=== PATIENT | female | born 1950 | race Caucasian/White ===

== ENCOUNTER → 2019-07-19 | Outpatient (CLI) | payer MEDICARE, SELFPAY ==
[2019-07-09 13:00] VITALS: BMI 35.6
--- NOTE | 2019-07-19 11:18 | RAD_ITS ---
STUDY: X-RAY - LUMBAR SPINE REASON FOR EXAM: Female, 68 years old. BILATERAL LEG WEAKNESS AND PAIN, LOW BACK PAIN, HX SCOLIOSIS TECHNIQUE: 5 view(s) of the lumbar spine were obtained. COMPARISON: None FINDINGS: Normal lumbar lordosis. There is a levoscoliosis of the lumbar spine. There is a normal alignment of the vertebrae. There is multilevel endplate spondylosis of the lumbar vertebrae. There is multi-level degenerative disc disease with multi-level disc space narrowing. Facet arthropathy of the L1-S1 level. The attempted oblique views failed to delineate facet detail. There is atherosclerotic calcification of the abdominal aorta without a demonstrated aneurysm. RAD/L/S Spine Min 4 Views IMPRESSION: Multifocal degenerative changes in patient with significant levoscoliosis and facet arthropathy. Consider cross-sectional imaging for better detail. Electronically Signed: Saadia Moya MD at 3:16 EST , Service support ,
[2019-07-19 14:10] LABS: Absolute Neutrophil Count 5.1 X10^3/uL (2.0-7.7); Basophil# 0.05 X10^3/uL; Basophil% 0.7 % (0-1); Eosinophil# 0.28 X10^3/uL; Eosinophils% 3.7 % (0-5); Hematocrit 43.1 % (37-47); Hemoglobin 13.8 g/dL (12.0-15.0); Lymphocyte % 18.4 % (19-41); Mean Corpuscular Hgb 31.9 pg (27.0-32.0); Mean Corpuscular Volume 99.8 fL (81-99); Mean Platelet Vol. 11.1 fl (6.2-12.0); Monocyte# 0.79 X10^3/uL; Monocyte% 10.4 % (0-10); NRBC Flagged by Analyzer 0 % (0-5); Neutrophil # 5.05 X10^3/uL (2.7-7.7); Neutrophil % 66.3 % (47-70); Platelet Count 235 K/mm3 (150-450); RBC Distribution Width CV 13.1 % (11.6-14.6); RBC Distribution Width SD 48.1 fl (35.1-43.9); Red Blood Count 4.32 M/mm3 (4.2-5.4); White Blood Count 7.6 K/mm3 (4.4-11.0)
[2019-07-19 14:30] LABS: ALB/GLOB Ratio 1.1 RATIO (0.9-2.4); AST(SGOT) 16 U/L (15-37); Alanine Aminotransfer ALT/SGPT 23 U/L (13-56); Albumin, Serum 3.7 g/dL (3.2-5.0); Alkaline Phosphatase 99 U/L (45-117); Anion Gap 5 (5-15); BUN 15 mg/dL (7-18); BUN/Creat Ratio 16.3 RATIO (10-20); Calcium,Total 9.2 mg/dL (8.5-10.1); Chloride 110 mmol/L (98-107); Cholesterol 173 mg/dL (200); Creatinine, Serum 0.92 mg/dL (0.55-1.02); EST Glomerular Filtration Rate 64 mL/min (>60); Est Glom Filt Rate - Afr Amer 78 mL/min (>60); Globulin 3.3 g/dL (2.2-4.2); Glucose 84 mg/dL (74-106); High Density Lipoprotein 75 mg/dL; Potassium 3.8 mmol/L (3.5-5.1); Sodium Level 144 mmol/L (136-145); Triglycerides 100 mg/dL; Very Low Density Lipoprotein 20 mg/dL (5-40)
== END | disposition home or self-care (01) ==
LOC: MTLAB 11:18
PROVIDERS: PCP Internal Medicine; Referring Provider Internal Medicine; Visit Provider Internal Medicine
DX: I10 Essential (primary) hypertension (principal); R29.898 Other symptoms and signs involving the musculoskeletal system
CPT/HCPCS: 36415; 72110; 80053; 80061; 85025

== ENCOUNTER 2019-07-27 06:50 | Day surgery (SDC) | payer MEDICARE, SELFPAY ==
[2019-07-09 13:00] VITALS: BMI 35.6
[2019-07-27 07:13] VITALS: BP 106/61; PULSE 76; RESP 16; TEMP 36.9; O2SAT 97; BMI 34.6
[2019-07-27] MEDS: Lactated Ringers 1,000 ML 100 ML IV (07:25)
--- NOTE | 2019-07-27 08:21 | DCINST_ITS ---
Discharge Diet: No Restrictions Discharge Activity: May not drive while taking narcotic pain medications. May resume sexual activity in: 1 week Call your doctor if you observe: Fever of 101 or Higher, Inability to urinate, Inability to have a bowel movement, Calf discomfort, Uncontrolled pain Allergies/Adverse Reactions: Allergies amlodipine [From Norvasc] Allergy (Unknown, Verified 07/27/19 07:00) swelling codeine Allergy (Unknown, Verified 07/27/19 07:00) rash hydrocodone Allergy (Unknown, Verified 07/27/19 07:00) rash memantine [From Namenda] Allergy (Unknown, Verified 07/27/19 07:00) mental fog confusion, foggy thinking Medications to take at Discharge aspirin 81 mg tablet,delayed release 81 mg PO DAILY 07/09/19 carvedilol 6.25 mg tablet 6.25 mg PO BID 07/09/19 cholecalciferol (vitamin D3) 50 mcg (2,000 unit) tablet 2,000 unit PO DAILY 07/09/19 fesoterodine 8 mg tablet,extended release 24 hr 4 mg PO BID 07/09/19 olopatadine 0.1 % eye drops 1 drp OPHTHALMIC BID 07/09/19 oxygen 2 l MISCELLANEOUS QHS 07/09/19 rosuvastatin 20 mg tablet 20 mg PO QHS 07/09/19 theophylline 300 mg tablet,extended release,12 hr 300 mg PO Q12H 07/09/19 Albuterol Inhaler [Ventolin Hfa (SP)] 1 - 2 puff INHALATION Q6H PRN PRN 07/21/19 escitalopram oxalate 20 mg tablet 10 mg PO DAILY #90 tab 07/23/19 omeprazole 40 mg capsule,delayed release 40 mg PO DAILY #90 cap 07/23/19 Primary Care Physician: Roberto Cano MD [Primary Care Provider] - Test Results: Test results from this visit will be discussed in further detail at your follow- up appointment, if applicable. Please Follow Up With: Lynsey Boykin MD When: call for appt to be seen next week
[2019-07-27] MEDS: Cefazolin 2 GM in 0.9% Normal Saline 100 ML IV (08:40)
[2019-07-27 09:04] VITALS: BP 101/70; BP 106/61; PULSE 69; RESP 14; TEMP 36.3; O2SAT 92
[2019-07-27 09:10] VITALS: BP 105/72; BP 106/61; PULSE 67; RESP 16; O2SAT 91
[2019-07-27 09:15] VITALS: BP 100/71; BP 106/61; PULSE 70; RESP 16; O2SAT 92
--- NOTE | 2019-07-27 09:15 | PCM.OPRPT ---
Problem List (1) Urinary urgency Status: Acute (2) Urinary frequency Status: Acute (3) Urgency incontinence Status: Acute (4) Nocturnal enuresis Status: Acute Report of Operation Date of Procedure: 07/27/19 Pre-Operative Diagnosis: Urinary urgency, frequency, urge incontinence and nocturnal enuresis Post-Operative Diagnosis: Same, cystocele, rectocele Surgery/Procedure Performed:: Cystoscopy, pelvic exam under anesthesia Description of Surgical Findings:: Grade 1 cystocele, grade 2 rectocele, no erosion or extrusion of mid urethral sling with good coaptation of the urethra under cystoscopic evaluation Type of Anesthesia:: MAC Description of Procedure: The patient is a 68-year-old female who presented to the office with significant urgency, frequency and incontinence. She desired to proceed with cystoscopy and pelvic exam under anesthesia. She has a history of a previous mid urethral sling insertion. Risks benefits and alternatives were discussed and informed consent was obtained. Patient was taken to the operating room and placed on the operating room table. Anesthesia monitored the head, neck, airway, IV access and vital signs throughout the case. Once anesthesia was appropriately administered the patient was placed into dorsal lithotomy position and was prepped and draped in usual sterile fashion. A pelvic examination revealed a grade 1 cystocele and a grade 2 rectocele with hard stool palpable in the rectal vault. There is no palpable or visible mesh from her mid urethral sling. At this time a cystoscopy was performed with specific attention to the urethra with a 12 degree lens. There is no erosion of the sling into the urethra. There is good coaptation of the urethra at the area of the sling. The urinary bladder revealed no evidence of erythema, mass, ulceration or foreign body. There was mild trabeculation identified. Bilateral ureteral orifices were on the area of the trigone and good clear ureteral jets were observed. At this time the patient's bladder was emptied and the case was terminated. There were no complications during the procedure. She was awakened and taken to the recovery room in good condition. Grafts/Implants Used: None - Complications None - Admit VTE Documentation VTE Present on Admission: Yes VTE Mechan Device Prophylaxis: SCD's VTE Pharm Prophylaxis ordered?: No Reason prophylaxis not ordered:: Treatment Not Indicated
[2019-07-27 09:20] VITALS: BP 106/61; BP 110/69; PULSE 97; RESP 16; TEMP 36.4; O2SAT 93
[2019-07-27 10:11] VITALS: BP 106/61
== END 2019-07-27 10:13 | disposition home or self-care (01) ==
LOC: SDC 06:58 → AC 07:00
PROVIDERS: PCP Internal Medicine; Referring Provider Urology; Visit Provider Urology
PROC: 0TJB8ZZ Inspection of Bladder, Via Natural or Artificial Opening Endoscopic (ICD-10-PCS; CPT 57410; principal; 2019-07-27 08:05)
DX: N81.6 Rectocele (principal); N81.10 Cystocele, unspecified; N39.44 Nocturnal enuresis; N39.41 Urge incontinence; K21.9 Gastro-esophageal reflux disease without esophagitis; K59.03 Drug induced constipation; T50.995A Adverse effect of other drugs, medicaments and biological substances, initial encounter; E78.00 Pure hypercholesterolemia, unspecified; I12.9 Hypertensive chronic kidney disease with stage 1 through stage 4 chronic kidney disease, or unspecified chronic kidney disease; N18.9 Chronic kidney disease, unspecified; Z87.440 Personal history of urinary (tract) infections; Z79.82 Long term (current) use of aspirin; Z79.899 Other long term (current) drug therapy; Z87.891 Personal history of nicotine dependence
CPT/HCPCS: 00910; 52000; J7120

== ENCOUNTER 2019-08-27 15:30 | Outpatient (RCR) | payer MEDICARE, SELFPAY ==
[2019-07-09 13:00] VITALS: BMI 35.6
--- NOTE | 2019-07-22 09:28 | HP.PTEVAL_ITS ---
Patient's Visit Information GAGAN MCCLELLAND is a 68 year old F referred to Physical Therapy by Roberto Cano MD with a diagnosis of CEREBRAL INFARCT ,UNSPECIFIED FALL,OTHER MUSCOSKELETAL SYSTEMS. Date of Evaluation: 07/21/19 Physical Therapist: Floyd Acosta, PT, Cert MDT, OCS - Visit Plan Frequency: 2x /Week Duration: 4 Weeks Plan: PT INTERVENTIONS GAIT TRAINING,BALANCE PROGRAM,STRENGTHENING BLE,FUNCTIONAL STRENGTHENING,ENDURANCE PROGRAM - Subjective Findings: This 68 y/o female presents to physical therapy for cerbral infart and falling,. Patient had CVA/TIA August 2018 in [facility] and fell to right. Patient to hospital for a week had diagnostics. Patient had Rehab for 2weeks. Then had outpatient PT/OT. Altough ,patient conts to have problem with walking and balance. Patient also has had h/o falling. Patient FWW at home but uses cane. Patient seen new DR in [place] and recommended PT.Patient has apartment and close to family. Patient sleeps with O2.Patient condtion affects QOL ,ADL'S and function. Patient denies parathesia/tingling.PMH: left TKR,left ORIF FEMUR. SOCIAL: single. VOCATION: retired - Objective POSTURE: mild foward posture,scoliosis. GAIT: unsteady gait with cane mild foward posture with increase SOB. BALANCE: fair+ with cane. NEURO: intact reflexes L3-4,L4-5,L5-S1. MMT: quads/hams 4-/5,hip flexion 3+/5,hip abd 3/5 ankle 4-/5. FLEXABLITY: hams mild tight. TRANSFERS: unble to sit-stand without using arms. STAIRS: one step at time with rail and cane - Balance Scores Functional Gait Assessment Score: 11 % Disability: 63.3400 CATSIB Score (Max score 120 seconds): 60 - Goals Goal 1:: Patient to be I with HEP. Goal Time Frame: 4-6 Weeks Goal 2:: Patient to increase strength BLE to 1/ grade to improve gait and sit - stand with UE. Goal Time Frame: 4-6 Weeks Goal 3:: Patient to improve CATSIB by 5-10 points to decrease risk of falls Goal Time Frame: 4-6 Weeks Goal 4:: Patient to improve functional gait assessment score by 5-10 points or> to decrease risk of falls Goal Time Frame: 4-6 Weeks Goal 5:: Patient to improve LFES SCORE by 5-10 points to improve QOL and function. - Rehabilitation Potential Physical Therapy Diagnosis: This 68 y/o female presents to physical therapy with decrease gait,balance deficits,weakness impairs mobility and function and risk of falls thus benifit from skilled PT Rehabilitation Potential: Good - Anticipated Interventions Patient/Client Instruction: Educate patient on: Condition, Plan of Care For the Purpose of:: To decrease pain, To increase ROM, To improve muscle performance and motor function, To improve ability to perform ADL's, To increase tolerance to activity/condition/position, To improve ability of physical actions for home/community/work/leisure, To improve health of tissue, To decrease soft tissue restriction, To reduce risk of recurrence, To improve ability to perform tasks related to life management Therapeutic Exercise to Include: Strength training, Endurance training, Balance training, Gait and locomotor training Comment: BEL For the Purpose of:: To decrease pain, To increase ROM, To improve muscle performance and motor function, To improve ability to perform ADL's, To increase tolerance to activity/condition/position, To improve performance and independence with ADL's, To improve ability of physical actions for home/community/work/leisure, To improve gait and locomotor functions, To increase flexibility/ROM, To improve endurance, To improve balance, To improve safety with gait, To improve ability to perform tasks related to life management Thank you for the opportunity to evaluate your patient. For Medicare and Medicare HMO plans, please review the plan of care and approve it. It will need to be FAXED BACK to us at [phone] for Medicare purposes. For Medicare only, by signing this I certify the plan of care. Please let me know if there are questions or concerns regarding this plan of care. Physician Signature: D ate:
--- NOTE | 2019-08-27 15:53 | HP.PTDCSUM_ITS ---
It has been my pleasure to treat GAGAN MCCLELLAND referred by Roberto Cano MD, with the diagnosis of CEREBRAL INFARCT ,UNSPECIFIED FALL,OTHER MUSCOSKELETAL SYSTEMS for a total of 9 visit(s). Discharge Date: Please see the following information for a summary of their discharge status. Subjective: Patient reports PT has helped with getting stronger and balance. Patient had one episode of falling. bilat hips Pain Intensity (Out of 10): 0 LBP Pain Intensity (Out of 10): 7 % Improvement: 50 Objective/Function: POSTURE: mild foward posture. GAIT: reciprocal pattern mild foward posture slightly with cane. BALANCE: good- with cane. MMT: QUADS/HAMS 4/5,HIP 4/5 ,ANKLE 4/5. STAIRS: ALTERANTE WITH RAILS Goal 1:: Patient to be I with HEP. Goal Progress: Goal Met Goal 2:: Patient to increase strength BLE to 1/ grade to improve gait and sit - stand with UE. Goal Progress: Goal Met Goal 3:: Patient to improve CATSIB by 5-10 points to decrease risk of falls Goal Progress: Goal Met Goal 4:: Patient to improve functional gait assessment score by 5-10 points or> to decrease risk of falls Goal Progress: Goal Met Goal 5:: Patient to improve LFES SCORE by 5-10 points to improve QOL and function. Goal Progress: Goal Met Plan: D/C If there are questions or concerns regarding this patient's physical therapy, please feel free to call me at [phone]. Thank you for the referral of this patient. Sincerely, Floyd Acosta, PT, Cert MDT, OCS
== END 2019-08-27 19:00 | disposition home or self-care (01) ==
LOC: PT 15:30
PROVIDERS: PCP Internal Medicine; Referring Provider Internal Medicine; Visit Provider Internal Medicine
DX: R29.898 Other symptoms and signs involving the musculoskeletal system (principal); W19.XXXD Unspecified fall, subsequent encounter; Z86.73 Personal history of transient ischemic attack (TIA), and cerebral infarction without residual deficits
CPT/HCPCS: 97110; 97116; 97162; 97530

== ENCOUNTER → 2019-12-15 | Outpatient (CLI) | payer MEDICARE, SELFPAY ==
[2019-12-02 16:25] VITALS: BMI 34.6
--- NOTE | 2019-12-15 15:43 | MRI_ITS ---
STUDY: MRI LUMBAR SPINE WITHOUT CONTRAST REASON FOR EXAM: Female, 69 years old. lumbar radiculopathy, back and bilat leg pain TECHNIQUE: Standardized fat and water weighted pulse sequences were obtained in the sagittal and axial planes. COMPARISON: Radiographs 07/19/2019 FINDINGS: Normal lumbar lordosis. There is a levoscoliosis of the lumbar spine. Normal conus medullaris that terminates at the T12-L1 level L1-2: Disc space narrowing and desiccation with discogenic endplate changes and anterior osteophytes. Disc osteophyte complex and bilateral facet hypertrophy with mild right foraminal stenosis. L2-3: Bulging annulus and bilateral facet hypertrophy with mild central canal and moderate right and mild left foraminal stenoses. L3-4: Bulging annulus and bilateral facet hypertrophy with mild central canal and left lateral recess stenoses and moderate to severe left and mild right foraminal stenoses. L4-5: Bulging annulus and bilateral facet hypertrophy with mild left lateral recess stenosis and moderate to severe left and mild right foraminal stenoses. L5-S1: Bulging annulus and bilateral facet hypertrophy without compressive sequelae. Normal visualized sacral ala. Normal visualized paraspinous soft tissue structures. MRI/Spine Lumbar (Routine) IMPRESSION: Multilevel degenerative disease as described. Moderate to severe left foraminal stenoses at the L3-4 and L4-5 levels. Electronically Signed: Bear Arora MD at 17:05 EDT Tel , Service support ,
== END | disposition home or self-care (01) ==
PROVIDERS: PCP Internal Medicine; Referring Provider Internal Medicine; Visit Provider Internal Medicine
DX: M54.16 Radiculopathy, lumbar region (principal)
CPT/HCPCS: 72148

== ENCOUNTER 2020-01-12 17:51 | Inpatient (IN) | payer MEDICARE, SELFPAY ==
[2020-01-06 14:07] VITALS: BMI 37.3
[2020-01-12] VITALS (8 sets, daily range): BP systolic 134–150; BP diastolic 88–119; PULSE 89–100; RESP 18–25; TEMP 36.3–36.9; O2SAT 93–98; BMI 37.5
--- NOTE | 2020-01-12 17:56 | RAD_ITS ---
STUDY: X-RAY CHEST REASON FOR EXAM: Female, 69 years old. PT FELL IN THE BATHUB ON FRIDAY. HAS LAID IN THE BATHTUB SINCE. OPEN FRACTURE TO RIGHT ANKLE WITH DEFORMITY. TECHNIQUE: Single AP portable view of the chest. COMPARISON: None. FINDINGS: The lungs are clear and expanded. There is no demonstrated pleural abnormality. Normal size heart. Normal mediastinum and dorina. Normal visualized pulmonary arteries. Normal visualized aortic arch and descending thoracic aorta. Moderate dextroscoliosis and asymmetric degenerative changes of the spine are present. Normal visualized ribs, clavicles, and shoulders. There is no demonstrated abnormality of the visualized soft tissue structures of the upper abdomen. RAD/Chest 1 View (Portable) IMPRESSION: No demonstrated acute process Electronically Signed: Zana Tamayo MD at 19:41 EDT , Service support ,
--- NOTE | 2020-01-12 17:57 | EKG12_ITS ---
Test Reason : FALL Blood Pressure : / mmHG Vent. Rate : 093 BPM Atrial Rate : 093 BPM P-R Int : 178 ms QRS Dur : 158 ms QT Int : 432 ms P-R-T Axes : 078 -42 112 degrees QTc Int : 537 ms Normal sinus rhythm Left axis deviation Left bundle branch block Abnormal ECG Confirmed by JEANIE SAUNDERS, GIGI ([id number]), film or videotape editor SRINIVAS GREGG ([id number]) on 01/17/2020 9:30:01 AM Referred By: Danny Menchaca Confirmed By:ELIA WARE MD
--- NOTE | 2020-01-12 17:58 | RAD_ITS ---
STUDY: X-RAY - RIGHT TIBIA AND FIBULA REASON FOR EXAM: Female, 69 years old. PT FELL IN THE BATHUB ON FRIDAY. HAS LAID IN THE BATHTUB SINCE. OPEN FRACTURE TO RIGHT ANKLE WITH DEFORMITY. TECHNIQUE: 4 view(s) of the tibia and fibula were obtained. COMPARISON: Right ankle x-ray dated January 12, 2020 FINDINGS: Complete disarticulation of the ankle mortise with complete lateral dislocation of the talus in relation to the tibial plafond. An acute oblique fractures present through the distal one third fibular shaft resulting in posterior lateral displacement of the distal fragment. A mildly comminuted fracture of the medial malleolus and adjacent articular surface of the tibial plafond is also partially visualized. The soft tissues are deformed and swollen. A small amount of subcutaneous gas is present. The tibia and fibula are normal above the ankle joint of the knee joint. RAD/Tibia & Fibula 2 Views IMPRESSION: Fracture dislocation of the ankle joint. Electronically Signed: Zana Tamayo MD at 19:43 EDT , Service support ,
--- NOTE | 2020-01-12 18:10 | US_ITS ---
STUDY: VENOUS DOPPLER ULTRASOUND - RIGHT LOWER EXTREMITY REASON FOR EXAM: Female, 69 years old. RT LEG SWELLING AND BROKEN FOOT TECHNIQUE: Ultrasound evaluation of the deep vein system to include vargas-scale imaging and compression was performed. Vargas-scale imaging and Doppler sonographic evaluation, including duplex spectral analysis and qualitative color flow sonography, was performed. COMPARISON: Right ankle x-ray dated January 12, 2020. FINDINGS: Common Femoral Vein: Normal compression, spontaneity and augmentation. Normal color Doppler. Common Femoral Vein/Greater Saphenous Junction: Normal compression, spontaneity and augmentation. Normal color Doppler. Deep Femoral Vein: Normal compression, spontaneity and augmentation. Normal color Doppler. Femoral Proximal: Normal compression, spontaneity and augmentation. Normal color Doppler. Femoral Middle: Normal compression, spontaneity and augmentation. Normal color Doppler. Femoral Distal: Normal compression, spontaneity and augmentation. Normal color Doppler. Popliteal Vein: Normal compression, spontaneity and augmentation. Normal color Doppler. Posterior Tibial Vein: Normal compression, spontaneity and augmentation. Normal color Doppler. Peroneal Vein: Normal compression, spontaneity and augmentation. Normal color Doppler. The left common femoral vein was evaluated and is normal. US/Venous Duplex Imag/Limited/Uni IMPRESSION: 1. No demonstrated deep venous thrombosis of the right leg. Electronically Signed: Zana Tamayo MD at 19:57 EDT , Service support ,
--- NOTE | 2020-01-12 18:10 | NURSING ---
NO OLD EKGS
[2020-01-12 18:29] LABS: Absolute Lymphocyte Count 1.32 X10^3/uL (0.83-4.51); Absolute Neutrophil Count 9.8 X10^3/uL (2.0-7.7); Basophil# 0.06 X10^3/uL; Basophil% 0.5 % (0-1); Eosinophil# 0.29 X10^3/uL; Eosinophils% 2.2 % (0-5); Hematocrit 43.5 % (37-47); Lymphocyte # 1.32 X10^3/ul (4.0); Lymphocyte % 10.2 % (19-41); Mean Corp Hgb Conc 32.2 g/dL (32-36); Mean Corpuscular Hgb 32.2 pg (27.0-32.0); Mean Platelet Vol. 11.2 fl (6.2-12.0); Monocyte# 1.37 X10^3/uL; Monocyte% 10.6 % (0-10); NRBC Flagged by Analyzer 0 % (0-5); Neutrophil # 9.82 X10^3/uL (2.7-7.7); Platelet Count 329 K/mm3 (150-450); RBC Distribution Width CV 13.2 % (11.6-14.6); RBC Distribution Width SD 48.4 fl (35.1-43.9); Red Blood Count 4.35 M/mm3 (4.2-5.4); White Blood Count 12.9 K/mm3 (4.4-11.0)
[2020-01-12 18:40] LABS: CPK Total, Creatine Kinase 865 U/L (26-192)
[2020-01-12 18:41] LABS: ALB/GLOB Ratio 0.8 RATIO (0.9-2.4); AST(SGOT) 51 U/L (15-37); Alanine Aminotransfer ALT/SGPT 40 U/L (13-56); Albumin, Serum 3.4 g/dL (3.2-5.0); Alkaline Phosphatase 90 U/L (45-117); Anion Gap 7 (5-15); BUN 42 mg/dL (7-18); BUN/Creat Ratio 42.3 RATIO (10-20); Calcium,Total 9.4 mg/dL (8.5-10.1); Chloride 105 mmol/L (98-107); Creatinine, Serum 0.99 mg/dL (0.55-1.02); EST Glomerular Filtration Rate 59 mL/min (>60); Est Glom Filt Rate - Afr Amer 71 mL/min (>60); Estimated Creatinine Clearance 45.01 ml/min; Glucose 94 mg/dL (74-106); Potassium 4.9 mmol/L (3.5-5.1); Protein, Total 7.4 g/dL (6.4-8.2); Sodium Level 140 mmol/L (136-145)
--- NOTE | 2020-01-12 18:45 | RAD_ITS ---
STUDY: X-RAY - RIGHT ANKLE REASON FOR EXAM: Female, 69 years old. PT FELL IN THE BATHUB ON FRIDAY. HAS LAID IN THE BATHTUB SINCE. OPEN FRACTURE TO RIGHT ANKLE WITH DEFORMITY. TECHNIQUE: 2 view(s) of the ankle. COMPARISON: None. FINDINGS: Complete disarticulation of the ankle mortise with complete lateral dislocation of the talus in relation to the tibial plafond. An acute oblique fractures present through the distal one third fibular shaft resulting in posterior lateral displacement of the distal fragment. A mildly comminuted fracture of the medial malleolus and adjacent articular surface of the tibial plafond is also partially visualized. The soft tissues are deformed and swollen. A small amount of subcutaneous gas is present. RAD/Ankle 2 Views IMPRESSION: 1. Complete disarticulation of the ankle mortise with lateral dislocation of the talus in relation to the tibial plafond. 2. Acute fractures of the distal fibula, medial malleolus, and tibial plafond. Electronically Signed: Zana Tamayo MD at 19:37 EDT , Service support ,
[2020-01-12 18:52] LABS: International Normalized Ratio 1.1; Prothrombin Time (Protime)PT. 13.6 SECONDS (11.7-14.9)
[2020-01-12 18:53] LABS: Partial Thromboplast Time 28.9 Seconds (24.1-36.2)
--- NOTE | 2020-01-12 18:55 | ED.DCSUM_ITS ---
History of Present Illness Chief Complaint: Fall Informant: Patient Onset: Days - She had slipped in the shower and has been in the shower since Friday. Mechanism/Context: Blunt Injury, Fall Quality of Pain: Dull, Aching Location: Ankle Current Severity: Mild Maximum Severity: Severe Worsened by: Movement Associated Symptoms: Loss of function, Inability to ambulate. Negative for: Parasthesias, Weakness, Loss of consciousness Narrative: Patient is an elderly woman with history of hypertension hypercholesterolemia who is not eaten since Friday. She last drank water 2 hours ago. She states she was drinking water from the shower [place] at said Friday. She denies allergies to antibiotics. She does not know when her last tetanus shot was. She complains of pain in the right lower extremity with swelling. She has no history of PE or DVT. She denies history of diabetes. She denies head trauma. She denies loss of conscious. She not amnestic. She denies neck pain. Denies paresthesia, anesthesia motors presently at time of the fall. She denies cardiac respiratory symptoms. She denies urologic symptoms. Tetanus Immunization: Unknown Prior similar symptoms: No Recent Illness/Hospitalization: No - Past Medical History (1) LBBB (left bundle branch block) Status: Acute (2) CKD (chronic kidney disease) stage 3, GFR 30-59 ml/min Status: Chronic (3) Essential hypertension Status: Chronic (4) Hyperlipemia, mixed Status: Chronic (5) Thoracic aortic aneurysm without rupture Status: Chronic Comment: Mild 3.9cm per ECHO 08/05/18 Past Medical History - Allergies and Home Meds Allergies/Adverse Reactions: Allergies amlodipine [From Norvasc] Allergy (Unknown, Verified 01/12/20 17:56) swelling codeine Allergy (Unknown, Verified 01/12/20 17:56) rash hydrocodone Allergy (Unknown, Verified 01/12/20 17:56) rash memantine [From Namenda] Allergy (Unknown, Verified 01/12/20 17:56) mental fog confusion, foggy thinking Primary Care Physician: Roberto Cano MD [Primary Care Provider] - Prior records reviewed: Yes Surgical History: noncontributory Lives: Alone Smoking Status: Former smoker Alcohol: None Drugs: None Review of Systems General: Denies: Chills, Fever, Sweats Eyes: Denies: Visual changes - bilaterally, Blurred Vision - bilaterally ENT: Denies: Bilateral ear pain, Rhinorrhea, Sore throat Cardiovascular: Denies: Chest pain, Palpitations Respiratory: Denies: Dyspnea, Cough, Dyspnea on exertion Gastrointestinal: Denies: Abdominal pain, Nausea, Vomiting, Diarrhea, Melena, Hematochezia Genitourinary: Denies: Dysuria, Hematuria, Frequency Musculoskeletal: Reports: Swelling, Extremity Pain. Denies: Myalgias, Arthralgias, Neck pain, Back pain, -, - Skin: Reports: Wounds. Denies: Rash, Abscess Neurological: Denies: Headache Psych: Denies: Depression, Anxiety Endocrine: Denies: Polyuria, Polydipsia Allergy: Denies: Uticaria, Swelling of the mouth Physical Exam Vital Signs/Narrative: Vital Signs Temp Pulse Resp BP Pulse Ox 01/12/20 17:56 97.4 F L 100 22 H 134/92 H 93 01/12/20 17:52 97.4 F L 100 22 H 134/92 H 93 Inital Vital Signs reviewed: Yes General: Well nourished, Well developed, Obese Head: Normocephalic, Atraumatic. Negative for: Trauma, Tenderness Eyes: Perrl, EOMI. Negative for: Pale conjunctiva, Scleral icterus ENT: TM's clear, No hemotympanum or drainage, No trauma, - - Post is dry.. Negative for: Hemotympanum, Otorrhea, Nasal trauma, Nasal septal hematoma Neck: Nontender, Full ROM. Negative for: Spinal Tenderness, Paraspinal Tenderness Cardiovascular: Regular rate, Regular rhythm, No murmurs, Normal S1, Normal S2 Respiratory: No distress, CTA bilaterally, Chest nontender Abdomen: Soft, Nontender, Nondistended, Normal bowel sounds Back: Paraspinal Tenderness - Is a red spot upper back due to pressure from lying in the bathtub.. Negative for: Nontender, CVA Tenderness - Right, CVA Tenderness - Left, Spinal Tenderness Skin: No Trauma, - - Has an open fracture dislocation clinically right ankle with the female is protruding.. Negative for: Normal color, No rash, Cyanosis, Diaphoresis, Jaundice Neurological: Alert, Oriented x3, Cranial nerves II-XII grossly intact, Normal Strength, Normal Sensation Psychological: Normal affect, Normal Mood - Glascow Coma Scale Eye Opening: Spontaneous Motor: Obeys Commands Verbal: Oriented Coma Scale Total: 15 Diagnostic/Tx/Re-eval 01/12/20 17:56 Chest 1 View (Portable) [RAD] Stat 01/12/20 17:58 Ankle min 3 Views [RAD] Stat Tibia & Fibula 2 Views [RAD] Stat Laboratory Results 01/12/20 01/12/20 01/12/20 18:10 18:10 18:10 WBC 12.9 H RBC 4.35 Hgb 14.0 Hct 43.5 MCV 100.0 H MCH 32.2 H MCHC 32.2 RDW Std Deviation 48.4 H RDW Coeff of Surya 13.2 Plt Count 329 MPV 11.2 Immature Gran % (Auto) 0.500 Neut % (Auto) 76.0 H Lymph % (Auto) 10.2 L [place] % (Auto) 10.6 H Eos % (Auto) 2.2 Baso % (Auto) 0.5 Absolute Neuts (auto) 9.8 H Absolute Lymphs (auto) 1.32 Nucleated RBC % 0 PT 13.6 INR 1.1 APTT 28.9 Sodium 140 Potassium 4.9 Chloride 105 Carbon Dioxide 28.0 Anion Gap 7 BUN 42 H Creatinine 0.99 Estim Creat Clear Calc 45.01 Est GFR (MDRD) Af Amer 71 Est GFR (MDRD) Non-Af 59 L BUN/Creatinine Ratio 42.3 H Glucose 94 Lactic Acid Calcium 9.4 Total Bilirubin 1.10 H AST 51 H ALT 40 Alkaline Phosphatase 90 Total Creatine Kinase Troponin I < 0.015 Total Protein 7.4 Albumin 3.4 Globulin 4.0 Albumin/Globulin Ratio 0.8 L 01/12/20 01/12/20 18:10 18:10 WBC RBC Hgb Hct MCV MCH MCHC RDW Std Deviation RDW Coeff of Surya Plt Count MPV Immature Gran % (Auto) Neut % (Auto) Lymph % (Auto) [place] % (Auto) Eos % (Auto) Baso % (Auto) Absolute Neuts (auto) Absolute Lymphs (auto) Nucleated RBC % PT INR APTT Sodium Potassium Chloride Carbon Dioxide Anion Gap BUN Creatinine Estim Creat Clear Calc Est GFR (MDRD) Af Amer Est GFR (MDRD) Non-Af BUN/Creatinine Ratio Glucose Lactic Acid 1.6 Calcium Total Bilirubin AST ALT Alkaline Phosphatase Total Creatine Kinase 865 H Troponin I Total Protein Albumin Globulin Albumin/Globulin Ratio There is no evidence of rhabdomyolysis or acute kidney injury. Hospitalist was paged per podiatry request for medical risk ratification prior to surgery. Plan is OR tonight. Since the ankle has been dislocated for 5 days and the wound is dirty she did not undergo emergent reduction. Presumed that it would be better for the patient to have this done in the operating room. Tib-fib x-ray reveals a distal fibular fracture with fracture dislocation of the medial malleolus. There is subcu air noted along the distal fibula. The chest x-ray which was performed portable reveals no infiltrate, pneumothorax, hemothorax. Cardiac size silhouette normal. Mediastinum normal. Osseous structures are normal. Three-view x-ray of the ankle was obtained and reveals bimalleolar fracture dislocation of the ankle. There is subcu air noted. Venous duplex study is pending. - EKG Initial EKG Interpretation: Sinus Rhythm - Normal sinus rhythm with premature atrial beats noted. There is a left bundle branch block. Ventricular rate 73. MI interval 200 ms. QRS duration 166 ms. QT duration 436 ms. [place] to left. - Medical Decision Making Patient has open fracture dislocation of ankle. Spoke with podiatry. They are aware. We will need to work-up for rhabdomyolysis, acute kidney injury, DVT right lower extremity, cardiac dysrhythmia. Appropriate images, laboratory tests were ordered as well as venous duplex study. Receive 1 g of Ancef for her open fracture dislocation. ED Disposition - Plan for ED Patient: Disposition: Acute Care Hospital [facility] Diagnosis: Type I or II open fracture dislocation of right ankle, Hypertension, History of hypercholesterolemia, Pressure sore of upper back Referrals: Roberto Cano MD [Primary Care Provider] -
[2020-01-12 19:00] LABS: Lactic Acid 1.6 mmol/L (0.4-1.9)
--- NOTE | 2020-01-12 19:14 | PCM.HP.STD ---
<Hankins,Kalin - Last Filed: 01/12/20 19:41> Problem List (1) LBBB (left bundle branch block) Status: Acute (2) CKD (chronic kidney disease) stage 3, GFR 30-59 ml/min Status: Chronic (3) Essential hypertension Status: Chronic (4) Hyperlipemia, mixed Status: Chronic (5) Thoracic aortic aneurysm without rupture Status: Chronic Comment: Mild 3.9cm per ECHO 08/05/18 History of Present Illness The patient is a 69 year old F [] Past Medical History Past Medical History (Chronic Problems): Chronic Problems (Last Updated 01/06/20 @ 14:18 by Kelsie Muñoz) Hypertension (Chronic) CKD (chronic kidney disease) stage 3, GFR 30-59 ml/min (Chronic) Thoracic aortic aneurysm without rupture (Chronic) Mild 3.9cm per ECHO 08/05/18 Essential hypertension (Chronic) Lumbar radiculopathy (Chronic) Chronic back pain (Chronic) Urgency incontinence (Chronic) Hyperlipemia, mixed (Chronic) Medical History: Medical History (Last Updated 01/06/20 @ 14:18 by Kelsie Muñoz) CKD (chronic kidney disease) stage 3, GFR 30-59 ml/min (Chronic) N18.3 Thoracic aortic aneurysm without rupture (Chronic) I71.2 Mild 3.9cm per ECHO 08/05/18 Essential hypertension (Chronic) I10 LBBB (left bundle branch block) (Acute) I44.7 Hyperlipemia, mixed (Chronic) E78.2 Anxiety F41.9 Arrhythmia I49.9 Cataracts, bilateral H26.9 Esophageal reflux K21.9 H/O: pneumonia Z87.01 H/O: stroke Z86.73 Hypothyroidism E03.9 Obesity E66.9 Osteoarthritis, knee M17.10 Oxygen desaturation during sleep G47.34 Pulmonary nodule R91.1 Scoliosis M41.9 TIA (transient ischemic attack) G45.9 08/2018 Chronic respiratory failure J96.10 CKD (chronic kidney disease) (Inactive) N18.9 stage 3 COPD (chronic obstructive pulmonary disease) J44.9 Allergies amlodipine [From Norvasc] Allergy (Unknown, Verified 01/12/20 17:56) swelling codeine Allergy (Unknown, Verified 01/12/20 17:56) rash hydrocodone Allergy (Unknown, Verified 01/12/20 17:56) rash memantine [From Namenda] Allergy (Unknown, Verified 01/12/20 17:56) mental fog confusion, foggy thinking Home Medications: Ambulatory Orders Medication Instructions Recorded aspirin 81 mg tablet,delayed 81 mg PO DAILY 07/09/19 release omeprazole 40 mg capsule,delayed 40 mg PO DAILY #90 cap 07/23/19 release rosuvastatin 20 mg tablet 20 mg PO QHS #90 tab 10/26/19 theophylline 300 mg 300 mg PO Q12H #180 tab 11/18/19 tablet,extended release,12 hr mirabegron 25 mg tablet,extended 25 mg PO DAILY 12/02/19 release 24 hr escitalopram oxalate 20 mg tablet 20 mg PO DAILY #90 tab 12/08/19 carvedilol 25 mg tablet 50 mg PO BREAKFAST tab 01/06/20 cholecalciferol (vitamin D3) 125 125 mcg PO DAILY 01/06/20 mcg (5,000 unit) capsule Carvedilol [Coreg] 25 mg PO QHS 01/12/20 Surgical History: Surgical History (Last Reviewed 01/06/20 @ 14:14 by Kelsie Muñoz) Femur fracture S72.90XA 2016 Carpal tunnel syndrome G56.00 H/O bladder repair surgery Z98.890 2018 H/O colonoscopy Z98.890 01/24/2006 H/O right wrist surgery Z98.890 History of knee replacement Z96.659 2013 Patient Problems: Active and Suspected Problems (Last Updated 01/06/20 @ 14:18 by Kelsie Muñoz) Type I or II open fracture dislocation of right ankle (Acute) History of hypercholesterolemia (Acute) Pressure sore of upper back (Acute) - Physical Exam Vitals/I&O's: Vital Signs Temp Pulse Resp BP Pulse Ox 97.4 F L 100 22 H 134/92 H 93 01/12/20 17:56 01/12/20 17:56 01/12/20 17:56 01/12/20 17:56 01/12/20 17:56 Oxygen Delivery Method Room Air Weight: 99.3 kg Body Mass Index (BMI) 37.5 Laboratory Results 01/12/20 18:10: WBC 12.9 H, RBC 4.35, Hgb 14.0, Hct 43.5, MCV 100.0 H, MCH 32.2 H, MCHC 32.2, RDW Std Deviation 48.4 H, RDW Coeff of Surya 13.2, Plt Count 329, MPV 11.2, Immature Gran % (Auto) 0.500, Neut % (Auto) 76.0 H, Lymph % (Auto) 10.2 L, [place] % (Auto) 10.6 H, Eos % (Auto) 2.2, Baso % (Auto) 0.5, Absolute Neuts (auto) 9.8 H, Absolute Lymphs (auto) 1.32, Nucleated RBC % 0 01/12/20 18:10: PT 13.6, INR 1.1, APTT 28.9 01/12/20 18:10: Sodium 140, Potassium 4.9, Chloride 105, Carbon Dioxide 28.0, Anion Gap 7, BUN 42 H, Creatinine 0.99, Estim Creat Clear Calc 45.01, Est GFR (MDRD) Af Amer 71, Est GFR (MDRD) Non-Af 59 L, BUN/Creatinine Ratio 42.3 H, Glucose 94, Calcium 9.4, Total Bilirubin 1.10 H, AST 51 H, ALT 40, Alkaline Phosphatase 90, Troponin I < 0.015, Total Protein 7.4, Albumin 3.4, Globulin 4.0, Albumin/Globulin Ratio 0.8 L 01/12/20 18:10: Lactic Acid 1.6 01/12/20 18:10: Total Creatine Kinase 865 H Assessment/Plan All Active Problems (Last Updated 01/06/20 @ 14:18 by Kelsie Muñoz) Type I or II open fracture dislocation of right ankle (Acute) History of hypercholesterolemia (Acute) Pressure sore of upper back (Acute) Urinary urgency (Acute) Urinary frequency (Acute) Nocturnal enuresis (Acute) LBBB (left bundle branch block) (Acute) <Danny Menchaca - Last Filed: 01/12/20 19:57> Problem List (1) Type I or II open fracture dislocation of right ankle Status: Acute (2) Hypertension Status: Chronic (3) History of hypercholesterolemia Status: Acute (4) Pressure sore of upper back Status: Acute (5) CKD (chronic kidney disease) stage 3, GFR 30-59 ml/min Status: Chronic (6) Thoracic aortic aneurysm without rupture Status: Chronic Comment: Mild 3.9cm per ECHO 08/05/18 (7) Essential hypertension Status: Chronic (8) Urinary urgency Status: Acute (9) Urinary frequency Status: Acute (10) Nocturnal enuresis Status: Acute (11) Lumbar radiculopathy Status: Chronic (12) Chronic back pain Status: Chronic (13) Urgency incontinence Status: Chronic (14) LBBB (left bundle branch block) Status: Acute (15) Hyperlipemia, mixed Status: Chronic History of Present Illness The patient is a 69 year old F significant history of scoliosis; and hypertension who presents emergency department with a fall and a gross dislocation of her right foot. Reportedly she slipped in the shower and laid there for 4 days. Because her family was not hearing from her because she could not reach out to the phone and family came to see her and or pain at the door with assistance of the apartments office. Well in the bathroom patient drank from the shower. The patient is a 69 year old F significant history of scoliosis; and hypertension who presents emergency department with a fall and a gross dislocation of her right foot. Based on ACS NSQIP her risk of cardiac complication is 0.2 which is about the average risk of 0.2%. Also her risk of serious complication is 9.1 % which is above the average risk of 6.3%. Her risk of any complication is 9.7 % which is above average risk of 6.6%. Her risk of pneumonia is1.1 % which is above average risk of 0.8%. May proceed with surgery and admit to MedSurg telemetry. Open right ankle fracture and dislocation. Based on ACS NSQIP her risk of cardiac complication is 0.2 which is about the average risk of 0.2%. Also her risk of serious complication is 9.1 % which is above the average risk of 6.3%. Her risk of any complication is 9.7 % which is above average risk of 6.6%. Her risk of pneumonia is1.1 % which is above average risk of 0.8%. May proceed with surgery and admit to MedSurg telemetry. EKG showed left bundle branch block and is unchanged from previous Keep patient n.p.o. for surgery. Resume p.o. medication in a.m. IV morphine trend for pain. IV Zofran PRN for antiemetics. Podiatry plan to take patient to surgery tonight. Emergent department doctor to order to transfer patient. Past Medical History Medical History: Medical History (Last Updated 01/06/20 @ 14:18 by Kelsie Muñoz) CKD (chronic kidney disease) stage 3, GFR 30-59 ml/min (Chronic) N18.3 Thoracic aortic aneurysm without rupture (Chronic) I71.2 Mild 3.9cm per ECHO 08/05/18 Essential hypertension (Chronic) I10 LBBB (left bundle branch block) (Acute) I44.7 Hyperlipemia, mixed (Chronic) E78.2 Anxiety F41.9 Arrhythmia I49.9 Cataracts, bilateral H26.9 Esophageal reflux K21.9 H/O: pneumonia Z87.01 H/O: stroke Z86.73 Hypothyroidism E03.9 Obesity E66.9 Osteoarthritis, knee M17.10 Oxygen desaturation during sleep G47.34 Pulmonary nodule R91.1 Scoliosis M41.9 TIA (transient ischemic attack) G45.9 08/2018 Chronic respiratory failure J96.10 CKD (chronic kidney disease) (Inactive) N18.9 stage 3 COPD (chronic obstructive pulmonary disease) J44.9 Allergies amlodipine [From Norvasc] Allergy (Unknown, Verified 01/12/20 17:56) swelling codeine Allergy (Unknown, Verified 01/12/20 17:56) rash hydrocodone Allergy (Unknown, Verified 01/12/20 17:56) rash memantine [From Namenda] Allergy (Unknown, Verified 01/12/20 17:56) mental fog confusion, foggy thinking Surgical History: Surgical History (Last Reviewed 01/06/20 @ 14:14 by Kelsie Muñoz) Femur fracture S72.90XA 2016 Carpal tunnel syndrome G56.00 H/O bladder repair surgery Z98.890 2019 H/O colonoscopy Z98.890 01/24/2006 H/O right wrist surgery Z98.890 History of knee replacement Z96.659 2013 Surgical History: noncontributory Lives: Alone Smoking Status: Former smoker Alcohol: None Drugs: None - Physical Exam Vitals/I&O's: Vital Signs Temp Pulse Resp BP Pulse Ox 97.4 F L 100 22 H 134/92 H 93 01/12/20 17:56 01/12/20 17:56 01/12/20 17:56 01/12/20 17:56 01/12/20 17:56 Oxygen Delivery Method Room Air Weight: 99.3 kg Body Mass Index (BMI) 37.5 Laboratory Results 01/12/20 18:10: WBC 12.9 H, RBC 4.35, Hgb 14.0, Hct 43.5, MCV 100.0 H, MCH 32.2 H, MCHC 32.2, RDW Std Deviation 48.4 H, RDW Coeff of Surya 13.2, Plt Count 329, MPV 11.2, Immature Gran % (Auto) 0.500, Neut % (Auto) 76.0 H, Lymph % (Auto) 10.2 L, [place] % (Auto) 10.6 H, Eos % (Auto) 2.2, Baso % (Auto) 0.5, Absolute Neuts (auto) 9.8 H, Absolute Lymphs (auto) 1.32, Nucleated RBC % 0 01/12/20 18:10: PT 13.6, INR 1.1, APTT 28.9 01/12/20 18:10: Sodium 140, Potassium 4.9, Chloride 105, Carbon Dioxide 28.0, Anion Gap 7, BUN 42 H, Creatinine 0.99, Estim Creat Clear Calc 45.01, Est GFR (MDRD) Af Amer 71, Est GFR (MDRD) Non-Af 59 L, BUN/Creatinine Ratio 42.3 H, Glucose 94, Calcium 9.4, Total Bilirubin 1.10 H, AST 51 H, ALT 40, Alkaline Phosphatase 90, Troponin I < 0.015, Total Protein 7.4, Albumin 3.4, Globulin 4.0, Albumin/Globulin Ratio 0.8 L 01/12/20 18:10: Lactic Acid 1.6 01/12/20 18:10: Total Creatine Kinase 865 H
[2020-01-12] MEDS: 0.9% Normal Saline 1,000 ML 1000 ML IV (19:18)
[2020-01-12] MEDS: Cefazolin 1 GM/50 ML BAG IV (19:18)
[2020-01-12] MEDS: Diphth,Pertuss(Acell),Tet Vac 0.5 ML Vial IM (19:19)
[2020-01-12] MEDS: Morphine 2 MG/ML Syringe IV (19:19)
[2020-01-12] MEDS: Ondansetron 4 MG/2 ML Vial IV ×2 (19:19→19:55)
--- NOTE | 2020-01-12 19:57 | HP.PCM_ITS ---
Problem List (1) Type I or II open fracture dislocation of right ankle Status: Acute Qualifiers: Encounter type: initial encounter Qualified Code(s): S82.891B - Other fracture of right lower leg, initial encounter for open fracture type I or II (2) Hypertension Status: Chronic (3) History of hypercholesterolemia Status: Chronic (4) CKD (chronic kidney disease) stage 3, GFR 30-59 ml/min Status: Chronic (5) Thoracic aortic aneurysm without rupture Status: Chronic Comment: Mild 3.9cm per ECHO 08/05/18 (6) Essential hypertension Status: Chronic (7) Urinary urgency Status: Inactive (8) Urinary frequency Status: Inactive (9) Lumbar radiculopathy Status: Chronic (10) Chronic back pain Status: Chronic (11) Urgency incontinence Status: Chronic (12) LBBB (left bundle branch block) Status: Chronic (13) Hyperlipemia, mixed Status: Chronic (14) Pressure sore of upper back Status: Inactive (15) Pressure sore of upper back Status: Inactive (16) Ankle osteomyelitis, right Status: Inactive Qualifiers: Osteomyelitis type: other acute Qualified Code(s): M86.171 - Other acute osteomyelitis, right ankle and foot History of Present Illness Date of Admission: 01/12/20 Chief Complaint: Fall and gross dislocation of right foot. The patient is a 69 year old F significant history of scoliosis; and hypertension who presents to the emergency department with a fall and a gross dislocation of her right foot. Patient slipped and fell at the bathroom 4 days ago. She laid in the bathroom and drank from the shower. Because her family could not get to her by phone, her family got into her apartment with assistance of the apartment office. The patient has pain in her right ankle with movement. At the emergency department podiatry was consulted and the plan was to take patient to the OR right from the emergency department. Past Medical History Past Medical History (Chronic Problems): Chronic Problems (Last Reviewed 01/12/20 @ 20:[address] Danny Menchaca MD) Hypertension (Chronic) History of hypercholesterolemia (Chronic) CKD (chronic kidney disease) stage 3, GFR 30-59 ml/min (Chronic) Thoracic aortic aneurysm without rupture (Chronic) Mild 3.9cm per ECHO 08/05/18 Essential hypertension (Chronic) Lumbar radiculopathy (Chronic) Chronic back pain (Chronic) Urgency incontinence (Chronic) LBBB (left bundle branch block) (Chronic) Hyperlipemia, mixed (Chronic) Medical History: Medical History (Last Reviewed 01/13/20 @ 01:[address] Danny Menchaca MD) CKD (chronic kidney disease) stage 3, GFR 30-59 ml/min (Chronic) N18.3 Thoracic aortic aneurysm without rupture (Chronic) I71.2 Mild 3.9cm per ECHO 08/05/18 Essential hypertension (Chronic) I10 LBBB (left bundle branch block) (Chronic) I44.7 Hyperlipemia, mixed (Chronic) E78.2 Anxiety F41.9 Arrhythmia I49.9 Cataracts, bilateral H26.9 Esophageal reflux K21.9 H/O: pneumonia Z87.01 H/O: stroke Z86.73 Hypothyroidism E03.9 Obesity E66.9 Osteoarthritis, knee M17.10 Oxygen desaturation during sleep G47.34 Pulmonary nodule R91.1 Scoliosis M41.9 TIA (transient ischemic attack) G45.9 08/2018 Chronic respiratory failure J96.10 CKD (chronic kidney disease) (Inactive) N18.9 stage 3 COPD (chronic obstructive pulmonary disease) J44.9 Allergies amlodipine [From Norvasc] Allergy (Unknown, Verified 01/12/20 17:56) swelling codeine Allergy (Unknown, Verified 01/12/20 17:56) rash hydrocodone Allergy (Unknown, Verified 01/12/20 17:56) rash memantine [From Namenda] Allergy (Unknown, Verified 01/12/20 17:56) mental fog confusion, foggy thinking Home Medications: Ambulatory Orders Medication Instructions Recorded aspirin 81 mg tablet,delayed 81 mg PO DAILY 07/09/19 release omeprazole 40 mg capsule,delayed 40 mg PO DAILY #90 cap 07/23/19 release rosuvastatin 20 mg tablet 20 mg PO QHS #90 tab 10/26/19 theophylline 300 mg 300 mg PO Q12H #180 tab 11/18/19 tablet,extended release,12 hr mirabegron 25 mg tablet,extended 25 mg PO DAILY 12/02/19 release 24 hr escitalopram oxalate 20 mg tablet 20 mg PO DAILY #90 tab 12/08/19 carvedilol 25 mg tablet 50 mg PO BREAKFAST tab 01/06/20 cholecalciferol (vitamin D3) 125 125 mcg PO DAILY 01/06/20 mcg (5,000 unit) capsule Carvedilol [Coreg] 25 mg PO QHS 01/12/20 Surgical History: Surgical History (Last Reviewed 01/13/20 @ 01:[address] Danny Menchaca MD) Femur fracture S72.90XA 2015 Carpal tunnel syndrome G56.00 H/O bladder repair surgery Z98.890 2019 H/O colonoscopy Z98.890 01/24/2006 H/O right wrist surgery Z98.890 History of knee replacement Z96.659 2013 Lives: Alone Smoking Status: Former smoker Alcohol: None Drugs: None - *Family History Maternal Family History: Family History (Last Reviewed 01/13/20 @ 01:[address] Danny Menchaca MD) Sister Diabetes Obesity Sleep apnea Mother Dementia Father Heart disease Review of Systems Constitutional: Denies: Chills, Fever, Weight Change HEENT: Denies: Head Aches, Sinus Congestion, Sinus Drainage Cardiovascular: Denies: Chest Pain, Palpitations Respiratory: Denies: Cough, Shortness of breath at rest, Sputum production Gastrointestinal: Denies: Abdominal Pain, Nausea, Vomiting Genitourinary: Denies: Dysuria Musculoskeletal: Reports: Foot Pain - right foot, Joint Pain - right foot, Joint Tenderness - right foot Skin: Denies: Rash, Wounds Neurological: Denies: Numbness, Tingling, Focal weakness Psychiatric: Denies: Anxiety, Depression, Homicidal Ideations, Suicidal Ideations Hematologic/ Lymphatic: Denies: Easy Bruising, Easy Bleeding VTE Information - Inpt Only VTE Present on Admission: No VTE Mechan Device Prophylaxis: SCD's VTE Pharm Prophylaxis ordered?: No Patient Problems: Active and Suspected Problems (Last Reviewed 01/12/20 @ 20:[address] Danny Menchaca MD) Type I or II open fracture dislocation of right ankle (Acute) - Physical Exam Vitals/I&O's: Vital Signs Temp Pulse Resp BP Pulse Ox 97.4 F L 93 24 H 140/88 H 94 01/12/20 17:56 01/12/20 19:44 01/12/20 19:44 01/12/20 19:44 01/12/20 19:44 Oxygen Delivery Method Room Air Weight: 99.3 kg Body Mass Index (BMI) 37.5 General: Alert, Oriented x3, Cooperative HEENT: Atraumatic, PERRLA, EOMI, Normocephalic Neck: Supple, Trachea Midline Lungs: Clear to auscultation, Normal air movement Cardiovascular: Regular rate, Regular Rhythm, Normal S1, Normal S2, No murmurs Abdomen: Bowel Sounds Present, Soft, Non Tender Extremities: Capillary Refill Less than 3 Seconds, Edema - Right foot, - - Rotation of right foot to lateral side. Skin: - - Open wound on right medial malleolus Musculoskeletal: No Tenderness to Palpation of Joints or Extremities Neurological: Cranial nerves II-XII grossly intact Psych/Mental Status: Normal Affect, Appropriate Laboratory Results 01/12/20 18:10: WBC 12.9 H, RBC 4.35, Hgb 14.0, Hct 43.5, MCV 100.0 H, MCH 32.2 H, MCHC 32.2, RDW Std Deviation 48.4 H, RDW Coeff of Surya 13.2, Plt Count 329, MPV 11.2, Immature Gran % (Auto) 0.500, Neut % (Auto) 76.0 H, Lymph % (Auto) 10.2 L, Placer % (Auto) 10.6 H, Eos % (Auto) 2.2, Baso % (Auto) 0.5, Absolute Neuts (auto) 9.8 H, Absolute Lymphs (auto) 1.32, Nucleated RBC % 0 01/12/20 18:10: PT 13.6, INR 1.1, APTT 28.9 01/12/20 18:10: Sodium 140, Potassium 4.9, Chloride 105, Carbon Dioxide 28.0, Anion Gap 7, BUN 42 H, Creatinine 0.99, Estim Creat Clear Calc 45.01, Est GFR (MDRD) Af Amer 71, Est GFR (MDRD) Non-Af 59 L, BUN/Creatinine Ratio 42.3 H, Glucose 94, Calcium 9.4, Total Bilirubin 1.10 H, AST 51 H, ALT 40, Alkaline Phosphatase 90, Troponin I < 0.015, Total Protein 7.4, Albumin 3.4, Globulin 4.0, Albumin/Globulin Ratio 0.8 L 01/12/20 18:10: Lactic Acid 1.6 01/12/20 18:10: Total Creatine Kinase 865 H Assessment/Plan All Active Problems (Last Reviewed 01/12/20 @ 20:[address] Danny Menchaca MD) Type I or II open fracture dislocation of right ankle (Acute) The patient is a 69 year old F significant history of scoliosis; and hypertension who presents to the emergency department with a fall and a gross dislocation of her right foot; and with an open wound on the right medial malleolus. Open right ankle fracture and dislocation. Based on ACS NSQIP her risk of cardiac complication is 0.2 which is about the average risk of 0.2%. Also her risk of serious complication is 9.1 % which is above the average risk of 6.3%. Her risk of any complication is 9.7 % which is above average risk of 6.6%. Her risk of pneumonia is1.1 % which is above average risk of 0.8%. May proceed with surgery and admit to [facility] telemetry. EKG showed left bundle branch block and is unchanged from previous Keep patient n.p.o. for surgery. Resume p.o. medication in a.m. IV morphine trend for pain. IV Zofran PRN for antiemetics. Podiatry plan to take patient to surgery tonight. Tetanus injection ordered at the ED. Hypertension On Presentation blood pressure was elevated Carvedilol continued Depression/Anxiety Lexapro ordered HLD Rosuvastatin ordered DVT prophylaxis SCD on left leg for now. Inpatient E&M: 59977 Init Hosp L3
[2020-01-12] MEDS: Lactated Ringers 1,000 ML 100 ML IV (20:00)
[2020-01-12] MEDS: Morphine 4 MG/ML Syringe IV (20:02)
--- NOTE | 2020-01-12 20:58 | ED.RN ---
catheter check for urine none at this time. dr informed. latonia chavez, rn [id number]
[2020-01-12 21:29] LABS: Probe Check PASS; Specimen Processing Control PASS
--- NOTE | 2020-01-12 22:00 | BON_PTH ---
PATIENT: GAGAN MCCLELLAND LOC: MS3 U#:[id number] AGE/SX: 69/F [facility]: Dr. Mehrdad Santamaria DO : 1950 BED: 1 DIS: 01/19/2020 SPEC #: [id number] RECD: 01/13/20 07:33 STATUS: CHRISTIANNE REGerry #: [id number] EFRAIN: 01/12/20 22:[address]: Vandana Cortez DEPT: SURGICAL PATHOLOGY RECD BY: Una Morris ENTERED: 01/13/20 09:54 SP TYPE: Bone OTHR DR: MD Dr. Danny Pyle MD Dr. Nicholas F Kotsonis, MD Tissues: Bone of ankle, NOS Procedures: Decalcification bone/plaque Surgery Specimen Level IV HEADER OPERATION: ORIF ankle, external fixation close reduction PRE-OP DIAGNOSIS: Type I or II open fracture dislocation of right ankle TISSUE SUBMITTED: Medial malleolus bone biopsy right ankle MICROSCOPIC DIAGNOSIS Medial malleolus bone biopsy right ankle: A piece of bone with focal area of hemorrhage, clinically open fracture dislocation of right ankle. NORA:byron 01/19/20 MICROSCOPIC DESCRIPTION Slides are reviewed. GROSS DESCRIPTION Received in fixative is one container labeled with the patient's name and designated medial malleolus bone biopsy. The specimen consists of one irregular fragment of light topete soft tissue that measures 0.5 x 0.2 x 0.2 cm. The specimen is totally submitted in one cassette after decalcification. / AM:byron 01/13/20 TC:5 CPT: 89671, 34269
--- NOTE | 2020-01-12 22:04 | PCM.CONS.GEN ---
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 Patient was unable to obtain help until today. Patient injured her right ankle in the fall and has an open wound. Patient currently rates her pain as an 5/10 stating it was worse right after it happened. Patient denies any N/F/V/C/CP/SOB. Patient states she is hungry and thirsty. Patient was able to drink from her shower over the last 4 days. [] Past Medical History Past Medical History (Chronic Problems): Chronic Problems (Last Reviewed 01/13/20 @ 01:[address] Danny Menchaca MD) Hypertension (Chronic) History of hypercholesterolemia (Chronic) CKD (chronic kidney disease) stage 3, GFR 30-59 ml/min (Chronic) Thoracic aortic aneurysm without rupture (Chronic) Mild 3.9cm per ECHO 08/05/18 Essential hypertension (Chronic) Lumbar radiculopathy (Chronic) Chronic back pain (Chronic) Urgency incontinence (Chronic) LBBB (left bundle branch block) (Chronic) Hyperlipemia, mixed (Chronic) Medical History: Medical History (Last Reviewed 01/13/20 @ 01:[address] Danny Menchaca MD) CKD (chronic kidney disease) stage 3, GFR 30-59 ml/min (Chronic) N18.3 Thoracic aortic aneurysm without rupture (Chronic) I71.2 Mild 3.9cm per ECHO 08/05/18 Essential hypertension (Chronic) I10 LBBB (left bundle branch block) (Chronic) I44.7 Hyperlipemia, mixed (Chronic) E78.2 Anxiety F41.9 Arrhythmia I49.9 Cataracts, bilateral H26.9 Esophageal reflux K21.9 H/O: pneumonia Z87.01 H/O: stroke Z86.73 Hypothyroidism E03.9 Obesity E66.9 Osteoarthritis, knee M17.10 Oxygen desaturation during sleep G47.34 Pulmonary nodule R91.1 Scoliosis M41.9 TIA (transient ischemic attack) G45.9 08/2018 Chronic respiratory failure J96.10 CKD (chronic kidney disease) (Inactive) N18.9 stage 3 COPD (chronic obstructive pulmonary disease) J44.9 Allergies amlodipine [From Norvasc] Allergy (Unknown, Verified 01/12/20 17:56) swelling codeine Allergy (Unknown, Verified 01/12/20 17:56) rash hydrocodone Allergy (Unknown, Verified 01/12/20 17:56) rash memantine [From Namenda] Allergy (Unknown, Verified 01/12/20 17:56) mental fog confusion, foggy thinking Home Medications: Ambulatory Orders Medication Instructions Recorded aspirin 81 mg tablet,delayed 81 mg PO DAILY 07/09/19 release omeprazole 40 mg capsule,delayed 40 mg PO DAILY #90 cap 07/23/19 release rosuvastatin 20 mg tablet 20 mg PO QHS #90 tab 10/26/19 theophylline 300 mg 300 mg PO Q12H #180 tab 11/18/19 tablet,extended release,12 hr mirabegron 25 mg tablet,extended 25 mg PO DAILY 12/02/19 release 24 hr escitalopram oxalate 20 mg tablet 20 mg PO DAILY #90 tab 12/08/19 carvedilol 25 mg tablet 50 mg PO BREAKFAST tab 01/06/20 cholecalciferol (vitamin D3) 125 125 mcg PO DAILY 01/06/20 mcg (5,000 unit) capsule Carvedilol [Coreg] 25 mg PO QHS 01/12/20 Surgical History: Surgical History (Last Reviewed 01/13/20 @ 01:[address] Danny Menchaca MD) Femur fracture S72.90XA 2015 Carpal tunnel syndrome G56.00 H/O bladder repair surgery Z98.890 2019 H/O colonoscopy Z98.890 01/24/2006 H/O right wrist surgery Z98.890 History of knee replacement Z96.659 2013 Surgical History: noncontributory Lives: Alone Smoking Status: Former smoker Alcohol: None Drugs: None - *Family History Maternal Family History: Family History (Last Reviewed 01/13/20 @ 01:[address] Danny Menchaca MD) Sister Diabetes Obesity Sleep apnea Mother Dementia Father Heart disease Review of Systems Constitutional: Denies: Chills, Fever Cardiovascular: Denies: Chest Pain Respiratory: Denies: Shortness of Breath Musculoskeletal: Reports: Foot Pain - right ankle Skin: Reports: Wounds - right ankle Patient Problems: Active and Suspected Problems (Last Reviewed 01/13/20 @ 01:[address] Danny Menchaca MD) Type I or II open fracture dislocation of right ankle (Acute) Ankle osteomyelitis, right (Suspected) Ulcer of ankle with necrosis of bone (Acute) Subjective: Patient is pleasant and comfortable with pain well controlled with morphine. Patient rates pain as 5/10. Patient is agreeable to surgery. - Physical Exam Vitals/I&O's: Vital Signs Temp Pulse Resp BP Pulse Ox 98.4 F 92 18 143/119 H 93 01/12/20 20:08 01/12/20 20:08 01/12/20 20:08 01/12/20 20:08 01/12/20 20:08 Oxygen Delivery Method Room Air Weight: 99.3 kg Body Mass Index (BMI) 37.5 Intake and Output for Last 24 Hours 01/10/20 01/11/20 01/12/20 23:59 23:59 23:59 Intake Total 1050 / 1050 Balance 1050 / 1050 General: Alert, Oriented x3, Cooperative HEENT: Atraumatic Lungs: Normal air movement Cardiovascular: Regular rate Extremities: - - right foot is laterally dislocated on leg with medial malleolus visible through medial ankle ulceration. Foot and leg is edematous with slight pallor and faint pulses noted, DP 1/4 and PT nonpalpable, CFT <3 seconds to all digits. Left and Right Lower extremity are cool to the touch without noted difference between limbs Skin: Ulcer/ Wound - right medial ankle ulcer down into the level of bone, necrotic black base measuring 3.0x4.5x0.8cm high of exposed bone. Mild serosanginous drainage. No purulence noted. surrounding edema, erythema, and dusky/cynaotic skin. Skin tenting noted medially. Thin skin b/l, - - ecchymosis noted to right foot and ankle Musculoskeletal: Tenderness - right medial ankle Neurological: - - gross sensation intact to right foot dorsal, medial, plantar, lateral Psych/Mental Status: Normal Affect Laboratory Results 01/12/20 18:10: WBC 12.9 H, RBC 4.35, Hgb 14.0, Hct 43.5, MCV 100.0 H, MCH 32.2 H, MCHC 32.2, RDW Std Deviation 48.4 H, RDW Coeff of Surya 13.2, Plt Count 329, MPV 11.2, Immature Gran % (Auto) 0.500, Neut % (Auto) 76.0 H, Lymph % (Auto) 10.2 L, [place] % (Auto) 10.6 H, Eos % (Auto) 2.2, Baso % (Auto) 0.5, Absolute Neuts (auto) 9.8 H, Absolute Lymphs (auto) 1.32, Nucleated RBC % 0 01/12/20 18:10: PT 13.6, INR 1.1, APTT 28.9 01/12/20 18:10: Sodium 140, Potassium 4.9, Chloride 105, Carbon Dioxide 28.0, Anion Gap 7, BUN 42 H, Creatinine 0.99, Estim Creat Clear Calc 45.01, Est GFR (MDRD) Af Amer 71, Est GFR (MDRD) Non-Af 59 L, BUN/Creatinine Ratio 42.3 H, Glucose 94, Calcium 9.4, Total Bilirubin 1.10 H, AST 51 H, ALT 40, Alkaline Phosphatase 90, Troponin I < 0.015, Total Protein 7.4, Albumin 3.4, Globulin 4.0, Albumin/Globulin Ratio 0.8 L 01/12/20 18:10: Lactic Acid 1.6 01/12/20 18:10: Total Creatine Kinase 865 H 01/12/20 20:05: COVID-19 (LEROY) Negative Assessment/Plan All Active Problems (Last Reviewed 01/13/20 @ 01:[address] Danny Menchaca MD) Type I or II open fracture dislocation of right ankle (Acute) Ulcer of ankle with necrosis of bone (Acute) 1. right ankle open fracture with dislocation. Plan to take to OR tonight with plan of closed reduction with external fixation. Plan to obtain bone cultures of exposed medial malleolus. Plan for staged procedure. Discussed at length the risks and benefits of the surgery including infection, delayed healing, need for multiple surgeries, nonunion, malunion, amputation, blood clot. Also discussed that nature of injury and type of fracture has high risk for bone necrosis and infection. Plan to continue IV antibiotics. Order Vit D levels to assess healing potential. Patient is NPO. Will continue NWB and bedrest after surgery. Will continue to follow on floor. 2. right ankle osteomyelitis, suspected. Will follow bone cultures to be collected in OR. Continue IV antibiotics. Consider ID consult. High suspicion due to length of time bone exposed. Will continue wound care. 3. Ulcer right ankle into level of bone with necrosis. Will follow cultures. Continue IV antibiotics. Continue wound care with betadine soaked gauze dressing.
[2020-01-12 22:39] LABS: Bacteria 0 SEEN /hpf (None Seen); Mucous, Urine 0 SEEN /hpf (<or=2+); Red Blood Cells-Urine 0 SEEN /hpf (0-5); Squamous Epithelial Cells - UA 0 SEEN /hpf (5-10); White Blood Cells 0 SEEN /hpf (0-5)
[2020-01-12 22:45] LABS: Color, Urine Yellow (Yellow); Glucose, Dipstick Normal (Normal); Leukocyte Esterase-Dipstick Negative /ul (Negative); Nitrite-Dipstick Negative (Negative); Occult Blood-Urine Negative /ul (Negative); Protein-Dipstick 15 mg/dl (Negative); Urine Bilirubin Dipstick Negative (Negative); Urine Clarity Clear (Clear); Urine Urobilinogen Normal (Normal)
--- NOTE | 2020-01-12 23:05 | RAD_ITS ---
STUDY: X-RAY - RIGHT ANKLE REASON FOR EXAM: Female, 69 years old. ORIF right ankle fracture. TECHNIQUE: 6 fluoroscopic view(s) of the ankle. COMPARISON: Ankle series January 12, 2020 FINDINGS: Postoperative changes of open reduction internal fixation complex ankle fracture. RAD/Ankle 2 Views IMPRESSION: ORIF ankle fracture, correlate with findings at fluoroscopy. Electronically Signed: Angel Graham MD at 6:23 EDT , Service support ,
[2020-01-12 23:10] LABS: Ketone-Dipstick 150 mg/dl (Negative)
[2020-01-13] VITALS (20 sets, daily range): BP systolic 81–163; BP diastolic 51–94; PULSE 73–100; RESP 16–24; TEMP 36.3–37; O2SAT 92–99; BMI 37.5; BMI 37.6
--- NOTE | 2020-01-13 00:48 | PCM.OPRPT ---
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 osteomyelitis right ankle. ulcer right ankle into level of bone Post-Operative Diagnosis: open right ankle fracture, dislocated. osteomyelitis right ankle. ulcer right ankle into level of bone Surgery/Procedure Performed:: closed reduction external fixation right ankle fracture. bone biopsy right ankle. incision and drainage right foot. application of external fixation Description of Surgical Findings:: materials: magy lu external fixation ankle system hemostasis: none, thigh tourniquet applied but not inflated patient tolerated procedure and anesthesia well and transferred to PACU with vascular status intact long term acute care registered nurse: none - surgeon: Vandana Cortez. Sensor Specialist Seema Rosales Type of Anesthesia:: General Specimen's removed: bone, medial malleolus right ankle Estimated Blood Loss (mL): <30 Description of Procedure: Indications: Patient is a 69 y/o female who fell in her shower 4 days ago at which time she injured her right ankle. Patient was unable to reach help until today where she was brought to [facility] ED. In the ED labs and XR were obtained and the patient was examined which showed an open bimalleolar fracture of the right ankle with exposed medial malleolus. It was discussed with the patient at length the need to go to surgery in order to realign the bones in her foot. It was discussed that an external fixation device may be necessary to achieve this. The need for this to be a staged procedure was also discussed. All risks, benefits, alternatives and complications including but not limited to infection, delayed healing, nonhealing, need for further surgery, blood clot, amputation, loss of limb, bleeding, pain were discussed. Patient understood and agreed to treatment plan. Consent was obtained. All questions were answered to patient satisfaction. Description of the procedure: Patient was seen prior to surgery where the chart was reviewed and the patient was examined. Again all questions were answered to patient satisfaction and the correct limb was signed. Patient was then brought to the OR and placed on the OR table in the supine position. After administration of general anesthesia a well padded thight tourniquet was applied but not inflated. The right foot, ankle, and leg were then prepped and draped in the usual sterile fashion. Attention was then directed to the right medial ankle where a bone rongeur was utilized to remove the devitalized bone and soft tissue at the ulceration site. After removal of the devitalized tissue the site was flushed with copious amounts of normal sterile saline. Additional bone was then removed and was sent to the lab as specimen to microbiology and pathology. The ulcer was further explored and the posterior tibial tendon was visualized and was noted to be in healthy appearance without evidence of laceration or tearing. The ankle joint was also visualized and flushed with copious amount of normal sterile saline to removal any debris. It should also be noted that the medial malleolus fracture fragments were visualized and not found to be within or impinging the ankle joint. The deltoid ligament was also noted to be torn. Attention was then directed to the right foot. The ankle was then closed reduced with reduction visualized under flouroscopy. As reduction was achieveable it was decided to move forward with the application of the external fixation Pedro Luis frame from [employer]. Two pins were placed in the anterior medial surface of the tibia bicortically. An additional pin was placed across the calcaneus from medial to lateral through and through fashion. The placement of all pins were placed under flouroscopy guidance and were noted to be in excellent position. The remaining couplings, rods, clamps, and posts were placed to obtain a delta frame construction. Prior to tightening of all components final reduction was obtained under flouroscopy guidance. Some motion was still within the unstable ankle joint though the frame held the fracture out to length. It was decided that additional stabilization was necessary. 2 pins were placed distal to proximal from the calcaneus into the tibia to obtain further stabilization as well as to prevent rotation. These pins were placed under flouroscopy and were noted to be in good placement. Once adaquate alignment and stabilization was achieved the all components of the frame were tightened to maintain correction. Application of all components of the frame were done under C-arm guidance with employee representative in the room. Radiographs were reviewed with reduction of dislocations of ankle and subtalar joints obtained and approximate realignment of fractures obtained through pins and external fixation. The deformity was reduced. All hardware was seen to be in the desired trajectory and position. Attention was then directed to the medial ulceration where upon reduction soft tissue coverage was obtainable. The site was examined to confirm no impingement of the ankle joint due to medial malleolus fragments. Movement of lack of impingement of the posterior tibialis tendon was also confirmed. The remaining tissue appeared viable. 2 retention sutures were then placed with 3-0 prolene with central opening left to allow drainage. It should be noted that the posterior tibial tendon was no longer exposed. All pin sites were then covered with xeroform and betadine soaked gauze. Medial ankle ulceration was covered as well with betadine soaked gauze. All sites were well padded with kerlix gauzed and covered with [place] wrap. The patient tolerated the procedure and anesthesia well. After a period of post operative monitoring the patient will be admitted to the floor. Plan: Patient is to remain strictly nonweight bearing to her right foot. Patient is to remain on bed rest. Patient to continue IV antibiotics. Consider ID consult for suspected osteomyellitis. Follow OR cultures. Diet resumed. Continue wound care. Continue pain management. Plan for return to OR for further debridement and possible ORIF pending resolution of infection. Will follow lab results. Will continue to monitor on the floors. - Complications none - Admit VTE Documentation VTE Present on Admission: No VTE Mechan Device Prophylaxis: SCD's VTE Pharm Prophylaxis ordered?: Yes
[2020-01-13] MEDS: Lactated Ringers 1,000 ML 100 ML IV ×3 (00:59→21:51)
[2020-01-13] MEDS: Atorvastatin Calcium 40 MG Tablet PO ×2 (02:47→21:59)
[2020-01-13] MEDS: Morphine 2 MG/ML Syringe IV ×3 (02:52→23:46)
--- NOTE | 2020-01-13 04:07 | RAD_ITS ---
STUDY: X-RAY - RIGHT ANKLE REASON FOR EXAM: Female, 69 years old. Postop. TECHNIQUE: 3 view(s) of the ankle. COMPARISON: January 13, 2020 at 12:19 AM. January 12, 2020. FINDINGS: Complex ankle fracture in external fixation. Again noted are degenerative fractures of the medial malleolus as well as the distal fibular diaphysis. Mortise joint is well-maintained. RAD/Ankle min 3 Views IMPRESSION: Complex ankle fracture in external fixation. Electronically Signed: Angel Graham MD at 6:50 EDT , Service support ,
--- NOTE | 2020-01-13 04:07 | RAD_ITS ---
STUDY: X-RAY - RIGHT TIBIA AND FIBULA REASON FOR EXAM: Female, 69 years old. post op TECHNIQUE: 4 view(s) of the tibia and fibula were obtained at 4:50 AM. COMPARISON: January 13, 2020 at 4:44 AM. FINDINGS: Comminuted fractures of the medial malleolus and distal fibular diaphysis. Mortise joint is well maintained. Fractures stabilized by external fixation. Proximal tibia and fibula are normal. The soft tissue structures are unremarkable. RAD/Tibia & Fibula 2 Views IMPRESSION: Fractures of the medial malleolus and distal fibula in external fixation. Electronically Signed: Angel Graham MD at 7:01 EDT , Service support ,
--- NOTE | 2020-01-13 04:24 | NURSING ---
When I first entered room pt stated her pain was a 5 in rt ankle. After assessment was complete, pt now denies pain but states ankle area feels itchy. Will continue to monitor. Ice pack in place. RLE elevated on pillow.
--- NOTE | 2020-01-13 04:25 | NURSING ---
Waiting on SCD sleeve from converter supervisor.
[2020-01-13] MEDS: Cefazolin 1 GM/50 ML BAG IV (06:03)
[2020-01-13 06:43] LABS: Absolute Lymphocyte Count 0.83 X10^3/uL (0.83-4.51); Basophil# 0.05 X10^3/uL; Basophil% 0.4 % (0-1); Eosinophil# 0.34 X10^3/uL; Eosinophils% 2.9 % (0-5); Hematocrit 38.4 % (37-47); Hemoglobin 12.2 g/dL (12.0-15.0); Lymphocyte # 0.83 X10^3/ul (4.0); Lymphocyte % 7.2 % (19-41); Mean Corp Hgb Conc 31.8 g/dL (32-36); Mean Corpuscular Hgb 32.3 pg (27.0-32.0); Mean Corpuscular Volume 101.6 fL (81-99); Mean Platelet Vol. 10.5 fl (6.2-12.0); Monocyte% 11.2 % (0-10); NRBC Flagged by Analyzer 0 % (0-5); Neutrophil # 8.99 X10^3/uL (2.7-7.7); Neutrophil % 77.7 % (47-70); Platelet Count 274 K/mm3 (150-450); RBC Distribution Width CV 13.2 % (11.6-14.6); RBC Distribution Width SD 49.3 fl (35.1-43.9); Red Blood Count 3.78 M/mm3 (4.2-5.4); White Blood Count 11.6 K/mm3 (4.4-11.0)
[2020-01-13 07:05] LABS: Anion Gap 3 (5-15); BUN 31 mg/dL (7-18); BUN/Creat Ratio 36.3 RATIO (10-20); Calcium,Total 8.2 mg/dL (8.5-10.1); Chloride 109 mmol/L (98-107); Creatinine, Serum 0.86 mg/dL (0.55-1.02); EST Glomerular Filtration Rate 70 mL/min (>60); Est Glom Filt Rate - Afr Amer 84 mL/min (>60); Estimated Creatinine Clearance 51.81 ml/min; Glucose 96 mg/dL (74-106); Potassium 3.7 mmol/L (3.5-5.1); Sodium Level 143 mmol/L (136-145)
[2020-01-13] MEDS: Escitalopram Oxalate 20 MG Tablet PO (09:24)
[2020-01-13] MEDS: Pantoprazole Sodium 40 MG Tablet PO (09:24)
[2020-01-13] MEDS: Carvedilol 25 MG Tablet 50 MG PO (09:25)
[2020-01-13] MEDS: Mirabegron 25 MG TAB.ER.24H PO (09:25)
--- NOTE | 2020-01-13 10:40 | CASEMGMT ---
DEANDRE LOEVTT Face to Face with patient for initial transition planning/care coordination assessment. RN BONY introduced self and role at [facility]. Patient sitting in chair, alert and oriented. Patient willing to participate in assessment and is able to answer all questions appropriately. Care providers, pharmacy, and demographics verified. Patient wishes to discharge so a SNF at discharge. Patient states he has no further needs or concerns at this time. BARI Mata updated regarding request for SNF at discharge. PCP: Jerome Specialists: none [facility]erred Pharmacy: [facility] Insurance: [facility] Prescription Benefit: yes Living Will/HPOA: yes sister Gracie Alegria LNOK: sister Living Arrangements: Patient lives in main level apartment with one step to enter. Patient states she is normally independent at home. Transportation: self, sister DME/HHC: Patient states she has shower chair, raised toilet seat, cane, walker. Disposition Plan: SNF Felisa SMITH, RN, CM
--- NOTE | 2020-01-13 11:59 | CASEMGMT ---
Addendum entered by Felisa Mata 01/13/20 16:11: No OT notes are available at this time, but SW did fax referral to [facility]. Addendum entered by Felisa Mata 01/13/20 14:17: RN updated this worker that pt picked [facility] for SNF. SW in to speak with pt. Pt confirms first choice is [facility]. SW waiting for PT/OT and then will fax referral. Plan: SNF pending acceptance and pre-cert Original Note: Social Work Note SW updated that pt is requesting SNF placement. SW in to speak with pt. SW introduced self and role at [facility]. Pt is alert and orientated x3. Pt confirms that she will need SNF at discharge. SW provided pt with list of SNF that accept pt's insurance. Pt states well I am new to the area and don't know much about these places, I will talk to my sister and see what she says. SW asked pt to have choice by end of the day today so referral could be sent and pre-cert could be started. Pt states well I was told it wouldn't be until Friday until I am discharged. SW explained the importance of getting the process started with SNF though and getting pre-cert started as it can take a few days for pre-cert. Pt states she will call her sister today. Plan: SNF pending acceptance and pre-cert Felisa Mtaa IT PROJECT MANAGER, [employer]ARRING [employer]
[2020-01-13] MEDS: oxyCODONE 5 MG Tablet PO ×2 (12:39→21:58)
[2020-01-13] MEDS: Magnesium Hydroxide 30 ML UDC PO (12:40)
--- NOTE | 2020-01-13 15:13 | PCM.RX.CS ---
Consult Pharmacy has been consulted to manage selected antiobiotic: Vancomycin Type of Consult: New start Labs: Sodium 143 mmol/L (136-145) 01/13/20 06:15 Potassium 3.7 mmol/L (3.5-5.1) 01/13/20 06:15 Chloride 109 mmol/L (98-107) H 01/13/20 06:15 Carbon Dioxide 31.0 mmol/L (21.0-32.0) 01/13/20 06:15 Anion Gap 3 (5-15) L 01/13/20 06:15 BUN 31 mg/dL (7-18) H 01/13/20 06:15 Creatinine 0.86 mg/dL (0.55-1.02) 01/13/20 06:15 Est GFR (MDRD) Af Amer 84 mL/min (>60) 01/13/20 06:15 Est GFR (MDRD) Non-Af 70 mL/min (>60) 01/13/20 06:15 BUN/Creatinine Ratio 36.3 RATIO (10-20) H 01/13/20 06:15 Glucose 96 mg/dL (74-106) 01/13/20 06:15 Microbiology: Microbiology 01/13/20 Unknown Biopsy - Ankle Gram Stain - Final Goal Trough: 15-20 mcg/mL Pharmacy Plan for Drug Dosing: NEW START IV VANCOMYCIN Consulting Physician: Rakesh Indication: Goal Trough: 15-20 SrCr: 0.86 CrCl: 68.71 (based off of an adjusted body weight of 72.5kg) Comments: loading dose of 2000mg iv x1 Vancomcyin Dose: 750mg iv q12h to start 01/14/2020 at 0000 (00,12 schedule) Pending Level: 01/15/2020 at 2330 Pharmacy Service will continue to monitor and adjust dosing as required. Follow-Up Labs: Trough Vancomycin - 01/14 at 2330
--- NOTE | 2020-01-13 15:56 | PN_ITS ---
<Marcelino Kruse - Last Filed: 01/13/20 15:56> Patient Problems: Active and Suspected Problems (Last Reviewed 01/13/20 @ 01:[address] 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 no fever/chills. pt resting comfortably in chair at bedside. Pt laid on floor of shower for 4 days with open wound. She has had prior joint surgeries with no infections in the past. Denies hx MRSA. Pt has not had any purulent drainage from her open wound. Vitals/I&O's: Vital Signs Temp Pulse Resp BP Pulse Ox 98.1 F 73 18 96/52 L 93 01/13/20 15:48 01/13/20 15:48 01/13/20 15:48 01/13/20 15:48 01/13/20 15:48 Oxygen Flow Rate (L/min) 1.5 Oxygen Delivery Method Nasal Cannula Weight: 218 lb 14.704 oz Body Mass Index (BMI) 37.5 Intake and Output for Last 24 Hours 01/11/20 01/12/20 01/13/20 23:59 23:59 23:59 Intake Total 1050 / 1050 3651.67 / 3651.67 Output Total 750 / 750 Balance 1050 / 1050 2901.67 / 2901.67 General: Alert, Oriented x3, Cooperative HEENT: Atraumatic, PERRLA, EOMI, Normocephalic Neck: Supple, No JVD, Negative Carotid Bruits Lungs: Clear to auscultation, Normal air movement Cardiovascular: Regular rate, No murmurs Abdomen: Bowel Sounds Present, Soft, Non Tender Extremities: No edema, Capillary Refill Less than 3 Seconds Skin: No rashes, No breakdown Musculoskeletal: No Tenderness to Palpation of Joints or Extremities Neurological: Cranial nerves II-XII grossly intact Psych/Mental Status: Normal Affect, Appropriate, Alert and oriented to time, place, person, mood and affect Microbiology Past 72 Hours 01/13/20 Unknown Biopsy - Ankle Gram Stain - Final Laboratory Results 01/12/20 18:10: WBC 12.9 H, RBC 4.35, Hgb 14.0, Hct 43.5, MCV 100.0 H, MCH 32.2 H, MCHC 32.2, RDW Std Deviation 48.4 H, RDW Coeff of Surya 13.2, Plt Count 329, MPV 11.2, Immature Gran % (Auto) 0.500, Neut % (Auto) 76.0 H, Lymph % (Auto) 10.2 L, [place] % (Auto) 10.6 H, Eos % (Auto) 2.2, Baso % (Auto) 0.5, Absolute Neuts (auto) 9.8 H, Absolute Lymphs (auto) 1.32, Nucleated RBC % 0 01/12/20 18:10: PT 13.6, INR 1.1, APTT 28.9 01/12/20 18:10: Sodium 140, Potassium 4.9, Chloride 105, Carbon Dioxide 28.0, Anion Gap 7, BUN 42 H, Creatinine 0.99, Estim Creat Clear Calc 45.01, Est GFR (MDRD) Af Amer 71, Est GFR (MDRD) Non-Af 59 L, BUN/Creatinine Ratio 42.3 H, Glucose 94, Calcium 9.4, Total Bilirubin 1.10 H, AST 51 H, ALT 40, Alkaline Phosphatase 90, Troponin I < 0.015, Total Protein 7.4, Albumin 3.4, Globulin 4.0, Albumin/Globulin Ratio 0.8 L 01/12/20 18:10: Lactic Acid 1.6 01/12/20 18:10: Total Creatine Kinase 865 H 01/12/20 20:05: COVID-19 (LEROY) Negative 01/12/20 22:30: Urine Color Yellow, Urine Clarity Clear, Urine pH 5.0, Ur Specific [place] 1.020, Urine Protein 15 H, Urine Glucose (UA) Normal, Urine Ketones 150 H, Urine Occult Blood Negative, Urine Nitrite Negative, Urine Biliru bin Negative, Urine Urobilinogen Normal, Ur Leukocyte Esterase Negative, Urine RBC 0 SEEN, Urine WBC 0 SEEN, Ur Squamous Epith Cells 0 SEEN, Urine Bacteria 0 SEEN, Urine Mucus 0 SEEN 01/13/20 06:15: WBC 11.6 H, RBC 3.78 L, Hgb 12.2, Hct 38.4, MCV 101.6 H, MCH 32.3 H, MCHC 31.8 L, RDW Std Deviation 49.3 H, RDW Coeff of Surya 13.2, Plt Count 274, MPV 10.5, Immature Gran % (Auto) 0.600, Neut % (Auto) 77.7 H, Lymph % (Auto) 7.2 L, [place] % (Auto) 11.2 H, Eos % (Auto) 2.9, Baso % (Auto) 0.4, Absolute Neuts (auto) 9.0 H, Absolute Lymphs (auto) 0.83, Nucleated RBC % 0 01/13/20 06:15: Sodium 143, Potassium 3.7, Chloride 109 H, Carbon Dioxide 31.0, Anion Gap 3 L, BUN 31 H, Creatinine 0.86, Estim Creat Clear Calc 51.81, Est GFR (MDRD) Af Amer 84, Est GFR (MDRD) Non-Af 70, BUN/Creatinine Ratio 36.3 H, Glucose 96, Calcium 8.2 L 01/13/20 06:15: Vit D 1,25-Dihydroxy Pending Current Medications Atorvastatin Calcium (Lipitor) 40 mg PO QHS [facility] Last Admin: 01/13/20 02:47 Dose: 40 mg Documented by: Carvedilol (Coreg) 50 mg PO BREAKFAST [facility] Last Admin: 01/13/20 09:25 Dose: 50 mg Documented by: Carvedilol (Coreg) 25 mg PO QHS [facility] Cholecalciferol (Vitamin D (25mcg)) 5,000 unit PO DAILY [facility] Last Admin: 01/13/20 09:25 Dose: 5,000 unit Documented by: Escitalopram Oxalate (Lexapro) 20 mg PO DAILY [facility] Last Admin: 01/13/20 09:24 Dose: 20 mg Documented by: Lactated Ringer's () 1,000 mls @ 100 mls/hr IV .Q10H [facility] Last Infusion: 01/13/20 14:45 Dose: 100 mls/hr Documented by: Cefepime HCl 2 gm/ Sodium (Chloride) 100 mls @ 200 mls/hr IV Q8H [facility] Last Infusion: 01/13/20 12:12 Dose: Infused Documented by: Vancomycin IV Pharmacy to Dose (1 ea/ Sodium Chloride) 500 mls @ 250 mls/hr IV X1 PRN; Protocol PRN Reason: Rx to Dose Vancomycin HCl 750 mg/ Sodium (Chloride) 265 mls @ 250 mls/hr IV Q12H [facility] Magnesium Hydroxide (Milk Of Magnesia) 30 ml PO DAILY PRN PRN PRN Reason: Constipation Last Admin: 01/13/20 12:40 Dose: 30 ml Documented by: Mirabegron (Myrbetriq) 25 mg PO DAILY [facility] Last Admin: 01/13/20 09:25 Dose: 25 mg Documented by: Morphine Sulfate () 2 mg IV Q3H PRN PRN PRN Reason: Pain Score 6-10/10 Last Admin: 01/13/20 09:26 Dose: 2 mg Documented by: Nutritional Formula (Lactose Free) (Ensure Enlive) 120 ml PO 4X/DAY [facility] Last Admin: 01/13/20 13:52 Dose: 120 ml Documented by: Ondansetron HCl (Zofran) 4 mg IV Q8H PRN PRN PRN Reason: NAUSEA/VOMITING Oxycodone HCl (Oxyir) 5 mg PO Q6H PRN PRN PRN Reason: Pain Score 6-10/10 Last Admin: 01/13/20 12:39 Dose: 5 mg Documented by: Pantoprazole Sodium (Protonix) 40 mg PO DAILY [facility] Last Admin: 01/13/20 09:24 Dose: 40 mg Documented by: Polyethylene Glycol (Miralax) 17 gm PO DAILY PRN PRN PRN Reason: Constipation Sodium Chloride () 10 - 40 ml IV UD PRN PRN Reason: SALINE FLUSH Theophylline (Tam-Dur) 300 mg PO Q12H [facility] STROKE Vital Signs/Narrative: Vital Signs Temp Pulse Resp BP Pulse Ox 01/13/20 15:48 98.1 F 73 18 96/52 L 93 01/13/20 13:35 97.9 F 76 20 H 100/62 95 01/13/20 12:52 94 01/13/20 12:23 98.3 F 82 22 H 81/51 L 93 Medical Necessity - Tobacco Use Smoking Status: Former smoker Assessment/Plan All Active Problems (Last Reviewed 01/13/20 @ 01:[address] 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 Open fx of right ankle 2/2 slip and fall in bathtub complicated by osteomyelitis - s/p closed reduction internal fixation POD#1. Osteo evident in OR. Cultures sent. received periop cefazolin. ID consulted and abx changed to cefepime and vancomycin. 2. CKDIII - stable 3. HTN - borderline low. continue home meds. IV fluids. 4. Hx thoracic aortic aneurysm 5. HLD - stable 6. Depression - lexapro 7. Constipation - prn meds ordered. DVT ppx: start lovenox in AM if hgb stable DC planning: PTOT. NWB, may need SNF This patient was seen by Marcelino Kruse PA-C under the supervision of Dr. Gallo. <Israel Gallo F - Last Filed: 01/13/20 16:23> Vitals/I&O's: Vital Signs Temp Pulse Resp BP Pulse Ox 98.1 F 73 18 96/52 L 93 01/13/20 15:48 01/13/20 15:48 01/13/20 15:48 01/13/20 15:48 01/13/20 15:48 Oxygen Flow Rate (L/min) 1.5 Oxygen Delivery Method Nasal Cannula Weight: 218 lb 14.704 oz Body Mass Index (BMI) 37.5 Intake and Output for Last 24 Hours 01/11/20 01/12/20 01/13/20 23:59 23:59 23:59 Intake Total 1050 / 1050 3651.67 / 3651.67 Output Total 750 / 750 Balance 1050 / 1050 2901.67 / 2901.67 Microbiology Past 72 Hours 01/13/20 Unknown Biopsy - Ankle Gram Stain - Final Laboratory Results 01/12/20 18:10: WBC 12.9 H, RBC 4.35, Hgb 14.0, Hct 43.5, MCV 100.0 H, MCH 32.2 H, MCHC 32.2, RDW Std Deviation 48.4 H, RDW Coeff of Surya 13.2, Plt Count 329, MPV 11.2, Immature Gran % (Auto) 0.500, Neut % (Auto) 76.0 H, Lymph % (Auto) 10.2 L, Potter % (Auto) 10.6 H, Eos % (Auto) 2.2, Baso % (Auto) 0.5, Absolute Neuts (auto) 9.8 H, Absolute Lymphs (auto) 1.32, Nucleated RBC % 0 08/05/20 18:10: PT 13.6, INR 1.1, APTT 28.9 01/12/20 18:10: Sodium 140, Potassium 4.9, Chloride 105, Carbon Dioxide 28.0, Anion Gap 7, BUN 42 H, Creatinine 0.99, Estim Creat Clear Calc 45.01, Est GFR (MDRD) Af Amer 71, Est GFR (MDRD) Non-Af 59 L, BUN/Creatinine Ratio 42.3 H, Glucose 94, Calcium 9.4, Total Bilirubin 1.10 H, AST 51 H, ALT 40, Alkaline P hosphatase 90, Troponin I < 0.015, Total Protein 7.4, Albumin 3.4, Globulin 4.0, Albumin/Globulin Ratio 0.8 L 01/12/20 18:10: Lactic Acid 1.6 01/12/20 18:10: Total Creatine Kinase 865 H 01/12/20 20:05: COVID-19 (LEROY) Negative 01/12/20 22:30: Urine Color Yellow, Urine Clarity Clear, Urine pH 5.0, Ur Specific [place] 1.020, Urine Protein 15 H, Urine Glucose (UA) Normal, Urine Ketones 150 H, Urine Occult Blood Negative, Urine Nitrite Negative, Urine Bilirubin Negative, Urine Urobilinogen Normal, Ur Leukocyte Esterase Negative, Urine RBC 0 SEEN, Urine WBC 0 SEEN, Ur Squamous Epith Cells 0 SEEN, Urine Bacteria 0 SEEN, Urine Mucus 0 SEEN 01/13/20 06:15: WBC 11.6 H, RBC 3.78 L, Hgb 12.2, Hct 38.4, MCV 101.6 H, MCH 32.3 H, MCHC 31.8 L, RDW Std Deviation 49.3 H, RDW Coeff of Surya 13.2, Plt Count 274, MPV 10.5, Immature Gran % (Auto) 0.600, Neut % (Auto) 77.7 H, Lymph % (Auto) 7.2 L, Potter % (Auto) 11.2 H, Eos % (Auto) 2.9, Baso % (Auto) 0.4, Absolute Neuts (auto) 9.0 H, Absolute Lymphs (auto) 0.83, Nucleated RBC % 0 01/13/20 06:15: Sodium 143, Potassium 3.7, Chloride 109 H, Carbon Dioxide 31.0, Anion Gap 3 L, BUN 31 H, Creatinine 0.86, Estim Creat Clear Calc 51.81, Est GFR (MDRD) Af Amer 84, Est GFR (MDRD) Non-Af 70, BUN/Creatinine Ratio 36.3 H, Glucose 96, Calcium 8.2 L 01/13/20 06:15: Vit D 1,25-Dihydroxy Pending Current Medications Atorvastatin Calcium (Lipitor) 40 mg PO QHS [facility] Last Admin: 01/13/20 02:47 Dose: 40 mg Documented by: Carvedilol (Coreg) 50 mg PO BREAKFAST [facility] Last Admin: 01/13/20 09:25 Dose: 50 mg Documented by: Carvedilol (Coreg) 25 mg PO QHS [facility] Cholecalciferol (Vitamin D (25mcg)) 5,000 unit PO DAILY [facility] Last Admin: 01/13/20 09:25 Dose: 5,000 unit Documented by: Enoxaparin Sodium (Lovenox) 40 mg SC DAILY [facility] Escitalopram Oxalate (Lexapro) 20 mg PO DAILY [facility] Last Admin: 01/13/20 09:24 Dose: 20 mg Documented by: Lactated Ringer's () 1,000 mls @ 100 mls/hr IV .Q10H [facility] Last Infusion: 01/13/20 14:45 Dose: 100 mls/hr Documented by: Cefepime HCl 2 gm/ Sodium (Chloride) 100 mls @ 200 mls/hr IV Q8H [facility] Last Infusion: 01/13/20 12:12 Dose: Infused Documented by: Vancomycin IV Pharmacy to Dose (1 ea/ Sodium Chloride) 500 mls @ 250 mls/hr IV X1 PRN; Protocol PRN Reason: Rx to Dose Vancomycin HCl 750 mg/ Sodium (Chloride) 265 mls @ 250 mls/hr IV Q12H [facility] Magnesium Hydroxide (Milk Of Magnesia) 30 ml PO DAILY PRN PRN PRN Reason: Constipation Last Admin: 01/13/20 12:40 Dose: 30 ml Documented by: Mirabegron (Myrbetriq) 25 mg PO DAILY [facility] Last Admin: 01/13/20 09:25 Dose: 25 mg Documented by: Morphine Sulfate () 2 mg IV Q3H PRN PRN PRN Reason: Pain Score 6-10/10 Last Admin: 01/13/20 09:26 Dose: 2 mg Documented by: Nutritional Formula (Lactose Free) (Ensure Enlive) 120 ml PO 4X/DAY [facility] Last Admin: 01/13/20 13:52 Dose: 120 ml Documented by: Ondansetron HCl (Zofran) 4 mg IV Q8H PRN PRN PRN Reason: NAUSEA/VOMITING Oxycodone HCl (Oxyir) 5 mg PO Q6H PRN PRN PRN Reason: Pain Score 6-10/10 Last Admin: 01/13/20 12:39 Dose: 5 mg Documented by: Pantoprazole Sodium (Protonix) 40 mg PO DAILY [facility] Last Admin: 01/13/20 09:24 Dose: 40 mg Documented by: Polyethylene Glycol (Miralax) 17 gm PO DAILY PRN PRN PRN Reason: Constipation Sodium Chloride () 10 - 40 ml IV UD PRN PRN Reason: SALINE FLUSH Theophylline (Tam-Dur) 300 mg PO Q12H [facility] STROKE Vital Signs/Narrative: Vital Signs Temp Pulse Resp BP Pulse Ox 01/13/20 15:48 98.1 F 73 18 96/52 L 93 01/13/20 13:35 97.9 F 76 20 H 100/62 95 01/13/20 12:52 94 01/13/20 12:23 98.3 F 82 22 H 81/51 L 93 Addendum: Dr. Gallo I personally examined the patient and reviewed the chart. I agree with the above. 69-year-old female who slipped in the tub 4 days ago and broke her ankle was unable to contact family. She was found after she did not show up to a family event to visit her mother at the alf. She was taken to the OR on 01/12/2020 with surgery being completed on 01/13/2020, she has an ex-fix in plac e. Infectious disease was consulted to help with antibiotic selection, and she was transitioned from Ancef to cefepime and vancomycin. We will continue with PT/OT but she will likely need placement to a long term facility for rehab. Will be about a month until she can have the ex-fix removed. Continue with pain control will monitor her blood pressures, she does take 50 mg of Coreg in the morning and 25 mg at night blood pressure was low though she was asymptomatic. Inpatient E&M: [id number] [facility] L2
--- NOTE | 2020-01-13 17:08 | CON.PCM_ITS ---
History of Present Illness: The patient is a 69 year old F [] - Medical History Past Medical History (Chronic Problems): Chronic Problems (Last Reviewed 01/13/20 @ 01:[address] Danny Menchaca MD) Hypertension (Chronic) History of hypercholesterolemia (Chronic) CKD (chronic kidney disease) stage 3, GFR 30-59 ml/min (Chronic) Thoracic aortic aneurysm without rupture (Chronic) Mild 3.9cm per ECHO 08/05/18 Essential hypertension (Chronic) Lumbar radiculopathy (Chronic) Chronic back pain (Chronic) Urgency incontinence (Chronic) LBBB (left bundle branch block) (Chronic) Hyperlipemia, mixed (Chronic) Allergies/Adverse Reactions: Allergies amlodipine [From Norvasc] Allergy (Unknown, Verified 01/12/20 17:56) swelling codeine Allergy (Unknown, Verified 01/12/20 17:56) rash hydrocodone Allergy (Unknown, Verified 01/12/20 17:56) rash memantine [From Namenda] Allergy (Unknown, Verified 01/12/20 17:56) mental fog confusion, foggy thinking Home Medications: Ambulatory Orders Medication Instructions Recorded aspirin 81 mg tablet,delayed 81 mg PO DAILY 07/09/19 release omeprazole 40 mg capsule,delayed 40 mg PO DAILY #90 cap 07/23/19 release rosuvastatin 20 mg tablet 20 mg PO QHS #90 tab 10/26/19 theophylline 300 mg 300 mg PO Q12H #180 tab 11/18/19 tablet,extended release,12 hr mirabegron 25 mg tablet,extended 25 mg PO DAILY 12/02/19 release 24 hr escitalopram oxalate 20 mg tablet 20 mg PO DAILY #90 tab 12/08/19 carvedilol 25 mg tablet 50 mg PO BREAKFAST tab 01/06/20 cholecalciferol (vitamin D3) 125 125 mcg PO DAILY 01/06/20 mcg (5,000 unit) capsule Carvedilol [Coreg] 25 mg PO QHS 01/12/20 Vital Signs Temp Pulse Resp BP Pulse Ox 98.1 F 73 18 96/52 L 93 01/13/20 15:48 01/13/20 15:48 01/13/20 15:48 01/13/20 15:48 01/13/20 15:48 Oxygen Flow Rate (L/min) 2 Oxygen Delivery Method Nasal Cannula Weight: 99.3 kg Body Mass Index (BMI) 37.5 Microbiology Past 72 Hours 01/13/20 Unknown Gram Stain - Final Biopsy - Ankle Laboratory Tests Past 24 Hrs 01/12/20 01/12/20 01/12/20 18:10 18:10 18:10 WBC 12.9 H RBC 4.35 Hgb 14.0 Hct 43.5 MCV 100.0 H MCH 32.2 H MCHC 32.2 RDW Std Deviation 48.4 H RDW Coeff of Surya 13.2 Plt Count 329 MPV 11.2 Immature Gran % (Auto) 0.500 Neut % (Auto) 76.0 H Lymph % (Auto) 10.2 L [place] % (Auto) 10.6 H Eos % (Auto) 2.2 Baso % (Auto) 0.5 Absolute Neuts (auto) 9.8 H Absolute Lymphs (auto) 1.32 Nucleated RBC % 0 PT 13.6 INR 1.1 APTT 28.9 Sodium 140 Potassium 4.9 Chloride 105 Carbon Dioxide 28.0 Anion Gap 7 BUN 42 H Creatinine 0.99 Estim Creat Clear Calc 45.01 Est GFR (MDRD) Af Amer 71 Est GFR (MDRD) Non-Af 59 L BUN/Creatinine Ratio 42.3 H Glucose 94 Lactic Acid Calcium 9.4 Total Bilirubin 1.10 H AST 51 H ALT 40 Alkaline Phosphatase 90 Total Creatine Kinase Troponin I < 0.015 Total Protein 7.4 Albumin 3.4 Globulin 4.0 Albumin/Globulin Ratio 0.8 L Vit D 1,25-Dihydroxy Urine Color Urine Clarity Urine pH Ur Specific [place] Urine Protein Urine Glucose (UA) Urine Ketones Urine Occult Blood Urine Nitrite Urine Bilirubin Urine Urobilinogen Ur Leukocyte Esterase Urine RBC Urine WBC Ur Squamous Epith Cells Urine Bacteria Urine Mucus COVID-19 (LEROY) 01/12/20 01/12/20 01/12/20 18:10 18:10 20:05 WBC RBC Hgb Hct MCV MCH MCHC RDW Std Deviation RDW Coeff of Surya Plt Count MPV Immature Gran % (Auto) Neut % (Auto) Lymph % (Auto) [place] % (Auto) Eos % (Auto) Baso % (Auto) Absolute Neuts (auto) Absolute Lymphs (auto) Nucleated RBC % PT INR APTT Sodium Potassium Chloride Carbon Dioxide Anion Gap BUN Creatinine Estim Creat Clear Calc Est GFR (MDRD) Af Amer Est GFR (MDRD) Non-Af BUN/Creatinine Ratio Glucose Lactic Acid 1.6 Calcium Total Bilirubin AST ALT Alkaline Phosphatase Total Creatine Kinase 865 H Troponin I Total Protein Albumin Globulin Albumin/Globulin Ratio Vit D 1,25-Dihydroxy Urine Color Urine Clarity Urine pH Ur Specific [place] Urine Protein Urine Glucose (UA) Urine Ketones Urine Occult Blood Urine Nitrite Urine Bilirubin Urine Urobilinogen Ur Leukocyte Esterase Urine RBC Urine WBC Ur Squamous Epith Cells Urine Bacteria Urine Mucus COVID-19 (LEROY) Negative 01/12/20 01/13/20 01/13/20 22:30 06:15 06:15 WBC 11.6 H RBC 3.78 L Hgb 12.2 Hct 38.4 MCV 101.6 H MCH 32.3 H MCHC 31.8 L RDW Std Deviation 49.3 H RDW Coeff of Surya 13.2 Plt Count 274 MPV 10.5 Immature Gran % (Auto) 0.600 Neut % (Auto) 77.7 H Lymph % (Auto) 7.2 L [place] % (Auto) 11.2 H Eos % (Auto) 2.9 Baso % (Auto) 0.4 Absolute Neuts (auto) 9.0 H Absolute Lymphs (auto) 0.83 Nucleated RBC % 0 PT INR APTT Sodium 143 Potassium 3.7 Chloride 109 H Carbon Dioxide 31.0 Anion Gap 3 L BUN 31 H Creatinine 0.86 Estim Creat Clear Calc 51.81 Est GFR (MDRD) Af Amer 84 Est GFR (MDRD) Non-Af 70 BUN/Creatinine Ratio 36.3 H Glucose 96 Lactic Acid Calcium 8.2 L Total Bilirubin AST ALT Alkaline Phosphatase Total Creatine Kinase Troponin I Total Protein Albumin Globulin Albumin/Globulin Ratio Vit D 1,25-Dihydroxy Urine Color Yellow Urine Clarity Clear Urine pH 5.0 Ur Specific [place] 1.020 Urine Protein 15 H Urine Glucose (UA) Normal Urine Ketones 150 H Urine Occult Blood Negative Urine Nitrite Negative Urine Bilirubin Negative Urine Urobilinogen Normal Ur Leukocyte Esterase Negative Urine RBC 0 SEEN Urine WBC 0 SEEN Ur Squamous Epith Cells 0 SEEN Urine Bacteria 0 SEEN Urine Mucus 0 SEEN COVID-19 (LEROY) 01/13/20 06:15 WBC RBC Hgb Hct MCV MCH MCHC RDW Std Deviation RDW Coeff of Surya Plt Count MPV Immature Gran % (Auto) Neut % (Auto) Lymph % (Auto) [place] % (Auto) Eos % (Auto) Baso % (Auto) Absolute Neuts (auto) Absolute Lymphs (auto) Nucleated RBC % PT INR APTT Sodium Potassium Chloride Carbon Dioxide Anion Gap BUN Creatinine Estim Creat Clear Calc Est GFR (MDRD) Af Amer Est GFR (MDRD) Non-Af BUN/Creatinine Ratio Glucose Lactic Acid Calcium Total Bilirubin AST ALT Alkaline Phosphatase Total Creatine Kinase Troponin I Total Protein Albumin Globulin Albumin/Globulin Ratio Vit D 1,25-Dihydroxy Pending Urine Color Urine Clarity Urine pH Ur Specific [place] Urine Protein Urine Glucose (UA) Urine Ketones Urine Occult Blood Urine Nitrite Urine Bilirubin Urine Urobilinogen Ur Leukocyte Esterase Urine RBC Urine WBC Ur Squamous Epith Cells Urine Bacteria Urine Mucus COVID-19 (LEROY) - Other Studies Radiology: [] Other Studies: [] Route of nutrition/ use of supplements: [] Nutritional Intake: [] IV Site: [] Cornejo Catheter: [] - Assessment/Plan Antibiotics: [] Assessment/Plan: [] Active and Suspected Problems (Last Reviewed 01/13/20 @ 01:[address] 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
--- NOTE | 2020-01-13 17:14 | CON.PCM_ITS ---
Problem List (1) Ankle osteomyelitis, right Status: Suspected Qualifiers: Osteomyelitis type: other acute Qualified Code(s): M86.171 - Other acute osteomyelitis, right ankle and foot Reason for Consult: osteo Consulted by: Dr. Gallo History of Present Illness: The patient is a 69 year old F who presented yesterday with open R ankle fracture after falling in the tub 01/08. Had bone sticking out of RLE. Drank water from the shower. Put water on her leg when she noticed some swelling, but developed progressive redness. Did not have BM while in the tub. Family found her 01/11. EMS called, taken to ED, seen by Dr. Cortez, taken to OR for debridement and external fixation. On periop cefazolin. Feeling ok, no fever. Full ROS performed and neg except as noted above. - Medical History Past Medical History (Chronic Problems): Chronic Problems (Last Reviewed 01/13/20 @ 01:[address] Danny Menchaca MD) Hypertension (Chronic) History of hypercholesterolemia (Chronic) CKD (chronic kidney disease) stage 3, GFR 30-59 ml/min (Chronic) Thoracic aortic aneurysm without rupture (Chronic) Mild 3.9cm per ECHO 08/05/18 Essential hypertension (Chronic) Lumbar radiculopathy (Chronic) Chronic back pain (Chronic) Urgency incontinence (Chronic) LBBB (left bundle branch block) (Chronic) Hyperlipemia, mixed (Chronic) Allergies/Adverse Reactions: Allergies amlodipine [From Norvasc] Allergy (Unknown, Verified 01/12/20 17:56) swelling codeine Allergy (Unknown, Verified 01/12/20 17:56) rash hydrocodone Allergy (Unknown, Verified 01/12/20 17:56) rash memantine [From Namenda] Allergy (Unknown, Verified 01/12/20 17:56) mental fog confusion, foggy thinking Home Medications: Ambulatory Orders Medication Instructions Recorded aspirin 81 mg tablet,delayed 81 mg PO DAILY 07/09/19 release omeprazole 40 mg capsule,delayed 40 mg PO DAILY #90 cap 07/23/19 release rosuvastatin 20 mg tablet 20 mg PO QHS #90 tab 10/26/19 theophylline 300 mg 300 mg PO Q12H #180 tab 11/18/19 tablet,extended release,12 hr mirabegron 25 mg tablet,extended 25 mg PO DAILY 12/02/19 release 24 hr escitalopram oxalate 20 mg tablet 20 mg PO DAILY #90 tab 12/08/19 carvedilol 25 mg tablet 50 mg PO BREAKFAST tab 01/06/20 cholecalciferol (vitamin D3) 125 125 mcg PO DAILY 01/06/20 mcg (5,000 unit) capsule Carvedilol [Coreg] 25 mg PO QHS 01/12/20 - Social History SMOKING STATUS:: Former smoker Vital Signs Temp Pulse Resp BP Pulse Ox 97.8 F 78 16 97/56 L 95 01/13/20 17:57 01/13/20 17:57 01/13/20 17:57 01/13/20 17:57 01/13/20 17:57 Oxygen Flow Rate (L/min) 1.5 Oxygen Delivery Method Nasal Cannula Weight: 99.3 kg Body Mass Index (BMI) 37.5 Microbiology Past 72 Hours 01/13/20 Unknown Gram Stain - Final Biopsy - Ankle Laboratory Tests Past 24 Hrs 01/12/20 01/12/20 01/13/20 20:05 22:30 06:15 WBC 11.6 H RBC 3.78 L Hgb 12.2 Hct 38.4 MCV 101.6 H MCH 32.3 H MCHC 31.8 L RDW Std Deviation 49.3 H RDW Coeff of Surya 13.2 Plt Count 274 MPV 10.5 Immature Gran % (Auto) 0.600 Neut % (Auto) 77.7 H Lymph % (Auto) 7.2 L [place] % (Auto) 11.2 H Eos % (Auto) 2.9 Baso % (Auto) 0.4 Absolute Neuts (auto) 9.0 H Absolute Lymphs (auto) 0.83 Nucleated RBC % 0 Sodium Potassium Chloride Carbon Dioxide Anion Gap BUN Creatinine Estim Creat Clear Calc Est GFR (MDRD) Af Amer Est GFR (MDRD) Non-Af BUN/Creatinine Ratio Glucose Calcium Vit D 1,25-Dihydroxy Urine Color Yellow Urine Clarity Clear Urine pH 5.0 Ur Specific [place] 1.020 Urine Protein 15 H Urine Glucose (UA) Normal Urine Ketones 150 H Urine Occult Blood Negative Urine Nitrite Negative Urine Bilirubin Negative Urine Urobilinogen Normal Ur Leukocyte Esterase Negative Urine RBC 0 SEEN Urine WBC 0 SEEN Ur Squamous Epith Cells 0 SEEN Urine Bacteria 0 SEEN Urine Mucus 0 SEEN COVID-19 ([facility]) Negative 01/13/20 01/13/20 06:15 06:15 WBC RBC Hgb Hct MCV MCH MCHC RDW Std Deviation RDW Coeff of Surya Plt Count MPV Immature Gran % (Auto) Neut % (Auto) Lymph % (Auto) [place] % (Auto) Eos % (Auto) Baso % (Auto) Absolute Neuts (auto) Absolute Lymphs (auto) Nucleated RBC % Sodium 143 Potassium 3.7 Chloride 109 H Carbon Dioxide 31.0 Anion Gap 3 L BUN 31 H Creatinine 0.86 Estim Creat Clear Calc 51.81 Est GFR (MDRD) Af Amer 84 Est GFR (MDRD) Non-Af 70 BUN/Creatinine Ratio 36.3 H Glucose 96 Calcium 8.2 L Vit D 1,25-Dihydroxy Pending Urine Color Urine Clarity Urine pH Ur Specific [place] Urine Protein Urine Glucose (UA) Urine Ketones Urine Occult Blood Urine Nitrite Urine Bilirubin Urine Urobilinogen Ur Leukocyte Esterase Urine RBC Urine WBC Ur Squamous Epith Cells Urine Bacteria Urine Mucus COVID-19 ([facility]) - Other Studies Radiology: [] reviewed images Other Studies: [] Route of nutrition/ use of supplements: [] Nutritional Intake: [] IV Site: [] Cornejo Catheter: [] - Physical Exam General: Alert, Oriented x3, Cooperative, No apparent distress HEENT: Atraumatic, PERRLA, EOMI Neck: Supple, No Nodes Lungs: Clear to auscultation, Normal air movement Cardiovascular: Regular rate, Regular Rhythm Abdomen: Soft, Non Tender, Non-Distended Extremities: No edema Skin: No rashes IV Site: Peripheral, without redness Musculoskeletal: No Tenderness to Palpation of Joints or Extremities Neurological: Cranial nerves II-XII grossly intact - Assessment/Plan Antibiotics: [] Assessment/Plan: [] Active and Suspected Problems (Last Reviewed 01/13/20 @ 01:[address] 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 Cortez. With prolonged bone exposure in the tub, will need coverage for skin nohemi and water- associated bacteria like pseudomonas. She denies any stool contamination of the wound. Will start empiric vanc and cefepime, surg cx pending. Will follow, thank you.
--- NOTE | 2020-01-13 19:53 | PCM.PROGNOTE ---
Patient Problems: Active and Suspected Problems (Last Reviewed 01/13/20 @ 01:[address] Danny Menchaca MD) Type I or II open fracture dislocation of right ankle (Acute) Ankle osteomyelitis, right (Suspected) Ulcer of ankle with necrosis of bone (Acute) Subjective: Patient was sitting comfortably in chair bedside. Patient states that pain is largely under control but will have moments where it becomes more painful. Patient reports no issues with the frame overnight. Patient reports mild drainage from frame. Patient denies N/F/V/C/CP/SOB. - Physical Exam Vitals/I&O's: Vital Signs Temp Pulse Resp BP Pulse Ox 97.8 F 78 16 97/56 L 95 01/13/20 17:57 01/13/20 17:57 01/13/20 17:57 01/13/20 17:57 01/13/20 17:57 Oxygen Flow Rate (L/min) 1.5 Oxygen Delivery Method Nasal Cannula Weight: 99.3 kg Body Mass Index (BMI) 37.5 Intake and Output for Last 24 Hours 01/11/20 01/12/20 01/13/20 23:59 23:59 23:59 Intake Total 1050 / 1050 5131.67 / 5131.67 Output Total 925 / 925 Balance 1050 / 1050 4206.67 / 4206.67 General: Alert, Oriented x3 HEENT: Atraumatic Extremities: - - Right foot: color noted even further improvement since surgery with more healthy pink color. CFT < 3 seconds all toes. DP 2/4 pulse. Toes are warm. Non pitting edema noted. Gross sensation intact. Dressing over frame left intact with mild strikethrough noted to lateral heel. Patient is able to extend and flex all digits. Skin: - - dressing intact to right lower extremity Musculoskeletal: Tenderness - pin sites right lower extremity Neurological: Neuro grossly intact Psych/Mental Status: Normal Affect, Appropriate Microbiology Past 72 Hours 01/13/20 Unknown Biopsy - Ankle Gram Stain - Final Laboratory Results 01/12/20 20:05: COVID-19 ([facility]) Negative 01/12/20 22:30: Urine Color Yellow, Urine Clarity Clear, Urine pH 5.0, Ur Specific [place] 1.020, Urine Protein 15 H, Urine Glucose (UA) Normal, Urine Ketones 150 H, Urine Occult Blood Negative, Urine Nitrite Negative, Urine Bilirubin Negative, Urine Urobilinogen Normal, Ur Leukocyte Esterase Negative, Urine RBC 0 SEEN, Urine WBC 0 SEEN, Ur Squamous Epith Cells 0 SEEN, Urine Bacteria 0 SEEN, Urine Mucus 0 SEEN 01/13/20 06:15: WBC 11.6 H, RBC 3.78 L, Hgb 12.2, Hct 38.4, MCV 101.6 H, MCH 32.3 H, MCHC 31.8 L, RDW Std Deviation 49.3 H, RDW Coeff of Surya 13.2, Plt Count 274, MPV 10.5, Immature Gran % (Auto) 0.600, Neut % (Auto) 77.7 H, Lymph % (Auto) 7.2 L, [place] % (Auto) 11.2 H, Eos % (Auto) 2.9, Baso % (Auto) 0.4, Absolute Neuts (auto) 9.0 H, Absolute Lymphs (auto) 0.83, Nucleated RBC % 0 01/13/20 06:15: Sodium 143, Potassium 3.7, Chloride 109 H, Carbon Dioxide 31.0, Anion Gap 3 L, BUN 31 H, Creatinine 0.86, Estim Creat Clear Calc 51.81, Est GFR (MDRD) Af Amer 84, Est GFR (MDRD) Non-Af 70, BUN/Creatinine Ratio 36.3 H, Glucose 96, Calcium 8.2 L 01/13/20 06:15: Vit D 1,25-Dihydroxy Pending Current Medications Acetaminophen (Tylenol) 650 mg PO Q6H PRN PRN PRN Reason: Pain Score 1-10/10 Atorvastatin Calcium (Lipitor) 40 mg PO QHS [facility] Last Admin: 01/13/20 02:47 Dose: 40 mg Documented by: Carvedilol (Coreg) 50 mg PO BREAKFAST [facility] Last Admin: 01/13/20 09:25 Dose: 50 mg Documented by: Carvedilol (Coreg) 25 mg PO QHS [facility] Cholecalciferol (Vitamin D (25mcg)) 5,000 unit PO DAILY [facility] Last Admin: 01/13/20 09:25 Dose: 5,000 unit Documented by: Enoxaparin Sodium (Lovenox) 40 mg SC DAILY [facility] Escitalopram Oxalate (Lexapro) 20 mg PO DAILY [facility] Last Admin: 01/13/20 09:24 Dose: 20 mg Documented by: Lactated Ringer's () 1,000 mls @ 100 mls/hr IV .Q10H [facility] Last Infusion: 01/13/20 14:45 Dose: 100 mls/hr Documented by: Cefepime HCl 2 gm/ Sodium (Chloride) 100 mls @ 200 mls/hr IV Q8H [facility] Last Admin: 01/13/20 18:08 Dose: 200 mls/hr Documented by: Vancomycin IV Pharmacy to Dose (1 ea/ Sodium Chloride) 500 mls @ 250 mls/hr IV X1 PRN; Protocol PRN Reason: Rx to Dose Vancomycin HCl 750 mg/ Sodium (Chloride) 265 mls @ 250 mls/hr IV Q12H [facility] Magnesium Hydroxide (Milk Of Magnesia) 30 ml PO DAILY PRN PRN PRN Reason: Constipation Last Admin: 01/13/20 12:40 Dose: 30 ml Documented by: Mirabegron (Myrbetriq) 25 mg PO DAILY [facility] Last Admin: 01/13/20 09:25 Dose: 25 mg Documented by: Morphine Sulfate () 2 mg IV Q3H PRN PRN PRN Reason: Pain Score 6-10/10 Last Admin: 01/13/20 09:26 Dose: 2 mg Documented by: Nutritional Formula (Lactose Free) (Ensure Enlive) 120 ml PO 4X/DAY [facility] Last Admin: 01/13/20 18:08 Dose: 120 ml Documented by: Ondansetron HCl (Zofran) 4 mg IV Q8H PRN PRN PRN Reason: NAUSEA/VOMITING Oxycodone HCl (Oxyir) 5 mg PO Q6H PRN PRN PRN Reason: Pain Score 6-10/10 Last Admin: 01/13/20 12:39 Dose: 5 mg Documented by: Pantoprazole Sodium (Protonix) 40 mg PO DAILY [facility] Last Admin: 01/13/20 09:24 Dose: 40 mg Documented by: Polyethylene Glycol (Miralax) 17 gm PO DAILY PRN PRN PRN Reason: Constipation Sodium Chloride () 10 - 40 ml IV UD PRN PRN Reason: SALINE FLUSH Theophylline (Tam-Dur) 300 mg PO Q12H [facility] Medical Necessity - Tobacco Use Smoking Status: Former smoker Assessment/Plan All Active Problems (Last Reviewed 01/13/20 @ 01:[address] Danny Menchaca MD) Type I or II open fracture dislocation of right ankle (Acute) Ulcer of ankle with necrosis of bone (Acute) right ankle open fracture with dislocation s/p closed reduction with external fixation POD1 right ankle osteomyelitis, suspected ulceration right ankle with exposed necrotic bone pain right ankle Patient seen and examined Pain is largely well controlled Patient to remain NWB to RLE Post op XR reviewed with maintenace of reduction observed Follow intraop cultures continue antibiotics per ID Would appreciate ID input in extent and severity of infection Possible need for skilled nursing IV antibiotics Will need to return to OR for further correction of ankle fracture with ulceration. Will await return of cultures to determine further surgical planning. Discussed this and various treatment and surgical options with the patient including potential complications. Patient understands and agrees to plan. Dressing left intact today, mild strikethrough noted. Dressing reinforced. Will continue to follow Please contact Dr Cortez if any questions
[2020-01-13] MEDS: Acetaminophen 325 MG Tablet 650 MG PO (21:59)
[2020-01-14] VITALS (14 sets, daily range): BP systolic 94–129; BP diastolic 47–82; PULSE 68–89; RESP 16–18; TEMP 36.4–36.8; O2SAT 94–98; BMI 37.6
[2020-01-14 05:25] LABS: Absolute Lymphocyte Count 1.46 X10^3/uL (0.83-4.51); Absolute Neutrophil Count 5.3 X10^3/uL (2.0-7.7); Basophil# 0.04 X10^3/uL; Basophil% 0.5 % (0-1); Eosinophil# 0.34 X10^3/uL; Eosinophils% 4.1 % (0-5); Hematocrit 33.3 % (37-47); Hemoglobin 10.2 g/dL (12.0-15.0); Lymphocyte # 1.46 X10^3/ul (4.0); Lymphocyte % 17.6 % (19-41); Mean Corp Hgb Conc 30.6 g/dL (32-36); Mean Corpuscular Hgb 31.8 pg (27.0-32.0); Mean Corpuscular Volume 103.7 fL (81-99); Monocyte# 1.12 X10^3/uL; Monocyte% 13.5 % (0-10); NRBC Flagged by Analyzer 0 % (0-5); Neutrophil # 5.29 X10^3/uL (2.7-7.7); Neutrophil % 63.7 % (47-70); Platelet Count 209 K/mm3 (150-450); RBC Distribution Width CV 13.2 % (11.6-14.6); RBC Distribution Width SD 49.6 fl (35.1-43.9); Red Blood Count 3.21 M/mm3 (4.2-5.4); White Blood Count 8.3 K/mm3 (4.4-11.0)
[2020-01-14 05:38] LABS: Anion Gap 2 (5-15); BUN 20 mg/dL (7-18); BUN/Creat Ratio 25.9 RATIO (10-20); Calcium,Total 7.9 mg/dL (8.5-10.1); Chloride 108 mmol/L (98-107); Creatinine, Serum 0.77 mg/dL (0.55-1.02); EST Glomerular Filtration Rate 78 mL/min (>60); Est Glom Filt Rate - Afr Amer 95 mL/min (>60); Estimated Creatinine Clearance 44.56 ml/min; Glucose 106 mg/dL (74-106); Potassium 3.8 mmol/L (3.5-5.1); Sodium Level 143 mmol/L (136-145)
--- NOTE | 2020-01-14 09:29 | CASEMGMT ---
Social Work Note BARI placed a call to Machelle at [facility], Machelle not available at this time. SW left message for Machelle to call this worker back regarding referral. BARI waiting for call back. Plan: [facility] pending acceptance and pre-cert [employer], [employer]
[2020-01-14] MEDS: Enoxaparin 40 MG/0.4 ML Syringe SC (10:26)
[2020-01-14] MEDS: HYDROmorphone 1 MG/ML Syringe IV (10:26)
[2020-01-14] MEDS: Escitalopram Oxalate 20 MG Tablet PO (10:27)
[2020-01-14] MEDS: Lactated Ringers 1,000 ML 100 ML IV ×2 (10:27→21:58)
[2020-01-14] MEDS: Pantoprazole Sodium 40 MG Tablet PO (10:27)
[2020-01-14] MEDS: Mirabegron 25 MG TAB.ER.24H PO (10:27)
[2020-01-14] MEDS: Ipratropium/Albuterol Sulfate 3 ML AMPUL.NEB INHALATION ×2 (11:01→19:16)
--- NOTE | 2020-01-14 11:26 | PCM.PN.HOSP ---
<Marcelino Kruse - Last Filed: 01/14/20 11:26> Patient Problems: Active and Suspected Problems (Last Reviewed 01/13/20 @ 01:[address] Danny Menchaca MD) Type I or II open fracture dislocation of right ankle (Acute) Ankle osteomyelitis, right (Suspected) Ulcer of ankle with necrosis of bone (Acute) Reason for Visit: RLE osteomyelitis, fracture Subjective: No fever/chills. BM yesterday - normal. No nause/vomiting. Pain in RLE improved, severe earlier. No dizziness/LH. coreg held for low bp. Vitals/I&O's: Vital Signs Temp Pulse Resp BP Pulse Ox 98.2 F 78 16 103/47 L 98 01/14/20 09:00 01/14/20 09:00 01/14/20 09:00 01/14/20 09:00 01/14/20 09:00 Oxygen Flow Rate (L/min) 2 Oxygen Delivery Method Nasal Cannula Weight: 218 lb 14.704 oz Body Mass Index (BMI) 37.5 Intake and Output for Last 24 Hours 01/12/20 01/13/20 01/14/20 23:59 23:59 23:59 Intake Total 1050 / 1050 6216.67 / 6216.67 1615 / 1615 Output Total 1225 / 1225 Balance 1050 / 1050 4991.67 / 4991.67 1615 / 1615 General: Alert, Oriented x3, Cooperative HEENT: Atraumatic, PERRLA, EOMI, Normocephalic Neck: Supple, No JVD, Negative Carotid Bruits Lungs: Clear to auscultation, Normal air movement Cardiovascular: Regular rate, No murmurs Abdomen: Bowel Sounds Present, Soft, Non Tender Extremities: No edema, Capillary Refill Less than 3 Seconds Skin: No rashes, No breakdown Musculoskeletal: No Tenderness to Palpation of Joints or Extremities Neurological: Cranial nerves II-XII grossly intact Psych/Mental Status: Normal Affect, Appropriate, Alert and oriented to time, place, person, mood and affect Microbiology Past 72 Hours 01/13/20 Unknown Biopsy - Ankle Gram Stain - Final 01/13/20 Unknown Biopsy - Ankle Wound Culture - Preliminary GNR lactose tooling inspector Laboratory Results 01/14/20 05:16: WBC 8.3, RBC 3.21 L, Hgb 10.2 L, Hct 33.3 L, MCV 103.7 H, MCH 31.8, MCHC 30.6 L, RDW Std Deviation 49.6 H, RDW Coeff of Surya 13.2, Plt Count 209, MPV 10.0, Immature Gran % (Auto) 0.600, Neut % (Auto) 63.7, Lymph % (Auto) 17.6 L, [place] % (Auto) 13.5 H, Eos % (Auto) 4.1, Baso % (Auto) 0.5, Absolute Neuts (auto) 5.3, Absolute Lymphs (auto) 1.46, Nucleated RBC % 0 01/14/20 05:16: Sodium 143, Potassium 3.8, Chloride 108 H, Carbon Dioxide 33.0 H, Anion Gap 2 L, BUN 20 H, Creatinine 0.77, Estim Creat Clear Calc 44.56, Est GFR (MDRD) Af Amer 95, Est GFR (MDRD) Non-Af 78, BUN/Creatinine Ratio 25.9 H, Glucose 106, Calcium 7.9 L Current Medications Acetaminophen (Tylenol) 650 mg PO Q6H PRN PRN PRN Reason: Pain Score 1-10/10 Last Admin: 01/13/20 21:59 Dose: 650 mg Documented by: Albuterol/Ipratropium (Duoneb) 3 ml INHALATION Q6HWA.RT [facility] Last Admin: 01/14/20 11:01 Dose: 3 ml Documented by: Atorvastatin Calcium (Lipitor) 40 mg PO QHS [facility] Last Admin: 01/13/20 21:59 Dose: 40 mg Documented by: Carvedilol (Coreg) 50 mg PO BREAKFAST [facility] Last Admin: 01/14/20 07:48 Dose: Not Given Documented by: Carvedilol (Coreg) 25 mg PO QHS [facility] Cholecalciferol (Vitamin D (25mcg)) 5,000 unit PO DAILY [facility] Last Admin: 01/14/20 10:26 Dose: 5,000 unit Documented by: Enoxaparin Sodium (Lovenox) 40 mg SC DAILY [facility] Last Admin: 01/14/20 10:26 Dose: 40 mg Documented by: Escitalopram Oxalate (Lexapro) 20 mg PO DAILY [facility] Last Admin: 01/14/20 10:27 Dose: 20 mg Documented by: Hydromorphone HCl (Dilaudid Inj) 1 mg IV Q6H PRN PRN PRN Reason: Pain Score 6-10/10 Last Admin: 01/14/20 10:26 Dose: 1 mg Documented by: Lactated Ringer's () 1,000 mls @ 100 mls/hr IV .Q10H [facility] Last Admin: 01/14/20 10:27 Dose: 100 mls/hr Documented by: Cefepime HCl 2 gm/ Sodium (Chloride) 100 mls @ 200 mls/hr IV Q8H [facility] Last Infusion: 01/14/20 11:02 Dose: Infused Documented by: Vancomycin IV Pharmacy to Dose (1 ea/ Sodium Chloride) 500 mls @ 250 mls/hr IV X1 PRN; Protocol PRN Reason: Rx to Dose Vancomycin HCl 750 mg/ Sodium (Chloride) 265 mls @ 250 mls/hr IV Q12H [facility] Last Infusion: 01/14/20 00:52 Dose: Infused Documented by: Magnesium Hydroxide (Milk Of Magnesia) 30 ml PO DAILY PRN PRN PRN Reason: Constipation Last Admin: 01/13/20 12:40 Dose: 30 ml Documented by: Mirabegron (Myrbetriq) 25 mg PO DAILY [facility] Last Admin: 01/14/20 10:27 Dose: 25 mg Documented by: Morphine Sulfate () 2 mg IV Q3H PRN PRN PRN Reason: Pain Score 6-10/10 Last Admin: 01/13/20 23:46 Dose: 2 mg Documented by: Nutritional Formula (Lactose Free) (Ensure Enlive) 120 ml PO 4X/DAY [facility] Last Admin: 01/14/20 10:25 Dose: 120 ml Documented by: Ondansetron HCl (Zofran) 4 mg IV Q8H PRN PRN PRN Reason: NAUSEA/VOMITING Oxycodone HCl (Oxyir) 5 mg PO Q6H PRN PRN PRN Reason: Pain Score 6-10/10 Last Admin: 01/13/20 21:58 Dose: 5 mg Documented by: Pantoprazole Sodium (Protonix) 40 mg PO DAILY [facility] Last Admin: 01/14/20 10:27 Dose: 40 mg Documented by: Polyethylene Glycol (Miralax) 17 gm PO DAILY PRN PRN PRN Reason: Constipation Sodium Chloride () 10 - 40 ml IV UD PRN PRN Reason: SALINE FLUSH STROKE Vital Signs/Narrative: Vital Signs Temp Pulse Resp BP Pulse Ox 01/14/20 09:00 98.2 F 78 16 103/47 L 98 01/14/20 07:54 97 Medical Necessity - Tobacco Use Smoking Status: Former smoker Assessment/Plan All Active Problems (Last Reviewed 01/13/20 @ 01:[address] Danny Menchaca MD) Type I or II open fracture dislocation of right ankle (Acute) Ulcer of ankle with necrosis of bone (Acute) 1. Open fx of right ankle 2/2 slip and fall in bathtub complicated by osteomyelitis - s/p closed reduction internal fixation POD#2. Osteo evident in OR. Cultures sent: prelim showing GNR lactose tooling inspector. received periop cefazolin. ID consulted and abx changed to cefepime and vancomycin. WBC elevation resolved. Afebrile. 2. CKDIII - stable 3. HTN - coreg held, resume when appropriate. 4. Hx thoracic aortic aneurysm 5. HLD - stable 6. Depression - lexapro 7. Constipation - resolved. DVT ppx: start lovenox in AM if hgb stable DC planning: PTOT. NWB, may need SNF This patient was seen by Marcelino Kruse PA-C under the supervision of Dr. Gallo. <Israel Gallo F - Last Filed: 01/14/20 16:04> Vitals/I&O's: Vital Signs Temp Pulse Resp BP Pulse Ox 98.0 F 78 16 94/54 L 94 01/14/20 15:11 01/14/20 15:11 01/14/20 15:11 01/14/20 15:11 01/14/20 15:11 Oxygen Flow Rate (L/min) 1 Oxygen Delivery Method Nasal Cannula Weight: 218 lb 14.704 oz Body Mass Index (BMI) 37.5 Intake and Output for Last 24 Hours 01/12/20 01/13/20 01/14/20 23:59 23:59 23:59 Intake Total 1050 / 1050 6216.67 / 6216.67 2541.67 / 2541.67 Output Total 1225 / 1225 Balance 1050 / 1050 4991.67 / 4991.67 2541.67 / 2541.67 Microbiology Past 72 Hours 01/13/20 Unknown Biopsy - Ankle Gram Stain - Final 01/13/20 Unknown Biopsy - Ankle Wound Culture - Preliminary GNR lactose tooling inspector Laboratory Results 01/14/20 05:16: WBC 8.3, RBC 3.21 L, Hgb 10.2 L, Hct 33.3 L, MCV 103.7 H, MCH 31.8, MCHC 30.6 L, RDW Std Deviation 49.6 H, RDW Coeff of Surya 13.2, Plt Count 209, MPV 10.0, Immature Gran % (Auto) 0.600, Neut % (Auto) 63.7, Lymph % (Auto) 17.6 L, [place] % (Auto) 13.5 H, Eos % (Auto) 4.1, Baso % (Auto) 0.5, Absolute Neuts (auto) 5.3, Absolute Lymphs (auto) 1.46, Nucleated RBC % 0 01/14/20 05:16: Sodium 143, Potassium 3.8, Chloride 108 H, Carbon Dioxide 33.0 H, Anion Gap 2 L, BUN 20 H, Creatinine 0.77, Estim Creat Clear Calc 44.56, Est GFR (MDRD) Af Amer 95, Est GFR (MDRD) Non-Af 78, BUN/Creatinine Ratio 25.9 H, Glucose 106, Calcium 7.9 L Current Medications Acetaminophen (Tylenol) 650 mg PO Q6H PRN PRN PRN Reason: Pain Score 1-10/10 Last Admin: 01/14/20 11:45 Dose: 650 mg Documented by: Albuterol/Ipratropium (Duoneb) 3 ml INHALATION Q6HWA.RT [facility] Last Admin: 01/14/20 11:01 Dose: 3 ml Documented by: Atorvastatin Calcium (Lipitor) 40 mg PO QHS [facility] Last Admin: 01/13/20 21:59 Dose: 40 mg Documented by: Carvedilol (Coreg) 50 mg PO BREAKFAST [facility] Last Admin: 01/14/20 07:48 Dose: Not Given Documented by: Carvedilol (Coreg) 25 mg PO QHS [facility] Cholecalciferol (Vitamin D (25mcg)) 5,000 unit PO DAILY [facility] Last Admin: 01/14/20 10:26 Dose: 5,000 unit Documented by: Enoxaparin Sodium (Lovenox) 40 mg SC DAILY [facility] Last Admin: 01/14/20 10:26 Dose: 40 mg Documented by: Escitalopram Oxalate (Lexapro) 20 mg PO DAILY [facility] Last Admin: 01/14/20 10:27 Dose: 20 mg Documented by: Hydromorphone HCl (Dilaudid Inj) 1 mg IV Q6H PRN PRN PRN Reason: Pain Score 6-10/10 Last Admin: 01/14/20 10:26 Dose: 1 mg Documented by: Lactated Ringer's () 1,000 mls @ 100 mls/hr IV .Q10H [facility] Last Infusion: 01/14/20 12:40 Dose: 100 mls/hr Documented by: Cefepime HCl 2 gm/ Sodium (Chloride) 100 mls @ 200 mls/hr IV Q8H [facility] Last Infusion: 01/14/20 11:02 Dose: Infused Documented by: Vancomycin IV Pharmacy to Dose (1 ea/ Sodium Chloride) 500 mls @ 250 mls/hr IV X1 PRN; Protocol PRN Reason: Rx to Dose Vancomycin HCl 750 mg/ Sodium (Chloride) 265 mls @ 250 mls/hr IV Q12H [facility] Last Infusion: 01/14/20 12:41 Dose: Infused Documented by: Magnesium Hydroxide (Milk Of Magnesia) 30 ml PO DAILY PRN PRN PRN Reason: Constipation Last Admin: 01/13/20 12:40 Dose: 30 ml Documented by: Mirabegron (Myrbetriq) 25 mg PO DAILY [facility] Last Admin: 01/14/20 10:27 Dose: 25 mg Documented by: Morphine Sulfate () 2 mg IV Q3H PRN PRN PRN Reason: Pain Score 6-10/10 Last Admin: 01/13/20 23:46 Dose: 2 mg Documented by: Nutritional Formula (Lactose Free) (Ensure Enlive) 120 ml PO 4X/DAY [facility] Last Admin: 01/14/20 14:29 Dose: 120 ml Documented by: Ondansetron HCl (Zofran) 4 mg IV Q8H PRN PRN PRN Reason: NAUSEA/VOMITING Oxycodone HCl (Oxyir) 5 mg PO Q6H PRN PRN PRN Reason: Pain Score 6-10/10 Last Admin: 01/14/20 11:44 Dose: 5 mg Documented by: Pantoprazole Sodium (Protonix) 40 mg PO DAILY [facility] Last Admin: 01/14/20 10:27 Dose: 40 mg Documented by: Polyethylene Glycol (Miralax) 17 gm PO DAILY PRN PRN PRN Reason: Constipation Sodium Chloride () 10 - 40 ml IV UD PRN PRN Reason: SALINE FLUSH STROKE Vital Signs/Narrative: Vital Signs Temp Pulse Resp BP Pulse Ox 01/14/20 15:11 98.0 F 78 16 94/54 L 94 Addendum: Dr. Gallo I personally examined the patient and reviewed the chart. I agree with the above. 69-year-old female who slipped in the tub 4 days ago and broke her ankle was unable to contact family. She was found after she did not show up to a family event to visit her mother at the [facility]. She was taken to the OR on 01/12/2020 with surgery being completed on 01/13/2020, she has an ex-fix in place. Infectious disease was consulted to help with antibiotic selection, and she was transitioned from Ancef to cefepime and vancomycin. We will continue with PT/OT but she will likely need placement to a fpc facility for rehab. Will be about a month until she can have the ex-fix removed. Continue with pain control will monitor her blood pressures, she does take 50 mg of Coreg in the morning and 25 mg at night blood pressure was low though she was asymptomatic. 01/14/2020: She did well overnight. Pain is controlled, she will likely need a SNF placement which will happen next week. Infectious disease is recommending 6 weeks of IV antibiotics with Vanco and cefepime, with new wound cultures were obtained today, ankle biopsy from yesterday is growing a gram-negative ramon. We will continue to hold her Coreg as her blood pressures have been low, though she is asymptomatic. Inpatient E&M: 43683 Subs Hosp L2
[2020-01-14] MEDS: oxyCODONE 5 MG Tablet PO ×2 (11:44→18:51)
[2020-01-14] MEDS: Acetaminophen 325 MG Tablet 650 MG PO ×2 (11:45→18:51)
--- NOTE | 2020-01-14 13:45 | CASEMGMT ---
Social Work Note BARI received message from Machelle at [facility] stating at this time, she has no beds available. BARI placed a call to [facility] in TCU, TCU does accept pt's insurance and TCU does have a bed available. BARI in to speak with pt. BARI updated pt that [facility] has no beds available at this time but educated pt on [facility]. Pt agreeable to [facility]. BARI explained that pre-cert will need to be obtained. Pt states understanding. BARI placed a call to [facility] in [facility]. [facility] states she will submit for pre-cert. Plan: TCU pending pre-cert Felisa Mata FURNITURE PACKER, RADIOLOGY THERAPIST
--- NOTE | 2020-01-14 14:37 | PN_ITS ---
Patient Problems: Active and Suspected Problems (Last Reviewed 01/13/20 @ 01:[address] Danny Menchaca MD) Type I or II open fracture dislocation of right ankle (Acute) Ankle osteomyelitis, right (Suspected) Ulcer of ankle with necrosis of bone (Acute) - Physical Exam Vitals/I&O's: Vital Signs Temp Pulse Resp BP Pulse Ox 98.2 F 78 16 103/47 L 98 01/14/20 09:00 01/14/20 09:00 01/14/20 09:00 01/14/20 09:00 01/14/20 09:00 Oxygen Flow Rate (L/min) 2 Oxygen Delivery Method Nasal Cannula Weight: 99.3 kg Body Mass Index (BMI) 37.5 Intake and Output for Last 24 Hours 01/12/20 01/13/20 01/14/20 23:59 23:59 23:59 Intake Total 1050 / 1050 6216.67 / 6216.67 2541.67 / 2541.67 Output Total 1225 / 1225 Balance 1050 / 1050 4991.67 / 4991.67 2541.67 / 2541.67 General: Alert, Oriented x3 HEENT: Atraumatic Extremities: Capillary Refill Less than 3 Seconds - all digits right foot, No Calf Tenderness, Diminished Peripheral Pulses - 1/4 PT, 2/4 DP right foot, Edema, Tenderness - at fixation sites and medial ankle wound Skin: Ulcer/ Wound - ulcer to medial right ankle measuring 3.2x4.5x2.5cm with hematoma noted, into the level of tendon and bone with mild serous drainage. precious wound with noted erythema and edema, no purulence expressed. 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 Laboratory Results 01/14/20 05:16: WBC 8.3, RBC 3.21 L, Hgb 10.2 L, Hct 33.3 L, MCV 103.7 H, MCH 31.8, MCHC 30.6 L, RDW Std Deviation 49.6 H, RDW Coeff of Surya 13.2, Plt Count 209, MPV 10.0, Immature Gran % (Auto) 0.600, Neut % (Auto) 63.7, Lymph % (Auto) 17.6 L, [place] % (Auto) 13.5 H, Eos % (Auto) 4.1, Baso % (Auto) 0.5, Absolute Neuts (auto) 5.3, Absolute Lymphs (auto) 1.46, Nucleated RBC % 0 01/14/20 05:16: Sodium 143, Potassium 3.8, Chloride 108 H, Carbon Dioxide 33.0 H , Anion Gap 2 L, BUN 20 H, Creatinine 0.77, Estim Creat Clear Calc 44.56, Est GFR (MDRD) Af Amer 95, Est GFR (MDRD) Non-Af 78, BUN/Creatinine Ratio 25.9 H, Glucose 106, Calcium 7.9 L Current Medications Acetaminophen (Tylenol) 650 mg PO Q6H PRN PRN PRN Reason: Pain Score 1-1010 Last Admin: 01/14/20 11:45 Dose: 650 mg Documented by: Albuterol/Ipratropium (Duoneb) 3 ml INHALATION Q6HWA.RT [facility] Last Admin: 01/14/20 11:01 Dose: 3 ml Documented by: Atorvastatin Calcium (Lipitor) 40 mg PO QHS [facility] Last Admin: 01/13/20 21:59 Dose: 40 mg Documented by: Carvedilol (Coreg) 50 mg PO BREAKFAST [facility] Last Admin: 01/14/20 07:48 Dose: Not Given Documented by: Carvedilol (Coreg) 25 mg PO QHS [facility] Cholecalciferol (Vitamin D (25mcg)) 5,000 unit PO DAILY [facility] Last Admin: 01/14/20 10:26 Dose: 5,000 unit Documented by: Enoxaparin Sodium (Lovenox) 40 mg SC DAILY [facility] Last Admin: 01/14/20 10:26 Dose: 40 mg Documented by: Escitalopram Oxalate (Lexapro) 20 mg PO DAILY [facility] Last Admin: 01/14/20 10:27 Dose: 20 mg Documented by: Hydromorphone HCl (Dilaudid Inj) 1 mg IV Q6H PRN PRN PRN Reason: Pain Score 6-10/10 Last Admin: 01/14/20 10:26 Dose: 1 mg Documented by: Lactated Ringer's () 1,000 mls @ 100 mls/hr IV .Q10H [facility] Last Infusion: 01/14/20 12:40 Dose: 100 mls/hr Documented by: Cefepime HCl 2 gm/ Sodium (Chloride) 100 mls @ 200 mls/hr IV Q8H [facility] Last Infusion: 01/14/20 11:02 Dose: Infused Documented by: Vancomycin IV Pharmacy to Dose (1 ea/ Sodium Chloride) 500 mls @ 250 mls/hr IV X1 PRN; Protocol PRN Reason: Rx to Dose Vancomycin HCl 750 mg/ Sodium (Chloride) 265 mls @ 250 mls/hr IV Q12H [facility] Last Infusion: 01/14/20 12:41 Dose: Infused Documented by: Magnesium Hydroxide (Milk Of Magnesia) 30 ml PO DAILY PRN PRN PRN Reason: Constipation Last Admin: 01/13/20 12:40 Dose: 30 ml Documented by: Mirabegron (Myrbetriq) 25 mg PO DAILY [facility] Last Admin: 01/14/20 10:27 Dose: 25 mg Documented by: Morphine Sulfate () 2 mg IV Q3H PRN PRN PRN Reason: Pain Score 6-10/10 Last Admin: 01/13/20 23:46 Dose: 2 mg Documented by: Nutritional Formula (Lactose Free) (Ensure Enlive) 120 ml PO 4X/DAY [facility] Last Admin: 01/14/20 14:29 Dose: 120 ml Documented by: Ondansetron HCl (Zofran) 4 mg IV Q8H PRN PRN PRN Reason: NAUSEA/VOMITING Oxycodone HCl (Oxyir) 5 mg PO Q6H PRN PRN PRN Reason: Pain Score 6-10/10 Last Admin: 01/14/20 11:44 Dose: 5 mg Documented by: Pantoprazole Sodium (Protonix) 40 mg PO DAILY [facility] Last Admin: 01/14/20 10:27 Dose: 40 mg Documented by: Polyethylene Glycol (Miralax) 17 gm PO DAILY PRN PRN PRN Reason: Constipation Sodium Chloride () 10 - 40 ml IV UD PRN PRN Reason: SALINE FLUSH Medical Necessity - Tobacco Use Smoking Status: Former smoker Assessment/Plan All Active Problems (Last Reviewed 01/13/20 @ 01:[address] Danny Menchaca MD) Type I or II open fracture dislocation of right ankle (Acute) Ulcer of ankle with necrosis of bone (Acute) right ankle open fracture with dislocation s/p closed reduction with external fixation POD2 right ankle osteomyelitis, suspected ulceration right ankle with exposed necrotic bone pain right ankle Patient seen and examined Pain is largely well controlled Patient to remain NWB to RLE Follow intraop cultures continue antibiotics per ID Would appreciate ID input in extent and severity of infection and if she is able to go forward with internal fixation of fracture sometime next week depending on extent of infection Possible need for shelter IV antibiotics Will need to return to OR for further correction of ankle fracture. Will await return of cultures to determine further surgical planning. Would appreciate ID imput if infection will likely be under control to move forward with surgical plans. Bedside I&D with delayed primary closure was performed today with evacuation of hematoma and cultures obtained. Discussed plan and various treatment and surgical options with the patient including potential complications. Patient understands and agrees to plan. Dressing changed after I&D. May reinforce if any strikethrough with virginia wrap Will continue to follow Discussed with patient that we would be changing the dressing today and will assess the wound to her medial ankle. Upon examination the wound appeared clean and noninfected. Some hematoma but not active bleeding was noted. It was de termined that patient could undergo bedside I&D with delayed primary closure. All risks, benefits, and potential complications were discussed with the patient including but not limited to bleeding, infection, delayed wound healing, nonhealing, need for further surgery or amputation. Patient understood and agreed to treatment plan. Consent was signed. Site was anesthetized with 1% lidocaine in a v block fashion precious ulcer right medial ankle. Site was prepped with betadine. Retention sutures were removed and the wound was visualized. A hematoma was noted and evacuated manually. Precious edges of the wound were freshened up with picker/puller and 15 blade. Sharp excisional nonselective debridement of the right ankle ulcer was carried out into the level of bone and tendon. All devitalized tissue was removed. Posterior tibial tendon, medial malleolus and talus were visualized and had a healthy appearance. Site was flushed with copious amounts of normal sterile saline. Swab cultures were obtained. No purulence was encountered. Skin was closed with 3-0 nylon in simple and horizontal mattress type fashion with good approximation of skin edges. Site was then dressed with betadine soaked gauze to incision site and all external fixation points, kerlix, virginia wrap. Predebridement measurements of the ulceration was 3x4.5x0.8cm and post debridement was 3.2x4.5x2.0cm with closed incision measuring 4.5cm. The patient tolerated the procedure without any complications. Plan for return to OR possibly next week for definitive fixation of fracture. Would appreciate ID input on infection status. Please contact Dr Cortez if any questions
--- NOTE | 2020-01-14 15:21 | PCM.PN.ID ---
Patient Problems: Active and Suspected Problems (Last Reviewed 01/13/20 @ 01:[address] Danny Menchaca MD) Type I or II open fracture dislocation of right ankle (Acute) Ankle osteomyelitis, right (Suspected) Ulcer of ankle with necrosis of bone (Acute) Subjective: Feeling ok, pain controlled, no fever, no n/v/d. - Physical Exam Vitals/I&O's: Vital Signs Temp Pulse Resp BP Pulse Ox 98.0 F 78 16 94/54 L 94 01/14/20 15:11 01/14/20 15:11 01/14/20 15:11 01/14/20 15:11 01/14/20 15:11 Oxygen Flow Rate (L/min) 1 Oxygen Delivery Method Nasal Cannula Weight: 99.3 kg Body Mass Index (BMI) 37.5 Intake and Output for Last 24 Hours 01/12/20 01/13/20 01/14/20 23:59 23:59 23:59 Intake Total 1050 / 1050 6216.67 / 6216.67 2541.67 / 2541.67 Output Total 1225 / 1225 Balance 1050 / 1050 4991.67 / 4991.67 2541.67 / 2541.67 General: Alert, Cooperative, No apparent distress Lungs: Clear to auscultation, Normal air movement Cardiovascular: Regular rate, Regular Rhythm Abdomen: Soft, Non Tender, Non-Distended Skin: Ulcer/ Wound - external fixator in place in E Microbiology Past 72 Hours 01/13/20 Unknown Biopsy - Ankle Gram Stain - Final 01/13/20 Unknown Biopsy - Ankle Wound Culture - 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 Laboratory Results 01/14/20 05:16: WBC 8.3, RBC 3.21 L, Hgb 10.2 L, Hct 33.3 L, MCV 103.7 H, MCH 31.8, MCHC 30.6 L, RDW Std Deviation 49.6 H, RDW Coeff of Suyra 13.2, Plt Count 209, MPV 10.0, Immature Gran % (Auto) 0.600, Neut % (Auto) 63.7, Lymph % (Auto) 17.6 L, [place] % (Auto) 13.5 H, Eos % (Auto) 4.1, Baso % (Auto) 0.5, Absolute Neuts (auto) 5.3, Absolute Lymphs (auto) 1.46, Nucleated RBC % 0 01/14/20 05:16: Sodium 143, Potassium 3.8, Chloride 108 H, Carbon Dioxide 33.0 H, Anion Gap 2 L, BUN 20 H, Creatinine 0.77, Estim Creat Clear Calc 44.56, Est GFR (MDRD) Af Amer 95, Est GFR (MDRD) Non-Af 78, BUN/Creatinine Ratio 25.9 H, Glucose 106, Calcium 7.9 L Current Medications Acetaminophen (Tylenol) 650 mg PO Q6H PRN PRN PRN Reason: Pain Score 1-03/18 Last Admin: 01/14/20 11:45 Dose: 650 mg Documented by: Albuterol/Ipratropium (Duoneb) 3 ml INHALATION Q6HWA.RT [facility] Last Admin: 01/14/20 11:01 Dose: 3 ml Documented by: Atorvastatin Calcium (Lipitor) 40 mg PO QHS [facility] Last Admin: 01/13/20 21:59 Dose: 40 mg Documented by: Carvedilol (Coreg) 50 mg PO BREAKFAST [facility] Last Admin: 01/14/20 07:48 Dose: Not Given Documented by: Carvedilol (Coreg) 25 mg PO QHS [facility] Cholecalciferol (Vitamin D (25mcg)) 5,000 unit PO DAILY [facility] Last Admin: 01/14/20 10:26 Dose: 5,000 unit Documented by: Enoxaparin Sodium (Lovenox) 40 mg SC DAILY [facility] Last Admin: 01/14/20 10:26 Dose: 40 mg Documented by: Escitalopram Oxalate (Lexapro) 20 mg PO DAILY [facility] Last Admin: 01/14/20 10:27 Dose: 20 mg Documented by: Hydromorphone HCl (Dilaudid Inj) 1 mg IV Q6H PRN PRN PRN Reason: Pain Score 6-03/18 Last Admin: 01/14/20 10:26 Dose: 1 mg Documented by: Lactated Ringer's () 1,000 mls @ 100 mls/hr IV .Q10H [facility] Last Infusion: 01/14/20 12:40 Dose: 100 mls/hr Documented by: Cefepime HCl 2 gm/ Sodium (Chloride) 100 mls @ 200 mls/hr IV Q8H [facility] Last Infusion: 01/14/20 11:02 Dose: Infused Documented by: Vancomycin IV Pharmacy to Dose (1 ea/ Sodium Chloride) 500 mls @ 250 mls/hr IV X1 PRN; Protocol PRN Reason: Rx to Dose Vancomycin HCl 750 mg/ Sodium (Chloride) 265 mls @ 250 mls/hr IV Q12H [facility] Last Infusion: 01/14/20 12:41 Dose: Infused Documented by: Magnesium Hydroxide (Milk Of Magnesia) 30 ml PO DAILY PRN PRN PRN Reason: Constipation Last Admin: 01/13/20 12:40 Dose: 30 ml Documented by: Mirabegron (Myrbetriq) 25 mg PO DAILY [facility] Last Admin: 01/14/20 10:27 Dose: 25 mg Documented by: Morphine Sulfate () 2 mg IV Q3H PRN PRN PRN Reason: Pain Score 6-10/10 Last Admin: 01/13/20 23:46 Dose: 2 mg Documented by: Nutritional Formula (Lactose Free) (Ensure Enlive) 120 ml PO 4X/DAY [facility] Last Admin: 01/14/20 14:29 Dose: 120 ml Documented by: Ondansetron HCl (Zofran) 4 mg IV Q8H PRN PRN PRN Reason: NAUSEA/VOMITING Oxycodone HCl (Oxyir) 5 mg PO Q6H PRN PRN PRN Reason: Pain Score 6-10/10 Last Admin: 01/14/20 11:44 Dose: 5 mg Documented by: Pantoprazole Sodium (Protonix) 40 mg PO DAILY [facility] Last Admin: 01/14/20 10:27 Dose: 40 mg Documented by: Polyethylene Glycol (Miralax) 17 gm PO DAILY PRN PRN PRN Reason: Constipation Sodium Chloride () 10 - 40 ml IV UD PRN PRN Reason: SALINE FLUSH Medical Necessity - Tobacco Use Smoking Status: Former smoker Route of nutrition/ use of supplements: [] Nutritional Intake: [] IV Site: [] Corenjo Catheter: [] - Assessment/Plan Antibiotics: [] Assessment/Plan: [] Active and Suspected Problems (Last Reviewed 01/13/20 @ 01:[address] 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 Cortez. Surg cx with GNR. Wound cx sent today. Cont vanc/cefepime. Will order picc; plan on 6 weeks iv abx at discharge. Will follow, d/w Dr. Cortez
[2020-01-14] MEDS: Carvedilol 25 MG Tablet PO (21:58)
[2020-01-14] MEDS: Atorvastatin Calcium 40 MG Tablet PO (21:58)
[2020-01-15] VITALS (12 sets, daily range): BP systolic 98–124; BP diastolic 57–74; PULSE 67–86; RESP 16–18; TEMP 36.4–36.8; O2SAT 92–97
[2020-01-15] MEDS: Ipratropium/Albuterol Sulfate 3 ML AMPUL.NEB INHALATION ×2 (07:18→18:36)
[2020-01-15] MEDS: Carvedilol 25 MG Tablet 50 MG PO (08:26)
[2020-01-15] MEDS: Escitalopram Oxalate 20 MG Tablet PO (08:26)
[2020-01-15] MEDS: Pantoprazole Sodium 40 MG Tablet PO (08:27)
[2020-01-15] MEDS: Lactated Ringers 1,000 ML 100 ML IV ×2 (08:28→18:17)
[2020-01-15] MEDS: oxyCODONE 5 MG Tablet PO (08:28)
--- NOTE | 2020-01-15 08:28 | PN_ITS ---
Patient Problems: Active and Suspected Problems (Last Reviewed 01/13/20 @ 01:[address] Danny Menchaca MD) Type I or II open fracture dislocation of right ankle (Acute) Ankle osteomyelitis, right (Suspected) Ulcer of ankle with necrosis of bone (Acute) Subjective: Patient is a 69 year old female who was seen bedside today s/p right ankle fracture, open and application of external fixation. Patient states that the wound is still leaking some. Patient states her pain is now under control. Patient denies N/F/V/C/CP/SOB. - Physical Exam Vitals/I&O's: Vital Signs Temp Pulse Resp BP Pulse Ox 97.7 F L 69 16 118/74 94 01/15/20 08:06 01/15/20 08:06 01/15/20 08:06 01/15/20 08:06 01/15/20 08:06 Oxygen Flow Rate (L/min) 2 Oxygen Delivery Method Room Air Weight: 99.3 kg Body Mass Index (BMI) 37.5 Intake and Output for Last 24 Hours 01/13/20 01/14/20 01/15/20 23:59 23:59 23:59 Intake Total 6216.67 / 6216.67 4405.00 / 4405.00 518.33 / 518.33 Output Total 1225 / 1225 200 / 200 550 / 550 Balance 4991.67 / 4991.67 4205.00 / 4205.00 -31.67 / -31.67 General: Alert, Oriented x3, Cooperative Extremities: Capillary Refill Less than 3 Seconds, Diminished Peripheral Pulses - 1/4 DP, unable to assess PT throught dressing, Edema Skin: - - dressing intact, mild serous drainage noted to heel Musculoskeletal: Muscle Wasting, - - able to move toes Neurological: Neuro grossly intact Psych/Mental Status: Normal Affect, Appropriate Microbiology Past 72 Hours 01/13/20 Unknown Biopsy - Ankle Gram Stain - Final 01/13/20 Unknown Biopsy - Ankle Wound Culture - Final Enterobacter aerogenes Current Medications Acetaminophen (Tylenol) 650 mg PO Q6H PRN PRN PRN Reason: Pain Score 1-10/10 Last Admin: 01/14/20 18:51 Dose: 650 mg Documented by: Albuterol/Ipratropium (Duoneb) 3 ml INHALATION Q6HWA.RT [facility] Last Admin: 01/15/20 07:18 Dose: 3 ml Documented by: Atorvastatin Calcium (Lipitor) 40 mg PO QHS [facility] Last Admin: 01/14/20 21:58 Dose: 40 mg Documented by: Carvedilol (Coreg) 50 mg PO BREAKFAST [facility] Last Admin: 01/14/20 07:48 Dose: Not Given Documented by: Carvedilol (Coreg) 25 mg PO QHS [facility] Last Admin: 01/14/20 21:58 Dose: 25 mg Documented by: Cholecalciferol (Vitamin D (25mcg)) 5,000 unit PO DAILY [facility] Last Admin: 01/14/20 10:26 Dose: 5,000 unit Documented by: Enoxaparin Sodium (Lovenox) 40 mg SC DAILY [facility] Last Admin: 01/14/20 10:26 Dose: 40 mg Documented by: Escitalopram Oxalate (Lexapro) 20 mg PO DAILY [facility] Last Admin: 01/14/20 10:27 Dose: 20 mg Documented by: Hydromorphone HCl (Dilaudid Inj) 1 mg IV Q6H PRN PRN PRN Reason: Pain Score 6-10/10 Last Admin: 01/14/20 10:26 Dose: 1 mg Documented by: Lactated Ringer's () 1,000 mls @ 100 mls/hr IV .Q10H [facility] Last Infusion: 01/15/20 02:43 Dose: 100 mls/hr Documented by: Cefepime HCl 2 gm/ Sodium (Chloride) 100 mls @ 200 mls/hr IV Q8H [facility] Last Infusion: 01/15/20 02:43 Dose: Infused Documented by: Vancomycin IV Pharmacy to Dose (1 ea/ Sodium Chloride) 500 mls @ 250 mls/hr IV X1 PRN; Protocol PRN Reason: Rx to Dose Vancomycin HCl 750 mg/ Sodium (Chloride) 265 mls @ 250 mls/hr IV Q12H [facility] Last Infusion: 01/15/20 00:41 Dose: Infused Documented by: Magnesium Hydroxide (Milk Of Magnesia) 30 ml PO DAILY PRN PRN PRN Reason: Constipation Last Admin: 01/13/20 12:40 Dose: 30 ml Documented by: Mirabegron (Myrbetriq) 25 mg PO DAILY [facility] Last Admin: 01/14/20 10:27 Dose: 25 mg Documented by: Morphine Sulfate () 2 mg IV Q3H PRN PRN PRN Reason: Pain Score 6-10/10 Last Admin: 01/13/20 23:46 Dose: 2 mg Documented by: Nutritional Formula (Lactose Free) (Ensure Enlive) 120 ml PO 4X/DAY [facility] Last Admin: 01/14/20 21:58 Dose: 120 ml Documented by: Ondansetron HCl (Zofran) 4 mg IV Q8H PRN PRN PRN Reason: NAUSEA/VOMITING Oxycodone HCl (Oxyir) 5 mg PO Q6H PRN PRN PRN Reason: Pain Score 6-10/10 Last Admin: 01/14/20 18:51 Dose: 5 mg Documented by: Pantoprazole Sodium (Protonix) 40 mg PO DAILY [facility] Last Admin: 01/14/20 10:27 Dose: 40 mg Documented by: Polyethylene Glycol (Miralax) 17 gm PO DAILY PRN PRN PRN Reason: Constipation Sodium Chloride () 10 - 40 ml IV UD PRN PRN Reason: SALINE FLUSH Medical Necessity - Tobacco Use Smoking Status: Former smoker Assessment/Plan All Active Problems (Last Reviewed 01/13/20 @ 01:[address] Danny Menchaca MD) Type I or II open fracture dislocation of right ankle (Acute) Ulcer of ankle with necrosis of bone (Acute) right ankle open fracture with dislocation s/p closed reduction with external fixation POD2 right ankle osteomyelitis, suspected ulceration right ankle with exposed necrotic bone pain right ankle Patient seen and examined Pain is well controlled Patient to remain NWB to RLE Follow intraop and bedside I&D cultures continue antibiotics per ID Would appreciate ID input in extent and severity of infection and if she is able to go forward with internal fixation of fracture sometime next week depending on extent of infection Possible need for residential IV antibiotics Will need to return to OR for further correction of ankle fracture. Will await return of cultures to determine further surgical planning. Would appreciate ID input if infection will likely be under control to move forward with surgical plans. Discussed plan and various treatment and surgical options with the patient including potential complications. Patient understands and agrees to plan. Likely will proceed with ORIF next week. Will need to confirm OR availability. May reinforce if any strikethrough with [place] wrap Will continue to follow Please contact Dr Cortez if any questions
[2020-01-15] MEDS: Mirabegron 25 MG TAB.ER.24H PO (11:30)
[2020-01-15] MEDS: 0.9% Saline Lock 10 ML Syringe IV ×2 (11:39→12:59)
--- NOTE | 2020-01-15 12:36 | PN_ITS ---
<Marcelino Kruse - Last Filed: 01/15/20 12:36> Patient Problems: Active and Suspected Problems (Last Reviewed 01/13/20 @ 01:[address] Danny Menchaca MD) Type I or II open fracture dislocation of right ankle (Acute) Ankle osteomyelitis, right (Suspected) Ulcer of ankle with necrosis of bone (Acute) Reason for Visit: Osteomyelitis, right ankle fx Subjective: No pain at this time. No fever/chills. No SOB/cough. No nausea/vomiting/diarrhea. Vitals/I&O's: Vital Signs Temp Pulse Resp BP Pulse Ox 97.6 F L 71 18 98/57 L 92 01/15/20 11:45 01/15/20 11:45 01/15/20 11:45 01/15/20 11:45 01/15/20 11:45 Oxygen Flow Rate (L/min) 2 Oxygen Delivery Method Room Air Weight: 218 lb 14.704 oz Body Mass Index (BMI) 37.5 Intake and Output for Last 24 Hours 01/13/20 01/14/20 01/15/20 23:59 23:59 23:59 Intake Total 6216.67 / 6216.67 4405.00 / 4405.00 2046.66 / 2046.66 Output Total 1225 / 1225 200 / 200 850 / 850 Balance 4991.67 / 4991.67 4205.00 / 4205.00 1196.66 / 1196.66 General: Alert, Oriented x3, Cooperative HEENT: Atraumatic, PERRLA, EOMI, Normocephalic Neck: Supple, No JVD, Negative Carotid Bruits Lungs: Clear to auscultation, Normal air movement Cardiovascular: Regular rate, No murmurs Abdomen: Bowel Sounds Present, Soft, Non Tender Extremities: No edema, Capillary Refill Less than 3 Seconds Skin: No rashes, No breakdown Musculoskeletal: No Tenderness to Palpation of Joints or Extremities Neurological: Cranial nerves II-XII grossly intact Psych/Mental Status: Normal Affect, Appropriate, Alert and oriented to time, place, person, mood and affect Microbiology Past 72 Hours 01/13/20 Unknown Biopsy - Ankle Gram Stain - Final 01/13/20 Unknown Biopsy - Ankle Wound Culture - Final Enterobacter aerogenes 01/13/20 Unknown Biopsy - Ankle Anaerobic Culture - Preliminary Checking for anaerobes, further studies to follow. Current Medications Acetaminophen (Tylenol) 1,000 mg PO Q8H [facility] Albuterol/Ipratropium (Duoneb) 3 ml INHALATION Q6HWA.RT [facility] Last Admin: 01/15/20 07:18 Dose: 3 ml Documented by: Atorvastatin Calcium (Lipitor) 40 mg PO QHS [facility] Last Admin: 01/14/20 21:58 Dose: 40 mg Documented by: Carvedilol (Coreg) 50 mg PO BREAKFAST [facility] Last Admin: 01/15/20 08:26 Dose: 50 mg Documented by: Carvedilol (Coreg) 25 mg PO QHS [facility] Last Admin: 01/14/20 21:58 Dose: 25 mg Documented by: Cholecalciferol (Vitamin D (25mcg)) 5,000 unit PO DAILY [facility] Last Admin: 01/15/20 08:26 Dose: 5,000 unit Documented by: Enoxaparin Sodium (Lovenox) 40 mg SC DAILY [facility] Last Admin: 01/15/20 08:27 Dose: Not Given Documented by: Escitalopram Oxalate (Lexapro) 20 mg PO DAILY [facility] Last Admin: 01/15/20 08:26 Dose: 20 mg Documented by: Lactated Ringer's () 1,000 mls @ 100 mls/hr IV .Q10H [facility] Last Infusion: 01/15/20 12:00 Dose: 100 mls/hr Documented by: Cefepime HCl 2 gm/ Sodium (Chloride) 100 mls @ 200 mls/hr IV Q8H [facility] Last Infusion: 01/15/20 12:00 Dose: Infused Documented by: Vancomycin IV Pharmacy to Dose (1 ea/ Sodium Chloride) 500 mls @ 250 mls/hr IV X1 PRN; Protocol PRN Reason: Rx to Dose Vancomycin HCl 750 mg/ Sodium (Chloride) 265 mls @ 250 mls/hr IV Q12H [facility] Last Admin: 01/15/20 11:30 Dose: 250 mls/hr Documented by: Sodium Chloride () 250 mls @ 15 mls/hr IV .[id number] PRN PRN Reason: Saline Flush Sodium Chloride () 250 mls @ 15 mls/hr IV .[id number] PRN PRN Reason: Additional IVPB Infusion Magnesium Hydroxide (Milk Of Magnesia) 30 ml PO DAILY PRN PRN PRN Reason: Constipation Last Admin: 01/13/20 12:40 Dose: 30 ml Documented by: Mirabegron (Myrbetriq) 25 mg PO DAILY [facility] Last Admin: 01/15/20 11:30 Dose: 25 mg Documented by: Nutritional Formula (Lactose Free) (Ensure Enlive) 120 ml PO 4X/DAY [facility] Last Admin: 01/15/20 08:29 Dose: 120 ml Documented by: Ondansetron HCl (Zofran) 4 mg IV Q8H PRN PRN PRN Reason: NAUSEA/VOMITING Oxycodone HCl (Oxyir) 5 - 10 mg PO Q6H PRN PRN PRN Reason: Pain Score 6-10/10 Pantoprazole Sodium (Protonix) 40 mg PO DAILY [facility] Last Admin: 01/15/20 08:27 Dose: 40 mg Documented by: Polyethylene Glycol (Miralax) 17 gm PO DAILY PRN PRN PRN Reason: Constipation Sodium Chloride () 10 - 40 ml IV UD PRN PRN Reason: SALINE FLUSH Last Admin: 01/15/20 11:39 Dose: 10 ml Documented by: STROKE Vital Signs/Narrative: Vital Signs Temp Pulse Resp BP Pulse Ox 01/15/20 11:45 97.6 F L 71 18 98/57 L 92 Medical Necessity - Tobacco Use Smoking Status: Former smoker Assessment/Plan All Active Problems (Last Reviewed 01/13/20 @ 01:[address] Danny Menchaca MD) Type I or II open fracture dislocation of right ankle (Acute) Ulcer of ankle with necrosis of bone (Acute) 1. Open fx of right ankle 2/2 slip and fall in bathtub complicated by osteomyelitis - s/p closed reduction internal fixation 01/12 Osteo evident in OR. 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 received periop cefazolin. ID consulted and abx changed to cefepime and vancomycin. WBC elevation resolved. Afebrile. PICC in place. Patient may need to go to OR again this coming week. Will discuss Friday. 2. CKDIII - stable 3. HTN - coreg held, resume when appropriate. 4. Hx thoracic aortic aneurysm 5. HLD - stable 6. Depression - lexapro 7. Constipation - resolved. DVT ppx: start lovenox in AM if hgb stable DC planning: SNF when stable depending when pt to return to OR This patient was seen by Marcelino Kruse PA-C under the supervision of Dr. Gallo. <Israel Gallo F - Last Filed: 01/15/20 15:32> Vitals/I&O's: Vital Signs Temp Pulse Resp BP Pulse Ox 98.3 F 76 18 110/64 92 01/15/20 14:52 01/15/20 14:52 01/15/20 14:52 01/15/20 14:52 01/15/20 14:52 Oxygen Flow Rate (L/min) 2 Oxygen Delivery Method Room Air Weight: 218 lb 14.704 oz Body Mass Index (BMI) 37.5 Intake and Output for Last 24 Hours 01/13/20 01/14/20 01/15/20 23:59 23:59 23:59 Intake Total 6216.67 / 6216.67 4405.00 / 4405.00 2318.16 / 2318.16 Output Total 1225 / 1225 200 / 200 850 / 850 Balance 4991.67 / 4991.67 4205.00 / 4205.00 1468.16 / 1468.16 Microbiology Past 72 Hours 01/14/20 14:10 Wound - Leg, Right Gram Stain - Final 01/14/20 14:10 Wound - Leg, Right Wound Culture - Preliminary Gram negative ramon 01/13/20 Unknown Biopsy - Ankle Gram Stain - Final 01/13/20 Unknown Biopsy - Ankle Wound Culture - Final Enterobacter aerogenes 01/13/20 Unknown Biopsy - Ankle Anaerobic Culture - Preliminary Checking for anaerobes, further studies to follow. Current Medications Acetaminophen (Tylenol) 1,000 mg PO Q8H [facility] Last Admin: 01/15/20 12:59 Dose: 1,000 mg Documented by: Albuterol/Ipratropium (Duoneb) 3 ml INHALATION Q6HWA.RT [facility] Last Admin: 01/15/20 13:45 Dose: Not Given Documented by: Atorvastatin Calcium (Lipitor) 40 mg PO QHS [facility] Last Admin: 01/14/20 21:58 Dose: 40 mg Documented by: Carvedilol (Coreg) 50 mg PO BREAKFAST [facility] Last Admin: 01/15/20 08:26 Dose: 50 mg Documented by: Carvedilol (Coreg) 25 mg PO QHS [facility] Last Admin: 01/14/20 21:58 Dose: 25 mg Documented by: Cholecalciferol (Vitamin D (25mcg)) 5,000 unit PO DAILY [facility] Last Admin: 01/15/20 08:26 Dose: 5,000 unit Documented by: Enoxaparin Sodium (Lovenox) 40 mg SC DAILY [facility] Last Admin: 01/15/20 08:27 Dose: Not Given Documented by: Escitalopram Oxalate (Lexapro) 20 mg PO DAILY [facility] Last Admin: 01/15/20 08:26 Dose: 20 mg Documented by: Lactated Ringer's () 1,000 mls @ 100 mls/hr IV .Q10H [facility] Last Infusion: 01/15/20 12:00 Dose: 100 mls/hr Documented by: Cefepime HCl 2 gm/ Sodium (Chloride) 100 mls @ 200 mls/hr IV Q8H [facility] Last Infusion: 01/15/20 12:00 Dose: Infused Documented by: Vancomycin IV Pharmacy to Dose (1 ea/ Sodium Chloride) 500 mls @ 250 mls/hr IV X1 PRN; Protocol PRN Reason: Rx to Dose Vancomycin HCl 750 mg/ Sodium (Chloride) 265 mls @ 250 mls/hr IV Q12H [facility] Last Infusion: 01/15/20 12:34 Dose: Infused Documented by: Sodium Chloride () 250 mls @ 15 mls/hr IV .[id number] PRN PRN Reason: Saline Flush Sodium Chloride () 250 mls @ 15 mls/hr IV .[id number] PRN PRN Reason: Additional IVPB Infusion Last Infusion: 01/15/20 13:00 Dose: 0 mls/hr Documented by: Magnesium Hydroxide (Milk Of Magnesia) 30 ml PO DAILY PRN PRN PRN Reason: Constipation Last Admin: 01/13/20 12:40 Dose: 30 ml Documented by: Mirabegron (Myrbetriq) 25 mg PO DAILY [facility] Last Admin: 01/15/20 11:30 Dose: 25 mg Documented by: Nutritional Formula (Lactose Free) (Ensure Enlive) 120 ml PO 4X/DAY [facility] Last Admin: 01/15/20 12:59 Dose: 120 ml Documented by: Ondansetron HCl (Zofran) 4 mg IV Q8H PRN PRN PRN Reason: NAUSEA/VOMITING Oxycodone HCl (Oxyir) 5 - 10 mg PO Q6H PRN PRN PRN Reason: Pain Score 6-10/10 Pantoprazole Sodium (Protonix) 40 mg PO DAILY [facility] Last Admin: 01/15/20 08:27 Dose: 40 mg Documented by: Polyethylene Glycol (Miralax) 17 gm PO DAILY PRN PRN PRN Reason: Constipation Sodium Chloride () 10 - 40 ml IV UD PRN PRN Reason: SALINE FLUSH Last Admin: 01/15/20 12:59 Dose: 10 ml Documented by: STROKE Vital Signs/Narrative: Vital Signs Temp Pulse Resp BP Pulse Ox 01/15/20 14:52 98.3 F 76 18 110/64 92 01/15/20 11:45 97.6 F L 71 18 98/57 L 92 Addendum: Dr. Gallo I personally examined the patient and reviewed the chart. I agree with the above. 69-year-old female who slipped in the tub 4 days ago and broke her ankle was unable to contact family. She was found after she did not show up to a family event to visit her mother at the intermediate. She was taken to the OR o n 01/12/2020 with surgery being completed on 01/13/2020, she has an ex-fix in place. Infectious disease was consulted to help with antibiotic selection, and she was transitioned from Ancef to cefepime and vancomycin. We will continue with PT/OT but she will likely need placement to a half-way facility for rehab. Will be about a month until she can have the ex-fix removed. Continue with pain control will monitor her blood pressures, she does take 50 mg of Coreg in the morning and 25 mg at night blood pressure was low though she was asymptomatic. 01/14/2020: She did well overnight. Pain is controlled, she will likely need a SNF placement which will happen next week. Infectious disease is recommending 6 weeks of IV antibiotics with Vanco and cefepime, with new wound cultures were obtained today, ankle biopsy from yesterday is growing a gram-negative ramon. We will continue to hold her Coreg as her blood pressures have been low, though she is asymptomatic. 01/15/2020: She did well overnight no issues. Pain is controlled. Plan will be for possible ORIF next week with transition to half-way facility for rehab. Cultures are growing an Enterobacter which was resistant to Ancef and a gram-negative ramon from the wound culture which is pending speciation. Continue with cefepime and Vanco. Inpatient E&M: [id number] Subs Hosp L2
[2020-01-15] MEDS: Acetaminophen 500 MG Tablet 1000 MG PO ×2 (12:59→21:07)
[2020-01-15] MEDS: Atorvastatin Calcium 40 MG Tablet PO (21:06)
[2020-01-15] MEDS: Carvedilol 25 MG Tablet PO (21:07)
[2020-01-16] VITALS (10 sets, daily range): BP systolic 125–166; BP diastolic 56–84; PULSE 67–76; RESP 16–18; TEMP 36.6–36.8; O2SAT 96–97
--- NOTE | 2020-01-16 00:22 | PCM.RX.CS ---
Consult Pharmacy has been consulted to manage selected antiobiotic: Vancomycin Type of Consult: Follow-up Suspected Infection: Other Prior Doses of Antibiotics Received/Current Regimen: Medications Vancomycin HCl (Vancomycin) 1,000 mg in 200 mls @ 200 mls/hr IV Q12H [facility] Vancomycin HCl 750 mg/ Sodium (Chloride) 265 mls @ 250 mls/hr IV Q12H [facility] Stop: 01/16/20 01:16 Last Admin: 01/16/20 00:11 Dose: 250 mls/hr Labs: Sodium 143 mmol/L (136-145) 01/14/20 05:16 Potassium 3.8 mmol/L (3.5-5.1) 01/14/20 05:16 Chloride 108 mmol/L (98-107) H 01/14/20 05:16 Carbon Dioxide 33.0 mmol/L (21.0-32.0) H 01/14/20 05:16 Anion Gap 2 (5-15) L 01/14/20 05:16 BUN 20 mg/dL (7-18) H 01/14/20 05:16 Creatinine 0.77 mg/dL (0.55-1.02) 01/14/20 05:16 Est GFR (MDRD) Af Amer 95 mL/min (>60) 01/14/20 05:16 Est GFR (MDRD) Non-Af 78 mL/min (>60) 01/14/20 05:16 BUN/Creatinine Ratio 25.9 RATIO (10-20) H 01/14/20 05:16 Glucose 106 mg/dL (74-106) 01/14/20 05:16 Vancomycin Trough 11.0 ug/mL (5.0-15.0) 01/15/20 23:23 Microbiology: Microbiology 01/14/20 14:10 Wound - Leg, Right Gram Stain - Final 01/14/20 14:10 Wound - Leg, Right Wound Culture - Preliminary Gram negative ramon 01/13/20 Unknown Biopsy - Ankle Gram Stain - Final 01/13/20 Unknown Biopsy - Ankle Wound Culture - Final Enterobacter aerogenes 01/13/20 Unknown Biopsy - Ankle Anaerobic Culture - Preliminary Checking for anaerobes, further studies to follow. Weight used for dosin.3 kg Estimated Creatinine Clearance: 45 Goal Trough: 15-20 mcg/mL Pharmacy Plan for Drug Dosing: Trough level of 11.0 was below target range of 15-20. Will increase dose to 1000mg q12h and re-draw trough prior to 4th dose of new regimen. Pharmacy Service will continue to monitor and adjust dosing as required. Follow-Up Labs: Trough Vancomycin Labs to be done on [date and time ordered]: 01/17/20 @9405
[2020-01-16] MEDS: Acetaminophen 500 MG Tablet 1000 MG PO ×3 (05:27→20:28)
[2020-01-16] MEDS: Lactated Ringers 1,000 ML 100 ML IV ×2 (05:28→17:13)
[2020-01-16] MEDS: Menthol/Lanolin/Calamine/Znox 113 GM Tube 1 APPLIC TOPICAL ×3 (05:33→20:29)
[2020-01-16 06:29] LABS: Absolute Lymphocyte Count 1.54 X10^3/uL (0.83-4.51); Absolute Neutrophil Count 4.4 X10^3/uL (2.0-7.7); Basophil# 0.03 X10^3/uL; Basophil% 0.4 % (0-1); Eosinophil# 0.38 X10^3/uL; Eosinophils% 5.2 % (0-5); Hematocrit 30.9 % (37-47); Hemoglobin 9.7 g/dL (12.0-15.0); Lymphocyte # 1.54 X10^3/ul (4.0); Mean Corp Hgb Conc 31.4 g/dL (32-36); Mean Corpuscular Hgb 32.2 pg (27.0-32.0); Mean Corpuscular Volume 102.7 fL (81-99); Mean Platelet Vol. 10.6 fl (6.2-12.0); Monocyte# 0.92 X10^3/uL; Monocyte% 12.6 % (0-10); NRBC Flagged by Analyzer 0 % (0-5); Neutrophil # 4.39 X10^3/uL (2.7-7.7); Neutrophil % 59.8 % (47-70); Platelet Count 222 K/mm3 (150-450); RBC Distribution Width CV 13.3 % (11.6-14.6); RBC Distribution Width SD 50.4 fl (35.1-43.9); Red Blood Count 3.01 M/mm3 (4.2-5.4); White Blood Count 7.3 K/mm3 (4.4-11.0)
[2020-01-16 06:56] LABS: ALB/GLOB Ratio 0.8 RATIO (0.9-2.4); AST(SGOT) 14 U/L (15-37); Alanine Aminotransfer ALT/SGPT 18 U/L (13-56); Albumin, Serum 2.2 g/dL (3.2-5.0); Alkaline Phosphatase 63 U/L (45-117); Anion Gap 2 (5-15); BUN 15 mg/dL (7-18); BUN/Creat Ratio 22.6 RATIO (10-20); Calcium,Total 8.3 mg/dL (8.5-10.1); Chloride 111 mmol/L (98-107); Creatinine, Serum 0.66 mg/dL (0.55-1.02); EST Glomerular Filtration Rate 93 mL/min (>60); Est Glom Filt Rate - Afr Amer 113 mL/min (>60); Estimated Creatinine Clearance 44.56 ml/min; Globulin 2.8 g/dL (2.2-4.2); Glucose 108 mg/dL (74-106); Potassium 3.7 mmol/L (3.5-5.1); Sodium Level 144 mmol/L (136-145)
[2020-01-16] MEDS: Carvedilol 25 MG Tablet 50 MG PO (07:44)
[2020-01-16] MEDS: Escitalopram Oxalate 20 MG Tablet PO (10:20)
[2020-01-16] MEDS: Mirabegron 25 MG TAB.ER.24H PO (10:20)
[2020-01-16] MEDS: Pantoprazole Sodium 40 MG Tablet PO (10:21)
--- NOTE | 2020-01-16 11:04 | PCM.PN.HOSP ---
<Marcelino Kruse - Last Filed: 01/16/20 11:04> Patient Problems: Active and Suspected Problems (Last Reviewed 01/13/20 @ 01:[address] Danny Menchaca MD) Type I or II open fracture dislocation of right ankle (Acute) Ankle osteomyelitis, right (Suspected) Ulcer of ankle with necrosis of bone (Acute) Reason for Visit: Pt is frustrated by her physical limitations in her chair and minimal ability to move with a walker. She is physically doing well. No fever/chills. Pain is well controlled. No Nausea vomiting or diarrhea. She is agreeable to more surgery if necessary. Vitals/I&O's: Vital Signs Temp Pulse Resp BP Pulse Ox 98.2 F 70 16 135/56 H 96 01/16/20 07:30 01/16/20 07:30 01/16/20 07:30 01/16/20 07:30 01/16/20 08:18 Oxygen Flow Rate (L/min) 2 Oxygen Delivery Method Nasal Cannula Weight: 218 lb 14.704 oz Body Mass Index (BMI) 37.5 Intake and Output for Last 24 Hours 01/14/20 01/15/20 01/16/20 23:59 23:59 23:59 Intake Total 4405.00 / 4405.00 3603.16 / 3603.16 1754.99 / 1754.99 Output Total 200 / 200 1300 / 1300 700 / 700 Balance 4205.00 / 4205.00 2303.16 / 2303.16 1054.99 / 1054.99 General: Alert, Oriented x3, Cooperative HEENT: Atraumatic, PERRLA, EOMI, Normocephalic Neck: Supple, No JVD, Negative Carotid Bruits Lungs: Clear to auscultation, Normal air movement Cardiovascular: Regular rate, No murmurs Abdomen: Bowel Sounds Present, Soft, Non Tender Extremities: No edema, Capillary Refill Less than 3 Seconds Skin: No rashes, No breakdown Musculoskeletal: No Tenderness to Palpation of Joints or Extremities Neurological: Cranial nerves II-XII grossly intact Psych/Mental Status: Normal Affect, Appropriate Microbiology Past 72 Hours 01/14/20 14:10 Wound - Leg, Right Gram Stain - Final 01/14/20 14:10 Wound - Leg, Right Wound Culture - Preliminary Gram negative ramon 01/13/20 Unknown Biopsy - Ankle Gram Stain - Final 01/13/20 Unknown Biopsy - Ankle Wound Culture - Final Enterobacter aerogenes 01/13/20 Unknown Biopsy - Ankle Anaerobic Culture - Preliminary Checking for anaerobes, further studies to follow. Laboratory Results 01/15/20 23:23: Vancomycin Trough 11.0 01/16/20 06:05: WBC 7.3, RBC 3.01 L, Hgb 9.7 L, Hct 30.9 L, MCV 102.7 H, MCH 32.2 H, MCHC 31.4 L, RDW Std Deviation 50.4 H, RDW Coeff of Surya 13.3, Plt Count 222, MPV 10.6, Immature Gran % (Auto) 1.000 H, Neut % (Auto) 59.8, Lymph % (Auto) 21.0, Bremer % (Auto) 12.6 H, Eos % (Auto) 5.2 H, Baso % (Auto) 0.4, Absolute Neuts (auto) 4.4, Absolute Lymphs (auto) 1.54, Nucleated RBC % 0 01/16/20 06:05: Sodium 144, Potassium 3.7, Chloride 111 H, Carbon Dioxide 31.0, Anion Gap 2 L, BUN 15, Creatinine 0.66, Estim Creat Clear Calc 44.56, Est GFR (MDRD) Af Amer 113, Est GFR (MDRD) Non-Af 93, BUN/Creatinine Ratio 22.6 H, Glucose 108 H, Calcium 8.3 L, Total Bilirubin 0.40, AST 14 L, ALT 18, Alkaline Phosphatase 63, Total Protein 5.0 L, Albumin 2.2 L, Globulin 2.8, Albumin/Globulin Ratio 0.8 L Current Medications Acetaminophen (Tylenol) 1,000 mg PO Q8H [facility] Last Admin: 01/16/20 05:27 Dose: 1,000 mg Documented by: Atorvastatin Calcium (Lipitor) 40 mg PO QHS [facility] Last Admin: 01/15/20 21:06 Dose: 40 mg Documented by: Calamine/Phenol (Calmoseptine Ointment) 1 applic TOPICAL BID [facility]; Protocol Last Admin: 01/16/20 10:18 Dose: 1 applicatio Documented by: Carvedilol (Coreg) 50 mg PO BREAKFAST [facility] Last Admin: 01/16/20 07:44 Dose: 50 mg Documented by: Carvedilol (Coreg) 25 mg PO QHS [facility] Last Admin: 01/15/20 21:07 Dose: 25 mg Documented by: Cholecalciferol (Vitamin D (25mcg)) 5,000 unit PO DAILY [facility] Last Admin: 01/16/20 10:21 Dose: 5,000 unit Documented by: Enoxaparin Sodium (Lovenox) 40 mg SC DAILY [facility] Last Admin: 01/16/20 10:20 Dose: Not Given Documented by: Escitalopram Oxalate (Lexapro) 20 mg PO DAILY [facility] Last Admin: 01/16/20 10:20 Dose: 20 mg Documented by: Lactated Ringer's () 1,000 mls @ 100 mls/hr IV .Q10H [facility] Last Admin: 01/16/20 05:28 Dose: 100 mls/hr Documented by: Cefepime HCl 2 gm/ Sodium (Chloride) 100 mls @ 200 mls/hr IV Q8H [facility] Last Admin: 01/16/20 10:22 Dose: 200 mls/hr Documented by: Vancomycin IV Pharmacy to Dose (1 ea/ Sodium Chloride) 500 mls @ 250 mls/hr IV X1 PRN; Protocol PRN Reason: Rx to Dose Sodium Chloride () 250 mls @ 15 mls/hr IV .[id number] PRN PRN Reason: Saline Flush Sodium Chloride () 250 mls @ 15 mls/hr IV .[id number] PRN PRN Reason: Additional IVPB Infusion Last Infusion: 01/15/20 13:00 Dose: 0 mls/hr Documented by: Vancomycin HCl (Vancomycin) 1,000 mg in 200 mls @ 200 mls/hr IV Q12H [facility] Magnesium Hydroxide (Milk Of Magnesia) 30 ml PO DAILY PRN PRN PRN Reason: Constipation Last Admin: 01/13/20 12:40 Dose: 30 ml Documented by: Mirabegron (Myrbetriq) 25 mg PO DAILY [facility] Last Admin: 01/16/20 10:20 Dose: 25 mg Documented by: Nutritional Formula (Lactose Free) (Ensure Enlive) 120 ml PO 4X/DAY [facility] Last Admin: 01/16/20 10:19 Dose: Not Given Documented by: Ondansetron HCl (Zofran) 4 mg IV Q8H PRN PRN PRN Reason: NAUSEA/VOMITING Oxycodone HCl (Oxyir) 5 - 10 mg PO Q6H PRN PRN PRN Reason: Pain Score 6-10/10 Pantoprazole Sodium (Protonix) 40 mg PO DAILY [facility] Last Admin: 01/16/20 10:21 Dose: 40 mg Documented by: Polyethylene Glycol (Miralax) 17 gm PO DAILY PRN PRN PRN Reason: Constipation Sodium Chloride () 10 - 40 ml IV UD PRN PRN Reason: SALINE FLUSH Last Admin: 01/15/20 12:59 Dose: 10 ml Documented by: STROKE Vital Signs/Narrative: Vital Signs Temp Pulse Resp BP Pulse Ox 01/16/20 08:18 96 01/16/20 07:30 98.2 F 70 16 135/56 H 97 Medical Necessity - Tobacco Use Smoking Status: Former smoker Assessment/Plan All Active Problems (Last Reviewed 01/13/20 @ 01:[address] Danny Menchaca MD) Type I or II open fracture dislocation of right ankle (Acute) Ulcer of ankle with necrosis of bone (Acute) 1. Open fx of right ankle 2/ slip and fall in bathtub complicated by osteomyelitis - s/p closed reduction internal fixation 01/12 Osteo evident in OR. Cultures sent: prelim showing Enterobacter aerogenes resistant to cefazolin. ID consulted and abx changed to cefepime and vancomycin. WBC elevation resolved. Afebrile. PICC in place. Patient may need to go to OR again this coming week. Will discuss Friday. 2. CKDIII - stable 3. HTN - coreg held, resume when appropriate. 4. Hx thoracic aortic aneurysm 5. HLD - stable 6. Depression - lexapro 7. Constipation - resolved. DVT ppx: lovenox DC planning: SNF when stable depending when pt to return to OR This patient was seen by Marcelino Kruse PA-C under the supervision of Dr. Gallo. <Israel Gallo F - Last Filed: 01/16/20 12:27> Vitals/I&O's: Vital Signs Temp Pulse Resp BP Pulse Ox 98.2 F 67 16 135/56 H 96 01/16/20 07:30 01/16/20 10:00 01/16/20 07:30 01/16/20 07:30 01/16/20 08:18 Oxygen Flow Rate (L/min) 2 Oxygen Delivery Method Nasal Cannula Weight: 218 lb 14.704 oz Body Mass Index (BMI) 37.5 Intake and Output for Last 24 Hours 01/14/20 01/15/20 01/16/20 23:59 23:59 23:59 Intake Total 4405.00 / 4405.00 3603.16 / 3603.16 1854.99 / 1854.99 Output Total 200 / 200 1300 / 1300 700 / 700 Balance 4205.00 / 4205.00 2303.16 / 2303.16 1154.99 / 1154.99 Microbiology Past 72 Hours 01/14/20 14:10 Wound - Leg, Right Gram Stain - Final 01/14/20 14:10 Wound - Leg, Right Wound Culture - Preliminary Gram negative ramon 01/13/20 Unknown Biopsy - Ankle Gram Stain - Final 01/13/20 Unknown Biopsy - Ankle Wound Culture - Final Enterobacter aerogenes 01/13/20 Unknown Biopsy - Ankle Anaerobic Culture - Preliminary Checking for anaerobes, further studies to follow. Laboratory Results 01/15/20 23:23: Vancomycin Trough 11.0 01/16/20 06:05: WBC 7.3, RBC 3.01 L, Hgb 9.7 L, Hct 30.9 L, MCV 102.7 H, MCH 32.2 H, MCHC 31.4 L, RDW Std Deviation 50.4 H, RDW Coeff of Surya 13.3, Plt Count 222, MPV 10.6, Immature Gran % (Auto) 1.000 H, Neut % (Auto) 59.8, Lymph % (Auto) 21.0, Bremer % (Auto) 12.6 H, Eos % (Auto) 5.2 H, Baso % (Auto) 0.4, Absolute Neuts (auto) 4.4, Absolute Lymphs (auto) 1.54, Nucleated RBC % 0 01/16/20 06:05: Sodium 144, Potassium 3.7, Chloride 111 H, Carbon Dioxide 31.0, Anion Gap 2 L, BUN 15, Creatinine 0.66, Estim Creat Clear Calc 44.56, Est GFR (MDRD) Af Amer 113, Est GFR (MDRD) Non-Af 93, BUN/Creatinine Ratio 22.6 H, Glucose 108 H, Calcium 8.3 L, Total Bilirubin 0.40, AST 14 L, ALT 18, Alkaline Phosphatase 63, Total Protein 5.0 L, Albumin 2.2 L, Globulin 2.8, Albumin/Globulin Ratio 0.8 L Current Medications Acetaminophen (Tylenol) 1,000 mg PO Q8H [facility] Last Admin: 01/16/20 05:27 Dose: 1,000 mg Documented by: Albuterol Sulfate (Ventolin Aerosols) 2.5 mg INHALATION Q2H PRN PRN PRN Reason: SOB &/OR WHEEZING Atorvastatin Calcium (Lipitor) 40 mg PO QHS [facility] Last Admin: 01/15/20 21:06 Dose: 40 mg Documented by: Calamine/Phenol (Calmoseptine Ointment) 1 applic TOPICAL BID [facility]; Protocol Last Admin: 01/16/20 10:18 Dose: 1 applicatio Documented by: Carvedilol (Coreg) 50 mg PO BREAKFAST [facility] Last Admin: 01/16/20 07:44 Dose: 50 mg Documented by: Carvedilol (Coreg) 25 mg PO QHS [facility] Last Admin: 01/15/20 21:07 Dose: 25 mg Documented by: Cholecalciferol (Vitamin D (25mcg)) 5,000 unit PO DAILY [facility] Last Admin: 01/16/20 10:21 Dose: 5,000 unit Documented by: Enoxaparin Sodium (Lovenox) 40 mg SC DAILY [facility] Last Admin: 01/16/20 10:20 Dose: Not Given Documented by: Escitalopram Oxalate (Lexapro) 20 mg PO DAILY [facility] Last Admin: 01/16/20 10:20 Dose: 20 mg Documented by: Lactated Ringer's () 1,000 mls @ 100 mls/hr IV .Q10H [facility] Last Admin: 01/16/20 05:28 Dose: 100 mls/hr Documented by: Cefepime HCl 2 gm/ Sodium (Chloride) 100 mls @ 200 mls/hr IV Q8H [facility] Last Infusion: 01/16/20 10:52 Dose: Infused Documented by: Vancomycin IV Pharmacy to Dose (1 ea/ Sodium Chloride) 500 mls @ 250 mls/hr IV X1 PRN; Protocol PRN Reason: Rx to Dose Sodium Chloride () 250 mls @ 15 mls/hr IV .[id number] PRN PRN Reason: Saline Flush Sodium Chloride () 250 mls @ 15 mls/hr IV .[id number] PRN PRN Reason: Additional IVPB Infusion Last Infusion: 01/15/20 13:00 Dose: 0 mls/hr Documented by: Vancomycin HCl (Vancomycin) 1,000 mg in 200 mls @ 200 mls/hr IV Q12H [facility] Last Admin: 01/16/20 11:53 Dose: 200 mls/hr Documented by: Magnesium Hydroxide (Milk Of Magnesia) 30 ml PO DAILY PRN PRN PRN Reason: Constipation Last Admin: 01/13/20 12:40 Dose: 30 ml Documented by: Mirabegron (Myrbetriq) 25 mg PO DAILY [facility] Last Admin: 01/16/20 10:20 Dose: 25 mg Documented by: Nutritional Formula (Lactose Free) (Ensure Enlive) 120 ml PO 4X/DAY [facility] Last Admin: 01/16/20 10:19 Dose: Not Given Documented by: Ondansetron HCl (Zofran) 4 mg IV Q8H PRN PRN PRN Reason: NAUSEA/VOMITING Oxycodone HCl (Oxyir) 5 - 10 mg PO Q6H PRN PRN PRN Reason: Pain Score 6-10/10 Pantoprazole Sodium (Protonix) 40 mg PO DAILY [facility] Last Admin: 01/16/20 10:21 Dose: 40 mg Documented by: Polyethylene Glycol (Miralax) 17 gm PO DAILY PRN PRN PRN Reason: Constipation Sodium Chloride () 10 - 40 ml IV UD PRN PRN Reason: SALINE FLUSH Last Admin: 01/15/20 12:59 Dose: 10 ml Documented by: STROKE Vital Signs/Narrative: Vital Signs Pulse 01/16/20 10:00 67 Addendum: Dr. Gallo I personally examined the patient and reviewed the chart. I agree with the above. 69-year-old female who slipped in the tub 4 days ago and broke her ankle was unable to contact family. She was found after she did not show up to a family event to visit her mother at the residential. She was taken to the OR on 01/12/2020 with surgery being completed on 01/13/2020, she has an ex-fix in place. Infectious disease was consulted to help with antibiotic selection, and she was transitioned from Ancef to cefepime and vancomycin. We will continue with PT/OT but she will likely need placement to a [place] [facility] for [facility]. Will be about a month until she can have the ex-fix removed. Continue with pain control will monitor her blood pressures, she does take 50 mg of Coreg in the morning and 25 mg at night blood pressure was low though she was asymptomatic. 01/14/2020: She did well overnight. Pain is controlled, she will likely need a SNF placement which will happen next week. Infectious disease is recommending 6 weeks of IV antibiotics with Vanco and cefepime, with new wound cultures were obtained today, ankle biopsy from yesterday is growing a gram-negative ramon. We will continue to hold her Coreg as her blood pressures have been low, though she is asymptomatic. 01/15/2020: She did well overnight no issues. Pain is controlled. Plan will be for possible ORIF next week with transition to [place] [facility] for [facility]. Cultures are growing an Enterobacter which was resistant to Ancef and a gram-negative ramon from the wound culture which is pending speciation. Continue with cefepime and Vanco. 01/16/2020: She is try to catch up on sleep, but she has not been able to sleep very well overnight. Wound cultures growing Enterobacter in the ankle biopsy, and the gram-negative ramon culture from the wound is still pending. She is on cefepime and Vanco which will be continued. Will await for infectious disease to help decide whether or not she can undergo definitive surgery this week or if she will need a longer course of IV antibiotics prior to definitive surgery. Inpatient E&M: [id number] [facility] L2
[2020-01-16] MEDS: Vancomycin IV 1,000 MG/200 ML BAG 200 MG IV ×2 (11:53→23:54)
--- NOTE | 2020-01-16 16:08 | PN_ITS ---
Patient Problems: Active and Suspected Problems (Last Reviewed 01/13/20 @ 01:[address] Danny Menchaca MD) Type I or II open fracture dislocation of right ankle (Acute) Ankle osteomyelitis, right (Suspected) Ulcer of ankle with necrosis of bone (Acute) Subjective: Patient seen bedside and was comfortable in chair. Patient denies any N/F/V/C/CP/SOB. Patient states pain is well controlled. - Physical Exam Vitals/I&O's: Vital Signs Temp Pulse Resp BP Pulse Ox 97.8 F 75 16 136/77 H 97 01/16/20 13:42 01/16/20 13:42 01/16/20 13:42 01/16/20 13:42 01/16/20 13:42 Oxygen Flow Rate (L/min) 2 Oxygen Delivery Method Room Air Weight: 99.3 kg Body Mass Index (BMI) 37.5 Intake and Output for Last 24 Hours 01/14/20 01/15/20 01/16/20 23:59 23:59 23:59 Intake Total 4405.00 / 4405.00 3603.16 / 3603.16 2649.99 / 2649.99 Output Total 200 / 200 1300 / 1300 700 / 700 Balance 4205.00 / 4205.00 2303.16 / 2303.16 1949.99 / 1949.99 General: Alert, Oriented x3 HEENT: Atraumatic Extremities: Capillary Refill Less than 3 Seconds, No Calf Tenderness, Diminished Peripheral Pulses, Edema, - - sutures intact with skin well coapted to medial right ankle. Right foot and ankle edema and erythema noted. External fixation intact with alignment maintained. Ecchymosis noted to plantar foot. Gross sensation intact. Patient able to move digits. 2/4 DP and 1/4 PT right foot. CFT < 5 seconds. Negative tinnel sign. No purulent drainage. Serous draiange noted. Skin: Incision Neurological: Neuro grossly intact Psych/Mental Status: Normal Affect Microbiology Past 72 Hours 01/13/20 Unknown Biopsy - Ankle Gram Stain - Final 01/13/20 Unknown Biopsy - Ankle Wound Culture - Final Enterobacter aerogenes 01/13/20 Unknown Biopsy - Ankle Anaerobic Culture - Final No anaerobic bacteria isolated. 01/14/20 14:10 Wound - Leg, Right Gram Stain - Final 01/14/20 14:10 Wound - Leg, Right Wound Culture - Preliminary Gram negative ramon Laboratory Results 01/15/20 23:23: Vancomycin Trough 11.0 01/16/20 06:05: WBC 7.3, RBC 3.01 L, Hgb 9.7 L, Hct 30.9 L, MCV 102.7 H, MCH 32.2 H, MCHC 31.4 L, RDW Std Deviation 50.4 H, RDW Coeff of Surya 13.3, Plt Count 222, MPV 10.6, Immature Gran % (Auto) 1.000 H, Neut % (Auto) 59.8, Lymph % (Auto) 21.0, Emery % (Auto) 12.6 H, Eos % (Auto) 5.2 H, Baso % (Auto) 0.4, Absolute Neuts (auto) 4.4, Absolute Lymphs (auto) 1.54, Nucleated RBC % 0 01/16/20 06:05: Sodium 144, Potassium 3.7, Chloride 111 H, Carbon Dioxide 31.0, Anion Gap 2 L, BUN 15, Creatinine 0.66, Estim Creat Clear Calc 44.56, Est GFR (MDRD) Af Amer 113, Est GFR (MDRD) Non-Af 93, BUN/Creatinine Ratio 22.6 H, Glucose 108 H, Calcium 8.3 L, Total Bilirubin 0.40, AST 14 L, ALT 18, Alkaline Phosphatase 63, Total Protein 5.0 L, Albumin 2.2 L, Globulin 2.8, Albumin/Globulin Ratio 0.8 L Current Medications Acetaminophen (Tylenol) 1,000 mg PO Q8H [facility] Last Admin: 01/16/20 13:49 Dose: 1,000 mg Documented by: Albuterol Sulfate (Ventolin Aerosols) 2.5 mg INHALATION Q2H PRN PRN PRN Reason: SOB &/OR WHEEZING Atorvastatin Calcium (Lipitor) 40 mg PO QHS [facility] Last Admin: 01/15/20 21:06 Dose: 40 mg Documented by: Calamine/Phenol (Calmoseptine Ointment) 1 applic TOPICAL BID [facility]; Protocol Last Admin: 01/16/20 10:18 Dose: 1 applicatio Documented by: Carvedilol (Coreg) 50 mg PO BREAKFAST [facility] Last Admin: 01/16/20 07:44 Dose: 50 mg Documented by: Carvedilol (Coreg) 25 mg PO QHS [facility] Last Admin: 01/15/20 21:07 Dose: 25 mg Documented by: Cholecalciferol (Vitamin D (25mcg)) 5,000 unit PO DAILY [facility] Last Admin: 01/16/20 10:21 Dose: 5,000 unit Documented by: Enoxaparin Sodium (Lovenox) 40 mg SC DAILY [facility] Last Admin: 01/16/20 10:20 Dose: Not Given Documented by: Escitalopram Oxalate (Lexapro) 20 mg PO DAILY [facility] Last Admin: 01/16/20 10:20 Dose: 20 mg Documented by: Lactated Ringer's () 1,000 mls @ 100 mls/hr IV .Q10H [facility] Last Infusion: 01/16/20 12:55 Dose: 100 mls/hr Documented by: Cefepime HCl 2 gm/ Sodium (Chloride) 100 mls @ 200 mls/hr IV Q8H [facility] Last Infusion: 01/16/20 10:52 Dose: Infused Documented by: Vancomycin IV Pharmacy to Dose (1 ea/ Sodium Chloride) 500 mls @ 250 mls/hr IV X1 PRN; Protocol PRN Reason: Rx to Dose Sodium Chloride () 250 mls @ 15 mls/hr IV .[id number] PRN PRN Reason: Saline Flush Sodium Chloride () 250 mls @ 15 mls/hr IV .[id number] PRN PRN Reason: Additional IVPB Infusion Last Infusion: 01/15/20 13:00 Dose: 0 mls/hr Documented by: Vancomycin HCl (Vancomycin) 1,000 mg in 200 mls @ 200 mls/hr IV Q12H [facility] Last Infusion: 01/16/20 12:55 Dose: Infused Documented by: Magnesium Hydroxide (Milk Of Magnesia) 30 ml PO DAILY PRN PRN PRN Reason: Constipation Last Admin: 01/13/20 12:40 Dose: 30 ml Documented by: Mirabegron (Myrbetriq) 25 mg PO DAILY [facility] Last Admin: 01/16/20 10:20 Dose: 25 mg Documented by: Nutritional Formula (Lactose Free) (Ensure Enlive) 120 ml PO 4X/DAY [facility] Last Admin: 01/16/20 13:50 Dose: 120 ml Documented by: Ondansetron HCl (Zofran) 4 mg IV Q8H PRN PRN PRN Reason: NAUSEA/VOMITING Oxycodone HCl (Oxyir) 5 - 10 mg PO Q6H PRN PRN PRN Reason: Pain Score 6-10/10 Pantoprazole Sodium (Protonix) 40 mg PO DAILY [facility] Last Admin: 01/16/20 10:21 Dose: 40 mg Documented by: Polyethylene Glycol (Miralax) 17 gm PO DAILY PRN PRN PRN Reason: Constipation Sodium Chloride () 10 - 40 ml IV UD PRN PRN Reason: SALINE FLUSH Last Admin: 01/15/20 12:59 Dose: 10 ml Documented by: Medical Necessity - Tobacco Use Smoking Status: Former smoker Assessment/Plan All Active Problems (Last Reviewed 01/13/20 @ 01:[address] Danny Menchaca MD) Type I or II open fracture dislocation of right ankle (Acute) Ulcer of ankle with necrosis of bone (Acute) right ankle open fracture with dislocation s/p closed reduction with external fixation 01/12/20 right ankle osteomyelitis, suspected ulceration right ankle with exposed necrotic bone pain right ankle Patient seen and examined Pain is well controlled Patient to remain NWB to RLE Follow intraop and bedside I&D cultures continue antibiotics per ID Dressing changed without incident serous drainage noted Would appreciate ID input in extent and severity of infection and if she is able to go forward with internal fixation of fracture sometime next week depending on extent of infection Possible need for long-term IV antibiotics Will need to return to OR for further correction of ankle fracture. Will await return of cultures to determine further surgical planning. Would appreciate ID input if infection will likely be under control to move forward with surgical plans. Discussed plan and various treatment and surgical options with the patient including potential complications. Patient understands and agrees to plan. Likely will proceed with ORIF next week. Will need to confirm OR availability. May reinforce if any strikethrough with [place] wrap Will continue to follow Please contact Dr Cortez if any questions
[2020-01-16] MEDS: Carvedilol 25 MG Tablet PO (20:28)
[2020-01-16] MEDS: Atorvastatin Calcium 40 MG Tablet PO (20:28)
[2020-01-17] VITALS (11 sets, daily range): BP systolic 143–167; BP diastolic 77–104; PULSE 64–76; RESP 16–18; TEMP 36.5–36.8; O2SAT 93–98
[2020-01-17] MEDS: Acetaminophen 500 MG Tablet 1000 MG PO ×3 (06:22→20:51)
[2020-01-17] MEDS: Pantoprazole Sodium 40 MG Tablet PO (09:34)
[2020-01-17] MEDS: Escitalopram Oxalate 20 MG Tablet PO (09:34)
[2020-01-17] MEDS: Polyethylene Glycol 3350 17 GM PACKET PO (09:39)
[2020-01-17] MEDS: Carvedilol 25 MG Tablet 50 MG PO (09:39)
[2020-01-17] MEDS: Menthol/Lanolin/Calamine/Znox 113 GM Tube 1 APPLIC TOPICAL ×2 (09:49→20:50)
[2020-01-17] MEDS: Vancomycin IV 1,000 MG/200 ML BAG 200 MG IV ×2 (11:22→23:44)
--- NOTE | 2020-01-17 11:50 | PCM.PN.HOSP ---
Patient Problems: Active and Suspected Problems (Last Reviewed 01/13/20 @ 01:[address] Danny Menchaca MD) Type I or II open fracture dislocation of right ankle (Acute) Ankle osteomyelitis, right (Suspected) Ulcer of ankle with necrosis of bone (Acute) Reason for Visit: osteo, right ankle fx Subjective: Pt up in chair nad. pt had a nose bleed that was quickly controlled with a tissue this AM. She states her nose is very dry. No fever/chills. No cough/sob. No nausea/vomiting/diarrhea. Pain in leg/foot controlled. Vitals/I&O's: Vital Signs Temp Pulse Resp BP Pulse Ox 97.9 F 76 18 146/94 H 94 01/17/20 09:38 01/17/20 09:38 01/17/20 09:38 01/17/20 09:38 01/17/20 09:38 Oxygen Flow Rate (L/min) 2 Oxygen Delivery Method Room Air Weight: 218 lb 14.704 oz Body Mass Index (BMI) 37.5 Intake and Output for Last 24 Hours 01/15/20 01/16/20 01/17/20 23:59 23:59 23:59 Intake Total 3603.16 / 3603.16 4292.82 / 4292.82 1550.25 / 1550.25 Output Total 1300 / 1300 2150 / 2150 1999 / 1999 Balance 2303.16 / 2303.16 2142.82 / 2142.82 -449.75 / -449.75 General: Alert, Oriented x3, Cooperative HEENT: Atraumatic, PERRLA, EOMI, Normocephalic Neck: Supple, No JVD, Negative Carotid Bruits Lungs: Clear to auscultation, Normal air movement Cardiovascular: Regular rate, No murmurs Abdomen: Bowel Sounds Present, Soft, Non Tender Extremities: No edema, Capillary Refill Less than 3 Seconds Skin: No rashes, No breakdown Musculoskeletal: No Tenderness to Palpation of Joints or Extremities Neurological: Cranial nerves II-XII grossly intact Psych/Mental Status: Normal Affect, Appropriate, Alert and oriented to time, place, person, mood and affect Microbiology Past 72 Hours 01/14/20 14:10 Wound - Leg, Right Gram Stain - Final 01/14/20 14:10 Wound - Leg, Right Wound Culture - Preliminary Enterobacter cloacae complex Gram negative ramon 01/14/20 14:10 Wound - Leg, Right Anaerobic Culture - Final 01/13/20 Unknown Biopsy - Ankle Gram Stain - Final 01/13/20 Unknown Biopsy - Ankle Wound Culture - Final Enterobacter aerogenes 01/13/20 Unknown Biopsy - Ankle Anaerobic Culture - Final No anaerobic bacteria isolated. Current Medications Acetaminophen (Tylenol) 1,000 mg PO Q8H [facility] Last Admin: 01/17/20 06:22 Dose: 1,000 mg Documented by: Albuterol Sulfate (Ventolin Aerosols) 2.5 mg INHALATION Q2H PRN PRN PRN Reason: SOB &/OR WHEEZING Atorvastatin Calcium (Lipitor) 40 mg PO QHS [facility] Last Admin: 01/16/20 20:28 Dose: 40 mg Documented by: Calamine/Phenol (Calmoseptine Ointment) 1 applic TOPICAL BID [facility]; Protocol Last Admin: 01/17/20 09:49 Dose: 1 applicatio Documented by: Carvedilol (Coreg) 50 mg PO BREAKFAST [facility] Last Admin: 01/17/20 09:39 Dose: 50 mg Documented by: Carvedilol (Coreg) 25 mg PO QHS [facility] Last Admin: 01/16/20 20:28 Dose: 25 mg Documented by: Cholecalciferol (Vitamin D (25mcg)) 5,000 unit PO DAILY [facility] Last Admin: 01/17/20 09:34 Dose: 5,000 unit Documented by: Enoxaparin Sodium (Lovenox) 40 mg SC DAILY [facility] Last Admin: 01/17/20 09:50 Dose: Not Given Documented by: Escitalopram Oxalate (Lexapro) 20 mg PO DAILY [facility] Last Admin: 01/17/20 09:34 Dose: 20 mg Documented by: Cefepime HCl 2 gm/ Sodium (Chloride) 100 mls @ 200 mls/hr IV Q8H [facility] Last Infusion: 01/17/20 11:03 Dose: Infused Documented by: Vancomycin IV Pharmacy to Dose (1 ea/ Sodium Chloride) 500 mls @ 250 mls/hr IV X1 PRN; Protocol PRN Reason: Rx to Dose Sodium Chloride () 250 mls @ 15 mls/hr IV .[id number] PRN PRN Reason: Saline Flush Last Infusion: 01/17/20 11:27 Dose: 0 mls/hr Documented by: Vancomycin HCl (Vancomycin) 1,000 mg in 200 mls @ 200 mls/hr IV Q12H [facility] Last Admin: 01/17/20 11:22 Dose: 200 mls/hr Documented by: Magnesium Hydroxide (Milk Of Magnesia) 30 ml PO DAILY PRN PRN PRN Reason: Constipation Last Admin: 01/13/20 12:40 Dose: 30 ml Documented by: Mirabegron (Myrbetriq) 25 mg PO DAILY [facility] Last Admin: 01/16/20 10:20 Dose: 25 mg Documented by: Nutritional Formula (Lactose Free) (Ensure Enlive) 120 ml PO 4X/DAY [facility] Last Admin: 01/17/20 09:34 Dose: 120 ml Documented by: Ondansetron HCl (Zofran) 4 mg IV Q8H PRN PRN PRN Reason: NAUSEA/VOMITING Oxycodone HCl (Oxyir) 5 - 10 mg PO Q6H PRN PRN PRN Reason: Pain Score 6-10/10 Pantoprazole Sodium (Protonix) 40 mg PO DAILY [facility] Last Admin: 01/17/20 09:34 Dose: 40 mg Documented by: Polyethylene Glycol (Miralax) 17 gm PO DAILY PRN PRN PRN Reason: Constipation Last Admin: 01/17/20 09:39 Dose: 17 gm Documented by: Sodium Chloride () 10 - 40 ml IV UD PRN PRN Reason: SALINE FLUSH Last Admin: 01/15/20 12:59 Dose: 10 ml Documented by: STROKE Vital Signs/Narrative: Vital Signs Temp Pulse Resp BP Pulse Ox 01/17/20 09:38 97.9 F 76 18 146/94 H 94 Medical Necessity - Tobacco Use Smoking Status: Former smoker Assessment/Plan All Active Problems (Last Reviewed 01/13/20 @ 01:[address] Danny Menchaca MD) Type I or II open fracture dislocation of right ankle (Acute) Ulcer of ankle with necrosis of bone (Acute) 1. Open fx of right ankle 2/2 slip and fall in bathtub complicated by osteomyelitis - s/p closed reduction internal fixation 01/12 Osteo evident in OR. Cultures sent: Enterobacter aerogenes resistant to cefazolin. ID consulted and abx changed to cefepime and vancomycin. WBC elevation resolved. Afebrile. PICC in place. Patient may need to go to OR again this coming week. ID and Podiatry to determine timing given risk of osteo during infection but also risk of infection with external hardware. 2. CKDIII - stable 3. HTN - coreg 4. Hx thoracic aortic aneurysm 5. HLD - stable 6. Depression - lexapro 7. Constipation - resolved. 8. Macrocytic anemia trend DVT ppx: lovenox DC planning: SNF when stable depending when pt to return to OR This patient was seen by Marcelino Kruse PA-C under the supervision of Dr. Santamaria
--- NOTE | 2020-01-17 12:16 | PN_ITS ---
Patient Problems: Active and Suspected Problems (Last Reviewed 01/13/20 @ 01:[address] Danny Menchaca MD) Type I or II open fracture dislocation of right ankle (Acute) Ankle osteomyelitis, right (Suspected) Ulcer of ankle with necrosis of bone (Acute) Subjective: Patient was seen today for follow up on right ankle fracture s/p irritation, debridement, reduction and placement of ex fix, as well as closure of medial wound site. Patient relates she does not have much pain. No complaints at this time, no complaints of fever, chills, nausea or vomiting. She is resting comfortably in chair with foot up on leg rest. - Physical Exam Vitals/I&O's: Vital Signs Temp Pulse Resp BP Pulse Ox 97.9 F 76 18 146/94 H 94 01/17/20 09:38 01/17/20 09:38 01/17/20 09:38 01/17/20 09:38 01/17/20 09:38 Oxygen Flow Rate (L/min) 2 Oxygen Delivery Method Room Air Weight: 99.3 kg Body Mass Index (BMI) 37.5 Intake and Output for Last 24 Hours 01/15/20 01/16/20 01/17/20 23:59 23:59 23:59 Intake Total 3603.16 / 3603.16 4292.82 / 4292.82 1550.25 / 1550.25 Output Total 1300 / 1300 2150 / 2150 1999 / 1999 Balance 2303.16 / 2303.16 2142.82 / 2142.82 -449.75 / -449.75 General: Alert, Oriented x3, Cooperative, No apparent distress Extremities: Capillary Refill Less than 3 Seconds, No Calf Tenderness, Peripheral Pulses Normal, - - s/p reduction and external fixation of right ankle - post op reduction maintained, ex fix intact, also sutures intact to the medial ankle with healing viable tissue present, no fluctuance, no crepitus, no blistering, no necrosis present - infection appears to be controlled at this time, no purulence noted, no streaking; there is edema to the foot/ankel c/w injury and surgery, no calf pain. Pain is well controlled to the right foot/ankle. No new areas of breakdown to the right foot/ankle/leg. Psych/Mental Status: Normal Affect, Alert and oriented to time, place, person, mood and affect Microbiology Past 72 Hours 01/12/20 Unknown Biopsy - Ankle Acid Fast Bacilli Smear - Final 01/12/20 Unknown Biopsy - Ankle Acid Fast Bacilli Culture - Final 01/12/20 Unknown Biopsy - Ankle Fungal Culture - Final 01/12/20 Unknown Biopsy - Ankle Fungal Smear - Final 01/14/20 14:10 Wound - Leg, Right Gram Stain - Final 01/14/20 14:10 Wound - Leg, Right Wound Culture - Preliminary Enterobacter cloacae complex Gram negative ramon 01/14/20 14:10 Wound - Leg, Right Anaerobic Culture - Final 01/13/20 Unknown Biopsy - Ankle Gram Stain - Final 01/13/20 Unknown Biopsy - Ankle Wound Culture - Final Enterobacter aerogenes 01/13/20 Unknown Biopsy - Ankle Anaerobic Culture - Final No anaerobic bacteria isolated. Current Medications Acetaminophen (Tylenol) 1,000 mg PO Q8H [facility] Last Admin: 01/17/20 06:22 Dose: 1,000 mg Documented by: Albuterol Sulfate (Ventolin Aerosols) 2.5 mg INHALATION Q2H PRN PRN PRN Reason: SOB &/OR WHEEZING Atorvastatin Calcium (Lipitor) 40 mg PO QHS [facility] Last Admin: 01/16/20 20:28 Dose: 40 mg Documented by: Calamine/Phenol (Calmoseptine Ointment) 1 applic TOPICAL BID [facility]; Protocol Last Admin: 01/17/20 09:49 Dose: 1 applicatio Documented by: Carvedilol (Coreg) 50 mg PO BREAKFAST [facility] Last Admin: 01/17/20 09:39 Dose: 50 mg Documented by: Carvedilol (Coreg) 25 mg PO QHS [facility] Last Admin: 01/16/20 20:28 Dose: 25 mg Documented by: Cholecalciferol (Vitamin D (25mcg)) 5,000 unit PO DAILY [facility] Last Admin: 01/17/20 09:34 Dose: 5,000 unit Documented by: Enoxaparin Sodium (Lovenox) 40 mg SC DAILY [facility] Last Admin: 01/17/20 09:50 Dose: Not Given Documented by: Escitalopram Oxalate (Lexapro) 20 mg PO DAILY [facility] Last Admin: 01/17/20 09:34 Dose: 20 mg Documented by: Cefepime HCl 2 gm/ Sodium (Chloride) 100 mls @ 200 mls/hr IV Q8H [facility] Last Infusion: 01/17/20 11:03 Dose: Infused Documented by: Vancomycin IV Pharmacy to Dose (1 ea/ Sodium Chloride) 500 mls @ 250 mls/hr IV X1 PRN; Protocol PRN Reason: Rx to Dose Sodium Chloride () 250 mls @ 15 mls/hr IV .[id number] PRN PRN Reason: Saline Flush Last Infusion: 01/17/20 11:27 Dose: 0 mls/hr Documented by: Vancomycin HCl (Vancomycin) 1,000 mg in 200 mls @ 200 mls/hr IV Q12H [facility] Last Admin: 01/17/20 11:22 Dose: 200 mls/hr Documented by: Magnesium Hydroxide (Milk Of Magnesia) 30 ml PO DAILY PRN PRN PRN Reason: Constipation Last Admin: 01/13/20 12:40 Dose: 30 ml Documented by: Mirabegron (Myrbetriq) 25 mg PO DAILY [facility] Last Admin: 01/16/20 10:20 Dose: 25 mg Documented by: Nutritional Formula (Lactose Free) (Ensure Enlive) 120 ml PO 4X/DAY [facility] Last Admin: 01/17/20 09:34 Dose: 120 ml Documented by: Ondansetron HCl (Zofran) 4 mg IV Q8H PRN PRN PRN Reason: NAUSEA/VOMITING Oxycodone HCl (Oxyir) 5 - 10 mg PO Q6H PRN PRN PRN Reason: Pain Score 6-10/10 Pantoprazole Sodium (Protonix) 40 mg PO DAILY [facility] Last Admin: 01/17/20 09:34 Dose: 40 mg Documented by: Polyethylene Glycol (Miralax) 17 gm PO DAILY PRN PRN PRN Reason: Constipation Last Admin: 01/17/20 09:39 Dose: 17 gm Documented by: Sodium Chloride () 10 - 40 ml IV UD PRN PRN Reason: SALINE FLUSH Last Admin: 01/15/20 12:59 Dose: 10 ml Documented by: Medical Necessity - Tobacco Use Smoking Status: Former smoker Assessment/Plan All Active Problems (Last Reviewed 01/13/20 @ 01:[address] Danny Menchaca MD) Type I or II open fracture dislocation of right ankle (Acute) Ulcer of ankle with necrosis of bone (Acute) Right ankle open fracture with dislocation s/p closed reduction with external fixation 01/12/20 Right ankle osteomyelitis, suspected Ulceration right ankle with exposed necrotic bone s/p debridement, and closure Pain right ankle Re-evaluation performed. Right ankle is stable, ex fix intact. Plans for return to OR for ORIF tomorrow. Continue to follow cultures. Enterobacter aerogenes, Enterobacter cloacae and gram neg ramon noted so far. Patient on IV antibiotic therapy w/ ID/Dr. Ballard on consult. Changed dressing today. Cleansed pin sites w/ betadine soln, applied gauze, kerlix and [place] dressing - keep clean, dry and intact. No weightbearing right foot, keep foot elevated. Podiatry will continue to follow closely.
[2020-01-17] MEDS: Mirabegron 25 MG TAB.ER.24H PO (13:42)
--- NOTE | 2020-01-17 14:37 | CASEMGMT ---
Social Work Note BARI received call from Adele in TCU stating pre-cert has been obtained. BARI reviewed notes, pt is going back to surgery tomorrow and will be on six weeks of IV antibiotics. BARI updated Adele in TCU. Plan: TCU once medically cleared. Pt will likely need pre-cert submitted again as it may before pt is medically ready. Felisa Mata BOILER CONTROL TECHNICIAN, FINANCIAL PLANNING ADVISER
--- NOTE | 2020-01-17 16:16 | PN.ID_ITS ---
Patient Problems: Active and Suspected Problems (Last Reviewed 01/13/20 @ 01:[address] Danny Menchaca MD) Type I or II open fracture dislocation of right ankle (Acute) Ankle osteomyelitis, right (Suspected) Ulcer of ankle with necrosis of bone (Acute) Subjective: Feeling ok, no fever, some pain in leg. No n/v/d. - Physical Exam Vitals/I&O's: Vital Signs Temp Pulse Resp BP Pulse Ox 97.9 F 76 18 146/94 H 94 01/17/20 09:38 01/17/20 09:38 01/17/20 09:38 01/17/20 09:38 01/17/20 09:38 Oxygen Flow Rate (L/min) 2 Oxygen Delivery Method Room Air Weight: 99.3 kg Body Mass Index (BMI) 37.5 Intake and Output for Last 24 Hours 01/15/20 01/16/20 01/17/20 23:59 23:59 23:59 Intake Total 3603.16 / 3603.16 4292.82 / 4292.82 1750.25 / 1750.25 Output Total 1300 / 1300 2150 / 2150 1999 / 1999 Balance 2303.16 / 2303.16 2142.82 / 2142.82 -249.75 / -249.75 General: Alert, Cooperative, No apparent distress Lungs: Clear to auscultation, Normal air movement Cardiovascular: Regular rate, Regular Rhythm Abdomen: Soft, Non Tender, Non-Distended Skin: Ulcer/ Wound - Leg wrapped Microbiology Past 72 Hours 01/12/20 Unknown Biopsy - Ankle Acid Fast Bacilli Smear - Final 01/12/20 Unknown Biopsy - Ankle Acid Fast Bacilli Culture - Final 01/12/20 Unknown Biopsy - Ankle Fungal Culture - Final 01/12/20 Unknown Biopsy - Ankle Fungal Smear - Final 01/14/20 14:10 Wound - Leg, Right Gram Stain - Final 01/14/20 14:10 Wound - Leg, Right Wound Culture - Preliminary Enterobacter cloacae complex Gram negative ramon 01/14/20 14:10 Wound - Leg, Right Anaerobic Culture - Final 01/13/20 Unknown Biopsy - Ankle Gram Stain - Final 01/13/20 Unknown Biopsy - Ankle Wound Culture - Final Enterobacter aerogenes 01/13/20 Unknown Biopsy - Ankle Anaerobic Culture - Final No anaerobic bacteria isolated. Current Medications Acetaminophen (Tylenol) 1,000 mg PO Q8H [facility] Last Admin: 01/17/20 13:42 Dose: 1,000 mg Documented by: Albuterol Sulfate (Ventolin Aerosols) 2.5 mg INHALATION Q2H PRN PRN PRN Reason: SOB &/OR WHEEZING Atorvastatin Calcium (Lipitor) 40 mg PO QHS [facility] Last Admin: 01/16/20 20:28 Dose: 40 mg Documented by: Calamine/Phenol (Calmoseptine Ointment) 1 applic TOPICAL BID [facility]; Protocol Last Admin: 01/17/20 09:49 Dose: 1 applicatio Documented by: Carvedilol (Coreg) 50 mg PO BREAKFAST [facility] Last Admin: 01/17/20 09:39 Dose: 50 mg Documented by: Carvedilol (Coreg) 25 mg PO QHS [facility] Last Admin: 01/16/20 20:28 Dose: 25 mg Documented by: Cholecalciferol (Vitamin D (25mcg)) 5,000 unit PO DAILY [facility] Last Admin: 01/17/20 09:34 Dose: 5,000 unit Documented by: Enoxaparin Sodium (Lovenox) 40 mg SC DAILY [facility] Last Admin: 01/17/20 09:50 Dose: Not Given Documented by: Escitalopram Oxalate (Lexapro) 20 mg PO DAILY [facility] Last Admin: 01/17/20 09:34 Dose: 20 mg Documented by: Cefepime HCl 2 gm/ Sodium (Chloride) 100 mls @ 200 mls/hr IV Q8H [facility] Last Infusion: 01/17/20 11:03 Dose: Infused Documented by: Vancomycin IV Pharmacy to Dose (1 ea/ Sodium Chloride) 500 mls @ 250 mls/hr IV X1 PRN; Protocol PRN Reason: Rx to Dose Sodium Chloride () 250 mls @ 15 mls/hr IV .[id number] PRN PRN Reason: Saline Flush Last Infusion: 01/17/20 12:22 Dose: 15 mls/hr Documented by: Vancomycin HCl (Vancomycin) 1,000 mg in 200 mls @ 200 mls/hr IV Q12H [facility] Last Infusion: 01/17/20 12:22 Dose: Infused Documented by: Magnesium Hydroxide (Milk Of Magnesia) 30 ml PO DAILY PRN PRN PRN Reason: Constipation Last Admin: 01/13/20 12:40 Dose: 30 ml Documented by: Mirabegron (Myrbetriq) 25 mg PO DAILY [facility] Last Admin: 01/17/20 13:42 Dose: 25 mg Documented by: Nutritional Formula (Lactose Free) (Ensure Enlive) 120 ml PO 4X/DAY [facility] Last Admin: 01/17/20 13:42 Dose: Not Given Documented by: Ondansetron HCl (Zofran) 4 mg IV Q8H PRN PRN PRN Reason: NAUSEA/VOMITING Oxycodone HCl (Oxyir) 5 - 10 mg PO Q6H PRN PRN PRN Reason: Pain Score 6-10/10 Pantoprazole Sodium (Protonix) 40 mg PO DAILY [facility] Last Admin: 01/17/20 09:34 Dose: 40 mg Documented by: Polyethylene Glycol (Miralax) 17 gm PO DAILY PRN PRN PRN Reason: Constipation Last Admin: 01/17/20 09:39 Dose: 17 gm Documented by: Sodium Chloride () 10 - 40 ml IV UD PRN PRN Reason: SALINE FLUSH Last Admin: 01/15/20 12:59 Dose: 10 ml Documented by: Medical Necessity - Tobacco Use Smoking Status: Former smoker Route of nutrition/ use of supplements: [] Nutritional Intake: [] IV Site: [] Cornejo Catheter: [] - Assessment/Plan Antibiotics: [] Assessment/Plan: [] Active and Suspected Problems (Last Reviewed 01/13/20 @ 01:[address] 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 Cortez. Surg cx with enterobacter. Wound cx the following day with different enterobacter. Cont vanc/cefepime. Picc in place, plan on 6 weeks iv abx at discharge. Discussed options with her re: ORIF. This is a complicated decision. Would favor ORIF this week in order to avoid long duration of external fixator needing to be in place. Would need long course of oral suppression with abx after IV course is completed due to suspicion for infection in any hardware placed during ORIF. Will follow, d/w primary team
[2020-01-17 16:44] LABS: Vitamin D 1,25-Dihydroxy 40.7 pg/mL (19.9-79.3)
[2020-01-17] MEDS: Atorvastatin Calcium 40 MG Tablet PO (20:48)
[2020-01-17] MEDS: Carvedilol 25 MG Tablet PO (20:48)
[2020-01-18] VITALS (18 sets, daily range): BP systolic 114–164; BP diastolic 58–112; PULSE 62–86; RESP 14–18; TEMP 36.3–37.1; O2SAT 94–100; BMI 40.5; BMI 37.6
[2020-01-18 00:01] LABS: Vancomycin, Trough Level 15.2 ug/mL (5.0-15.0)
--- NOTE | 2020-01-18 00:10 | PCM.RX.CS ---
Consult Pharmacy has been consulted to manage selected antiobiotic: Vancomycin Type of Consult: Follow-up Suspected Infection: Other Prior Doses of Antibiotics Received/Current Regimen: Medications Vancomycin HCl (Vancomycin) 1,000 mg in 200 mls @ 200 mls/hr IV Q12H [facility] Last Admin: 01/17/20 23:44 Dose: 200 mls/hr Labs: Sodium 144 mmol/L (136-145) 01/16/20 06:05 Potassium 3.7 mmol/L (3.5-5.1) 01/16/20 06:05 Chloride 111 mmol/L (98-107) H 01/16/20 06:05 Carbon Dioxide 31.0 mmol/L (21.0-32.0) 01/16/20 06:05 Anion Gap 2 (5-15) L 01/16/20 06:05 BUN 15 mg/dL (7-18) 01/16/20 06:05 Creatinine 0.66 mg/dL (0.55-1.02) 01/16/20 06:05 Est GFR (MDRD) Af Amer 113 mL/min (>60) 01/16/20 06:05 Est GFR (MDRD) Non-Af 93 mL/min (>60) 01/16/20 06:05 BUN/Creatinine Ratio 22.6 RATIO (10-20) H 01/16/20 06:05 Glucose 108 mg/dL (74-106) H 01/16/20 06:05 Vancomycin Trough 15.2 ug/mL (5.0-15.0) H 01/17/20 23:31 Microbiology: Microbiology 01/12/20 Unknown Biopsy - Ankle Acid Fast Bacilli Smear - Final 01/12/20 Unknown Biopsy - Ankle Acid Fast Bacilli Culture - Final 01/12/20 Unknown Biopsy - Ankle Fungal Culture - Final 01/12/20 Unknown Biopsy - Ankle Fungal Smear - Final 01/14/20 14:10 Wound - Leg, Right Gram Stain - Final 01/14/20 14:10 Wound - Leg, Right Wound Culture - Preliminary Enterobacter cloacae complex Gram negative ramon 01/14/20 14:10 Wound - Leg, Right Anaerobic Culture - Final 01/13/20 Unknown Biopsy - Ankle Gram Stain - Final 01/13/20 Unknown Biopsy - Ankle Wound Culture - Final Enterobacter aerogenes 01/13/20 Unknown Biopsy - Ankle Anaerobic Culture - Final No anaerobic bacteria isolated. Weight used for dosin.3 kg Estimated Creatinine Clearance: 89.5 Goal Trough: 15-20 mcg/mL Pharmacy Plan for Drug Dosing: Trough level of 15.2 was within target range. Will continue dosing at 1000mg q12h and re-draw trough 01/20/20. Pharmacy Service will continue to monitor and adjust dosing as required. Follow-Up Labs: Trough Vancomycin Labs to be done on [date and time ordered]: 01/20/20 @[id number]
[2020-01-18 05:43] LABS: Absolute Lymphocyte Count 1.21 X10^3/uL (0.83-4.51); Absolute Neutrophil Count 3.5 X10^3/uL (2.0-7.7); Basophil# 0.03 X10^3/uL; Basophil% 0.5 % (0-1); Eosinophil# 0.35 X10^3/uL; Eosinophils% 5.8 % (0-5); Hematocrit 33.7 % (37-47); Hemoglobin 10.7 g/dL (12.0-15.0); Lymphocyte # 1.21 X10^3/ul (4.0); Mean Corp Hgb Conc 31.8 g/dL (32-36); Mean Corpuscular Hgb 32.5 pg (27.0-32.0); Mean Corpuscular Volume 102.4 fL (81-99); Mean Platelet Vol. 10.5 fl (6.2-12.0); Monocyte# 0.84 X10^3/uL; Monocyte% 13.9 % (0-10); NRBC Flagged by Analyzer 0 % (0-5); Neutrophil # 3.53 X10^3/uL (2.7-7.7); Neutrophil % 58.1 % (47-70); Platelet Count 240 K/mm3 (150-450); RBC Distribution Width CV 13.4 % (11.6-14.6); RBC Distribution Width SD 50.3 fl (35.1-43.9); Red Blood Count 3.29 M/mm3 (4.2-5.4); White Blood Count 6.1 K/mm3 (4.4-11.0)
[2020-01-18 05:59] LABS: Anion Gap 3 (5-15); BUN 10 mg/dL (7-18); BUN/Creat Ratio 16.4 RATIO (10-20); Calcium,Total 8.3 mg/dL (8.5-10.1); Chloride 106 mmol/L (98-107); Creatinine, Serum 0.61 mg/dL (0.55-1.02); EST Glomerular Filtration Rate 103 mL/min (>60); Est Glom Filt Rate - Afr Amer 124 mL/min (>60); Estimated Creatinine Clearance 44.56 ml/min; Glucose 107 mg/dL (74-106); Potassium 3.6 mmol/L (3.5-5.1); Sodium Level 142 mmol/L (136-145)
[2020-01-18] MEDS: Acetaminophen 500 MG Tablet 1000 MG PO ×2 (06:02→21:03)
[2020-01-18] MEDS: Carvedilol 25 MG Tablet 50 MG PO (08:40)
[2020-01-18] MEDS: Pantoprazole Sodium 40 MG Tablet PO (08:41)
[2020-01-18] MEDS: Menthol/Lanolin/Calamine/Znox 113 GM Tube 1 APPLIC TOPICAL ×2 (08:42→21:01)
--- NOTE | 2020-01-18 10:01 | PCM.PN.ID ---
Patient Problems: Active and Suspected Problems (Last Reviewed 01/13/20 @ 01:[address] Danny Menchaca MD) Type I or II open fracture dislocation of right ankle (Acute) Ankle osteomyelitis, right (Suspected) Ulcer of ankle with necrosis of bone (Acute) Subjective: Feeling ok, pain in leg, no fever, no n/v/d. - Physical Exam Vitals/I&O's: Vital Signs Temp Pulse Resp BP Pulse Ox 97.7 F L 69 18 135/58 H 97 01/18/20 08:37 01/18/20 08:37 01/18/20 08:37 01/18/20 08:37 01/18/20 08:37 Oxygen Flow Rate (L/min) 2 Oxygen Delivery Method Nasal Cannula Weight: 99.3 kg Body Mass Index (BMI) 37.5 Intake and Output for Last 24 Hours 01/16/20 01/17/20 01/18/20 23:59 23:59 23:59 Intake Total 4292.82 / 4292.82 2641.00 / 2641.00 326.25 / 326.25 Output Total 2150 / 2150 3100 / 3100 700 / 700 Balance 2142.82 / 2142.82 -459.00 / -459.00 -373.75 / -373.75 General: Alert, Cooperative, No apparent distress Lungs: Clear to auscultation, Normal air movement Cardiovascular: Regular rate, Regular Rhythm Abdomen: Soft, Non Tender, Non-Distended Skin: Ulcer/ Wound Microbiology Past 72 Hours 01/14/20 14:10 Wound - Leg, Right Gram Stain - Final 01/14/20 14:10 Wound - Leg, Right Wound Culture - Final Enterobacter cloacae complex Stenotrophomonas maltophilia 01/14/20 14:10 Wound - Leg, Right Anaerobic Culture - Final 01/12/20 Unknown Biopsy - Ankle Acid Fast Bacilli Smear - Final 01/12/20 Unknown Biopsy - Ankle Acid Fast Bacilli Culture - Final 01/12/20 Unknown Biopsy - Ankle Fungal Culture - Final 01/12/20 Unknown Biopsy - Ankle Fungal Smear - Final 01/13/20 Unknown Biopsy - Ankle Gram Stain - Final 01/13/20 Unknown Biopsy - Ankle Wound Culture - Final Enterobacter aerogenes 01/13/20 Unknown Biopsy - Ankle Anaerobic Culture - Final No anaerobic bacteria isolated. Laboratory Results 01/13/20 06:15: Vit D 1,25-Dihydroxy 40.7 01/17/20 23:31: Vancomycin Trough 15.2 H 01/18/20 05:30: WBC 6.1, RBC 3.29 L, Hgb 10.7 L, Hct 33.7 L, MCV 102.4 H, MCH 32.5 H, MCHC 31.8 L, RDW Std Deviation 50.3 H, RDW Coeff of Surya 13.4, Plt Count 240, MPV 10.5, Immature Gran % (Auto) 1.700 H, Neut % (Auto) 58.1, Lymph % (Auto) 20.0, [place] % (Auto) 13.9 H, Eos % (Auto) 5.8 H, Baso % (Auto) 0.5, Absolute Neuts (auto) 3.5, Absolute Lymphs (auto) 1.21, Nucleated RBC % 0 01/18/20 05:30: Sodium 142, Potassium 3.6, Chloride 106, Carbon Dioxide 33.0 H, Anion Gap 3 L, BUN 10, Creatinine 0.61, Estim Creat Clear Calc 44.56, Est GFR (MDRD) Af Amer 124, Est GFR (MDRD) Non-Af 103, BUN/Creatinine Ratio 16.4, Glucose 107 H, Calcium 8.3 L Current Medications Acetaminophen (Tylenol) 1,000 mg PO Q8H [facility] Last Admin: 01/18/20 06:02 Dose: 1,000 mg Documented by: Albuterol Sulfate (Ventolin Aerosols) 2.5 mg INHALATION Q2H PRN PRN PRN Reason: SOB &/OR WHEEZING Atorvastatin Calcium (Lipitor) 40 mg PO QHS [facility] Last Admin: 01/17/20 20:48 Dose: 40 mg Documented by: Calamine/Phenol (Calmoseptine Ointment) 1 applic TOPICAL BID [facility]; Protocol Last Admin: 01/18/20 08:42 Dose: 1 applicatio Documented by: Carvedilol (Coreg) 50 mg PO BREAKFAST [facility] Last Admin: 01/18/20 08:40 Dose: 50 mg Documented by: Carvedilol (Coreg) 25 mg PO QHS [facility] Last Admin: 01/17/20 20:48 Dose: 25 mg Documented by: Cholecalciferol (Vitamin D (25mcg)) 5,000 unit PO DAILY [facility] Last Admin: 01/18/20 08:39 Dose: Not Given Documented by: Enoxaparin Sodium (Lovenox) 40 mg SC DAILY [facility] Last Admin: 01/18/20 08:39 Dose: Not Given Documented by: Escitalopram Oxalate (Lexapro) 20 mg PO DAILY [facility] Last Admin: 01/18/20 08:39 Dose: Not Given Documented by: Cefepime HCl 2 gm/ Sodium (Chloride) 100 mls @ 200 mls/hr IV Q8H [facility] Last Infusion: 01/18/20 02:59 Dose: Infused Documented by: Sodium Chloride () 250 mls @ 15 mls/hr IV .[id number] PRN PRN Reason: Saline Flush Last Infusion: 01/18/20 02:59 Dose: 15 mls/hr Documented by: Magnesium Hydroxide (Milk Of Magnesia) 30 ml PO DAILY PRN PRN PRN Reason: Constipation Last Admin: 01/13/20 12:40 Dose: 30 ml Documented by: Mirabegron (Myrbetriq) 25 mg PO DAILY [facility] Last Admin: 01/18/20 08:40 Dose: Not Given Documented by: Nutritional Formula (Lactose Free) (Ensure Enlive) 120 ml PO 4X/DAY [facility] Last Admin: 01/18/20 08:39 Dose: Not Given Documented by: Ondansetron HCl (Zofran) 4 mg IV Q8H PRN PRN PRN Reason: NAUSEA/VOMITING Oxycodone HCl (Oxyir) 5 - 10 mg PO Q6H PRN PRN PRN Reason: Pain Score 6-10/10 Pantoprazole Sodium (Protonix) 40 mg PO DAILY [facility] Last Admin: 01/18/20 08:41 Dose: 40 mg Documented by: Polyethylene Glycol (Miralax) 17 gm PO DAILY PRN PRN PRN Reason: Constipation Last Admin: 01/17/20 09:39 Dose: 17 gm Documented by: Sodium Chloride () 10 - 40 ml IV UD PRN PRN Reason: SALINE FLUSH Last Admin: 01/15/20 12:59 Dose: 10 ml Documented by: Trimethoprim/Sulfamethoxazole (Bactrim Ds) 1 tablet PO BID [facility] Medical Necessity - Tobacco Use Smoking Status: Former smoker Route of nutrition/ use of supplements: [] Nutritional Intake: [] IV Site: [] Cornejo Catheter: [] - Assessment/Plan Antibiotics: [] Assessment/Plan: [] Active and Suspected Problems (Last Reviewed 01/13/20 @ 01:[address] 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 Cortez. Surg cx with enterobacter. Wound cx the following day with different enterobacter and stenotrophomonas. Cont cefepime, stop vanc, start po bactrim. Picc in place, plan on 6 weeks iv abx at discharge. ORIF today. Will need long course of oral suppression with abx after IV course is completed due to suspicion for infection in any hardware placed during ORIF. Will follow
--- NOTE | 2020-01-18 12:02 | CASEMGMT ---
Social Work Note Pt is having surgery today. BARI placed a call to Adele in TCU and updated her. Adele states pt's pre-cert is still good tomorrow. Plan: TCU once medically cleared, hopefully tomorrow. If pt is not medically cleared for discharge tomorrow, a new pre-cert will need to be submitted. Felisa Mata SPECIAL NEEDS TEACHER, [employer]
--- NOTE | 2020-01-18 13:24 | PCM.PN.HOSP ---
Patient Problems: Active and Suspected Problems (Last Reviewed 01/13/20 @ 01:[address] Danny Menchaca MD) Type I or II open fracture dislocation of right ankle (Acute) Ankle osteomyelitis, right (Suspected) Ulcer of ankle with necrosis of bone (Acute) Reason for Visit: Osteo RLE Subjective: Pt seen and examined prior to going to OR. Minimal pain. No fever/chills. No SOB/cough. No CP. No Nausea/vomiting/diarrhea Vitals/I&O's: Vital Signs Temp Pulse Resp BP Pulse Ox 98.2 F 69 18 135/58 H 97 01/18/20 13:13 01/18/20 08:37 01/18/20 08:37 01/18/20 08:37 01/18/20 08:37 Oxygen Flow Rate (L/min) 2 Oxygen Delivery Method Room Air Weight: 236 lb Body Mass Index (BMI) 40.5 Intake and Output for Last 24 Hours 01/16/20 01/17/20 01/18/20 23:59 23:59 23:59 Intake Total 4292.82 / 4292.82 2641.00 / 2641.00 544.00 / 544.00 Output Total 2150 / 2150 3100 / 3100 700 / 700 Balance 2142.82 / 2142.82 -459.00 / -459.00 -156.00 / -156.00 General: Alert, Oriented x3, Cooperative HEENT: Atraumatic, PERRLA, EOMI, Normocephalic Neck: Supple, No JVD, Negative Carotid Bruits Lungs: Clear to auscultation, Normal air movement Cardiovascular: Regular rate, No murmurs Abdomen: Bowel Sounds Present, Soft, Non Tender Extremities: No edema, Capillary Refill Less than 3 Seconds Skin: No rashes, No breakdown Musculoskeletal: No Tenderness to Palpation of Joints or Extremities Neurological: Cranial nerves II-XII grossly intact Psych/Mental Status: Normal Affect, Appropriate, Alert and oriented to time, place, person, mood and affect Microbiology Past 72 Hours 01/14/20 14:10 Wound - Leg, Right Gram Stain - Final 01/14/20 14:10 Wound - Leg, Right Wound Culture - Final Enterobacter cloacae complex Stenotrophomonas maltophilia 01/14/20 14:10 Wound - Leg, Right Anaerobic Culture - Final 01/12/20 Unknown Biopsy - Ankle Acid Fast Bacilli Smear - Final 01/12/20 Unknown Biopsy - Ankle Acid Fast Bacilli Culture - Final 01/12/20 Unknown Biopsy - Ankle Fungal Culture - Final 01/12/20 Unknown Biopsy - Ankle Fungal Smear - Final 01/13/20 Unknown Biopsy - Ankle Gram Stain - Final 01/13/20 Unknown Biopsy - Ankle Wound Culture - Final Enterobacter aerogenes 01/13/20 Unknown Biopsy - Ankle Anaerobic Culture - Final No anaerobic bacteria isolated. Laboratory Results 01/13/20 06:15: Vit D 1,25-Dihydroxy 40.7 01/17/20 23:31: Vancomycin Trough 15.2 H 01/18/20 05:30: WBC 6.1, RBC 3.29 L, Hgb 10.7 L, Hct 33.7 L, MCV 102.4 H, MCH 32.5 H, MCHC 31.8 L, RDW Std Deviation 50.3 H, RDW Coeff of Surya 13.4, Plt Count 240, MPV 10.5, Immature Gran % (Auto) 1.700 H, Neut % (Auto) 58.1, Lymph % (Auto) 20.0, [place] % (Auto) 13.9 H, Eos % (Auto) 5.8 H, Baso % (Auto) 0.5, Absolute Neuts (auto) 3.5, Absolute Lymphs (auto) 1.21, Nucleated RBC % 0 01/18/20 05:30: Sodium 142, Potassium 3.6, Chloride 106, Carbon Dioxide 33.0 H, Anion Gap 3 L, BUN 10, Creatinine 0.61, Estim Creat Clear Calc 44.56, Est GFR (MDRD) Af Amer 124, Est GFR (MDRD) Non-Af 103, BUN/Creatinine Ratio 16.4, Glucose 107 H, Calcium 8.3 L Current Medications Acetaminophen (Tylenol) 1,000 mg PO Q8H [facility] Last Admin: 01/18/20 06:02 Dose: 1,000 mg Documented by: Albuterol Sulfate (Ventolin Aerosols) 2.5 mg INHALATION Q2H PRN PRN PRN Reason: SOB &/OR WHEEZING Atorvastatin Calcium (Lipitor) 40 mg PO QHS [facility] Last Admin: 01/17/20 20:48 Dose: 40 mg Documented by: Calamine/Phenol (Calmoseptine Ointment) 1 applic TOPICAL BID [facility]; Protocol Last Admin: 01/18/20 08:42 Dose: 1 applicatio Documented by: Carvedilol (Coreg) 50 mg PO BREAKFAST [facility] Last Admin: 01/18/20 08:40 Dose: 50 mg Documented by: Carvedilol (Coreg) 25 mg PO QHS [facility] Last Admin: 01/17/20 20:48 Dose: 25 mg Documented by: Cholecalciferol (Vitamin D (25mcg)) 5,000 unit PO DAILY [facility] Last Admin: 01/18/20 08:39 Dose: Not Given Documented by: Enoxaparin Sodium (Lovenox) 40 mg SC DAILY [facility] Last Admin: 01/18/20 08:39 Dose: Not Given Documented by: Escitalopram Oxalate (Lexapro) 20 mg PO DAILY [facility] Last Admin: 01/18/20 08:39 Dose: Not Given Documented by: Cefepime HCl 2 gm/ Sodium (Chloride) 100 mls @ 200 mls/hr IV Q8H [facility] Last Infusion: 01/18/20 11:20 Dose: Infused Documented by: Sodium Chloride () 250 mls @ 15 mls/hr IV .[id number] PRN PRN Reason: Saline Flush Last Infusion: 01/18/20 10:50 Dose: 0 mls/hr Documented by: Magnesium Hydroxide (Milk Of Magnesia) 30 ml PO DAILY PRN PRN PRN Reason: Constipation Last Admin: 01/13/20 12:40 Dose: 30 ml Documented by: Mirabegron (Myrbetriq) 25 mg PO DAILY [facility] Last Admin: 01/18/20 08:40 Dose: Not Given Documented by: Nutritional Formula (Lactose Free) (Ensure Enlive) 120 ml PO 4X/DAY [facility] Last Admin: 01/18/20 08:39 Dose: Not Given Documented by: Ondansetron HCl (Zofran) 4 mg IV Q8H PRN PRN PRN Reason: NAUSEA/VOMITING Oxycodone HCl (Oxyir) 5 - 10 mg PO Q6H PRN PRN PRN Reason: Pain Score 6-10/10 Pantoprazole Sodium (Protonix) 40 mg PO DAILY [facility] Last Admin: 01/18/20 08:41 Dose: 40 mg Documented by: Polyethylene Glycol (Miralax) 17 gm PO DAILY PRN PRN PRN Reason: Constipation Last Admin: 01/17/20 09:39 Dose: 17 gm Documented by: Sodium Chloride () 10 - 40 ml IV UD PRN PRN Reason: SALINE FLUSH Last Admin: 01/15/20 12:59 Dose: 10 ml Documented by: Trimethoprim/Sulfamethoxazole (Bactrim Ds) 2 tablet PO TID [facility] Last Admin: 01/18/20 10:50 Dose: Not Given Documented by: STROKE Vital Signs/Narrative: Vital Signs Temp 01/18/20 13:13 98.2 F Medical Necessity - Tobacco Use Smoking Status: Former smoker Assessment/Plan All Active Problems (Last Reviewed 01/13/20 @ 01:[address] Danny Menchaca MD) Type I or II open fracture dislocation of right ankle (Acute) Ulcer of ankle with necrosis of bone (Acute) 1. Open fx of right ankle 2/2 slip and fall in bathtub complicated by osteomyelitis - s/p closed reduction internal fixation 01/12 Osteo evident in OR. Cultures sent: Enterobacter aerogenes resistant to cefazolin. ID consulted and abx changed to cefepime and bactrim. WBC elevation resolved. Afebrile. PICC in place. -Pt to go to OR today to convert EF to ORIF. -follow co2 post op, fluctuant. no resp symptoms. 2. CKDIII - stable 3. HTN - coreg 4. Hx thoracic aortic aneurysm 5. HLD - stable 6. Depression - lexapro 7. Constipation - resolved. 8. Macrocytic anemia trend 9. Morbid obesity - complicating healing process. 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 DVT ppx: lovenox DC planning: OR today. SNF when stable. This patient was seen by Marcelino Kruse PA-C under the supervision of Dr. Santamaria
--- NOTE | 2020-01-18 13:35 | NURSING ---
being brought down to surgery at this time via bed.
--- NOTE | 2020-01-18 14:00 | RAD_ITS ---
STUDY: X-RAY - RIGHT ANKLE REASON FOR EXAM: Female, 69 years old. ORIF RT ANKLE REMOVAL EXTERNAL HARDWARE TECHNIQUE: 6 C-arm view(s) of the ankle. 102.9 seconds fluoroscopy time COMPARISON: 01/13/2020. FINDINGS: These limited field of view images show ORIF compression plate and screws across distal fibular fracture and 2 K wires fixating medial malleolar fracture. Correlate with procedure note. Electronically Signed: Napoleon Branch MD at 16:52 EDT , Service support , RAD/Ankle min 3 Views
[2020-01-18] MEDS: Bupivacaine Mpf 0.5% 30 ML VIAL (16:41)
--- NOTE | 2020-01-18 17:04 | OP.PCM_ITS ---
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 removal of external fixation Description of Surgical Findings:: Materials: arthrex locking distal fibula plate right 8 hole, 2.7 locking screws, 3.5 locking screws, 3.5 cortical screws, 0.54 k-wire, 0.62 k-wire, arthrex knotless syndesmotic tightrope x2 hemostasis: thigh tourniquet 300mmhg, 90 min 10cc 0.5% bupivicaine surgery scheduling coordinator: none - Surgeon: Vandana Cortez. Industrial Photographer: Seema Rosales Type of Anesthesia:: Block,Regional, General Specimen's removed: none Estimated Blood Loss (mL): <50 Description of Procedure: INDICATIONS FOR OPERATION: The patient is a 69-year-old female who fell and twisted her right ankle sustaining a bimalleolar ankle open fracture dislocation. Patient was on the floor of her bathtub for 4 days before being found and taken to the ED. The dislocation was reduced in the OR that night and an external fixation frame was placed to maintain stability. Patient was admitted to floor for further care. Bedside I&D was carried out with closure of medial wound. Patient is to be taken back to OR today for definitive fixation. Patient has been on IV antibiotics on the floor with infection well controlled prior to surgery. We discussed the risks and benefits which include but are not limited to, infection, nonunion, malunion, DVT, PE, neurovascular damage, tendinous damage, metal failure, future joint arthrosis, and even loss of life or limb. It was discussed at length that due to the duration of her ankle being dislocated she is at high risk for bone infection and necrosis due to disruption of the blood flow which may result in need for future surgery including possibly amputation. Patient is aware of the risk of COVID-19 in the community and the possibility of exposure in the hospital setting. She understood all these and agreed to proceed. DESCRIPTION OF OPERATION: The patient was brought to the operating room and laid supine on the operating room table. All bony prominences were well padded. A thigh tourniquet was applied to the right lower extremity. General anesthesia was then established. The right foot and leg were then prepped and draped in the usual fashion. Attention was directed to the medial malleolus where under flouroscopy guidance 2 K-wires were placed percutaneously across the medial malleolus fracture after confirming under c-arm that the fragment was well aligned. Placement of the wires was confirmed under C-arm and noted to compress and give stability to the fracture without needing to violate the previous ulcerated tissue and further disruption of the soft tissue. The pins were then bent and cut. Once accomplished the external fixator frame was removed. The limb was exsanguinated and tourniquet inflated to 300 mmHg. Attention was then directed to the lateral aspect of the patient's right leg where approximately a 7 cm to 8 cm linear incision was made overlying the patient's fibula. The incision was deepened down in a layered fashion through skin and subcutaneous layers, superficial and deep fascia to periosteum utilizing a combination of sharp and blunt dissection. Care was taken to retract all vital neurovascular structures. All bleeders were cauterized and ligated as necessary. Full-thickness flaps were raised in the anterior and posterior direction exposing the distal fibula. The distal fibula oblique and communited fracture was noted along with fracture hematoma. The different fracture fragments were reduced with bone clamps and pulled out to length. At this point, clinically, the fracture was reduced and compressed. However, intraoperative fluoroscopy was also used to visualize the right fibula and excellent alignment of the fracture site with moravian of the length of the fibula and reduction of any angulation or rotation was noted. An arthrex distal fibular locking plate was then utilized to provide stability to the fracture site. The plate was first secured distally with screw sizes noted above. The plate was then fixated proximally with screws sizes noted above. All screws were placed from lateral to medial. Screw holes were left empty for its use in a syndesmosis tightrope as well as due to the communition of the fibula. Intraoperative fluoroscopy was used throughout this process and was checked again after all screws and plate was applied. Screws were deemed proper length and plate was fairly adhered to the fibula. An arthrex u.s. representative was present for placement and insertion of the plate and screws. Attention was then directed to laterally to the empty fibular plate hole at the level of the syndesmosis. An arthrex knotless tight rope was then inserted laterally to medially. Proper button placement was confirmed on c arm. The tight rope was secured against bone medially and was tightened laterally before excess suture was cut. This was then carried out again as above through another plate hole. An arthrex u.s. representative was present during the placement of the tight rope. All remaining external fixator pins were then removed from the calcaneus and tibia. The sites were curretted and all devitalized tissue removed. Flouroscopy was utilized to assess the fixation. Radiographs were reviewed with reduction of fractures obtained with fixation of k-wires and screws and plates. The deformity was reduced. All hardware was seen to be in the desired trajectory and position. All incision sites were then flushed with copious amounts of normal sterile saline. The lateral incision was then closed in layers using 2-o, 3-0, 4-0 vicryl and 3-0 and 4-0 nylon sutures. The lateral incision had adaquate cov erage of hardware was achieved in simple suture fashion before continuing to more superficial layers with running suture fashion in the subcuticular layer and simple and horizontal fashion for skin. Horizontal and simple suture fashion was utilized to close the anterior, plantar, lateral and medial stab incisions. Pin caps were placed over the K-wires. An additional 10cc of 0.5% bupivacaine was injected in a saphenous block fashion. A sterile compressive dressing was applied with betadine soaked adaptic, 4 x 4's, abd's, kerlix, cast padding and then a posterior splint applied and secured down with an Oscar wrap with particular attention directed to padding heel and all bony prominences. The tourniquet was deflated. Patient tolerated the procedure well. Patient was transferred to PACU with vital signs stable and vital signs intact. Patient to recieve post operatively a regional popliteal block to the RLE per anesthesia. Patient was readmitted to the floor and will continue: 1. Patient to keep dressing clean, dry, and intact 2. Patient to ice and elevate R foot 3. Patient to remain NWB to R foot in posterior splint 4. Plan continuous churn buttermaker IV antibiotics per ID. PICC is placed - Complications none - Admit VTE Documentation VTE Mechan Device Prophylaxis: SCD's
--- NOTE | 2020-01-18 17:20 | RAD_ITS ---
STUDY: X-RAY - RIGHT ANKLE REASON FOR EXAM: Female, 69 years old. POST OP RIGHT ANKLE TECHNIQUE: 3 view(s) of the ankle. COMPARISON: 01/13/2020, 01/18/2020. FINDINGS: Satisfactory appearance of compression plate and screws across the distal fibula with fracture in near-anatomic alignment and position. Two orthopedic screws are seen fixating a distal malleolar fracture into near anatomic alignment and position although fracture line is slightly widened measuring 4. Millimeters across. Normal ankle mortise. Normal visualized talus and calcaneus. The visualized subtalar, talonavicular, calcaneocuboid and tarsal articulations are normal. The soft tissue structures are unremarkable. RAD/Ankle min 3 Views IMPRESSION: Appearance of ORIF distal fibular and medial malleolar fractures. Electronically Signed: Napoleon Branch MD at 17:43 EDT , Service support ,
--- NOTE | 2020-01-18 18:38 | NURSING ---
Just arrived back to room from PACU
[2020-01-18] MEDS: 0.9% Normal Saline 1,000 ML 100 ML IV (19:07)
[2020-01-18] MEDS: 0.9% Saline Lock 10 ML Syringe IV (19:25)
[2020-01-18] MEDS: morphine 10 MG/ML Syringe IV (19:25)
[2020-01-18] MEDS: Smz/Tmp Ds Tablet 2 TABLET PO (21:01)
[2020-01-18] MEDS: Carvedilol 25 MG Tablet PO (21:02)
[2020-01-18] MEDS: Atorvastatin Calcium 40 MG Tablet PO (21:02)
[2020-01-18] MEDS: oxyCODONE 5 MG Tablet PO (21:09)
[2020-01-19] VITALS (8 sets, daily range): BP systolic 113–141; BP diastolic 57–80; PULSE 63–73; RESP 14–16; TEMP 36.4–36.8; O2SAT 94–97; BMI 37.6
[2020-01-19] MEDS: oxyCODONE 5 MG Tablet PO (03:22)
[2020-01-19] MEDS: Acetaminophen 500 MG Tablet 1000 MG PO ×2 (05:44→13:56)
[2020-01-19] MEDS: Smz/Tmp Ds Tablet 2 TABLET PO ×2 (05:44→13:56)
[2020-01-19] MEDS: 0.9% Normal Saline 1,000 ML 100 ML IV (05:47)
--- NOTE | 2020-01-19 06:59 | PCM.PROGNOTE ---
Patient Problems: Active and Suspected Problems (Last Reviewed 01/13/20 @ 01:[address] Danny Menchaca MD) Type I or II open fracture dislocation of right ankle (Acute) Ankle osteomyelitis, right (Suspected) Ulcer of ankle with necrosis of bone (Acute) Subjective: Patient was seen this morning for follow up on right ankle ORIF, she relates ankle was painful this morning, but relates pain more controlled at this time with morphine. Patient has no other complaints. - Physical Exam Vitals/I&O's: Vital Signs Temp Pulse Resp BP Pulse Ox 97.6 F L 64 14 130/69 H 95 01/19/20 03:28 01/19/20 03:59 01/19/20 03:28 01/19/20 03:28 01/19/20 03:28 Oxygen Flow Rate (L/min) 3 Oxygen Delivery Method Nasal Cannula Weight: 107.048 kg Body Mass Index (BMI) 40.5 Intake and Output for Last 24 Hours 01/17/20 01/18/20 01/19/20 23:59 23:59 23:59 Intake Total 2641.00 / 2641.00 795.67 / 945.67 1635.00 / 1635.00 Output Total 3100 / 3100 1400 / 1700 950 / 950 Balance -459.00 / -459.00 -604.33 / -754.33 685.00 / 685.00 General: Alert, Oriented x3, Cooperative, No apparent distress Extremities: Capillary Refill Less than 3 Seconds, No Calf Tenderness, - - Right foot/ankle/leg: Dressing/splint is clean, dry and intact, CFT < 2 seconds to all toes, no suspicion of infection or DVT at this time. Patient able to wiggle toes right foot, no complaints of heel pain. Microbiology Past 72 Hours 01/14/20 14:10 Wound - Leg, Right Gram Stain - Final 01/14/20 14:10 Wound - Leg, Right Wound Culture - Final Enterobacter cloacae complex Stenotrophomonas maltophilia 01/14/20 14:10 Wound - Leg, Right Anaerobic Culture - Final 01/12/20 Unknown Biopsy - Ankle Acid Fast Bacilli Smear - Final 01/12/20 Unknown Biopsy - Ankle Acid Fast Bacilli Culture - Final 01/12/20 Unknown Biopsy - Ankle Fungal Culture - Final 01/12/20 Unknown Biopsy - Ankle Fungal Smear - Final 01/13/20 Unknown Biopsy - Ankle Gram Stain - Final 01/13/20 Unknown Biopsy - Ankle Wound Culture - Final Enterobacter aerogenes 01/13/20 Unknown Biopsy - Ankle Anaerobic Culture - Final No anaerobic bacteria isolated. Current Medications Acetaminophen (Tylenol) 1,000 mg PO Q8H [facility] Last Admin: 01/19/20 05:44 Dose: 1,000 mg Documented by: Albuterol Sulfate (Ventolin Aerosols) 2.5 mg INHALATION Q2H PRN PRN PRN Reason: SOB &/OR WHEEZING Atorvastatin Calcium (Lipitor) 40 mg PO QHS [facility] Last Admin: 01/18/20 21:02 Dose: 40 mg Documented by: Calamine/Phenol (Calmoseptine Ointment) 1 applic TOPICAL BID [facility]; Protocol Last Admin: 01/18/20 21:01 Dose: 1 applicatio Documented by: Carvedilol (Coreg) 50 mg PO BREAKFAST [facility] Last Admin: 01/18/20 08:40 Dose: 50 mg Documented by: Carvedilol (Coreg) 25 mg PO QHS [facility] Last Admin: 01/18/20 21:02 Dose: 25 mg Documented by: Cholecalciferol (Vitamin D (25mcg)) 5,000 unit PO DAILY [facility] Last Admin: 01/18/20 08:39 Dose: Not Given Documented by: Enoxaparin Sodium (Lovenox) 40 mg SC DAILY [facility] Last Admin: 01/18/20 08:39 Dose: Not Given Documented by: Escitalopram Oxalate (Lexapro) 20 mg PO DAILY [facility] Last Admin: 01/18/20 08:39 Dose: Not Given Documented by: Cefepime HCl 2 gm/ Sodium (Chloride) 100 mls @ 200 mls/hr IV Q8H [facility] Last Infusion: 01/19/20 03:39 Dose: Infused Documented by: Sodium Chloride () 250 mls @ 15 mls/hr IV .[id number] PRN PRN Reason: Saline Flush Last Infusion: 01/18/20 19:35 Dose: Infused Documented by: Sodium Chloride () 1,000 mls @ 100 mls/hr IV .Q10H [facility] Last Admin: 01/19/20 05:47 Dose: 100 mls/hr Documented by: Magnesium Hydroxide (Milk Of Magnesia) 30 ml PO DAILY PRN PRN PRN Reason: Constipation Last Admin: 01/13/20 12:40 Dose: 30 ml Documented by: Mirabegron (Myrbetriq) 25 mg PO DAILY [facility] Last Admin: 01/18/20 08:40 Dose: Not Given Documented by: Morphine Sulfate () 4 - 6 mg IV Q4H PRN PRN PRN Reason: Pain Score 1-10/10 Morphine Sulfate () 4 - 6 mg IV Q4H PRN PRN PRN Reason: Pain Score 1-10/10 Last Admin: 01/18/20 19:25 Dose: 6 mg Documented by: Nutritional Formula (Lactose Free) (Ensure Enlive) 120 ml PO 4X/DAY [facility] Last Admin: 01/18/20 21:02 Dose: Not Given Documented by: Ondansetron HCl (Zofran) 4 mg IV Q8H PRN PRN PRN Reason: NAUSEA/VOMITING Oxycodone HCl (Oxyir) 5 - 10 mg PO Q6H PRN PRN PRN Reason: Pain Score 6-10/10 Last Admin: 01/19/20 03:22 Dose: 5 mg Documented by: Pantoprazole Sodium (Protonix) 40 mg PO DAILY [facility] Last Admin: 01/18/20 08:41 Dose: 40 mg Documented by: Polyethylene Glycol (Miralax) 17 gm PO DAILY PRN PRN PRN Reason: Constipation Last Admin: 01/17/20 09:39 Dose: 17 gm Documented by: Sodium Chloride () 10 - 40 ml IV UD PRN PRN Reason: SALINE FLUSH Last Admin: 01/18/20 19:25 Dose: 20 ml Documented by: Trimethoprim/Sulfamethoxazole (Bactrim Ds) 2 tablet PO TID [facility] Last Admin: 01/19/20 05:44 Dose: 2 tablet Documented by: Medical Necessity - Tobacco Use Smoking Status: Former smoker Assessment/Plan All Active Problems (Last Reviewed 01/13/20 @ 01:[address] Danny Menchaca MD) Type I or II open fracture dislocation of right ankle (Acute) Ulcer of ankle with necrosis of bone (Acute)
[2020-01-19 07:08] LABS: Absolute Lymphocyte Count 1.18 X10^3/uL (0.83-4.51); Absolute Neutrophil Count 4.3 X10^3/uL (2.0-7.7); Basophil# 0.04 X10^3/uL; Basophil% 0.6 % (0-1); Eosinophil# 0.27 X10^3/uL; Eosinophils% 4.1 % (0-5); Hematocrit 34.9 % (37-47); Hemoglobin 10.8 g/dL (12.0-15.0); Lymphocyte # 1.18 X10^3/ul (4.0); Lymphocyte % 17.8 % (19-41); Mean Corp Hgb Conc 30.9 g/dL (32-36); Mean Corpuscular Hgb 32.3 pg (27.0-32.0); Mean Corpuscular Volume 104.5 fL (81-99); Mean Platelet Vol. 11.7 fl (6.2-12.0); Monocyte# 0.79 X10^3/uL; Monocyte% 11.9 % (0-10); NRBC Flagged by Analyzer 0 % (0-5); Neutrophil # 4.28 X10^3/uL (2.7-7.7); Neutrophil % 64.5 % (47-70); Platelet Count 259 K/mm3 (150-450); RBC Distribution Width CV 13.2 % (11.6-14.6); RBC Distribution Width SD 49.7 fl (35.1-43.9); Red Blood Count 3.34 M/mm3 (4.2-5.4); White Blood Count 6.6 K/mm3 (4.4-11.0)
[2020-01-19 07:23] LABS: Anion Gap 4 (5-15); BUN 10 mg/dL (7-18); BUN/Creat Ratio 16.5 RATIO (10-20); Calcium,Total 8.6 mg/dL (8.5-10.1); Chloride 110 mmol/L (98-107); Creatinine, Serum 0.61 mg/dL (0.55-1.02); EST Glomerular Filtration Rate 104 mL/min (>60); Est Glom Filt Rate - Afr Amer 125 mL/min (>60); Estimated Creatinine Clearance 44.56 ml/min; Glucose 103 mg/dL (74-106); Potassium 4.3 mmol/L (3.5-5.1); Sodium Level 144 mmol/L (136-145)
[2020-01-19] MEDS: Pantoprazole Sodium 40 MG Tablet PO (09:44)
[2020-01-19] MEDS: Mirabegron 25 MG TAB.ER.24H PO (09:45)
[2020-01-19] MEDS: Menthol/Lanolin/Calamine/Znox 113 GM Tube 1 APPLIC TOPICAL (09:45)
[2020-01-19] MEDS: Carvedilol 25 MG Tablet 50 MG PO (09:45)
[2020-01-19] MEDS: Escitalopram Oxalate 20 MG Tablet PO (09:45)
--- NOTE | 2020-01-19 09:56 | CASEMGMT ---
Addendum entered by Felisa Mata 01/19/20 11:54: Pt is discharging to TCU today. SW in to speak with pt and updated her on discharge and pre-cert approval. Pt states understanding. BARI placed a call to Adele in TCU and left message that pt has discharge in for today, will discharge to TCU today. Plan: TCU today Original Note: Social Work Note Pt may be able to discharge to TCU today pending ID consult. BARI placed a call to Adele in TCU and updated her that pt will likely be discharged to TCU today pending ID consult. Plan: TCU once medically cleared. If pt doesn't discharge today to TCU, pre-cert will need to be submitted again. Felisa Mata BUSINESS MAIL ENTRY CLERK, MACHINE FEEDER FLOORPERSON
--- NOTE | 2020-01-19 11:37 | PCM.EXTCARCO ---
- Diet 01/18/20 16:58 Diet: Regular Diet Is pt able to select menu?: Yes - Routine Orders/Code Status Suppository Type: Dulcolax 10mg Suppository Frequency: Daily PRN O2 Frequency: PRN Routine Lab Work: CBC - 3 days, BMP - 3 days Code Status: Full Code - Wound(s) Right Lower Leg Wound Type: Surgical Incision left buttock Wound Type: Abrasion - Therapies Weight Bearing: Non weight bearing Occupational Therapy: Eval and Treat Speech Therapy: Eval and Treat - Problem/Diagnosis (1) Type I or II open fracture dislocation of right ankle Status: Acute Current Visit: Yes (2) Ankle osteomyelitis, right Status: Acute Current Visit: Yes (3) Hypertension Status: Chronic Current Visit: Yes (4) Ulcer of ankle with necrosis of bone Status: Acute Current Visit: Yes (5) CKD (chronic kidney disease) stage 3, GFR 30-59 ml/min Status: Chronic Current Visit: No (6) Essential hypertension Status: Chronic Current Visit: No (7) Lumbar radiculopathy Status: Chronic Current Visit: No (8) Chronic back pain Status: Chronic Current Visit: No (9) LBBB (left bundle branch block) Status: Chronic Current Visit: No (10) Hyperlipemia, mixed Status: Chronic Current Visit: No (11) Morbid obesity due to excess calories Status: Chronic Current Visit: Yes - Allergies/Procedures Done in Hospital Allergies/Adverse Reactions: Allergies amlodipine [From Norvasc] Allergy (Unknown, Verified 01/12/20 17:56) swelling codeine Allergy (Unknown, Verified 01/12/20 17:56) rash hydrocodone Allergy (Unknown, Verified 01/12/20 17:56) rash memantine [From Namenda] Allergy (Unknown, Verified 01/12/20 17:56) mental fog confusion, foggy thinking Procedures: None - Type of Care/Length of Stay Estimated LOS: Convalescent Care Less Than 30 days Type of Care Needed: Skilled Rehab Potential: Fair Prognosis: Fair - Additional Orders/Day of Discharge Day of Discharge: 01/19/20 - Dietary and Speech Recommendations Dietitian Recommendations/Changes: Continue regular diet and ensure enlive w/ medpass. - Follow Up Care Primary Care Physician: Roberto Cano MD [Primary Care Provider] - Please follow up with your Primary Care Physician in: 2 weeks Please Follow Up With: Vandana Cortez DPM When: 1-2 weeks
--- NOTE | 2020-01-19 13:26 | PCM.DC.SUM ---
Discharge Date and Diagnosis - Problem List Patient Problems: Active and Suspected Problems (Last Reviewed 01/13/20 @ 01:[address] Danny Menchaca MD) Type I or II open fracture dislocation of right ankle (Acute) Ankle osteomyelitis, right (Acute) Ulcer of ankle with necrosis of bone (Acute) Date of Admission: 01/12/20 Date of Discharge: 01/19/20 - Primary Discharge Diagnosis Acute Problems: Active Problems (Last Reviewed 01/13/20 @ 01:[address] Danny Menchaca MD) Type I or II open fracture dislocation of right ankle (Acute) Ankle osteomyelitis, right : Enterobacter cloacae, Stenotrophomonas maltophilia, ENterobacter aerogenes - Secondary Discharge Diagnosis Chronic Problems: Chronic Problems (Last Reviewed 01/13/20 @ 01:[address] Danny Menchaca MD) Hypertension (Chronic) History of hypercholesterolemia (Chronic) Morbid obesity due to excess calories (Chronic) CKD (chronic kidney disease) stage 3, GFR 30-59 ml/min (Chronic) Thoracic aortic aneurysm without rupture (Chronic) Mild 3.9cm per ECHO 08/05/18 Essential hypertension (Chronic) Lumbar radiculopathy (Chronic) Chronic back pain (Chronic) Urgency incontinence (Chronic) LBBB (left bundle branch block) (Chronic) Hyperlipemia, mixed (Chronic) Hospital Course and Treatment Imaging Results: IMAGING: RAD/Chest 1 View (Portable) IMPRESSION: No demonstrated acute process RAD/Tibia & Fibula 2 Views IMPRESSION: Fracture dislocation of the ankle joint. Venous Duplex: US/Venous Duplex Imag/Limited/Uni IMPRESSION: 1. No demonstrated deep venous thrombosis of the right leg. RAD/Ankle 2 Views IMPRESSION: 1. Complete disarticulation of the ankle mortise with lateral dislocation of the talus in relation to the tibial plafond. 2. Acute fractures of the distal fibula, medial malleolus, and tibial plafond. RAD/Ankle 2 Views IMPRESSION: ORIF ankle fracture, correlate with findings at fluoroscopy. RAD/Ankle min 3 Views IMPRESSION: Complex ankle fracture in external fixation. RAD/Tibia & Fibula 2 Views IMPRESSION: Fractures of the medial malleolus and distal fibula in external fixation. FINDINGS: These limited field of view images show ORIF compression plate and screws across distal fibular fracture and 2 K wires fixating medial malleolar fracture. Correlate with procedure note. RAD/Ankle min 3 Views IMPRESSION: Appearance of ORIF distal fibular and medial malleolar fractures. CONSULTS: Podiatry - Dana ROSALES - Rakesh Operations: - - External fixation right ankle 01/13/20, ORIF right ankle 01/18/20 Procedures: None Summary of Care Provided: Hospital Course: The patient is a 69 year old F with pmhx as above who fell in the shower fracturing her right ankle. She laid in the shower for 4 days as she could not get out or to a phone until someone found her. She drank from the tap for hydration. She had an open fracture with bone exposed. She came to the ER and was found to have leukocytosis, tachycardia, and tachypnea. She was admitted to med surg and podiatry was consulted. She was taken for external fixation on 01/12. During this procedure osteomyelitis was apparent. Cultures were taken. ID was consulted and changed her to vanc and cefepime. She grew out Enterobacter aerogenes, Enterobacter cloacae, and Stenotrophomonas maltophilia. A PICC line was placed. She was taken for ORIF 01/18/20. She tolerated the procedure well. She will continue 6 weeks of abx with IV cefepime and PO bactrim, and ID notes she will need superintendent terminal supression therapy after the IV abx are done. She was significantly debilitated following this stay. She was discharged to SNF in stable condition. Follow up with PCP 2 weeks, Podiatry 1-2 weeks, Infectious disease as needed. This patient was seen by Marcelino Kruse PA-C under the supervision of Dr. Santamaria [] Patient Problems: Active and Suspected Problems (Last Reviewed 01/13/20 @ 01:[address] Danny Menchaca MD) Type I or II open fracture dislocation of right ankle (Acute) Ankle osteomyelitis, right (Acute) Ulcer of ankle with necrosis of bone (Acute) - Physical Exam Vitals/I&O's: Vital Signs Temp Pulse Resp BP Pulse Ox 98.0 F 73 14 113/69 94 01/19/20 10:41 01/19/20 10:41 01/19/20 10:41 01/19/20 10:41 01/19/20 10:41 Oxygen Flow Rate (L/min) 3 Oxygen Delivery Method Room Air Weight: 236 lb Body Mass Index (BMI) 40.5 Intake and Output for Last 24 Hours 01/17/20 01/18/20 01/19/20 23:59 23:59 23:59 Intake Total 2641.00 / 2641.00 795.67 / 945.67 1635.00 / 1635.00 Output Total 3100 / 3100 1400 / 1700 950 / 950 Balance -459.00 / -459.00 -604.33 / -754.33 685.00 / 685.00 General: Alert, Oriented x3, Cooperative HEENT: Atraumatic, PERRLA, EOMI, Normocephalic Neck: Supple, No JVD, Negative Carotid Bruits Lungs: Clear to auscultation, Normal air movement Cardiovascular: Regular rate, No murmurs Abdomen: Bowel Sounds Present, Soft, Non Tender Extremities: No edema, Capillary Refill Less than 3 Seconds Skin: No rashes, No breakdown Musculoskeletal: No Tenderness to Palpation of Joints or Extremities Neurological: Cranial nerves II-XII grossly intact Psych/Mental Status: Normal Affect, Appropriate, Alert and oriented to time, place, person, mood and affect Microbiology Past 72 Hours 01/14/20 14:10 Wound - Leg, Right Gram Stain - Final 01/14/20 14:10 Wound - Leg, Right Wound Culture - Final Enterobacter cloacae complex Stenotrophomonas maltophilia 01/14/20 14:10 Wound - Leg, Right Anaerobic Culture - Final 01/12/20 Unknown Biopsy - Ankle Acid Fast Bacilli Smear - Final 01/12/20 Unknown Biopsy - Ankle Acid Fast Bacilli Culture - Final 01/12/20 Unknown Biopsy - Ankle Fungal Culture - Final 01/12/20 Unknown Biopsy - Ankle Fungal Smear - Final 01/13/20 Unknown Biopsy - Ankle Gram Stain - Final 01/13/20 Unknown Biopsy - Ankle Wound Culture - Final Enterobacter aerogenes 01/13/20 Unknown Biopsy - Ankle Anaerobic Culture - Final No anaerobic bacteria isolated. Laboratory Results 01/19/20 06:14: Sodium 144, Potassium 4.3, Chloride 110 H, Carbon Dioxide 30.0, Anion Gap 4 L, BUN 10, Creatinine 0.61, Estim Creat Clear Calc 44.56, Est GFR (MDRD) Af Amer 125, Est GFR (MDRD) Non-Af 104, BUN/Creatinine Ratio 16.5, Glucose 103, Calcium 8.6 01/19/20 06:14: WBC 6.6, RBC 3.34 L, Hgb 10.8 L, Hct 34.9 L, MCV 104.5 H, MCH 32.3 H, MCHC 30.9 L, RDW Std Deviation 49.7 H, RDW Coeff of Surya 13.2, Plt Count 259, MPV 11.7, Immature Gran % (Auto) 1.100 H, Neut % (Auto) 64.5, Lymph % (Auto) 17.8 L, [place] % (Auto) 11.9 H, Eos % (Auto) 4.1, Baso % (Auto) 0.6, Absolute Neuts (auto) 4.3, Absolute Lymphs (auto) 1.18, Nucleated RBC % 0 Current Medications Acetaminophen (Tylenol) 1,000 mg PO Q8H [facility] Last Admin: 01/19/20 05:44 Dose: 1,000 mg Documented by: Albuterol Sulfate (Ventolin Aerosols) 2.5 mg INHALATION Q2H PRN PRN PRN Reason: SOB &/OR WHEEZING Atorvastatin Calcium (Lipitor) 40 mg PO QHS [facility] Last Admin: 01/18/20 21:02 Dose: 40 mg Documented by: Calamine/Phenol (Calmoseptine Ointment) 1 applic TOPICAL BID [facility]; Protocol Last Admin: 01/19/20 09:45 Dose: 1 applicatio Documented by: Carvedilol (Coreg) 50 mg PO BREAKFAST [facility] Last Admin: 01/19/20 09:45 Dose: 50 mg Documented by: Carvedilol (Coreg) 25 mg PO QHS [facility] Last Admin: 01/18/20 21:02 Dose: 25 mg Documented by: Cholecalciferol (Vitamin D (25mcg)) 5,000 unit PO DAILY [facility] Last Admin: 01/19/20 09:45 Dose: 3,000 unit Documented by: Enoxaparin Sodium (Lovenox) 40 mg SC DAILY [facility] Last Admin: 01/19/20 09:56 Dose: Not Given Documented by: Escitalopram Oxalate (Lexapro) 20 mg PO DAILY [facility] Last Admin: 01/19/20 09:45 Dose: 20 mg Documented by: Cefepime HCl 2 gm/ Sodium (Chloride) 100 mls @ 200 mls/hr IV Q8H [facility] Last Admin: 01/19/20 11:20 Dose: 200 mls/hr Documented by: Sodium Chloride () 250 mls @ 15 mls/hr IV .[id number] PRN PRN Reason: Saline Flush Last Infusion: 01/18/20 19:35 Dose: Infused Documented by: Sodium Chloride () 1,000 mls @ 100 mls/hr IV .Q10H [facility] Last Admin: 01/19/20 05:47 Dose: 100 mls/hr Documented by: Magnesium Hydroxide (Milk Of Magnesia) 30 ml PO DAILY PRN PRN PRN Reason: Constipation Last Admin: 01/13/20 12:40 Dose: 30 ml Documented by: Mirabegron (Myrbetriq) 25 mg PO DAILY [facility] Last Admin: 01/19/20 09:45 Dose: 25 mg Documented by: Morphine Sulfate () 4 - 6 mg IV Q4H PRN PRN PRN Reason: Pain Score 1-10/10 Morphine Sulfate () 4 - 6 mg IV Q4H PRN PRN PRN Reason: Pain Score 1-10/10 Last Admin: 01/18/20 19:25 Dose: 6 mg Documented by: Nutritional Formula (Lactose Free) (Ensure Enlive) 120 ml PO 4X/DAY [facility] Last Admin: 01/19/20 09:45 Dose: 120 ml Documented by: Ondansetron HCl (Zofran) 4 mg IV Q8H PRN PRN PRN Reason: NAUSEA/VOMITING Oxycodone HCl (Oxyir) 5 - 10 mg PO Q6H PRN PRN PRN Reason: Pain Score 6-10/10 Last Admin: 01/19/20 03:22 Dose: 5 mg Documented by: Pantoprazole Sodium (Protonix) 40 mg PO DAILY [facility] Last Admin: 01/19/20 09:44 Dose: 40 mg Documented by: Polyethylene Glycol (Miralax) 17 gm PO DAILY PRN PRN PRN Reason: Constipation Last Admin: 01/17/20 09:39 Dose: 17 gm Documented by: Sodium Chloride () 10 - 40 ml IV UD PRN PRN Reason: SALINE FLUSH Last Admin: 01/18/20 19:25 Dose: 20 ml Documented by: Trimethoprim/Sulfamethoxazole (Bactrim Ds) 2 tablet PO TID [facility] Last Admin: 01/19/20 05:44 Dose: 2 tablet Documented by: Discharge Diet: Low fat/ Low Cholesterol, 2000 mg Sodium Diet Discharge Activity: Return to Normal Activity Weight Bearing Status: - - Activity as directed by Podiatry. Home Medications: Medications to take at Discharge aspirin 81 mg tablet,delayed release 81 mg PO DAILY 07/09/19 omeprazole 40 mg capsule,delayed release 40 mg PO DAILY #90 cap 07/23/19 rosuvastatin 20 mg tablet 20 mg PO QHS #90 tab 10/26/19 theophylline 300 mg tablet,extended release,12 hr 300 mg PO Q12H #180 tab 11/18/19 mirabegron 25 mg tablet,extended release 24 hr 25 mg PO DAILY 12/02/19 escitalopram oxalate 20 mg tablet 20 mg PO DAILY #90 tab 12/08/19 carvedilol 25 mg tablet 50 mg PO BREAKFAST tab 01/06/20 Carvedilol [Coreg] 25 mg PO QHS 01/12/20 Acetaminophen [Tylenol] 1,000 mg PO Q8H tab 01/19/20 Cefepime HCl [Maxipime] 2 gm IV Q8H vial 01/19/20 Cholecalciferol (VIT D3) [Vitamin D3] 5,000 unit PO DAILY tab 01/19/20 Ensure Enlive 120 ml PO 4X/DAY liquid 01/19/20 Magnesium Hydroxide [Milk Of Magnesia] 30 ml PO DAILY PRN PRN udc 01/19/20 Menthol/Lanolin/Calamine/Znox [Calmoseptine Ointment] 1 applic TOPICAL BID tube 01/19/20 Oxycodone [Oxyir] 5 - 10 mg PO Q6H PRN PRN 3 Days #24 tab 01/19/20 Polyethylene Glycol 3350 [Miralax] 17 gm PO DAILY PRN PRN packet 01/19/20 Smz/Tmp Ds [Bactrim Ds] 2 tab PO TID tab 01/19/20 Following Prescriptions Were Given to Patient: Oxycodone [Oxyir] 5 - 10 mg PO Q6H PRN PRN 3 Days #24 tab PRN Reason: Pain Score 6-10/10 Prescription Printed Primary Care Physician: Roberto Cano MD [Primary Care Provider] - Please follow up with your Primary Care Physician in: 2 weeks Please Follow Up With: Vandana Cortez DPM When: 1-2 weeks Disposition: Intermediate facility Minutes spent on discharge:: 35 Patient Condition:: Stable Medical Necessity - Tobacco Use Smoking Status: Former smoker Meaningful Use Info Meaningful Use Diagnoses (Choose all that apply): None applicable
--- NOTE | 2020-01-19 15:28 | NURSING ---
report called to christel in tcu. pt will transfer to tcu rm 5
--- NOTE | 2020-01-19 16:01 | PN.ID_ITS ---
Patient Problems: Active and Suspected Problems (Last Reviewed 01/13/20 @ 01:[address] Danny Menchaca MD) Type I or II open fracture dislocation of right ankle (Acute) Ankle osteomyelitis, right (Acute) Ulcer of ankle with necrosis of bone (Acute) Subjective: Feeling ok, pain controlled, no fever - Physical Exam Vitals/I&O's: Vital Signs Temp Pulse Resp BP Pulse Ox 98.2 F 65 14 121/57 H 94 01/19/20 15:00 01/19/20 15:00 01/19/20 15:00 01/19/20 15:00 01/19/20 15:00 Oxygen Flow Rate (L/min) 3 Oxygen Delivery Method Room Air Weight: 107.048 kg Body Mass Index (BMI) 40.5 Intake and Output for Last 24 Hours 01/17/20 01/18/20 01/19/20 23:59 23:59 23:59 Intake Total 2641.00 / 2641.00 795.67 / 945.67 2611.67 / 2611.67 Output Total 3100 / 3100 1400 / 1700 950 / 950 Balance -459.00 / -459.00 -604.33 / -754.33 1661.67 / 1661.67 General: Alert, Cooperative, No apparent distress Lungs: Clear to auscultation, Normal air movement Cardiovascular: Regular rate, Regular Rhythm Abdomen: Soft, Non Tender, Non-Distended Skin: Ulcer/ Wound - leg wrapped Microbiology Past 72 Hours 01/14/20 14:10 Wound - Leg, Right Gram Stain - Final 01/14/20 14:10 Wound - Leg, Right Wound Culture - Final Enterobacter cloacae complex Stenotrophomonas maltophilia 01/14/20 14:10 Wound - Leg, Right Anaerobic Culture - Final 01/12/20 Unknown Biopsy - Ankle Acid Fast Bacilli Smear - Final 01/12/20 Unknown Biopsy - Ankle Acid Fast Bacilli Culture - Final 01/12/20 Unknown Biopsy - Ankle Fungal Culture - Final 01/12/20 Unknown Biopsy - Ankle Fungal Smear - Final 01/13/20 Unknown Biopsy - Ankle Gram Stain - Final 01/13/20 Unknown Biopsy - Ankle Wound Culture - Final Enterobacter aerogenes 01/13/20 Unknown Biopsy - Ankle Anaerobic Culture - Final No anaerobic bacteria isolated. Laboratory Results 01/19/20 06:14: Sodium 144, Potassium 4.3, Chloride 110 H, Carbon Dioxide 30.0, Anion Gap 4 L, BUN 10, Creatinine 0.61, Estim Creat Clear Calc 44.56, Est GFR (MDRD) Af Amer 125, Est GFR (MDRD) Non-Af 104, BUN/Creatinine Ratio 16.5, Glucose 103, Calcium 8.6 01/19/20 06:14: WBC 6.6, RBC 3.34 L, Hgb 10.8 L, Hct 34.9 L, MCV 104.5 H, MCH 32.3 H, MCHC 30.9 L, RDW Std Deviation 49.7 H, RDW Coeff of Surya 13.2, Plt Count 259, MPV 11.7, Immature Gran % (Auto) 1.100 H, Neut % (Auto) 64.5, Lymph % (Auto) 17.8 L, [place] % (Auto) 11.9 H, Eos % (Auto) 4.1, Baso % (Auto) 0.6, Absolute Neuts (auto) 4.3, Absolute Lymphs (auto) 1.18, Nucleated RBC % 0 Current Medications Acetaminophen (Tylenol) 1,000 mg PO Q8H [facility] Last Admin: 01/19/20 13:56 Dose: 1,000 mg Documented by: Albuterol Sulfate (Ventolin Aerosols) 2.5 mg INHALATION Q2H PRN PRN PRN Reason: SOB &/OR WHEEZING Atorvastatin Calcium (Lipitor) 40 mg PO QHS [facility] Last Admin: 01/18/20 21:02 Dose: 40 mg Documented by: Calamine/Phenol (Calmoseptine Ointment) 1 applic TOPICAL BID [facility]; Protocol Last Admin: 01/19/20 09:45 Dose: 1 applicatio Documented by: Carvedilol (Coreg) 50 mg PO BREAKFAST [facility] Last Admin: 01/19/20 09:45 Dose: 50 mg Documented by: Carvedilol (Coreg) 25 mg PO QHS [facility] Last Admin: 01/18/20 21:02 Dose: 25 mg Documented by: Cholecalciferol (Vitamin D (25mcg)) 5,000 unit PO DAILY [facility] Last Admin: 01/19/20 09:45 Dose: 3,000 unit Documented by: Enoxaparin Sodium (Lovenox) 40 mg SC DAILY [facility] Last Admin: 01/19/20 09:56 Dose: Not Given Documented by: Escitalopram Oxalate (Lexapro) 20 mg PO DAILY [facility] Last Admin: 01/19/20 09:45 Dose: 20 mg Documented by: Cefepime HCl 2 gm/ Sodium (Chloride) 100 mls @ 200 mls/hr IV Q8H [facility] Last Infusion: 01/19/20 11:50 Dose: Infused Documented by: Sodium Chloride () 250 mls @ 15 mls/hr IV .[id number] PRN PRN Reason: Saline Flush Last Infusion: 01/18/20 19:35 Dose: Infused Documented by: Sodium Chloride () 1,000 mls @ 100 mls/hr IV .Q10H [facility] Last Infusion: 01/19/20 15:03 Dose: Infused Documented by: Magnesium Hydroxide (Milk Of Magnesia) 30 ml PO DAILY PRN PRN PRN Reason: Constipation Last Admin: 01/13/20 12:40 Dose: 30 ml Documented by: Mirabegron (Myrbetriq) 25 mg PO DAILY [facility] Last Admin: 01/19/20 09:45 Dose: 25 mg Documented by: Morphine Sulfate () 4 - 6 mg IV Q4H PRN PRN PRN Reason: Pain Score 1-10/10 Morphine Sulfate () 4 - 6 mg IV Q4H PRN PRN PRN Reason: Pain Score 1-10/10 Last Admin: 01/18/20 19:25 Dose: 6 mg Documented by: Nutritional Formula (Lactose Free) (Ensure Enlive) 120 ml PO 4X/DAY [facility] Last Admin: 01/19/20 14:01 Dose: Not Given Documented by: Ondansetron HCl (Zofran) 4 mg IV Q8H PRN PRN PRN Reason: NAUSEA/VOMITING Oxycodone HCl (Oxyir) 5 - 10 mg PO Q6H PRN PRN PRN Reason: Pain Score 6-10/10 Last Admin: 01/19/20 03:22 Dose: 5 mg Documented by: Pantoprazole Sodium (Protonix) 40 mg PO DAILY [facility] Last Admin: 01/19/20 09:44 Dose: 40 mg Documented by: Polyethylene Glycol (Miralax) 17 gm PO DAILY PRN PRN PRN Reason: Constipation Last Admin: 01/17/20 09:39 Dose: 17 gm Documented by: Sodium Chloride () 10 - 40 ml IV UD PRN PRN Reason: SALINE FLUSH Last Admin: 01/18/20 19:25 Dose: 20 ml Documented by: Trimethoprim/Sulfamethoxazole (Bactrim Ds) 2 tablet PO TID [facility] Last Admin: 01/19/20 13:56 Dose: 2 tablet Documented by: Medical Necessity - Tobacco Use Smoking Status: Former smoker Route of nutrition/ use of supplements: [] Nutritional Intake: [] IV Site: [] Cornejo Catheter: [] - Assessment/Plan Antibiotics: [] Assessment/Plan: [] Active and Suspected Problems (Last Reviewed 01/13/20 @ 01:[address] 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 Cortez. Surg cx with enterobacter. Wound cx the following day with different enterobacter and stenotrophomonas. Cont cefepime and po bactrim. Picc in place, plan on 6 weeks iv abx at discharge, stop date 02/29/20. ORIF done 01/18/20. Will need long course of oral suppression with abx after IV course is completed due to suspicion for infection in any hardware placed during ORIF. Will follow, ID followup in 3 weeks
== END 2020-01-19 16:06 | disposition skilled nursing facility (03) | DRG 478 ==
LOC: ED 19:16 → MS3 20:59
PROVIDERS: Internal Medicine Infectious Disease; Physician Assistant; Podiatrist Foot & Ankle Surgery; Admitting Provider Hospitalist; Emergency Provider Emergency Medicine; PCP Internal Medicine; Referring Provider Hospitalist; Visit Provider Internal Medicine
PROC: 0QSG35Z Reposition Right Tibia with External Fixation Device, Percutaneous Approach (ICD-10-PCS; CPT 27814; principal; 2020-01-12 22:00)
PROC: 0QSJ04Z Reposition Right Fibula with Internal Fixation Device, Open Approach (ICD-10-PCS; CPT 27814; principal; 2020-01-18 13:45)
DX: S82.841B Displaced bimalleolar fracture of right lower leg, initial encounter for open fracture type I or II (principal); M86.171 Other acute osteomyelitis, right ankle and foot; L97.314 Non-pressure chronic ulcer of right ankle with necrosis of bone; Z16.19 Resistance to other specified beta lactam antibiotics; E78.2 Mixed hyperlipidemia; W01.0XXA Fall on same level from slipping, tripping and stumbling without subsequent striking against object, initial encounter; Y93.E1 Activity, personal bathing and showering; Y92.002 Bathroom of unspecified non-institutional (private) residence as the place of occurrence of the external cause; Y99.8 Other external cause status; N18.3 Chronic kidney disease, stage 3 (moderate); I12.9 Hypertensive chronic kidney disease with stage 1 through stage 4 chronic kidney disease, or unspecified chronic kidney disease; I71.2 Thoracic aortic aneurysm, without rupture; Z87.891 Personal history of nicotine dependence; R40.2410 Glasgow coma scale score 13-15, unspecified time; K21.9 Gastro-esophageal reflux disease without esophagitis; Z79.82 Long term (current) use of aspirin; Z79.899 Other long term (current) drug therapy; Z68.37 Body mass index [BMI] 37.0-37.9, adult; F32.9 Major depressive disorder, single episode, unspecified; F41.9 Anxiety disorder, unspecified; K59.00 Constipation, unspecified; D53.9 Nutritional anemia, unspecified; E66.01 Morbid (severe) obesity due to excess calories; B96.89 Other specified bacterial agents as the cause of diseases classified elsewhere
CPT/HCPCS: 36415; 36569; 51702; 71045; 73590; 73600; 73610; 76000; 80048; 80053; 80202; 81001; 82550; 82652; 83605; 84484; 85025; 85610; 85730; 87015; 87070; 87075; 87077; 87102; 87116; 87186; 87205; 87206; 87635; 88304; 88305; 88311; 90715; 93005; 93971; 94640; 94799; 97110; 97116; 97163; 97166; 97530; 97802; 99251; 99285; C1713; J7030; J7040; J7050; J7120; A4216; G0463; J2405; U0003

== ENCOUNTER 2020-01-19 16:09 | Inpatient (IN) | payer MEDICARE, SELFPAY ==
[2020-01-18 13:13] VITALS: BMI 40.5
[2020-01-19 16:13] VITALS: BP 151/86; PULSE 73; RESP 20; TEMP 36.2; O2SAT 95; BMI 39.5
[2020-01-19] MEDS: Menthol/Lanolin/Calamine/Znox 113 GM Tube 1 APPLIC TOPICAL (17:33)
[2020-01-19] MEDS: Smz/Tmp Ds Tablet 2 TABLET PO (18:10)
[2020-01-19] MEDS: oxyCODONE 5 MG Tablet PO (19:09)
[2020-01-19] MEDS: Magnesium Hydroxide 30 ML UDC PO (19:09)
--- NOTE | 2020-01-19 21:13 | HP.PCM_ITS ---
Problem List (1) Debility Status: Acute (2) Fall Status: Acute (3) Hyperlipidemia Status: Chronic (4) Chronic kidney disease Status: Chronic (5) GERD (gastroesophageal reflux disease) Status: Chronic (6) Overactive bladder Status: Chronic (7) Depression Status: Chronic (8) Vitamin D deficiency Status: Chronic (9) Chronic obstructive pulmonary disease Status: Chronic (10) Type I or II open fracture dislocation of right ankle Status: Acute Qualifiers: (11) Hypertension Status: Chronic (12) Ankle osteomyelitis, right Status: Acute Qualifiers: (13) Thoracic aortic aneurysm without rupture Status: Chronic Comment: Mild 3.9cm per ECHO 08/05/18 History of Present Illness Date of Admission: 01/19/20 Chief Complaint: Here for rehabilitation, strengthening, intravenous antibiotics, prior to discharge home alone. 01/12/2020 The patient is a 69 year old Female with below past medical history pr esented to [facility] Emergency Department with fall. 01/12/2020 Chest X-ray negative. 01/12/2020 EKG normal sinus rhythm, left axis deviation, left bundle branch block. 01/12/2020 Doppler ultrasound right lower extremity negative DVT. 01/12/2020 X-ray right tibia/fibula fracture dislocation ankle joint. Fell in bathtub, laid in tub for 5 days, drank water from shower. Evaluation negative for rhabdomyolysis, negative for acute kidney injury. Wound Dirty. Ancef IV given for right open ankle fracture. 01/12/2020 Admit to Hospital. IV Morphine, IV Zofran, prepare for surgery. 01/13/2020 Dr. Cortez performed closed reduction external fixation right ankle fracture. Bone biopsy right ankle, incision and drainage right foot, application of external fixation. 01/13/2020 Dr. Cameron recommended Vancomycin, Cefepime for right ankle open fracture, awaiting cultures. 01/18/2020 Dr. Cortez performed open reduction internal fixation right ankle bimalleolar, removal external fixation. Osteomyelitis apparent. Cultures grew Enterobacter Aerogenes, Enterobacter Cloacae, Stenotrophomonas Maltophilia. PICC line inserted right upper extremity. 6 weeks IV Cefepime, and oral Bactrim. Will need retirement suppression therapy after IV antibiotic done. 01/19/2020 Admit to TCU with debility, here for rehabilitation, strengthening, intravenous antibiotics, wound care, prior to discharge home alone. Past Medical History Past Medical History (Chronic Problems): Chronic Problems (Last Reviewed 01/13/20 @ 01:[address] Danny Menchaca MD) Hypertension (Chronic) History of hypercholesterolemia (Chronic) Morbid obesity due to excess calories (Chronic) Hyperlipidemia (Chronic) Chronic kidney disease (Chronic) GERD (gastroesophageal reflux disease) (Chronic) Overactive bladder (Chronic) Depression (Chronic) Vitamin D deficiency (Chronic) Chronic obstructive pulmonary disease (Chronic) CKD (chronic kidney disease) stage 3, GFR 30-59 ml/min (Chronic) Thoracic aortic aneurysm without rupture (Chronic) Mild 3.9cm per ECHO 08/05/18 Essential hypertension (Chronic) Lumbar radiculopathy (Chronic) Chronic back pain (Chronic) Urgency incontinence (Chronic) LBBB (left bundle branch block) (Chronic) Hyperlipemia, mixed (Chronic) Medical History: Medical History (Last Reviewed 01/13/20 @ 01:[address] Danny Menchaca MD) CKD (chronic kidney disease) stage 3, GFR 30-59 ml/min (Chronic) N18.3 Thoracic aortic aneurysm without rupture (Chronic) I71.2 Mild 3.9cm per ECHO 08/05/18 Essential hypertension (Chronic) I10 LBBB (left bundle branch block) (Chronic) I44.7 Hyperlipemia, mixed (Chronic) E78.2 Anxiety F41.9 Arrhythmia I49.9 Cataracts, bilateral H26.9 Esophageal reflux K21.9 H/O: pneumonia Z87.01 H/O: stroke Z86.73 Hypothyroidism E03.9 Obesity E66.9 Osteoarthritis, knee M17.10 Oxygen desaturation during sleep G47.34 Pulmonary nodule R91.1 Scoliosis M41.9 TIA (transient ischemic attack) G45.9 08/2018 Chronic respiratory failure J96.10 CKD (chronic kidney disease) (Inactive) N18.9 stage 3 COPD (chronic obstructive pulmonary disease) J44.9 Allergies amlodipine [From Norvasc] Allergy (Unknown, Verified 01/12/20 17:56) swelling codeine Allergy (Unknown, Verified 01/12/20 17:56) rash hydrocodone Allergy (Unknown, Verified 01/12/20 17:56) rash memantine [From Namenda] Allergy (Unknown, Verified 01/12/20 17:56) mental fog confusion, foggy thinking Home Medications: Ambulatory Orders Medication Instructions Recorded aspirin 81 mg tablet,delayed 81 mg PO DAILY 07/09/19 release omeprazole 40 mg capsule,delayed 40 mg PO DAILY #90 cap 07/23/19 release mirabegron 25 mg tablet,extended 25 mg PO DAILY 12/02/19 release 24 hr carvedilol 25 mg tablet 50 mg PO BREAKFAST tab 01/06/20 Carvedilol [Coreg] 25 mg PO QHS 01/12/20 Acetaminophen [Tylenol] 1,000 mg PO Q8H 01/19/20 Cefepime HCl 2 gm IV Q8H 01/19/20 Cefepime HCl [Maxipime] 2 gm IV Q8H vial 01/19/20 Cholecalciferol (VIT D3) [Vitamin 5,000 unit PO DAILY 01/19/20 D3] Enoxaparin [Lovenox] 40 mg SUBCUT DAILY 01/19/20 Ensure Enlive 120 ml PO 4X/DAY 01/19/20 Escitalopram Oxalate 20 mg PO DAILY 01/19/20 Magnesium Hydroxide [Milk Of 30 ml PO DAILY PRN PRN udc 01/19/20 Magnesia] Menthol/Lanolin/Calamine/Znox 1 applic TOPICAL BID 01/19/20 [Calmoseptine Ointment] Oxycodone [Oxyir] 5 - 10 mg PO Q6H PRN PRN 3 Days 01/19/20 #24 tab Polyethylene Glycol 3350 [Miralax] 17 gm PO DAILY PRN PRN packet 01/19/20 Rosuvastatin Calcium 20 mg PO QHS 01/19/20 Smz/Tmp Ds [Bactrim Ds] 2 tab PO TID 01/19/20 Surgical History: Surgical History (Last Reviewed 01/13/20 @ 01:[address] Danny Menchaca MD) Femur fracture S72.90XA 2016 Carpal tunnel syndrome G56.00 H/O bladder repair surgery Z98.890 2018 H/O colonoscopy Z98.890 01/24/2006 H/O right wrist surgery Z98.890 History of knee replacement Z96.659 2013 Surgical History: total knee arthroplasty, - - Femur fracture, carpal tunnel release, bladder repair, right wrist surgery, ORIF open right ankle fracture. 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 Danny Menchaca MD) Sister Diabetes Obesity Sleep apnea Mother Dementia Father Heart disease History Items: No pertinent history Paternal Family History: Family History (Last Reviewed 01/13/20 @ 01:[address] Danny Menchaca MD) Sister Diabetes Obesity Sleep apnea Mother Dementia Father Heart disease History Items: No pertinent history Review of Systems Constitutional: Denies: Chills, Fever, Weight Change HEENT: Denies: Head Aches, Sinus Congestion, Sinus Drainage Cardiovascular: Denies: Chest Pain, Palpitations Respiratory: Denies: Cough, Shortness of breath at rest, Sputum production Gastrointestinal: Denies: Abdominal Pain, Nausea, Vomiting Genitourinary: Denies: Dysuria Musculoskeletal: Denies: Joint Pain, Joint Tenderness Skin: Denies: Rash, Wounds Neurological: Denies: Numbness, Tingling, Focal weakness Psychiatric: Denies: Anxiety, Depression, Homicidal Ideations, Suicidal Ideations Hematologic/ Lymphatic: Denies: Easy Bruising, Easy Bleeding VTE Information - Inpt Only VTE Present on Admission: No VTE Mechan Device Prophylaxis: Knee High ABI Hose VTE Pharm Prophylaxis ordered?: Yes Patient Problems: Active and Suspected Problems (Last Reviewed 01/13/20 @ 01:[address] Danny Menchaca MD) Debility (Acute) Fall (Acute) - Physical Exam Vitals/I&O's: Vital Signs Temp Pulse Resp BP Pulse Ox 97.2 F L 73 20 H 151/86 H 95 01/19/20 16:13 01/19/20 16:13 01/19/20 16:13 01/19/20 16:13 01/19/20 16:13 Oxygen Delivery Method Room Air Weight: 104.553 kg Body Mass Index (BMI) 39.5 General: Alert, Oriented x3, Cooperative HEENT: Atraumatic, PERRLA, EOMI, Normocephalic Neck: Supple, No JVD, Negative Carotid Bruits Lungs: Clear to auscultation, Normal air movement Cardiovascular: Regular rate, No murmurs Abdomen: Bowel Sounds Present, Soft, Non Tender Extremities: No edema, Capillary Refill Less than 3 Seconds, - - Right lower extremity dressed. Skin: No rashes, No breakdown Musculoskeletal: No Tenderness to Palpation of Joints or Extremities Neurological: Cranial nerves II-XII grossly intact Psych/Mental Status: Normal Affect, Appropriate Laboratory Results 01/19/20 16:45: COVID-19 ([facility]) Not Detected Current Medications Acetaminophen (Tylenol) 1,000 mg PO Q8 [facility] Aspirin (Ecotrin) 81 mg PO DAILYCM [facility] Atorvastatin Calcium (Lipitor) 40 mg PO QHS [facility] Calamine/Phenol (Calmoseptine Ointment) 1 applic TOPICAL BID [facility]; Protocol Last Admin: 01/19/20 17:33 Dose: 1 applicatio Documented by: Carvedilol (Coreg) 50 mg PO BREAKFAST [facility] Carvedilol (Coreg) 25 mg PO QHS [facility] Enoxaparin Sodium (Lovenox) 40 mg SC DAILY [facility] Escitalopram Oxalate (Lexapro) 20 mg PO DAILY [facility] Cefepime HCl 2 gm/ Sodium (Chloride) 100 mls @ 200 mls/hr IV Q8 [facility] Stop: 02/29/20 22:01 Lidocaine/Diphenhydr/Alum/Mg/Simeth () 15 ml PO Q3H PRN PRN PRN Reason: sore mouth Magnesium Hydroxide (Milk Of Magnesia) 30 ml PO DAILY PRN PRN PRN Reason: Constipation Mirabegron (Myrbetriq) 25 mg PO DAILY [facility] Nutritional Formula (Lactose Free) (Ensure Enlive) 120 ml PO 4X/DAY [facility] Last Admin: 01/19/20 17:31 Dose: 120 ml Documented by: Oxycodone HCl (Oxyir) 5 mg PO Q4H PRN PRN PRN Reason: Pain Score 1-10/10 Last Admin: 01/19/20 19:09 Dose: 5 mg Documented by: Pantoprazole Sodium (Protonix) 40 mg PO DAILY [facility] Polyethylene Glycol (Miralax) 17 gm PO DAILY PRN PRN PRN Reason: Constipation Trimethoprim/Sulfamethoxazole (Bactrim Ds) 2 tablet PO TIDCM [facility] Last Admin: 01/19/20 18:10 Dose: 2 tablet Documented by: Tuberculin PPD (Tubersol, Aplisol, Ppd) 5 tu ID [id number] Stop: 01/20/20 10:01 Tuberculin PPD (Tubersol, Aplisol, Ppd) 5 tu ID [id number] Stop: 01/27/20 10:01 Assessment/Plan All Active Problems (Last Reviewed 01/13/20 @ 01:[address] Danny Menchaca MD) Type I or II open fracture dislocation of right ankle (Acute) Ankle osteomyelitis, right (Acute) Ulcer of ankle with necrosis of bone (Acute) Debility (Acute) Fall (Acute) 69 year old female with below past medical history hospitalized with right open ankle fracture dislocation, underwent surgical fixation with Dr. Cortez, complicated by osteomyelitis, admitted to TCU with debility, here for rehabilitation, strengthening, intravenous antibiotics, wound care, prior to discharge home alone. * Debility - PT/OT. * Pain - Tylenol 1000MG Q8H, Oxycodone 5MG Q4H PRN pain (1-10). * Bowel - Miralax 17GM daily, Senna/colace 2 tablets BID, Dulcolax 10MG AL daily PRN. * Adult immunization - Administer Prevnar 13, Pneumovax 23, Fluzone as appropriate. * DVT prophylaxis - Lovenox 40MG SC daily. * CV prophylaxis - Aspirin 81MG daily. * Hyperlipidemia - Atorvastatin 40MG QHS. * Mouth sores - BMX 15ML Q3H PRN. * Hypertension - Coreg 50MG QAM. * Right open ankle fracture - Cefepime 2GM IV Q8H thru 02/29/2020, Bactrim DS 2 tablets TID, Dr. Cameron, Dr. Cortez following. * Nutrition - Ensure 120ML 4x/day. * Depression - Lexapro 20MG daily, stable chronic long term care phlebotomist use, GDR not recommended. * Skin irritation - Calmoseptine topical BID. * Overactive bladder - Myrbetriq 25MG daily. * GERD - Pantoprazole 40MG daily.
[2020-01-19] MEDS: Atorvastatin Calcium 40 MG Tablet PO (21:48)
[2020-01-19] MEDS: Acetaminophen 500 MG Tablet 1000 MG PO (21:48)
[2020-01-19] MEDS: Carvedilol 25 MG Tablet PO (21:50)
[2020-01-19] MEDS: 0.9% Saline Lock 10 ML Syringe IV (22:04)
[2020-01-19] MEDS: 0.9% Normal Saline 250 ML IV.SOLN. IV (22:28)
[2020-01-20] MEDS: oxyCODONE 5 MG Tablet PO ×2 (03:01→09:04)
[2020-01-20 03:08] VITALS: BP 139/88; PULSE 65; RESP 16; TEMP 36.8; O2SAT 95
[2020-01-20 05:47] LABS: Absolute Lymphocyte Count 1.73 X10^3/uL (0.83-4.51); Absolute Neutrophil Count 5.3 X10^3/uL (2.0-7.7); Basophil# 0.03 X10^3/uL; Basophil% 0.4 % (0-1); Eosinophil# 0.22 X10^3/uL; Eosinophils% 2.6 % (0-5); Hematocrit 31.6 % (37-47); Hemoglobin 9.8 g/dL (12.0-15.0); Lymphocyte # 1.73 X10^3/ul (4.0); Lymphocyte % 20.6 % (19-41); Mean Corpuscular Hgb 32.5 pg (27.0-32.0); Mean Corpuscular Volume 104.6 fL (81-99); Mean Platelet Vol. 10.9 fl (6.2-12.0); Monocyte# 1.01 X10^3/uL; NRBC Flagged by Analyzer 0 % (0-5); Neutrophil # 5.34 X10^3/uL (2.7-7.7); Neutrophil % 63.6 % (47-70); Platelet Count 249 K/mm3 (150-450); RBC Distribution Width CV 13.7 % (11.6-14.6); Red Blood Count 3.02 M/mm3 (4.2-5.4); White Blood Count 8.4 K/mm3 (4.4-11.0)
[2020-01-20 06:12] LABS: Erythrocyte Sedimentation Rate 20 mm/hr (0-30)
[2020-01-20 06:26] LABS: Anion Gap 5 (5-15); BUN 14 mg/dL (7-18); Calcium,Total 8.2 mg/dL (8.5-10.1); Chloride 106 mmol/L (98-107); Creatinine, Serum 0.93 mg/dL (0.55-1.02); EST Glomerular Filtration Rate 63 mL/min (>60); Est Glom Filt Rate - Afr Amer 76 mL/min (>60); Estimated Creatinine Clearance 47.91 ml/min; Glucose 91 mg/dL (74-106); Potassium 3.9 mmol/L (3.5-5.1); Sodium Level 142 mmol/L (136-145)
[2020-01-20] MEDS: 0.9% Saline Lock 10 ML Syringe IV ×3 (06:30→21:28)
[2020-01-20] MEDS: Escitalopram Oxalate 20 MG Tablet PO (06:31)
[2020-01-20] MEDS: Polyethylene Glycol 3350 17 GM PACKET PO (06:31)
[2020-01-20] MEDS: Senna/Docusate Sodium 1 Tablet 2 TABLET PO ×2 (06:31→17:11)
[2020-01-20] MEDS: Acetaminophen 500 MG Tablet 1000 MG PO ×3 (06:31→21:25)
[2020-01-20] MEDS: Mirabegron 25 MG TAB.ER.24H PO (06:31)
[2020-01-20] MEDS: Pantoprazole Sodium 40 MG Tablet PO (06:31)
[2020-01-20] MEDS: Menthol/Lanolin/Calamine/Znox 113 GM Tube 1 APPLIC TOPICAL ×2 (06:34→17:10)
--- NOTE | 2020-01-20 07:23 | NURSING ---
Pt refused Lovenox states, I will not be taking that provide education on the importance of taking to prevent clots. States, I schedule aspirin so I will take that. RN made aware left a note for the doctor.
[2020-01-20] MEDS: Smz/Tmp Ds Tablet 2 TABLET PO ×3 (07:42→17:11)
[2020-01-20] MEDS: Aspirin E.C. 81 MG Tablet PO (07:43)
[2020-01-20] MEDS: Carvedilol 25 MG Tablet 50 MG PO (07:43)
[2020-01-20 09:14] VITALS: PULSE 64; RESP 16; O2SAT 92
--- NOTE | 2020-01-20 10:37 | PCM.PN.ID ---
Patient Problems: Active and Suspected Problems (Last Reviewed 01/13/20 @ 01:[address] Danny Menchaca MD) Debility (Acute) Fall (Acute) Subjective: Feeling ok, no fever, no n/v/d, no rash. Leg is sore. - Physical Exam Vitals/I&O's: Vital Signs Temp Pulse Resp BP Pulse Ox 98.2 F 64 16 139/88 H 92 01/20/20 03:08 01/20/20 09:14 01/20/20 09:14 01/20/20 03:08 01/20/20 09:14 Oxygen Flow Rate (L/min) 2 Oxygen Delivery Method Nasal Cannula Weight: 104.553 kg Body Mass Index (BMI) 39.5 Intake and Output for Last 24 Hours 01/18/20 01/19/20 01/20/20 23:59 23:59 23:59 Intake Total 340 / 340 540 / 540 Balance 340 / 340 540 / 540 General: Alert, Cooperative, No apparent distress Lungs: Clear to auscultation, Normal air movement Cardiovascular: Regular rate, Regular Rhythm Abdomen: Soft, Non Tender, Non-Distended Skin: Ulcer/ Wound - RLE wrapped Laboratory Results 01/19/20 16:45: COVID-19 ([facility]) Not Detected 01/20/20 05:10: WBC 8.4, RBC 3.02 L, Hgb 9.8 L, Hct 31.6 L, MCV 104.6 H, MCH 32.5 H, MCHC 31.0 L, RDW Std Deviation 52.0 H, RDW Coeff of Surya 13.7, Plt Count 249, MPV 10.9, Immature Gran % (Auto) 0.800, Neut % (Auto) 63.6, Lymph % (Auto) 20.6, [place] % (Auto) 12.0 H, Eos % (Auto) 2.6, Baso % (Auto) 0.4, Absolute Neuts (auto) 5.3, Absolute Lymphs (auto) 1.73, Nucleated RBC % 0, ESR 20 01/20/20 05:10: Sodium 142, Potassium 3.9, Chloride 106, Carbon Dioxide 31.0, Anion Gap 5, BUN 14, Creatinine 0.93, Estim Creat Clear Calc 47.91, Est GFR (MDRD) Af Amer 76, Est GFR (MDRD) Non-Af 63, BUN/Creatinine Ratio 15.0, Glucose 91, Calcium 8.2 L Current Medications Acetaminophen (Tylenol) 1,000 mg PO Q8 [facility] Last Admin: 01/20/20 06:31 Dose: 1,000 mg Documented by: Aspirin (Ecotrin) 81 mg PO DAILYCM [facility] Last Admin: 01/20/20 07:43 Dose: 81 mg Documented by: Atorvastatin Calcium (Lipitor) 40 mg PO QHS [facility] Last Admin: 01/19/20 21:48 Dose: 40 mg Documented by: Bisacodyl (Dulcolax) 10 mg RECTAL DAILY PRN PRN Reason: Constipation Calamine/Phenol (Calmoseptine Ointment) 1 applic TOPICAL BID [facility]; Protocol Last Admin: 01/20/20 06:34 Dose: 1 applicatio Documented by: Carvedilol (Coreg) 50 mg PO BREAKFAST [facility] Last Admin: 01/20/20 07:43 Dose: 50 mg Documented by: Carvedilol (Coreg) 25 mg PO QHS [facility] Last Admin: 01/19/20 21:50 Dose: 25 mg Documented by: Escitalopram Oxalate (Lexapro) 20 mg PO DAILY [facility] Last Admin: 01/20/20 06:31 Dose: 20 mg Documented by: Heparin Sodium (Beef Lung) () 50 units IV UD PRN PRN Reason: PICC Line Heparin Flush Cefepime HCl 2 gm/ Sodium (Chloride) 100 mls @ 200 mls/hr IV Q8 [facility] Stop: 02/29/20 22:01 Last Infusion: 01/20/20 06:59 Dose: Infused Documented by: Lidocaine/Diphenhydr/Alum/Mg/Simeth () 15 ml PO Q3H PRN PRN PRN Reason: sore mouth Mirabegron (Myrbetriq) 25 mg PO DAILY [facility] Last Admin: 01/20/20 06:31 Dose: 25 mg Documented by: Nutritional Formula (Lactose Free) (Ensure Enlive) 120 ml PO 4X/DAY [facility] Last Admin: 01/20/20 06:26 Dose: Not Given Documented by: Oxycodone HCl (Oxyir) 5 mg PO Q4H PRN PRN PRN Reason: Pain Score 1-10/10 Last Admin: 01/20/20 09:04 Dose: 5 mg Documented by: Pantoprazole Sodium (Protonix) 40 mg PO DAILY [facility] Last Admin: 01/20/20 06:31 Dose: 40 mg Documented by: Polyethylene Glycol (Miralax) 17 gm PO DAILY [facility] Last Admin: 01/20/20 06:31 Dose: 17 gm Documented by: Senna/Docusate Sodium (Senokot-S, Precious-Colace) 2 tablet PO BID [facility] Last Admin: 01/20/20 06:31 Dose: 2 tablet Documented by: Sodium Chloride () 10 - 40 ml IV UD PRN PRN Reason: Open End PICC Flush Last Admin: 01/20/20 06:30 Dose: 10 ml Documented by: Sodium Chloride (0.9% Nacl (Sterile) Posiflush) 10 - 40 ml IV UD PRN PRN Reason: Port access or dressing change Sodium Chloride () 250 ml IV 15 PRN PRN Reason: SALINE FLUSH Last Admin: 01/19/20 22:28 Dose: 250 ml Documented by: Trimethoprim/Sulfamethoxazole (Bactrim Ds) 2 tablet PO TIDCM [facility] Last Admin: 01/20/20 07:42 Dose: 2 tablet Documented by: Tuberculin PPD (Tubersol, Aplisol, Ppd) 5 tu ID [id number] Stop: 01/27/20 10:01 Medical Necessity - Tobacco Use Smoking Status: Former smoker Tobacco Use: Non-smoker Route of nutrition/ use of supplements: [] Nutritional Intake: [] IV Site: [] Cornejo Catheter: [] - Assessment/Plan Antibiotics: [] Assessment/Plan: [] Active and Suspected Problems (Last Reviewed 01/13/20 @ 01:[address] Danny Menchaca MD) Debility (Acute) Fall (Acute) R ankle open fracture now s/p external fixation 01/12/[address] Cortez. Surg cx with enterobacter. Wound cx the following day with different enterobacter and stenotrophomonas. Cont cefepime and po bactrim. Picc in place, plan on 6 weeks iv abx at discharge, stop date 02/29/20. ORIF done 01/18/20. Will need long course of oral suppression with abx after IV course is completed due to suspicion for infection in any hardware placed during ORIF. Will follow
[2020-01-20] MEDS: Tuberculin,Purif.prot.deriv. 50 TU/ML Vial 5 ML ID (11:27)
[2020-01-20 13:51] VITALS: BP 96/52; PULSE 66; RESP 16; TEMP 36.6; O2SAT 94
--- NOTE | 2020-01-20 14:21 | CASEMGMT ---
Social Work Discussed code status with pt. Pt confirmed full code. MOLST form completed and placed in chart. Babita Crockett MSW [employer]
[2020-01-20] MEDS: Atorvastatin Calcium 40 MG Tablet PO (21:26)
[2020-01-20] MEDS: Carvedilol 25 MG Tablet PO (21:29)
[2020-01-21] MEDS: oxyCODONE 5 MG Tablet PO (01:59)
[2020-01-21 05:00] VITALS: BP 134/75; PULSE 64; RESP 16; TEMP 36.9; O2SAT 97
[2020-01-21] MEDS: Acetaminophen 500 MG Tablet 1000 MG PO ×3 (06:05→21:35)
[2020-01-21] MEDS: Mirabegron 25 MG TAB.ER.24H PO (06:05)
[2020-01-21] MEDS: Menthol/Lanolin/Calamine/Znox 113 GM Tube 1 APPLIC TOPICAL ×2 (06:05→17:27)
[2020-01-21] MEDS: Senna/Docusate Sodium 1 Tablet 2 TABLET PO ×2 (06:05→17:25)
[2020-01-21] MEDS: Escitalopram Oxalate 20 MG Tablet PO (06:06)
[2020-01-21] MEDS: Polyethylene Glycol 3350 17 GM PACKET PO (06:06)
[2020-01-21] MEDS: Pantoprazole Sodium 40 MG Tablet PO (06:06)
[2020-01-21 07:37] VITALS: O2SAT 97
[2020-01-21] MEDS: Aspirin E.C. 81 MG Tablet PO (08:56)
[2020-01-21] MEDS: Carvedilol 25 MG Tablet 50 MG PO (08:56)
[2020-01-21] MEDS: Smz/Tmp Ds Tablet 2 TABLET PO ×3 (08:56→17:25)
[2020-01-21 09:02] VITALS: BP 139/88; PULSE 68
[2020-01-21 10:45] VITALS: PULSE 63; RESP 18; O2SAT 94
--- NOTE | 2020-01-21 11:12 | NURSING ---
soap suds given per order. positive results,med hard.
[2020-01-21] MEDS: 0.9% Saline Lock 10 ML Syringe IV ×3 (13:39→21:36)
[2020-01-21 13:41] VITALS: BP 130/67; PULSE 66; RESP 14; TEMP 36.9; O2SAT 92
--- NOTE | 2020-01-21 13:47 | PCM.CONS.GEN ---
Reason for Consult Date of Consultation: 01/21/20 Reason for Consultation: s/p ankle ORIF History of Present Illness: The patient is a 69 year old female was seen today for follow up on right ankle ORIF. She relates overall doing well, some pain to the ankle at times - points to lateral ankle. No other complaints. Past Medical History Past Medical History (Chronic Problems): Chronic Problems (Last Reviewed 01/13/20 @ 01:[address] Danny Menchaca MD) Hypertension (Chronic) History of hypercholesterolemia (Chronic) Morbid obesity due to excess calories (Chronic) Hyperlipidemia (Chronic) Chronic kidney disease (Chronic) GERD (gastroesophageal reflux disease) (Chronic) Overactive bladder (Chronic) Depression (Chronic) Vitamin D deficiency (Chronic) Chronic obstructive pulmonary disease (Chronic) CKD (chronic kidney disease) stage 3, GFR 30-59 ml/min (Chronic) Thoracic aortic aneurysm without rupture (Chronic) Mild 3.9cm per ECHO 08/05/18 Essential hypertension (Chronic) Lumbar radiculopathy (Chronic) Chronic back pain (Chronic) Urgency incontinence (Chronic) LBBB (left bundle branch block) (Chronic) Hyperlipemia, mixed (Chronic) Medical History: Medical History (Last Reviewed 01/13/20 @ 01:[address] Danny Menchaca MD) CKD (chronic kidney disease) stage 3, GFR 30-59 ml/min (Chronic) N18.3 Thoracic aortic aneurysm without rupture (Chronic) I71.2 Mild 3.9cm per ECHO 08/05/18 Essential hypertension (Chronic) I10 LBBB (left bundle branch block) (Chronic) I44.7 Hyperlipemia, mixed (Chronic) E78.2 Anxiety F41.9 Arrhythmia I49.9 Cataracts, bilateral H26.9 Esophageal reflux K21.9 H/O: pneumonia Z87.01 H/O: stroke Z86.73 Hypothyroidism E03.9 Obesity E66.9 Osteoarthritis, knee M17.10 Oxygen desaturation during sleep G47.34 Pulmonary nodule R91.1 Scoliosis M41.9 TIA (transient ischemic attack) G45.9 08/2018 Chronic respiratory failure J96.10 CKD (chronic kidney disease) (Inactive) N18.9 stage 3 COPD (chronic obstructive pulmonary disease) J44.9 Allergies amlodipine [From Norvasc] Allergy (Unknown, Verified 01/12/20 17:56) swelling codeine Allergy (Unknown, Verified 01/12/20 17:56) rash hydrocodone Allergy (Unknown, Verified 01/12/20 17:56) rash memantine [From Namenda] Allergy (Unknown, Verified 01/12/20 17:56) mental fog confusion, foggy thinking Home Medications: Ambulatory Orders Medication Instructions Recorded aspirin 81 mg tablet,delayed 81 mg PO DAILY 07/09/19 release omeprazole 40 mg capsule,delayed 40 mg PO DAILY #90 cap 07/23/19 release mirabegron 25 mg tablet,extended 25 mg PO DAILY 12/02/19 release 24 hr carvedilol 25 mg tablet 50 mg PO BREAKFAST tab 01/06/20 Carvedilol [Coreg] 25 mg PO QHS 01/12/20 Acetaminophen [Tylenol] 1,000 mg PO Q8H 01/19/20 Cefepime HCl 2 gm IV Q8H 01/19/20 Cefepime HCl [Maxipime] 2 gm IV Q8H vial 01/19/20 Cholecalciferol (VIT D3) [Vitamin 5,000 unit PO DAILY 01/19/20 D3] Enoxaparin [Lovenox] 40 mg SUBCUT DAILY 01/19/20 Ensure Enlive 120 ml PO 4X/DAY 01/19/20 Escitalopram Oxalate 20 mg PO DAILY 01/19/20 Magnesium Hydroxide [Milk Of 30 ml PO DAILY PRN PRN udc 01/19/20 Magnesia] Menthol/Lanolin/Calamine/Znox 1 applic TOPICAL BID 01/19/20 [Calmoseptine Ointment] Oxycodone [Oxyir] 5 - 10 mg PO Q6H PRN PRN 3 Days 01/19/20 #24 tab Polyethylene Glycol 3350 [Miralax] 17 gm PO DAILY PRN PRN packet 01/19/20 Rosuvastatin Calcium 20 mg PO QHS 01/19/20 Smz/Tmp Ds [Bactrim Ds] 2 tab PO TID 01/19/20 Surgical History: Surgical History (Last Reviewed 01/13/20 @ 01:[address] Danny Menchaca MD) Femur fracture S72.90XA 2016 Carpal tunnel syndrome G56.00 H/O bladder repair surgery Z98.890 2019 H/O colonoscopy Z98.890 01/24/2006 H/O right wrist surgery Z98.890 History of knee replacement Z96.659 2013 Surgical History: total knee arthroplasty, - - Femur fracture, carpal tunnel release, bladder repair, right wrist surgery, ORIF open right ankle fracture. 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 Danny Menchaca MD) Sister Diabetes Obesity Sleep apnea Mother Dementia Father Heart disease History Items: No pertinent history Paternal Family History: Family History (Last Reviewed 01/13/20 @ 01:[address] Danny Menchaca MD) Sister Diabetes Obesity Sleep apnea Mother Dementia Father Heart disease History Items: No pertinent history Review of Systems Constitutional: Denies: Chills, Fever Gastrointestinal: Denies: Nausea, Vomiting Patient Problems: Active and Suspected Problems (Last Reviewed 01/13/20 @ 01:[address] Danny Menchaca MD) Debility (Acute) Fall (Acute) Subjective: Patient was seen today for follow up on ORIF right ankle, date of surgery was 01/18/2020; she is resting comfortably in bed, has occasional pain to the ankle - points to the lateral aspect. Otherwise pain controlled at this time. No heel pain, no calf pain or any other complaints at this time. - Physical Exam Vitals/I&O's: Vital Signs Temp Pulse Resp BP Pulse Ox 98.5 F 66 14 130/67 H 92 01/21/20 13:41 01/21/20 13:41 01/21/20 13:41 01/21/20 13:41 01/21/20 13:41 Oxygen Flow Rate (L/min) 2 Oxygen Delivery Method Room Air Weight: 104.553 kg Body Mass Index (BMI) 39.5 Intake and Output for Last 24 Hours 01/19/20 01/20/20 01/21/20 23:59 23:59 23:59 Intake Total 340 / 340 1020 / 1020 220 / 220 Output Total 800 / 800 1700 / 1700 Balance 340 / 340 220 / 220 -1480 / -1480 General: Alert, Oriented x3, Cooperative, No apparent distress Extremities: Capillary Refill Less than 3 Seconds, No Calf Tenderness, - - Right foot: CFT < 2 seconds to all toes, patient has intact sensation to foot, patient able to wiggle toes with no pain, no heel pain, no calf pain - dressing/splint is clean, dry and intact. Psych/Mental Status: Normal Affect, Appropriate, Alert and oriented to time, place, person, mood and affect Current Medications Acetaminophen (Tylenol) 1,000 mg PO Q8 [facility] Last Admin: 01/21/20 06:05 Dose: 1,000 mg Documented by: Aspirin (Ecotrin) 81 mg PO DAILYCM [facility] Last Admin: 01/21/20 08:56 Dose: 81 mg Documented by: Atorvastatin Calcium (Lipitor) 40 mg PO QHS [facility] Last Admin: 01/20/20 21:26 Dose: 40 mg Documented by: Bisacodyl (Dulcolax) 10 mg RECTAL DAILY PRN PRN Reason: Constipation Calamine/Phenol (Calmoseptine Ointment) 1 applic TOPICAL BID [facility]; Protocol Last Admin: 01/21/20 06:05 Dose: 1 applicatio Documented by: Carvedilol (Coreg) 50 mg PO BREAKFAST [facility] Last Admin: 01/21/20 08:56 Dose: 50 mg Documented by: Carvedilol (Coreg) 25 mg PO QHS [facility] Last Admin: 01/20/20 21:29 Dose: 25 mg Documented by: Escitalopram Oxalate (Lexapro) 20 mg PO DAILY [facility] Last Admin: 01/21/20 06:06 Dose: 20 mg Documented by: Heparin Sodium (Beef Lung) () 50 units IV UD PRN PRN Reason: PICC Line Heparin Flush Cefepime HCl 2 gm/ Sodium (Chloride) 100 mls @ 200 mls/hr IV Q8 [facility] Stop: 02/29/20 22:01 Last Infusion: 01/21/20 06:41 Dose: Infused Documented by: Lidocaine/Diphenhydr/Alum/Mg/Simeth () 15 ml PO Q3H PRN PRN PRN Reason: sore mouth Melatonin (Melatonin) 10 mg PO QHS [facility] Mirabegron (Myrbetriq) 25 mg PO DAILY [facility] Last Admin: 01/21/20 06:05 Dose: 25 mg Documented by: Nutritional Formula (Lactose Free) (Ensure Enlive) 120 ml PO 4X/DAY [facility] Last Admin: 01/21/20 11:42 Dose: Not Given Documented by: Oxycodone HCl (Oxyir) 5 mg PO Q4H PRN PRN PRN Reason: Pain Score 1-10 Last Admin: 01/21/20 01:59 Dose: 5 mg Documented by: Pantoprazole Sodium (Protonix) 40 mg PO DAILY [facility] Last Admin: 01/21/20 06:06 Dose: 40 mg Documented by: Polyethylene Glycol (Miralax) 17 gm PO DAILY [facility] Last Admin: 01/21/20 06:06 Dose: 17 gm Documented by: Senna/Docusate Sodium (Senokot-S, Precious-Colace) 2 tablet PO BID [facility] Last Admin: 01/21/20 06:05 Dose: 2 tablet Documented by: Sodium Chloride () 10 - 40 ml IV UD PRN PRN Reason: Open End PICC Flush Last Admin: 01/20/20 21:28 Dose: 40 ml Documented by: Sodium Chloride (0.9% Nacl (Sterile) Posiflush) 10 - 40 ml IV UD PRN PRN Reason: Port access or dressing change Sodium Chloride () 250 ml IV 15 PRN PRN Reason: SALINE FLUSH Last Admin: 01/19/20 22:28 Dose: 250 ml Documented by: Trimethoprim/Sulfamethoxazole (Bactrim Ds) 2 tablet PO TIDCM [facility] Last Admin: 01/21/20 11:47 Dose: 2 tablet Documented by: Tuberculin PPD (Tubersol, Aplisol, Ppd) 5 tu ID [id number] ONE Stop: 01/27/20 10:01 Assessment/Plan All Active Problems (Last Reviewed 01/13/20 @ 01:[address] Danny Menchaca MD) Type I or II open fracture dislocation of right ankle (Acute) Ankle osteomyelitis, right (Acute) Ulcer of ankle with necrosis of bone (Acute) Debility (Acute) Fall (Acute) Right ankle open fracture with dislocation s/p closed reduction with external fixation 01/12/20, and s/p removal of ex fix and ORIF on 01/18/2020 Right ankle osteomyelitis, suspected Ulceration right ankle with exposed necrotic bone s/p debridement, and closure Pain right ankle Pain controlled at this time. Continue with pain management. No suspicion for infection or DVT at this time. Culture grew Enterobacter aerogenes, Enterobacter cloacae and stenotrophomonas noted. Patient on IV antibiotic therapy per ID/Dr. Ballard. Keep dressing/splint clean, dry and intact. No weightbearing right foot, keep foot elevated. DVT Prophylaxis: Lovenox 40mg once daily, subcutaneous Podiatry will continue to follow.
[2020-01-21] MEDS: Magnesium Citrate 300 ML PO (14:33)
--- NOTE | 2020-01-21 14:37 | NURSING ---
PT STATED THIS NURSE DID NOT NEED TO CALL ANY ONE TO UPDATE.
--- NOTE | 2020-01-21 14:49 | PCA ---
Called and left message at [facility] regarding patients upcoming appointment on 01/31/20. Wanted to clarify if they would see patient on floor here at [facility] or if they wanted her to still go to appointment. Waiting for a return call. If appointment is cancelled then we will need to cancel w/c transport with [facility]. RN aware
--- NOTE | 2020-01-21 17:22 | NURSING ---
mag citrate given per order. positive results.
--- NOTE | 2020-01-21 18:16 | NURSING ---
pick dressing changed by rn.
[2020-01-21] MEDS: Atorvastatin Calcium 40 MG Tablet PO (21:34)
[2020-01-21] MEDS: MELATONIN 10 MG TABLET PO (21:34)
[2020-01-21] MEDS: Carvedilol 25 MG Tablet PO (21:35)
[2020-01-22] MEDS: oxyCODONE 5 MG Tablet PO (00:11)
[2020-01-22 03:32] VITALS: BP 145/89; PULSE 62; RESP 20; TEMP 36.3; O2SAT 96
[2020-01-22] MEDS: Senna/Docusate Sodium 1 Tablet 2 TABLET PO ×2 (06:40→17:43)
[2020-01-22] MEDS: Escitalopram Oxalate 20 MG Tablet PO (06:40)
[2020-01-22] MEDS: Mirabegron 25 MG TAB.ER.24H PO (06:40)
[2020-01-22] MEDS: Enoxaparin 40 MG/0.4 ML Syringe SC (06:40)
[2020-01-22] MEDS: Pantoprazole Sodium 40 MG Tablet PO (06:40)
[2020-01-22] MEDS: Acetaminophen 500 MG Tablet 1000 MG PO ×3 (06:40→21:01)
[2020-01-22] MEDS: Menthol/Lanolin/Calamine/Znox 113 GM Tube 1 APPLIC TOPICAL ×2 (06:41→17:42)
[2020-01-22] MEDS: Smz/Tmp Ds Tablet 2 TABLET PO ×3 (07:58→17:42)
[2020-01-22] MEDS: Carvedilol 25 MG Tablet 50 MG PO (07:59)
[2020-01-22] MEDS: Aspirin E.C. 81 MG Tablet PO (08:00)
--- NOTE | 2020-01-22 11:34 | NURSING ---
Pt stated she talks and updates her family she does not need staff to call.
[2020-01-22] MEDS: 0.9% Saline Lock 10 ML Syringe IV ×2 (13:14→21:12)
[2020-01-22 14:05] VITALS: BP 120/65; PULSE 65; RESP 18; TEMP 36.2; O2SAT 92
[2020-01-22] MEDS: Atorvastatin Calcium 40 MG Tablet PO (21:00)
[2020-01-22] MEDS: MELATONIN 10 MG TABLET PO (21:00)
[2020-01-22] MEDS: Carvedilol 25 MG Tablet PO (21:01)
--- NOTE | 2020-01-22 22:19 | RAD_ITS ---
STUDY: X-RAY - ABDOMEN/PELVIS REASON FOR EXAM: Female, 69 years old. CONSTIPATION TECHNIQUE: Single AP view of the abdomen / pelvis. COMPARISON: None. FINDINGS: Exam is limited by patient size. Grossly normal visualized lung bases. There is an unremarkable bowel gas pattern. There is no demonstrated free abdominal air. The visualized liver, spleen and kidneys are grossly normal in size and morphology. There are numerous calcified phleboliths in the pelvis. There are diffuse degenerative changes of the visualized lumbar spine. Moderate S-shaped scoliosis of the entire spine. RAD/Abdomen Single View (Portable) IMPRESSION: Limited by patient''s size. No gross acute abnormalities. No gross evidence for obstruction. Electronically Signed: Napoleon Branch MD at 22:37 EDT , Service support ,
[2020-01-22 23:42] VITALS: PULSE 70; RESP 18; O2SAT 97
[2020-01-23] MEDS: oxyCODONE 5 MG Tablet PO (01:01)
[2020-01-23 06:00] VITALS: BP 145/91; PULSE 67; RESP 18; TEMP 36.9; O2SAT 95
[2020-01-23] MEDS: Pantoprazole Sodium 40 MG Tablet PO (06:49)
[2020-01-23] MEDS: Acetaminophen 500 MG Tablet 1000 MG PO ×3 (06:49→22:15)
[2020-01-23] MEDS: Senna/Docusate Sodium 1 Tablet 2 TABLET PO ×2 (06:49→17:40)
[2020-01-23] MEDS: Escitalopram Oxalate 20 MG Tablet PO (06:49)
[2020-01-23] MEDS: Enoxaparin 40 MG/0.4 ML Syringe SC (06:50)
[2020-01-23] MEDS: 0.9% Saline Lock 10 ML Syringe IV ×4 (06:51→22:35)
[2020-01-23] MEDS: Menthol/Lanolin/Calamine/Znox 113 GM Tube 1 APPLIC TOPICAL ×2 (06:57→17:39)
[2020-01-23] MEDS: Smz/Tmp Ds Tablet 2 TABLET PO ×3 (07:36→17:38)
[2020-01-23] MEDS: Aspirin E.C. 81 MG Tablet PO (07:37)
[2020-01-23] MEDS: Carvedilol 25 MG Tablet 50 MG PO (07:37)
[2020-01-23] MEDS: Mag Hydrox/Al Hydrox/Simeth 30 ML UDC PO (07:45)
[2020-01-23 09:43] VITALS: PULSE 68; RESP 16; O2SAT 94
[2020-01-23] MEDS: Mirabegron 25 MG TAB.ER.24H PO (13:29)
[2020-01-23] MEDS: 0.9% Normal Saline 250 ML IV.SOLN. IV (13:44)
[2020-01-23 13:59] VITALS: BP 120/68; PULSE 72; RESP 14; TEMP 36.4; O2SAT 92
[2020-01-23] MEDS: Carvedilol 25 MG Tablet PO (22:14)
[2020-01-23] MEDS: Atorvastatin Calcium 40 MG Tablet PO (22:14)
[2020-01-23] MEDS: MELATONIN 10 MG TABLET PO (22:15)
[2020-01-24 05:00] VITALS: BP 132/81; PULSE 62; RESP 16; TEMP 36.6; O2SAT 95
[2020-01-24] MEDS: Menthol/Lanolin/Calamine/Znox 113 GM Tube 1 APPLIC TOPICAL ×2 (05:27→17:59)
[2020-01-24] MEDS: 0.9% Saline Lock 10 ML Syringe IV ×3 (05:28→21:08)
--- NOTE | 2020-01-24 06:37 | NURSING ---
R' refusing morning meds at this time. this nurse explained about dr coming in this morning to do a dressing change and she may be getting them late. R' stated, Well they will just be late then!
[2020-01-24 06:54] VITALS: O2SAT 95
--- NOTE | 2020-01-24 07:11 | PN_ITS ---
Patient Problems: Active and Suspected Problems (Last Reviewed 01/13/20 @ 01:[address] Danny Menchaca MD) Debility (Acute) Fall (Acute) Subjective: Patient was seen bedside. She reports no pain to her right leg currently and only minor twinges occasionally. She states that PT is going well. Patient is in good spirits. Patient denies N/F/V/C/CP/SOB/calf pain. - Physical Exam Vitals/I&O's: Vital Signs Temp Pulse Resp BP Pulse Ox 97.8 F 62 16 132/81 H 95 01/24/20 05:00 01/24/20 05:00 01/24/20 05:00 01/24/20 05:00 01/24/20 05:00 Oxygen Flow Rate (L/min) 2 Oxygen Delivery Method Nasal Cannula Weight: 104.553 kg Body Mass Index (BMI) 39.5 Intake and Output for Last 24 Hours 01/22/20 01/23/20 01/24/20 23:59 23:59 23:59 Intake Total 900 / 900 1400 / 1400 200 / 200 Output Total 600 / 600 Balance 900 / 900 800 / 800 200 / 200 General: Alert, Oriented x3 HEENT: Atraumatic Extremities: - - Right LE: PT is nonpalpable due to swelling, DP is 2/4, CFT<3 seconds all digits, skin warm, minimal swelling medial and lateral ankle. Sutures intact with skin well coapted, minimal serosanginous drainage. Pins to medial ankle intact with pin caps inplace. Gross and light sensation intact medial, lateral, plantar, anterior, posterior. Patient is able to move ankle joint without pain. Negative gomez and mederos. Mild tenderness to palpation to medial and lateral ankle Skin: Incision - well coapted, sutures intact Musculoskeletal: Tenderness Neurological: Neuro grossly intact Psych/Mental Status: Normal Affect Current Medications Acetaminophen (Tylenol) 1,000 mg PO Q8 [facility] Last Admin: 01/23/20 22:15 Dose: 1,000 mg Documented by: Al Hydroxide/Mg Hydroxide (Mylanta Ii) 30 ml PO Q6H PRN PRN PRN Reason: INDIGESTION Last Admin: 01/23/20 07:45 Dose: 30 ml Documented by: Aspirin (Ecotrin) 81 mg PO DAILYCM [facility] Last Admin: 01/23/20 07:37 Dose: 81 mg Documented by: Atorvastatin Calcium (Lipitor) 40 mg PO QHS [facility] Last Admin: 01/23/20 22:14 Dose: 40 mg Documented by: Bisacodyl (Dulcolax) 10 mg RECTAL DAILY PRN PRN Reason: Constipation Calamine/Phenol (Calmoseptine Ointment) 1 applic TOPICAL BID [facility]; Protocol Last Admin: 01/24/20 05:27 Dose: 1 applicatio Documented by: Calcium Carbonate (Tums) 500 mg PO Q6H PRN PRN PRN Reason: INDIGESTION Carvedilol (Coreg) 50 mg PO BREAKFAST [facility] Last Admin: 01/23/20 07:37 Dose: 50 mg Documented by: Carvedilol (Coreg) 25 mg PO QHS [facility] Last Admin: 01/23/20 22:14 Dose: 25 mg Documented by: Enoxaparin Sodium (Lovenox) 40 mg SC DAILY@0600 [facility] Last Admin: 01/23/20 06:50 Dose: 40 mg Documented by: Escitalopram Oxalate (Lexapro) 20 mg PO DAILY [facility] Last Admin: 01/23/20 06:49 Dose: 20 mg Documented by: Heparin Sodium (Beef Lung) () 50 units IV UD PRN PRN Reason: PICC Line Heparin Flush Cefepime HCl 2 gm/ Sodium (Chloride) 100 mls @ 200 mls/hr IV Q8 [facility] Stop: 02/29/20 22:01 Last Infusion: 01/24/20 06:17 Dose: Infused Documented by: Lidocaine/Diphenhydr/Alum/Mg/Simeth () 15 ml PO Q3H PRN PRN PRN Reason: sore mouth Melatonin (Melatonin) 10 mg PO QHS [facility] Last Admin: 01/23/20 22:15 Dose: 10 mg Documented by: Mirabegron (Myrbetriq) 25 mg PO DAILY@1400 [facility] Last Admin: 01/23/20 13:29 Dose: 25 mg Documented by: Nutritional Formula (Lactose Free) (Ensure Enlive) 120 ml PO 4X/DAY [facility] Last Admin: 01/24/20 05:27 Dose: Not Given Documented by: Oxycodone HCl (Oxyir) 5 mg PO Q4H PRN PRN PRN Reason: Pain Score 1-10/10 Last Admin: 01/23/20 01:01 Dose: 5 mg Documented by: Pantoprazole Sodium (Protonix) 40 mg PO DAILY [facility] Last Admin: 01/23/20 06:49 Dose: 40 mg Documented by: Polyethylene Glycol (Miralax) 17 gm PO DAILY [facility] Last Admin: 01/24/20 05:28 Dose: Not Given Documented by: Senna/Docusate Sodium (Senokot-S, Precious-Colace) 2 tablet PO BID [facility] Last Admin: 01/23/20 17:40 Dose: 2 tablet Documented by: Simethicone (Mylicon) 80 mg PO [facility] Stop: 01/30/20 13:01 Last Admin: 01/23/20 22:15 Dose: 80 mg Documented by: Sodium Chloride () 10 - 40 ml IV UD PRN PRN Reason: Open End PICC Flush Last Admin: 01/24/20 05:28 Dose: 20 ml Documented by: Sodium Chloride (0.9% Nacl (Sterile) Posiflush) 10 - 40 ml IV UD PRN PRN Reason: Port access or dressing change Sodium Chloride () 250 ml IV 15 PRN PRN Reason: SALINE FLUSH Last Admin: 01/23/20 13:44 Dose: 250 ml Documented by: Theophylline (Tam-Dur) 300 mg PO BID [facility] Trimethoprim/Sulfamethoxazole (Bactrim Ds) 2 tablet PO TIDCM [facility] Last Admin: 01/23/20 17:38 Dose: 2 tablet Documented by: Tuberculin PPD (Tubersol, Aplisol, Ppd) 5 tu ID [id number] [facility] Stop: 01/27/20 10:01 Medical Necessity - Tobacco Use Smoking Status: Former smoker Tobacco Use: Non-smoker Assessment/Plan All Active Problems (Last Reviewed 01/13/20 @ 01:[address] Danny Menchaca MD) Type I or II open fracture dislocation of right ankle (Acute) Ankle osteomyelitis, right (Acute) Ulcer of ankle with necrosis of bone (Acute) Debility (Acute) Fall (Acute) Right ankle open fracture with dislocation s/p closed reduction with external fixation 01/12/20, and s/p removal of ex fix and ORIF on 01/18/2020 Right ankle osteomyelitis, suspected Ulceration right ankle with exposed necrotic bone s/p debridement, and closure Pain right ankle Patient seen and examined. Pain controlled at this time. Continue with pain management. No suspicion for infection or DVT at this time. Culture grew Enterobacter aerogenes, Enterobacter cloacae and stenotrophomonas noted. Patient on IV antibiotic therapy per ID/Dr. Ballard. Dressing changed today with decrease in swelling noted, minimal pain at the ankle, sutures are intact, incisions are well coapted, no signs of infection or DVT Keep dressing/splint clean, dry and intact. No weightbearing right foot, keep foot elevated. Continue physical therapy DVT Prophylaxis: Lovenox 40mg once daily, subcutaneous Podiatry will continue to follow.
[2020-01-24] MEDS: Senna/Docusate Sodium 1 Tablet 2 TABLET PO ×2 (08:53→21:24)
[2020-01-24] MEDS: Acetaminophen 500 MG Tablet 1000 MG PO ×3 (08:53→21:26)
[2020-01-24] MEDS: Enoxaparin 40 MG/0.4 ML Syringe SC (08:53)
[2020-01-24] MEDS: Pantoprazole Sodium 40 MG Tablet PO (08:54)
[2020-01-24] MEDS: Escitalopram Oxalate 20 MG Tablet PO (08:54)
[2020-01-24] MEDS: Smz/Tmp Ds Tablet 2 TABLET PO ×3 (08:55→18:00)
[2020-01-24] MEDS: Aspirin E.C. 81 MG Tablet PO (08:56)
[2020-01-24] MEDS: Carvedilol 25 MG Tablet 50 MG PO (08:59)
[2020-01-24 09:15] VITALS: BP 101/54; PULSE 74
[2020-01-24 10:45] VITALS: PULSE 65; RESP 18; O2SAT 92
--- NOTE | 2020-01-24 12:21 | PHA.CONS_ITS ---
<Mario Bailey D - Last Filed: 01/24/20 12:21> Progress Note - Pharmacy Subjective: TCU Admission Objective: Allergies amlodipine [From Norvasc] Allergy (Unknown, Verified 01/12/20 17:56) swelling codeine Allergy (Unknown, Verified 01/12/20 17:56) rash hydrocodone Allergy (Unknown, Verified 01/12/20 17:56) rash memantine [From Namenda] Allergy (Unknown, Verified 01/12/20 17:56) mental fog confusion, foggy thinking Current Medications Generic Name Dose Route Start Last Admin Trade Name Freq PRN Reason Stop Dose Admin Acetaminophen 1,000 mg 01/19/20 22:00 01/24/20 08:53 Tylenol PO 1,000 mg Q8 [facility] Administration Al Hydroxide/Mg Hydroxide 30 ml 01/22/20 19:07 01/23/20 07:45 Mylanta Ii PO 30 ml Q6H PRN PRN Administration INDIGESTION Aspirin 81 mg 01/20/20 08:00 01/24/20 08:56 Ecotrin PO 81 mg DAILYCM [facility] Administration Atorvastatin Calcium 40 mg 01/19/20 22:00 01/23/20 22:14 Lipitor PO 40 mg QHS [facility] Administration Bisacodyl 10 mg 01/19/20 21:41 Dulcolax RECTAL DAILY PRN Constipation Calamine/Phenol 1 applic 01/19/20 18:00 01/24/20 05:27 Calmoseptine Ointment TOPICAL 1 applicatio BID [facility] Administration Protocol Calcium Carbonate 500 mg 01/22/20 19:07 Tums PO Q6H PRN PRN INDIGESTION Carvedilol 50 mg 01/20/20 08:00 01/24/20 08:59 Coreg PO 50 mg BREAKFAST [facility] Administration Carvedilol 25 mg 01/19/20 22:00 01/23/20 22:14 Coreg PO 25 mg QHS [facility] Administration Enoxaparin Sodium 40 mg 01/22/20 06:00 01/24/20 08:53 Lovenox SC 40 mg DAILY@0600 [facility] Administration Escitalopram Oxalate 20 mg 01/20/20 06:00 01/24/20 08:54 Lexapro PO 20 mg DAILY [facility] Administration Heparin Sodium (Beef Lung) 50 units 01/19/20 21:44 IV UD PRN PICC Line Heparin Flush Cefepime HCl 2 gm/ Sodium 100 mls @ 200 mls/hr 01/19/20 22:00 01/24/20 06:17 Chloride IV 02/29/20 22:01 Infused Q8 [facility] Infusion Lidocaine/Diphenhydr/Alum/Mg/Simeth 15 ml 01/19/20 17:08 PO Q3H PRN PRN sore mouth Melatonin 10 mg 01/21/20 22:00 01/23/20 22:15 Melatonin PO 10 mg QHS [facility] Administration Mirabegron 25 mg 01/23/20 14:00 01/23/20 13:29 Myrbetriq PO 25 mg DAILY@1400 [facility] Administration Nutritional Formula (Lactose Free) 120 ml 01/19/20 17:00 01/24/20 11:42 Ensure Enlive PO Not Given 4X/DAY [facility] Oxycodone HCl 5 mg 01/19/20 18:26 01/23/20 01:01 Oxyir PO 5 mg Q4H PRN PRN Administration Pain Score 1-10/10 Pantoprazole Sodium 40 mg 01/20/20 06:00 01/24/20 08:54 Protonix PO 40 mg DAILY [facility] Administration Polyethylene Glycol 17 gm 01/20/20 06:00 01/24/20 05:28 Miralax PO Not Given DAILY [facility] Senna/Docusate Sodium 2 tablet 01/20/20 06:00 01/24/20 08:53 Senokot-S, Precious-Colace PO 2 tablet BID [facility] Administration Simethicone 80 mg 01/23/20 13:00 01/24/20 09:12 Mylicon PO 01/30/20 13:01 80 mg PCHS [facility] Administration Sodium Chloride 10 - 40 ml 01/19/20 21:44 01/24/20 05:28 IV 20 ml UD PRN Administration Open End PICC Flush Sodium Chloride 10 - 40 ml 01/19/20 21:44 0.9% Nacl (Sterile) Posiflush IV UD PRN Port access or dressing change Sodium Chloride 250 ml 01/19/20 22:12 01/23/20 13:44 IV 250 ml 15 PRN Administration SALINE FLUSH Theophylline 300 mg 01/23/20 06:00 Tam-Dur PO BID [facility] Trimethoprim/Sulfamethoxazole 2 tablet 01/19/20 17:45 01/24/20 11:46 Bactrim Ds PO 2 tablet TIDCM [facility] Administration Tuberculin PPD 5 tu 01/27/20 10:00 Tubersol, Aplisol, Ppd ID 01/27/20 10:01 X1 ONE Problem List (Last Reviewed 01/13/20 @ 01:[address] Danny Menchaca MD) Debility (Acute) Fall (Acute) Hyperlipidemia (Chronic) Chronic kidney disease (Chronic) GERD (gastroesophageal reflux disease) (Chronic) Overactive bladder (Chronic) Depression (Chronic) Vitamin D deficiency (Chronic) Chronic obstructive pulmonary disease (Chronic) Vital Signs Temp Pulse Resp BP Pulse Ox 97.8 F 74 16 101/54 L 95 01/24/20 05:00 01/24/20 09:15 01/24/20 05:00 01/24/20 09:15 01/24/20 06:54 Oxygen Flow Rate (L/min) 2 Oxygen Delivery Method Nasal Cannula Weight: 104.553 kg Body Mass Index (BMI) 39.5 Sodium 142 mmol/L (136-145) 01/20/20 05:10 Potassium 3.9 mmol/L (3.5-5.1) 01/20/20 05:10 Chloride 106 mmol/L (98-107) 01/20/20 05:10 Carbon Dioxide 31.0 mmol/L (21.0-32.0) 01/20/20 05:10 Anion Gap 5 (5-15) 01/20/20 05:10 BUN 14 mg/dL (7-18) 01/20/20 05:10 Creatinine 0.93 mg/dL (0.55-1.02) 01/20/20 05:10 Est GFR (MDRD) Af Amer 76 mL/min (>60) 01/20/20 05:10 Est GFR (MDRD) Non-Af 63 mL/min (>60) 01/20/20 05:10 BUN/Creatinine Ratio 15.0 RATIO (10-20) 01/20/20 05:10 Glucose 91 mg/dL (74-106) 01/20/20 05:10 Assessment/Plan: 1) Pain APAP, BMX liquid prn for mouth pain, oxycodone for pain 1-10. Continue to monitor daily pain scores, prn medication use. 2) ID Cefepime, SMX/TMP. Please continue to monitor blood counts, renal function, electrolytes. * Please clarify if SMX/TMP should have a stop date. 3) HTN/HLD ASA, carvedilol, atorvastatin. Continue to monitor BP/HR, lipids, s/s chest pain. * 4) GI Tums, Mylanta, pantoprazole, simethicone thru 01/29. Continue to monitor prn medication use, for indigestion. * Same indication (indigestion) for both medications. Please clarify. 5) DVT PPx Enoxaparin. Continue to monitor for bleeding/clot. 6) Mirabegron. Continue to monitor clinically. 7) Sleep Melatonin at HS. Continue to monitor for insomnia. Psychotropic Medications: 8) Depression Escitalopram. Continue to monitor s/s depression/anxiety. Unnecessary Medications: None Bowel Regimen: 9) Senna/s, PEG, prn bisacodyl. Continue to monitor prn medication use, for constipation/diarrhea. Date of Note:: 01/24/20 - Provider Comments Provider responsibility: Provider responsible to enter orders to implement recommendations <Storm Méndez Chi - Last Filed: 01/24/20 17:18> Progress Note - Pharmacy Subjective: [] Objective: Allergies amlodipine [From Norvasc] Allergy (Unknown, Verified 01/12/20 17:56) swelling codeine Allergy (Unknown, Verified 01/12/20 17:56) rash hydrocodone Allergy (Unknown, Verified 01/12/20 17:56) rash memantine [From Namenda] Allergy (Unknown, Verified 01/12/20 17:56) mental fog confusion, foggy thinking Current Medications Generic Name Dose Route Start Last Admin Trade Name Freq PRN Reason Stop Dose Admin Acetaminophen 1,000 mg 01/19/20 22:00 01/24/20 13:50 Tylenol PO 1,000 mg Q8 [facility] Administration Al Hydroxide/Mg Hydroxide 30 ml 01/22/20 19:07 01/23/20 07:45 Mylanta Ii PO 30 ml Q6H PRN PRN Administration INDIGESTION Aspirin 81 mg 01/20/20 08:00 01/24/20 08:56 Ecotrin PO 81 mg DAILYCM [facility] Administration Atorvastatin Calcium 40 mg 01/19/20 22:00 01/23/20 22:14 Lipitor PO 40 mg QHS [facility] Administration Bisacodyl 10 mg 01/19/20 21:41 Dulcolax RECTAL DAILY PRN Constipation Calamine/Phenol 1 applic 01/24/20 18:00 Calmoseptine Ointment TOPICAL 0800,1800 [facility] Protocol Calcium Carbonate 500 mg 01/22/20 19:07 Tums PO Q6H PRN PRN INDIGESTION Carvedilol 50 mg 01/20/20 08:00 01/24/20 08:59 Coreg PO 50 mg BREAKFAST [facility] Administration Carvedilol 25 mg 01/19/20 22:00 01/23/20 22:14 Coreg PO 25 mg QHS [facility] Administration Enoxaparin Sodium 40 mg 01/25/20 08:00 Lovenox SC DAILY@0800 [facility] Escitalopram Oxalate 20 mg 01/25/20 08:00 Lexapro PO DAILY@0800 [facility] Heparin Sodium (Beef Lung) 50 units 01/19/20 21:44 IV UD PRN PICC Line Heparin Flush Cefepime HCl 2 gm/ Sodium 100 mls @ 200 mls/hr 01/19/20 22:00 01/24/20 14:20 Chloride IV 02/29/20 22:01 Infused Q8 [facility] Infusion Lidocaine/Diphenhydr/Alum/Mg/Simeth 15 ml 01/19/20 17:08 PO Q3H PRN PRN sore mouth Melatonin 10 mg 01/21/20 22:00 01/23/20 22:15 Melatonin PO 10 mg QHS [facility] Administration Mirabegron 25 mg 01/23/20 14:00 01/24/20 13:50 Myrbetriq PO 25 mg DAILY@1400 [facility] Administration Nutritional Formula (Lactose Free) 120 ml 01/19/20 17:00 01/24/20 11:42 Ensure Enlive PO Not Given 4X/DAY [facility] Nystatin 1 applic 01/24/20 22:00 Mycostatin Powder TOPICAL 0800,2200 [facility] Protocol Oxycodone HCl 5 mg 01/19/20 18:26 01/23/20 01:01 Oxyir PO 5 mg Q4H PRN PRN Administration Pain Score 1-10/10 Pantoprazole Sodium 40 mg 01/25/20 08:00 Protonix PO DAILY@0800 [facility] Polyethylene Glycol 17 gm 01/25/20 08:00 Miralax PO DAILY@0800 [facility] Senna/Docusate Sodium 2 tablet 01/24/20 20:00 Senokot-S, Precious-Colace PO 08,1999 [facility] Simethicone 80 mg 01/23/20 13:00 01/24/20 13:50 Mylicon PO 01/30/20 13:01 80 mg PCHS [facility] Administration Sodium Chloride 10 - 40 ml 01/19/20 21:44 01/24/20 13:39 IV 30 ml UD PRN Administration Open End PICC Flush Sodium Chloride 10 - 40 ml 01/19/20 21:44 0.9% Nacl (Sterile) Posiflush IV UD PRN Port access or dressing change Sodium Chloride 250 ml 01/19/20 22:12 01/23/20 13:44 IV 250 ml 15 PRN Administration SALINE FLUSH Theophylline 300 mg 01/23/20 06:00 Tam-Dur PO BID [facility] Trimethoprim/Sulfamethoxazole 2 tablet 01/19/20 17:45 01/24/20 11:46 Bactrim Ds PO 2 tablet TIDCM [facility] Administration Tuberculin PPD 5 tu 01/27/20 10:00 Tubersol, Aplisol, Ppd ID 01/27/20 10:01 X1 ONE Problem List (Last Reviewed 01/13/20 @ 01:[address] Danny Menchaca MD) Debility (Acute) Fall (Acute) Hyperlipidemia (Chronic) Chronic kidney disease (Chronic) GERD (gastroesophageal reflux disease) (Chronic) Overactive bladder (Chronic) Depression (Chronic) Vitamin D deficiency (Chronic) Chronic obstructive pulmonary disease (Chronic) Vital Signs Temp Pulse Resp BP Pulse Ox 97.8 F 73 17 110/49 L 94 01/24/20 13:33 01/24/20 13:33 01/24/20 13:33 01/24/20 13:33 01/24/20 13:33 Oxygen Flow Rate (L/min) 2 Oxygen Delivery Method Room Air Weight: 104.553 kg Body Mass Index (BMI) 39.5 Sodium 142 mmol/L (136-145) 01/20/20 05:10 Potassium 3.9 mmol/L (3.5-5.1) 01/20/20 05:10 Chloride 106 mmol/L (98-107) 01/20/20 05:10 Carbon Dioxide 31.0 mmol/L (21.0-32.0) 01/20/20 05:10 Anion Gap 5 (5-15) 01/20/20 05:10 BUN 14 mg/dL (7-18) 01/20/20 05:10 Creatinine 0.93 mg/dL (0.55-1.02) 01/20/20 05:10 Est GFR (MDRD) Af Amer 76 mL/min (>60) 01/20/20 05:10 Est GFR (MDRD) Non-Af 63 mL/min (>60) 01/20/20 05:10 BUN/Creatinine Ratio 15.0 RATIO (10-20) 01/20/20 05:10 Glucose 91 mg/dL (74-106) 01/20/20 05:10 Assessment/Plan: Psychotropic Medications: Unnecessary Medications: Bowel Regimen: - Provider Comments Provider responsibility: Provider responsible to enter orders to implement recommendations Provider Comments to Recommendations by Pharmacy: Agree
[2020-01-24 13:33] VITALS: BP 110/49; PULSE 73; RESP 17; TEMP 36.6; O2SAT 94
[2020-01-24] MEDS: Mirabegron 25 MG TAB.ER.24H PO (13:50)
--- NOTE | 2020-01-24 14:44 | PCM.PN.ID ---
Patient Problems: Active and Suspected Problems (Last Reviewed 01/13/20 @ 01:[address] Danny Menchaca MD) Debility (Acute) Fall (Acute) Subjective: Feeling ok, nausea improving, but c/o number of pills throughout the day - Physical Exam Vitals/I&O's: Vital Signs Temp Pulse Resp BP Pulse Ox 97.8 F 73 17 110/49 L 94 01/24/20 13:33 01/24/20 13:33 01/24/20 13:33 01/24/20 13:33 01/24/20 13:33 Oxygen Flow Rate (L/min) 2 Oxygen Delivery Method Room Air Weight: 104.553 kg Body Mass Index (BMI) 39.5 Intake and Output for Last 24 Hours 01/22/20 01/23/20 01/24/20 23:59 23:59 23:59 Intake Total 900 / 900 1400 / 1400 660 / 660 Output Total 600 / 600 900 / 900 Balance 900 / 900 800 / 800 -240 / -240 General: Alert, Cooperative, No apparent distress Lungs: Clear to auscultation, Normal air movement Cardiovascular: Regular rate, Regular Rhythm Abdomen: Soft, Non Tender, Non-Distended Skin: No rashes Current Medications Acetaminophen (Tylenol) 1,000 mg PO Q8 [facility] Last Admin: 01/24/20 13:50 Dose: 1,000 mg Documented by: Al Hydroxide/Mg Hydroxide (Mylanta Ii) 30 ml PO Q6H PRN PRN PRN Reason: INDIGESTION Last Admin: 01/23/20 07:45 Dose: 30 ml Documented by: [facility] Last Admin: 01/24/20 08:56 Dose: 81 mg Documented by: Atorvastatin Calcium (Lipitor) 40 mg PO QHS [facility] Last Admin: 01/23/20 22:14 Dose: 40 mg Documented by: Bisacodyl (Dulcolax) 10 mg RECTAL DAILY PRN PRN Reason: Constipation Calamine/Phenol (Calmoseptine Ointment) 1 applic TOPICAL BID [facility]; Protocol Last Admin: 01/24/20 05:27 Dose: 1 applicatio Documented by: Calcium Carbonate (Tums) 500 mg PO Q6H PRN PRN PRN Reason: INDIGESTION Carvedilol (Coreg) 50 mg PO BREAKFAST [facility] Last Admin: 01/24/20 08:59 Dose: 50 mg Documented by: Carvedilol (Coreg) 25 mg PO QHS [facility] Last Admin: 01/23/20 22:14 Dose: 25 mg Documented by: Enoxaparin Sodium (Lovenox) 40 mg SC DAILY@0600 [facility] Last Admin: 01/24/20 08:53 Dose: 40 mg Documented by: Escitalopram Oxalate (Lexapro) 20 mg PO DAILY [facility] Last Admin: 01/24/20 08:54 Dose: 20 mg Documented by: Heparin Sodium (Beef Lung) () 50 units IV UD PRN PRN Reason: PICC Line Heparin Flush Cefepime HCl 2 gm/ Sodium (Chloride) 100 mls @ 200 mls/hr IV Q8 [facility] Stop: 02/29/20 22:01 Last Infusion: 01/24/20 14:20 Dose: Infused Documented by: Lidocaine/Diphenhydr/Alum/Mg/Simeth () 15 ml PO Q3H PRN PRN PRN Reason: sore mouth Melatonin (Melatonin) 10 mg PO QHS [facility] Last Admin: 01/23/20 22:15 Dose: 10 mg Documented by: Mirabegron (Myrbetriq) 25 mg PO DAILY@1400 [facility] Last Admin: 01/24/20 13:50 Dose: 25 mg Documented by: Nutritional Formula (Lactose Free) (Ensure Enlive) 120 ml PO 4X/DAY [facility] Last Admin: 01/24/20 11:42 Dose: Not Given Documented by: Oxycodone HCl (Oxyir) 5 mg PO Q4H PRN PRN PRN Reason: Pain Score 1-10/10 Last Admin: 01/23/20 01:01 Dose: 5 mg Documented by: Pantoprazole Sodium (Protonix) 40 mg PO DAILY [facility] Last Admin: 01/24/20 08:54 Dose: 40 mg Documented by: Polyethylene Glycol (Miralax) 17 gm PO DAILY [facility] Last Admin: 01/24/20 05:28 Dose: Not Given Documented by: Senna/Docusate Sodium (Senokot-S, Precious-Colace) 2 tablet PO BID [facility] Last Admin: 01/24/20 08:53 Dose: 2 tablet Documented by: Simethicone (Mylicon) 80 mg PO [facility] Stop: 01/30/20 13:01 Last Admin: 01/24/20 13:50 Dose: 80 mg Documented by: Sodium Chloride () 10 - 40 ml IV UD PRN PRN Reason: Open End PICC Flush Last Admin: 01/24/20 13:39 Dose: 30 ml Documented by: Sodium Chloride (0.9% Nacl (Sterile) Posiflush) 10 - 40 ml IV UD PRN PRN Reason: Port access or dressing change Sodium Chloride () 250 ml IV 15 PRN PRN Reason: SALINE FLUSH Last Admin: 01/23/20 13:44 Dose: 250 ml Documented by: Theophylline (Tam-Dur) 300 mg PO BID [facility] Trimethoprim/Sulfamethoxazole (Bactrim Ds) 2 tablet PO TIDCM [facility] Last Admin: 01/24/20 11:46 Dose: 2 tablet Documented by: Tuberculin PPD (Tubersol, Aplisol, Ppd) 5 tu ID [id number] ONE Stop: 01/27/20 10:01 Medical Necessity - Tobacco Use Smoking Status: Former smoker Tobacco Use: Non-smoker Route of nutrition/ use of supplements: [] Nutritional Intake: [] IV Site: [] Cornejo Catheter: [] - Assessment/Plan Antibiotics: [] Assessment/Plan: [] Active and Suspected Problems (Last Reviewed 01/13/20 @ 01:[address] Danny Menchaca MD) Debility (Acute) Fall (Acute) R ankle open fracture now s/p external fixation 01/12/[address] Cortez. Surg cx with enterobacter. Wound cx the following day with different enterobacter and stenotrophomonas. Cont cefepime and po bactrim. Picc in place, plan on 6 weeks iv abx at discharge, stop date 02/29/20. ORIF done 01/18/20. Will need long course of oral suppression with abx after IV course is completed due to suspicion for infection in any hardware placed during ORIF. Will follow
--- NOTE | 2020-01-24 15:45 | NURSING ---
pt stated there was no one she wanted updated.
[2020-01-24] MEDS: MELATONIN 10 MG TABLET PO (21:25)
[2020-01-24] MEDS: Atorvastatin Calcium 40 MG Tablet PO (21:25)
[2020-01-24] MEDS: Carvedilol 25 MG Tablet PO (21:25)
[2020-01-24] MEDS: Nystatin Powder 15gm Bottle 1 APPLIC TOPICAL (21:30)
[2020-01-25 05:00] VITALS: BP 116/69; PULSE 67; RESP 16; TEMP 36.4; O2SAT 98
[2020-01-25] MEDS: 0.9% Saline Lock 10 ML Syringe IV ×3 (06:28→23:00)
[2020-01-25 06:33] VITALS: O2SAT 97
[2020-01-25] MEDS: Acetaminophen 500 MG Tablet 1000 MG PO ×3 (06:33→22:32)
[2020-01-25] MEDS: Polyethylene Glycol 3350 17 GM PACKET PO (06:34)
[2020-01-25] MEDS: Pantoprazole Sodium 40 MG Tablet PO (08:07)
[2020-01-25] MEDS: Enoxaparin 40 MG/0.4 ML Syringe SC (08:07)
[2020-01-25] MEDS: Escitalopram Oxalate 20 MG Tablet PO (08:07)
[2020-01-25] MEDS: Smz/Tmp Ds Tablet 2 TABLET PO ×3 (08:07→17:08)
[2020-01-25] MEDS: Aspirin E.C. 81 MG Tablet PO (08:07)
[2020-01-25] MEDS: Senna/Docusate Sodium 1 Tablet 2 TABLET PO ×2 (08:07→22:29)
[2020-01-25] MEDS: Carvedilol 25 MG Tablet 50 MG PO (08:11)
[2020-01-25 08:22] VITALS: BP 136/87; PULSE 67
[2020-01-25] MEDS: Nystatin Powder 15gm Bottle 1 APPLIC TOPICAL ×2 (09:10→22:31)
[2020-01-25] MEDS: Menthol/Lanolin/Calamine/Znox 113 GM Tube 1 APPLIC TOPICAL ×2 (09:12→17:09)
--- NOTE | 2020-01-25 11:13 | NURSING ---
Notified Dr. Cameron of patient's request to have Bactrim PO changed to IV d/t stomach upset. Received order to change PO to IV. Notified pharmacy.
--- NOTE | 2020-01-25 11:15 | NURSING ---
pt stated she did not want any one updated.
[2020-01-25 13:33] VITALS: BP 104/46; PULSE 67; RESP 17; TEMP 36.1; O2SAT 95
--- NOTE | 2020-01-25 13:45 | CASEMGMT ---
Social Work BIMS and PHQ-9 completed for MDS assessment. Pt reported to loss of appetite, trouble sleeping, trouble concentrating and with word finding, and slower speech. Notified physician for order and speech for eval. LILLIAM PetersonW
[2020-01-25] MEDS: Mirabegron 25 MG TAB.ER.24H PO (13:55)
[2020-01-25] MEDS: Carvedilol 25 MG Tablet PO (22:30)
[2020-01-25] MEDS: Atorvastatin Calcium 40 MG Tablet PO (22:30)
[2020-01-25] MEDS: MELATONIN 10 MG TABLET PO (22:31)
[2020-01-26 05:00] VITALS: BP 144/91; PULSE 64; RESP 18; TEMP 36.6; O2SAT 94
[2020-01-26] MEDS: 0.9% Saline Lock 10 ML Syringe IV ×3 (06:13→21:49)
[2020-01-26] MEDS: Acetaminophen 500 MG Tablet 1000 MG PO (06:14)
[2020-01-26] MEDS: Escitalopram Oxalate 20 MG Tablet PO (07:57)
[2020-01-26] MEDS: Aspirin E.C. 81 MG Tablet PO (07:57)
[2020-01-26] MEDS: Senna/Docusate Sodium 1 Tablet 2 TABLET PO (07:58)
[2020-01-26] MEDS: Carvedilol 25 MG Tablet 50 MG PO (07:58)
[2020-01-26] MEDS: Enoxaparin 40 MG/0.4 ML Syringe SC (07:59)
[2020-01-26] MEDS: Pantoprazole Sodium 40 MG Tablet PO ×2 (07:59→18:12)
[2020-01-26] MEDS: Nystatin Powder 15gm Bottle 1 APPLIC TOPICAL ×2 (08:00→22:38)
[2020-01-26] MEDS: Menthol/Lanolin/Calamine/Znox 113 GM Tube 1 APPLIC TOPICAL ×2 (08:05→18:12)
--- NOTE | 2020-01-26 09:19 | PCA ---
patient has been lashing out this a.m. 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
--- NOTE | 2020-01-26 09:34 | CASEMGMT ---
Social Work IDT met with patient for the care plan meeting. Discussed patient's progress in therapy. Pt is SBA for supine to sit, maxA for sit to supine, modA x2 for SPT with WW, and currently not able to ambulate. Will trailed knee scooter or knee sling walker. Pt is supervised set up for grooming at seated w/c level. Pt is dependent x2 for toileting tasks, dependent for LE ADLS. Pt declines any activities in room. Pt is on a regular diet, refused Ensure so that is DC'd, and had some weight loss. Pt is out of room isolation 02/01 and has IV ATB until 02/28. Explained [facility] insurance with [employer] 01/27 and continued stay is not guaranteed. The goal is for pt to remain in TCU through entirety of IVS as pt lives alone and cannot self-administer. Pt is NWBS and discussed alternative plan as pt may not be safe at home alone at that time. Explained SNF - provided list. Explained private pay or Medicaid. Offered to assist. Pt to notify SW if any further questions or assistance needed. Pt refused ST consult and Remeron this morning, per previous day conversation. Pt does not want any more changes. She spoke with the physician this morning and expressed that. Offered for any other changes - pt did not want to talk about it. Will continue to follow. LILLIAM Peterson
--- NOTE | 2020-01-26 09:44 | MDS.RN ---
Pain interview completed for MDS, resident states no pain, that she has scheduled Tylenol, but this upsets her stomach, then states do not tell Dr Méndez or my nurse, i am tired of my medicines changing informed resident to let nursing know if she does not want tylenol, or has pain or nausea.
[2020-01-26 10:48] VITALS: PULSE 72; RESP 16; O2SAT 92
[2020-01-26] MEDS: Mag Hydrox/Al Hydrox/Simeth 30 ML UDC PO (10:59)
[2020-01-26] MEDS: 0.9% Normal Saline 250 ML IV.SOLN. IV (13:16)
[2020-01-26 14:42] VITALS: BP 114/71; PULSE 71; RESP 18; TEMP 36.6; O2SAT 94
[2020-01-26] MEDS: Mirabegron 25 MG TAB.ER.24H PO (14:47)
[2020-01-26] MEDS: Atorvastatin Calcium 40 MG Tablet PO (21:26)
[2020-01-26] MEDS: Carvedilol 25 MG Tablet PO (21:26)
[2020-01-26] MEDS: MELATONIN 10 MG TABLET PO (21:29)
[2020-01-27 05:00] VITALS: BP 128/67; PULSE 80; RESP 16; TEMP 36.9; O2SAT 94
[2020-01-27] MEDS: Pantoprazole Sodium 40 MG Tablet PO ×2 (05:24→17:12)
[2020-01-27 06:00] LABS: Absolute Lymphocyte Count 1.83 X10^3/uL (0.83-4.51); Absolute Neutrophil Count 4.9 X10^3/uL (2.0-7.7); Basophil# 0.07 X10^3/uL; Basophil% 0.8 % (0-1); Eosinophil# 0.31 X10^3/uL; Eosinophils% 3.8 % (0-5); Hematocrit 35.6 % (37-47); Hemoglobin 11.2 g/dL (12.0-15.0); Lymphocyte # 1.83 X10^3/ul (4.0); Lymphocyte % 22.2 % (19-41); Mean Corp Hgb Conc 31.5 g/dL (32-36); Mean Corpuscular Hgb 31.8 pg (27.0-32.0); Mean Corpuscular Volume 101.1 fL (81-99); Mean Platelet Vol. 11.4 fl (6.2-12.0); Monocyte% 13.3 % (0-10); NRBC Flagged by Analyzer 0 % (0-5); Neutrophil # 4.87 X10^3/uL (2.7-7.7); Neutrophil % 58.9 % (47-70); Platelet Count 322 K/mm3 (150-450); RBC Distribution Width CV 13.7 % (11.6-14.6); RBC Distribution Width SD 50.6 fl (35.1-43.9); Red Blood Count 3.52 M/mm3 (4.2-5.4); White Blood Count 8.3 K/mm3 (4.4-11.0)
[2020-01-27 06:20] LABS: Erythrocyte Sedimentation Rate 28 mm/hr (0-30)
[2020-01-27 06:28] LABS: Anion Gap 5 (5-15); BUN 9 mg/dL (7-18); BUN/Creat Ratio 7.4 RATIO (10-20); Calcium,Total 9.2 mg/dL (8.5-10.1); Chloride 107 mmol/L (98-107); Creatinine, Serum 1.21 mg/dL (0.55-1.02); EST Glomerular Filtration Rate 47 mL/min (>60); Est Glom Filt Rate - Afr Amer 56 mL/min (>60); Estimated Creatinine Clearance 36.82 ml/min; Glucose 105 mg/dL (74-106); Potassium 4.3 mmol/L (3.5-5.1); Sodium Level 137 mmol/L (136-145)
[2020-01-27] MEDS: 0.9% Saline Lock 10 ML Syringe IV ×3 (08:01→21:49)
[2020-01-27] MEDS: Menthol/Lanolin/Calamine/Znox 113 GM Tube 1 APPLIC TOPICAL ×2 (08:02→17:13)
[2020-01-27] MEDS: Aspirin E.C. 81 MG Tablet PO (08:05)
[2020-01-27] MEDS: Carvedilol 25 MG Tablet 50 MG PO (08:05)
[2020-01-27] MEDS: Escitalopram Oxalate 20 MG Tablet PO (08:06)
[2020-01-27] MEDS: Nystatin Powder 15gm Bottle 1 APPLIC TOPICAL ×2 (08:07→21:50)
[2020-01-27] MEDS: Enoxaparin 40 MG/0.4 ML Syringe SC (08:07)
[2020-01-27 09:13] VITALS: O2SAT 95
[2020-01-27] MEDS: Tuberculin,Purif.prot.deriv. 50 TU/ML Vial 5 ML ID (10:15)
[2020-01-27] MEDS: Mirabegron 25 MG TAB.ER.24H PO (13:10)
[2020-01-27 16:00] VITALS: BP 117/77; PULSE 74; RESP 18; TEMP 36.8; O2SAT 94
[2020-01-27 18:37] VITALS: PULSE 90; RESP 18; O2SAT 95
[2020-01-27] MEDS: MELATONIN 10 MG TABLET PO (21:33)
[2020-01-27] MEDS: Carvedilol 25 MG Tablet PO (21:33)
[2020-01-27] MEDS: Atorvastatin Calcium 40 MG Tablet PO (21:33)
--- NOTE | 2020-01-27 22:32 | NURSING ---
This Nurse entered room and yelled out, I pissed myself and this thing is not working. This nurse changed patients attends and fixed Purewick. Patient stated the green pad is wet with piss. This Nurse attempted to change green pad and patient refused. Explained to patient, I did not want her to lay on a wet pad. Patient lashed out with I am tried of being fussed with. Explained to patient that I just wanted her comfortable. This nurse was able then to feel the green pad and no wetness was felt. Patient is anxious throughout conversation.
[2020-01-28] MEDS: Pantoprazole Sodium 40 MG Tablet PO ×2 (05:43→17:21)
[2020-01-28] MEDS: 0.9% Normal Saline 250 ML IV.SOLN. IV (05:44)
[2020-01-28] MEDS: 0.9% Saline Lock 10 ML Syringe IV ×5 (05:47→21:15)
[2020-01-28 06:00] VITALS: BP 118/84; PULSE 80; RESP 16; TEMP 36.4; O2SAT 97
[2020-01-28 08:36] VITALS: BP 108/67; PULSE 92
[2020-01-28] MEDS: Enoxaparin 40 MG/0.4 ML Syringe SC (08:39)
[2020-01-28] MEDS: Nystatin Powder 15gm Bottle 1 APPLIC TOPICAL ×2 (08:40→21:21)
[2020-01-28] MEDS: Aspirin E.C. 81 MG Tablet PO (08:42)
[2020-01-28] MEDS: Carvedilol 25 MG Tablet 50 MG PO (08:42)
[2020-01-28] MEDS: Escitalopram Oxalate 20 MG Tablet PO (08:43)
[2020-01-28] MEDS: Menthol/Lanolin/Calamine/Znox 113 GM Tube 1 APPLIC TOPICAL ×2 (08:45→17:24)
[2020-01-28 11:00] VITALS: PULSE 81; RESP 18; O2SAT 92
--- NOTE | 2020-01-28 11:33 | NURSING ---
pt stated she up dates her family.
--- NOTE | 2020-01-28 12:59 | PN.ID_ITS ---
Patient Problems: Active and Suspected Problems (Last Reviewed 01/13/20 @ 01:[address] Danny Menchaca MD) Debility (Acute) Fall (Acute) Subjective: Feeling better, but still some intermittent n/v/d and constipation. No fever. - Physical Exam Vitals/I&O's: Vital Signs Temp Pulse Resp BP Pulse Ox 97.6 F L 92 16 108/67 97 01/28/20 06:00 01/28/20 08:36 01/28/20 06:00 01/28/20 08:36 01/28/20 06:00 Oxygen Flow Rate (L/min) 2 Oxygen Delivery Method Nasal Cannula Weight: 96.275 kg Body Mass Index (BMI) 39.5 Intake and Output for Last 24 Hours 01/26/20 01/27/20 01/28/20 23:59 23:59 23:59 Intake Total 2580 / 2580 2860 / 2860 1300 / 1300 Output Total 1000 / 1000 1200 / 1200 500 / 500 Balance 1580 / 1580 1660 / 1660 800 / 800 General: Alert, Cooperative, No apparent distress Lungs: Clear to auscultation, Normal air movement Cardiovascular: Regular rate, Regular Rhythm Abdomen: Soft, Non Tender, Non-Distended Skin: Ulcer/ Wound - RLE wrapped Current Medications Acetaminophen (Tylenol) 1,000 mg PO Q8 [facility] Last Admin: 01/28/20 05:44 Dose: Not Given Documented by: Al Hydroxide/Mg Hydroxide (Mylanta Ii) 30 ml PO Q6H PRN PRN PRN Reason: INDIGESTION Last Admin: 01/26/20 10:59 Dose: 30 ml Documented by: [facility]) [facility] Last Admin: 01/28/20 08:42 Dose: 81 mg Documented by: Atorvastatin Calcium (Lipitor) 40 mg PO QHS [facility] Last Admin: 01/27/20 21:33 Dose: 40 mg Documented by: Bisacodyl (Dulcolax) 10 mg RECTAL DAILY PRN PRN Reason: Constipation Calamine/Phenol (Calmoseptine Ointment) 1 applic TOPICAL 0800,1800 [facility]; Protocol Last Admin: 01/28/20 08:45 Dose: 1 applicatio Documented by: Calcium Carbonate (Tums) 500 mg PO Q6H PRN PRN PRN Reason: INDIGESTION Carvedilol (Coreg) 50 mg PO BREAKFAST [facility] Last Admin: 01/28/20 08:42 Dose: 50 mg Documented by: Carvedilol (Coreg) 25 mg PO QHS [facility] Last Admin: 01/27/20 21:33 Dose: 25 mg Documented by: Enoxaparin Sodium (Lovenox) 40 mg SC DAILY@0800 [facility] Last Admin: 01/28/20 08:39 Dose: 40 mg Documented by: Escitalopram Oxalate (Lexapro) 20 mg PO DAILY@0800 [facility] Last Admin: 01/28/20 08:43 Dose: 20 mg Documented by: Heparin Sodium (Beef Lung) () 50 units IV UD PRN PRN Reason: PICC Line Heparin Flush Last Admin: 01/24/20 22:15 Dose: 50 units Documented by: Cefepime HCl 2 gm/ Sodium (Chloride) 100 mls @ 200 mls/hr IV Q8 [facility] Stop: 02/29/20 22:01 Last Infusion: 01/28/20 06:21 Dose: Infused Documented by: Trimethoprim/Sulfamethoxazole (320 mg/ Dextrose) 520 mls @ 346.667 mls/hr IV Q8 [facility] Last Infusion: 01/28/20 08:32 Dose: Infused Documented by: Lactobacillus Acidophilus (Acidophilus) 1 tablet PO BID [facility] Last Admin: 01/28/20 05:43 Dose: 1 tablet Documented by: Lidocaine/Diphenhydr/Alum/Mg/Simeth () 15 ml PO Q3H PRN PRN PRN Reason: sore mouth Melatonin (Melatonin) 10 mg PO QHS [facility] Last Admin: 01/27/20 21:33 Dose: 10 mg Documented by: Mirabegron (Myrbetriq) 25 mg PO DAILY@1400 [facility] Last Admin: 01/27/20 13:10 Dose: 25 mg Documented by: Nystatin (Mycostatin Powder) 1 applic TOPICAL 0800,2200 [facility]; Protocol Last Admin: 01/28/20 08:40 Dose: 1 applicatio Documented by: Oxycodone HCl (Oxyir) 5 mg PO Q4H PRN PRN PRN Reason: Pain Score 1-10/10 Last Admin: 01/23/20 01:01 Dose: 5 mg Documented by: Pantoprazole Sodium (Protonix) 40 mg PO BID [facility] Last Admin: 01/28/20 05:43 Dose: 40 mg Documented by: Polyethylene Glycol (Miralax) 17 gm PO DAILY@0800 [facility] Last Admin: 01/28/20 08:37 Dose: Not Given Documented by: Senna/Docusate Sodium (Senokot-S, Precious-Colace) 2 tablet PO 799,1999 [facility] Last Admin: 01/28/20 08:42 Dose: Not Given Documented by: Simethicone (Mylicon) 80 mg PO [facility] Stop: 01/30/20 13:01 Last Admin: 01/28/20 12:36 Dose: 80 mg Documented by: Sodium Chloride () 10 - 40 ml IV UD PRN PRN Reason: Open End PICC Flush Last Admin: 01/28/20 08:30 Dose: 20 ml Documented by: Sodium Chloride (0.9% Nacl (Sterile) Posiflush) 10 - 40 ml IV UD PRN PRN Reason: Port access or dressing change Sodium Chloride () 250 ml IV 15 PRN PRN Reason: SALINE FLUSH Last Admin: 01/28/20 05:44 Dose: 250 ml Documented by: Theophylline (Tam-Dur) 300 mg PO BID [facility] Last Admin: 01/28/20 05:43 Dose: 300 mg Documented by: Medical Necessity - Tobacco Use Smoking Status: Former smoker Tobacco Use: Non-smoker Route of nutrition/ use of supplements: [] Nutritional Intake: [] IV Site: [] Cornejo Catheter: [] - Assessment/Plan Antibiotics: [] Assessment/Plan: [] Active and Suspected Problems (Last Reviewed 01/13/20 @ 01:[address] Danny Menchaca MD) Debility (Acute) Fall (Acute) R ankle open fracture now s/p external fixation 01/12/[address] Cortez. Surg cx with enterobacter. Wound cx the following day with different enterobacter and stenotrophomonas. Cont cefepime and bactrim. Picc in place, plan on 6 weeks iv abx at discharge, stop date 02/29/20. ORIF done 01/18/20. Will need long course of oral suppression with abx after IV course is completed due to suspicion for infection in any hardware placed during ORIF. Changed to iv bactrim this week due to nausea and upset stomach. Improved since changing over. Will follow
[2020-01-28] MEDS: Mirabegron 25 MG TAB.ER.24H PO (13:40)
[2020-01-28 14:06] VITALS: BP 135/89; PULSE 82; RESP 18; TEMP 37.2; O2SAT 98
--- NOTE | 2020-01-28 20:45 | NURSING ---
This Nurse entered patient's room to see if IN FLIGHT REFUELING OPERATOR needed assistance. Patient complaining her gown was wet, but refusing to change it after several attempts. IN FLIGHT REFUELING OPERATOR explained to this Nurse that the float IN FLIGHT REFUELING OPERATOR had set a wet towel/washcloth down and gown had gotten a little wet. Patient yells out, That's not my problem she can't do her job. Her job is to focus on me and make me happy. Myself and IN FLIGHT REFUELING OPERATOR found a small area that was damp. Attempted again to change gown and patient continued to refuse. IN FLIGHT REFUELING OPERATOR continued to make sure patient was happy and comfortable after this nurse went to assist another patient.
[2020-01-28] MEDS: Atorvastatin Calcium 40 MG Tablet PO (21:16)
[2020-01-28] MEDS: Carvedilol 25 MG Tablet PO (21:17)
[2020-01-28] MEDS: MELATONIN 10 MG TABLET PO (21:20)
--- NOTE | 2020-01-28 21:20 | NURSING ---
Patient not eating well. Still c/o feeling full and smell of food makes her nauseous. Patient then states she hasn't had a BM in several days. 01/26/2020 was last charted BM. Advised patient she is refusing her Miralax daily and Senna BID. Educated patient that she would benefit from at least taking the Senna. Patient would not comment. Offered patient prune juice and she responded with that doesn't work either.
[2020-01-29] MEDS: 0.9% Saline Lock 10 ML Syringe IV ×4 (06:05→13:26)
[2020-01-29 06:08] VITALS: BP 128/71; PULSE 98; RESP 16; TEMP 37; O2SAT 94
[2020-01-29 08:02] VITALS: O2SAT 94
[2020-01-29] MEDS: Ondansetron ODT 4 MG Tablet PO (08:11)
--- NOTE | 2020-01-29 08:30 | RAD_ITS ---
STUDY: X-RAY - ABDOMEN/PELVIS REASON FOR EXAM: Female, 69 years old. CONSTIPATION TECHNIQUE: Single AP view of the abdomen / pelvis. COMPARISON: 01/22/2020 FINDINGS: Normal visualized lung bases. Gas in multiple loops of small bowel in a nonspecific bowel gas pattern. The visualized liver, spleen and kidneys are grossly normal in size and morphology. Normal soft tissue structures. Moderate levoscoliosis of the thoracolumbar spine. RAD/Abdomen Single View (Portable) IMPRESSION: Nonspecific bowel gas pattern. Electronically Signed: Miquel Rdz MD at 9:01 EDT Tel , Service support ,
[2020-01-29] MEDS: proMETHazine 25 MG/ML Syringe 12.5 MG IV ×2 (09:20→13:26)
[2020-01-29] MEDS: 0.9% Normal Saline 1,000 ML 75 ML IV (09:21)
[2020-01-29] MEDS: Menthol/Lanolin/Calamine/Znox 113 GM Tube 1 APPLIC TOPICAL ×2 (11:31→16:58)
[2020-01-29] MEDS: Enoxaparin 40 MG/0.4 ML Syringe SC (11:31)
[2020-01-29] MEDS: Nystatin Powder 15gm Bottle 1 APPLIC TOPICAL ×2 (11:32→22:13)
[2020-01-29] MEDS: Carvedilol 25 MG Tablet 50 MG PO (13:29)
[2020-01-29 13:50] VITALS: BP 127/62; PULSE 84; RESP 17; TEMP 36.6; O2SAT 93
[2020-01-29] MEDS: Escitalopram Oxalate 20 MG Tablet PO (14:40)
[2020-01-29] MEDS: Mirabegron 25 MG TAB.ER.24H PO (14:40)
[2020-01-29] MEDS: Acetaminophen 500 MG Tablet 1000 MG PO (14:40)
[2020-01-29] MEDS: Aspirin E.C. 81 MG Tablet PO (14:41)
[2020-01-29] MEDS: Senna/Docusate Sodium 1 Tablet 2 TABLET PO (16:55)
[2020-01-29] MEDS: Pantoprazole Sodium 40 MG Tablet PO (16:55)
[2020-01-29] MEDS: Carvedilol 25 MG Tablet PO (22:01)
[2020-01-29] MEDS: Atorvastatin Calcium 40 MG Tablet PO (22:04)
[2020-01-29] MEDS: MELATONIN 10 MG TABLET PO (22:06)
[2020-01-29 22:15] VITALS: PULSE 80; RESP 16; O2SAT 97
[2020-01-30] MEDS: 0.9% Normal Saline 1,000 ML 75 ML IV ×2 (03:27→16:23)
[2020-01-30 05:00] VITALS: BP 117/65; PULSE 77; RESP 16; TEMP 36.6; O2SAT 97
[2020-01-30] MEDS: Pantoprazole Sodium 40 MG Tablet PO ×2 (06:02→16:32)
[2020-01-30 06:10] LABS: Absolute Lymphocyte Count 1.74 X10^3/uL (0.83-4.51); Absolute Neutrophil Count 3.4 X10^3/uL (2.0-7.7); Basophil# 0.06 X10^3/uL; Basophil% 0.9 % (0-1); Eosinophil# 0.43 X10^3/uL; Eosinophils% 6.6 % (0-5); Hematocrit 36.7 % (37-47); Hemoglobin 11.3 g/dL (12.0-15.0); Lymphocyte # 1.74 X10^3/ul (4.0); Lymphocyte % 26.7 % (19-41); Mean Corp Hgb Conc 30.8 g/dL (32-36); Mean Corpuscular Hgb 31.9 pg (27.0-32.0); Mean Corpuscular Volume 103.7 fL (81-99); Monocyte% 12.3 % (0-10); NRBC Flagged by Analyzer 0 % (0-5); Neutrophil # 3.42 X10^3/uL (2.7-7.7); Neutrophil % 52.4 % (47-70); Platelet Count 253 K/mm3 (150-450); RBC Distribution Width CV 13.7 % (11.6-14.6); RBC Distribution Width SD 52.5 fl (35.1-43.9); Red Blood Count 3.54 M/mm3 (4.2-5.4); White Blood Count 6.5 K/mm3 (4.4-11.0)
[2020-01-30 06:41] LABS: Anion Gap 5 (5-15); BUN 9 mg/dL (7-18); BUN/Creat Ratio 7.4 RATIO (10-20); Calcium,Total 8.5 mg/dL (8.5-10.1); Chloride 108 mmol/L (98-107); Creatinine, Serum 1.22 mg/dL (0.55-1.02); EST Glomerular Filtration Rate 46 mL/min (>60); Est Glom Filt Rate - Afr Amer 56 mL/min (>60); Estimated Creatinine Clearance 36.52 ml/min; Glucose 97 mg/dL (74-106); Potassium 3.9 mmol/L (3.5-5.1); Sodium Level 139 mmol/L (136-145)
[2020-01-30] MEDS: 0.9% Saline Lock 10 ML Syringe IV ×3 (06:53→22:29)
[2020-01-30] MEDS: proMETHazine 25 MG/ML Syringe 12.5 MG IV ×2 (06:53→15:17)
[2020-01-30 08:21] VITALS: O2SAT 98
[2020-01-30] MEDS: Menthol/Lanolin/Calamine/Znox 113 GM Tube 1 APPLIC TOPICAL ×2 (09:06→16:33)
[2020-01-30] MEDS: Carvedilol 25 MG Tablet 50 MG PO (09:12)
[2020-01-30] MEDS: Aspirin E.C. 81 MG Tablet PO (09:13)
[2020-01-30] MEDS: Enoxaparin 40 MG/0.4 ML Syringe SC (09:13)
[2020-01-30] MEDS: Escitalopram Oxalate 20 MG Tablet PO (09:14)
[2020-01-30] MEDS: Polyethylene Glycol 3350 17 GM PACKET PO (09:14)
[2020-01-30] MEDS: Senna/Docusate Sodium 1 Tablet 2 TABLET PO ×2 (09:14→21:11)
[2020-01-30] MEDS: Nystatin Powder 15gm Bottle 1 APPLIC TOPICAL ×2 (09:17→21:18)
[2020-01-30 14:07] VITALS: BP 138/72; PULSE 80; RESP 17; TEMP 36.4; O2SAT 92
[2020-01-30] MEDS: Mirabegron 25 MG TAB.ER.24H PO (15:38)
--- NOTE | 2020-01-30 16:35 | NURSING ---
this nurse is aware of Vital Signs that were taken today at 1407.
[2020-01-30] MEDS: Acetaminophen 500 MG Tablet 1000 MG PO (21:10)
[2020-01-30] MEDS: MELATONIN 10 MG TABLET PO (21:12)
[2020-01-30] MEDS: Carvedilol 25 MG Tablet PO (21:12)
[2020-01-30] MEDS: Atorvastatin Calcium 40 MG Tablet PO (21:13)
[2020-01-31 05:00] VITALS: BP 140/90; PULSE 74; RESP 16; TEMP 37; O2SAT 97
[2020-01-31] MEDS: Pantoprazole Sodium 40 MG Tablet PO ×2 (05:41→17:58)
[2020-01-31] MEDS: proMETHazine 25 MG/ML Syringe 12.5 MG IV (08:43)
[2020-01-31] MEDS: Aspirin E.C. 81 MG Tablet PO (09:16)
[2020-01-31] MEDS: Enoxaparin 40 MG/0.4 ML Syringe SC (09:19)
--- NOTE | 2020-01-31 09:21 | MDS.RN ---
Information for the mds was obtained from review of the clinical record, interview of resident, staff, and direct observation of resident's care.
[2020-01-31] MEDS: Carvedilol 25 MG Tablet 50 MG PO (09:26)
[2020-01-31] MEDS: Nystatin Powder 15gm Bottle 1 APPLIC TOPICAL (09:29)
[2020-01-31] MEDS: Menthol/Lanolin/Calamine/Znox 113 GM Tube 1 APPLIC TOPICAL ×2 (09:30→18:02)
--- NOTE | 2020-01-31 09:32 | NURSING ---
prn Phenergan given by rn due to pt throwing up clear liquid after breakfast. pt refused [place]ia wrap to left leg.
[2020-01-31 09:34] VITALS: BP 123/78; PULSE 94
[2020-01-31] MEDS: Escitalopram Oxalate 20 MG Tablet PO (10:23)
--- NOTE | 2020-01-31 11:51 | NURSING ---
pt stated she up dates her family.
[2020-01-31] MEDS: 0.9% Saline Lock 10 ML Syringe IV (13:18)
[2020-01-31] MEDS: Mirabegron 25 MG TAB.ER.24H PO (13:30)
[2020-01-31 13:34] VITALS: BP 107/84; PULSE 89; RESP 18; TEMP 36.8; O2SAT 94
--- NOTE | 2020-01-31 14:53 | PCM.PROGNOTE ---
Patient Problems: Active and Suspected Problems (Last Reviewed 01/13/20 @ 01:[address] Danny Menchaca MD) Debility (Acute) Fall (Acute) Subjective: Patient is a 69 year old female who presents after open right ankle fracture s/p closed reduction with frame 01/12/20 and ORIF 01/18/20. Patient reports pain is largely well controlled and that physical therapy is going well. Pt denies N/F/V/C/CP/SOB/calf pain. - Physical Exam Vitals/I&O's: Vital Signs Temp Pulse Resp BP Pulse Ox 98.2 F 89 18 107/84 H 94 01/31/20 13:34 01/31/20 13:34 01/31/20 13:34 01/31/20 13:34 01/31/20 13:34 Oxygen Flow Rate (L/min) 2 Oxygen Delivery Method Room Air Weight: 96.275 kg Body Mass Index (BMI) 39.5 Intake and Output for Last 24 Hours 01/29/20 01/30/20 01/31/20 23:59 23:59 23:59 Intake Total 3060.0 / 3060.0 3781.25 / 3781.25 2071.25 / 207.25 Output Total 1675 / 1675 Balance 3060.0 / 3060.0 2106.25 / 2106.25 207.25 / 2070.25 General: Alert, Oriented x3 HEENT: Atraumatic Extremities: Capillary Refill Less than 3 Seconds, Peripheral Pulses Normal, - - Right: PT and DP pulses 2/4. sutures intact to all incision sites. Skin is well coapted without periwound erythema. Edema is improving and consistant with surgery. Medial malleolus incision site from previous open fracture site noted to have mild periwound erythema and a central area of maceration with fibrotic tissue noted, no purulence seen. No drainage seen from any incision. Pins to medial ankle intact with pin cap in place. Ecchymosis improving to foot and leg. CFT <3 seconds to all digits. Light touch sensation intact, Musculoskeletal: Tenderness, - - able to move toes to right foot and ankle to limited extent without pain Neurological: Neuro grossly intact, Sensory exam intact to light touch and pain Current Medications Acetaminophen (Tylenol) 1,000 mg PO Q8 [facility] Last Admin: 01/31/20 13:30 Dose: Not Given Documented by: Al Hydroxide/Mg Hydroxide (Mylanta Ii) 30 ml PO Q6H PRN PRN PRN Reason: INDIGESTION Last Admin: 01/26/20 10:59 Dose: 30 ml Documented by: Aspirin (Ecotrin) 81 mg PO DAILYCM [facility] Last Admin: 01/31/20 09:16 Dose: 81 mg Documented by: Atorvastatin Calcium (Lipitor) 40 mg PO QHS [facility] Last Admin: 01/30/20 21:13 Dose: 40 mg Documented by: Bisacodyl (Dulcolax) 10 mg RECTAL DAILY PRN PRN Reason: Constipation Calamine/Phenol (Calmoseptine Ointment) 1 applic TOPICAL 0800,1800 [facility]; Protocol Last Admin: 01/31/20 09:30 Dose: 1 applicatio Documented by: Calcium Carbonate (Tums) 500 mg PO Q6H PRN PRN PRN Reason: INDIGESTION Carvedilol (Coreg) 50 mg PO BREAKFAST [facility] Last Admin: 01/31/20 09:26 Dose: 50 mg Documented by: Carvedilol (Coreg) 25 mg PO QHS [facility] Last Admin: 01/30/20 21:12 Dose: 25 mg Documented by: Enoxaparin Sodium (Lovenox) 40 mg SC DAILY@0800 [facility] Last Admin: 01/31/20 09:19 Dose: 40 mg Documented by: Escitalopram Oxalate (Lexapro) 20 mg PO DAILY@0800 [facility] Last Admin: 01/31/20 10:23 Dose: 20 mg Documented by: Heparin Sodium (Beef Lung) () 50 units IV UD PRN PRN Reason: PICC Line Heparin Flush Last Admin: 01/24/20 22:15 Dose: 50 units Documented by: Cefepime HCl 2 gm/ Sodium (Chloride) 100 mls @ 200 mls/hr IV Q8 [facility] Stop: 02/29/20 22:01 Last Infusion: 01/31/20 13:57 Dose: Infused Documented by: Trimethoprim/Sulfamethoxazole (320 mg/ Dextrose) 520 mls @ 346.667 mls/hr IV Q8 [facility] Last Admin: 01/31/20 14:00 Dose: 346.7 mls/hr Documented by: Sodium Chloride () 1,000 mls @ 75 mls/hr IV .[id number] [facility] Last Infusion: 01/31/20 13:18 Dose: Infused Documented by: Lactobacillus Acidophilus (Acidophilus) 1 tablet PO BID [facility] Last Admin: 01/31/20 05:41 Dose: 1 tablet Documented by: Lidocaine/Diphenhydr/Alum/Mg/Simeth () 15 ml PO Q3H PRN PRN PRN Reason: sore mouth Melatonin (Melatonin) 10 mg PO QHS [facility] Last Admin: 01/30/20 21:12 Dose: 10 mg Documented by: Mirabegron (Myrbetriq) 25 mg PO DAILY@1400 [facility] Last Admin: 01/31/20 13:30 Dose: 25 mg Documented by: Nystatin (Mycostatin Powder) 1 applic TOPICAL 0800,0 [facility]; Protocol Last Admin: 01/31/20 09:29 Dose: 1 applicatio Documented by: Oxycodone HCl (Oxyir) 5 mg PO Q4H PRN PRN PRN Reason: Pain Score 1-10/10 Last Admin: 01/23/20 01:01 Dose: 5 mg Documented by: Pantoprazole Sodium (Protonix) 40 mg PO BID [facility] Last Admin: 01/31/20 05:41 Dose: 40 mg Documented by: Polyethylene Glycol (Miralax) 17 gm PO DAILY@0800 [facility] Last Admin: 01/31/20 09:18 Dose: Not Given Documented by: Promethazine HCl (Phenergan) 12.5 mg IV Q4H PRN PRN PRN Reason: NAUSEA/VOMITING Last Admin: 01/31/20 08:43 Dose: 12.5 mg Documented by: Senna/Docusate Sodium (Senokot-S, Precious-Colace) 2 tablet PO 0800,1999 [facility] Last Admin: 01/31/20 09:19 Dose: Not Given Documented by: Sodium Chloride () 10 - 40 ml IV UD PRN PRN Reason: Open End PICC Flush Last Admin: 01/31/20 13:18 Dose: 30 ml Documented by: Sodium Chloride (0.9% Nacl (Sterile) Posiflush) 10 - 40 ml IV UD PRN PRN Reason: Port access or dressing change Sodium Chloride () 250 ml IV 15 PRN PRN Reason: SALINE FLUSH Last Admin: 01/28/20 05:44 Dose: 250 ml Documented by: Theophylline (Tam-Dur) 300 mg PO BID [facility] Last Admin: 01/31/20 05:41 Dose: 300 mg Documented by: Medical Necessity - Tobacco Use Smoking Status: Former smoker Tobacco Use: Non-smoker Assessment/Plan All Active Problems (Last Reviewed 01/13/20 @ 01:[address] Danny Menchaca MD) Type I or II open fracture dislocation of right ankle (Acute) Ankle osteomyelitis, right (Acute) Ulcer of ankle with necrosis of bone (Acute) Debility (Acute) Fall (Acute) Right ankle open fracture with dislocation s/p closed reduction with external fixation 01/12/20, and s/p removal of ex fix and ORIF on 01/18/2020 Right ankle osteomyelitis, suspected Ulceration right ankle with exposed necrotic bone s/p debridement, and closure Pain right ankle Patient seen and examined. Pain controlled at this time. Continue with pain management. No suspicion for infection or DVT at this time. Culture grew Enterobacter aerogenes, Enterobacter cloacae and stenotrophomonas noted. Patient on IV antibiotic therapy per ID/Dr. Ballard. Dressing changed today with decrease in swelling noted, minimal pain at the ankle, sutures are intact, incisions are well coapted, mild maceration with fibrotic area centrally noted to medial malleolus wound from open fracture, no signs of infection or DVT Sutures not ready for removal at this time. Keep dressing/splint clean, dry and intact. No weightbearing right foot, keep foot elevated. Continue physical therapy DVT Prophylaxis: Lovenox 40mg once daily, subcutaneous Podiatry will continue to follow while in house. Follow up with Dr Cortez in office at discharge
[2020-01-31] MEDS: 0.9% Normal Saline 1,000 ML 75 ML IV (15:53)
--- NOTE | 2020-01-31 17:01 | NURSING ---
THERAPY CAME TO THIS NURSE AND STATED THAT PT DID STATE SHE FELT LIKE SHE DOES HAVE A LOSS OF WORDS AND GETS CONFUSED AT TIMES AND WOULD LIKE TO HAVE A SPEECH CONSULT. REPORTED TO RN.
--- NOTE | 2020-01-31 19:29 | NURSING ---
WAS IN TO CHANGE PT DRESSING.
[2020-01-31 20:20] VITALS: PULSE 101; RESP 18; O2SAT 93
[2020-01-31] MEDS: MELATONIN 10 MG TABLET PO (20:24)
[2020-01-31] MEDS: Atorvastatin Calcium 40 MG Tablet PO (20:24)
[2020-01-31] MEDS: Carvedilol 25 MG Tablet PO (20:24)
--- NOTE | 2020-02-01 02:18 | NURSING ---
Patient requesting to be changed. Yelling that Purewick is not in place. This nurse and RN into room. Patient brief is saturated, but urine also being collected in through purewick. Explained to patient constant moving and turning in bed is also going to move the purewick as well.. Patient continues to blame staff for not knowing how to insert Purewick. Patient lashing out at staff. Patient questioned what her other options were and this nurse explained that she could use the toilet or bedpan. Patient then told this nurse to have a seat, because she will constantly be using the bathroom. Explained to patient that is why we have staffing. Patient positioned to comfort. When asked if needed anything else, Patient replied with, No I just want left alone and get some sleep at this place.
[2020-02-01] MEDS: 0.9% Saline Lock 10 ML Syringe IV ×4 (06:42→22:27)
--- NOTE | 2020-02-01 08:36 | PCA ---
Patient rang call light stating that she needed to use the BR this SHIPPING CLERK CRATING and another went into patients room to assist patient to the BR patient states that she wanted to use BSC this brewery worker brought BSC out for patient to use and assisted patient with standing to transfer patient states that we are way beyond this ,I've been using the BR . when reentering patient room when patient had finished patient directed to this SHIPPING CLERK CRATING that it was my fault that she was using BSC and that i was keeping her from going to the BR as directed by therapy.
[2020-02-01] MEDS: Pantoprazole Sodium 40 MG Tablet PO ×2 (09:03→17:54)
[2020-02-01] MEDS: Menthol/Lanolin/Calamine/Znox 113 GM Tube 1 APPLIC TOPICAL ×2 (09:04→17:56)
[2020-02-01] MEDS: Aspirin E.C. 81 MG Tablet PO (09:05)
[2020-02-01] MEDS: Escitalopram Oxalate 20 MG Tablet PO (09:05)
[2020-02-01] MEDS: Enoxaparin 40 MG/0.4 ML Syringe SC (09:06)
[2020-02-01] MEDS: Nystatin Powder 15gm Bottle 1 APPLIC TOPICAL ×2 (09:06→22:29)
[2020-02-01 09:11] VITALS: BP 139/92; PULSE 98
[2020-02-01] MEDS: Carvedilol 25 MG Tablet 50 MG PO (09:11)
[2020-02-01 10:30] VITALS: PULSE 81; RESP 18; O2SAT 93
[2020-02-01] MEDS: 0.9% Normal Saline 1,000 ML 75 ML IV (10:33)
--- NOTE | 2020-02-01 11:55 | CASEMGMT ---
Addendum entered by Babita Crockett 02/01/20 14:23: Assisted patient in completed Medicaid application. Faxed to S. Original Note: Social Work Followed up with patient about SNF list and payment options. Reexplained private pay at SNF and Medicaid. Pt does not have any assets and within income level. Pt agreeable to Medicaid. Provided Medicaid application to complete. Pt provided [facility] and [facility] for referrals for DC. Reiterated insurance coverage until IV stop date is not guaranteed. Pt expressed understanding. Will continue to follow. LILLIAM Peterson
[2020-02-01] MEDS: Mirabegron 25 MG TAB.ER.24H PO (13:36)
[2020-02-01 13:56] VITALS: BP 111/71; PULSE 80; RESP 16; TEMP 36.6; O2SAT 92
--- NOTE | 2020-02-01 21:43 | PCA ---
This ROCK CRUSHING MACHINE OPERATOR along with ROCK CRUSHING MACHINE OPERATOR Lucy went into help patient into the bed. Patient was brought up along side the bed in chair, when patient stated What exactly are you trying to accomplish ROCK CRUSHING MACHINE OPERATOR explained to patient that we were setting her up to get into bed. she then said Not like this your not, I use the walker. Every time someone comes in to help me its always different. Im tired of having to retrain everyone who comes in here. ROCK CRUSHING MACHINE OPERATOR explained to patient that each aide has a different way of doing things. Before we were even done getting her in the bed she snapped I need my table ROCK CRUSHING MACHINE OPERATOR stated one thing at a time. Patient told ROCK CRUSHING MACHINE OPERATOR to Zip it ROCK CRUSHING MACHINE OPERATOR left room allowing Lucy to finish care. Nurse aware.
[2020-02-01] MEDS: MELATONIN 10 MG TABLET PO (21:50)
[2020-02-01] MEDS: Atorvastatin Calcium 40 MG Tablet PO (21:50)
[2020-02-01] MEDS: Carvedilol 25 MG Tablet PO (21:50)
[2020-02-02] MEDS: 0.9% Saline Lock 10 ML Syringe IV ×5 (06:37→23:41)
--- NOTE | 2020-02-02 06:42 | NURSING ---
04:22 Patient told this nurse she was saturated in urine. This nurse attempted to change patient twice and patient refused. I just want to sleep. 0615-Patient requesting to be changed at this time. Patient states all bedding is soaked. Nelida PALACIOS and myself cleaned patient up. Brief was saturated. Green pad and sheets were not wet at all. Green pad was changed. Patient is position of comfort. 0634- Walked into patients room to grab supplies left in room. Patient observed dumping water on side of bed and floor. when asked Patient she stated, No that bed is wet from when my IV came out last night. Patient also observed messing with PICC line earlier this shift.
[2020-02-02 07:28] VITALS: O2SAT 94
[2020-02-02] MEDS: Carvedilol 25 MG Tablet 50 MG PO (08:03)
[2020-02-02] MEDS: Pantoprazole Sodium 40 MG Tablet PO ×2 (08:03→16:56)
[2020-02-02] MEDS: Escitalopram Oxalate 20 MG Tablet PO (08:03)
[2020-02-02] MEDS: Menthol/Lanolin/Calamine/Znox 113 GM Tube 1 APPLIC TOPICAL ×2 (08:07→16:58)
[2020-02-02] MEDS: Aspirin E.C. 81 MG Tablet PO (08:11)
[2020-02-02] MEDS: Enoxaparin 40 MG/0.4 ML Syringe SC (08:12)
[2020-02-02] MEDS: Nystatin Powder 15gm Bottle 1 APPLIC TOPICAL ×2 (08:13→22:20)
[2020-02-02 13:22] VITALS: BP 117/53; PULSE 92; RESP 15; TEMP 36.6; O2SAT 93
[2020-02-02] MEDS: Mirabegron 25 MG TAB.ER.24H PO (13:41)
[2020-02-02 21:50] VITALS: PULSE 88; RESP 18; O2SAT 95
[2020-02-02] MEDS: Atorvastatin Calcium 40 MG Tablet PO (21:51)
[2020-02-02] MEDS: MELATONIN 10 MG TABLET PO (21:52)
[2020-02-02] MEDS: Carvedilol 25 MG Tablet PO (21:53)
[2020-02-03 05:00] VITALS: BP 130/75; PULSE 82; RESP 16; TEMP 36.8
[2020-02-03 05:43] LABS: Absolute Lymphocyte Count 2.04 X10^3/uL (0.83-4.51); Absolute Neutrophil Count 3.2 X10^3/uL (2.0-7.7); Basophil# 0.06 X10^3/uL; Basophil% 0.9 % (0-1); Eosinophil# 0.52 X10^3/uL; Eosinophils% 7.6 % (0-5); Hematocrit 36.2 % (37-47); Hemoglobin 11.3 g/dL (12.0-15.0); Lymphocyte # 2.04 X10^3/ul (4.0); Lymphocyte % 29.7 % (19-41); Mean Corp Hgb Conc 31.2 g/dL (32-36); Mean Corpuscular Hgb 31.7 pg (27.0-32.0); Mean Corpuscular Volume 101.7 fL (81-99); Mean Platelet Vol. 10.6 fl (6.2-12.0); Monocyte# 1.01 X10^3/uL; Monocyte% 14.7 % (0-10); NRBC Flagged by Analyzer 0 % (0-5); Neutrophil # 3.18 X10^3/uL (2.7-7.7); Neutrophil % 46.4 % (47-70); Platelet Count 235 K/mm3 (150-450); RBC Distribution Width CV 13.9 % (11.6-14.6); RBC Distribution Width SD 51.4 fl (35.1-43.9); Red Blood Count 3.56 M/mm3 (4.2-5.4); White Blood Count 6.9 K/mm3 (4.4-11.0)
[2020-02-03 06:02] LABS: Anion Gap 6 (5-15); BUN 7 mg/dL (7-18); BUN/Creat Ratio 6.2 RATIO (10-20); Chloride 107 mmol/L (98-107); Creatinine, Serum 1.12 mg/dL (0.55-1.02); EST Glomerular Filtration Rate 51 mL/min (>60); Est Glom Filt Rate - Afr Amer 62 mL/min (>60); Estimated Creatinine Clearance 39.78 ml/min; Glucose 103 mg/dL (74-106); Potassium 3.8 mmol/L (3.5-5.1); Sodium Level 139 mmol/L (136-145)
[2020-02-03 06:46] LABS: Erythrocyte Sedimentation Rate 31 mm/hr (0-30)
[2020-02-03 08:08] VITALS: O2SAT 95
[2020-02-03] MEDS: Pantoprazole Sodium 40 MG Tablet PO ×2 (08:50→22:15)
[2020-02-03] MEDS: Escitalopram Oxalate 20 MG Tablet PO (08:51)
[2020-02-03] MEDS: Carvedilol 25 MG Tablet 50 MG PO (08:51)
[2020-02-03] MEDS: Aspirin E.C. 81 MG Tablet PO (08:51)
[2020-02-03] MEDS: Enoxaparin 40 MG/0.4 ML Syringe SC (08:53)
[2020-02-03] MEDS: Senna/Docusate Sodium 1 Tablet 2 TABLET PO ×2 (08:54→22:14)
[2020-02-03] MEDS: Menthol/Lanolin/Calamine/Znox 113 GM Tube 1 APPLIC TOPICAL ×2 (08:55→17:45)
[2020-02-03] MEDS: 0.9% Saline Lock 10 ML Syringe IV ×2 (09:08→22:21)
[2020-02-03] MEDS: Nystatin Powder 15gm Bottle 1 APPLIC TOPICAL ×2 (09:10→22:16)
--- NOTE | 2020-02-03 11:45 | NURSING ---
Crowning Hammer Operator Note: Spoke with resident regarding outdoor visitation. Offered to call any family members for her to set up a time to visit. Explained visitation process. Res stated that she had the information and would call or have family call to schedule if they choose.
[2020-02-03] MEDS: Mirabegron 25 MG TAB.ER.24H PO (14:07)
[2020-02-03 15:21] VITALS: BP 121/68; PULSE 53; RESP 16; TEMP 37; O2SAT 98
[2020-02-03] MEDS: Atorvastatin Calcium 40 MG Tablet PO (22:13)
[2020-02-03] MEDS: Carvedilol 25 MG Tablet PO (22:13)
[2020-02-03] MEDS: MELATONIN 10 MG TABLET PO (22:15)
[2020-02-04 05:00] VITALS: BP 138/72; PULSE 88; RESP 18; TEMP 36.7; O2SAT 96
[2020-02-04] MEDS: 0.9% Saline Lock 10 ML Syringe IV ×3 (05:48→20:47)
[2020-02-04 06:37] VITALS: O2SAT 96
--- NOTE | 2020-02-04 06:51 | NURSING ---
This nurse and a MEDICAL EDUCATION MANAGER was assisting patient to the [facility] because she stated, I am soak and wet. I asked patient why didn't she use her call light because we have taken her to the [facility] a few times throughout the night. She stated, I didn't want to bother anyone because I know how busy you guys. She states she only said something to me because I was in her room hanging her ATB. Rn made aware.
[2020-02-04] MEDS: Aspirin E.C. 81 MG Tablet PO (08:07)
[2020-02-04] MEDS: Carvedilol 25 MG Tablet 50 MG PO (08:07)
[2020-02-04] MEDS: Enoxaparin 40 MG/0.4 ML Syringe SC (08:08)
[2020-02-04] MEDS: Escitalopram Oxalate 20 MG Tablet PO (08:08)
[2020-02-04] MEDS: Pantoprazole Sodium 40 MG Tablet PO ×2 (08:08→20:14)
[2020-02-04] MEDS: Senna/Docusate Sodium 1 Tablet 2 TABLET PO (08:08)
[2020-02-04] MEDS: Nystatin Powder 15gm Bottle 1 APPLIC TOPICAL ×2 (08:10→20:14)
[2020-02-04] MEDS: Menthol/Lanolin/Calamine/Znox 113 GM Tube 1 APPLIC TOPICAL ×2 (08:10→17:27)
[2020-02-04] MEDS: Acetaminophen 500 MG Tablet 1000 MG PO (08:22)
[2020-02-04 10:00] VITALS: PULSE 84; RESP 16; O2SAT 92
[2020-02-04] MEDS: Mirabegron 25 MG TAB.ER.24H PO (13:44)
[2020-02-04] MEDS: Mag Hydrox/Al Hydrox/Simeth 30 ML UDC PO (15:35)
[2020-02-04 16:00] VITALS: BP 124/66; PULSE 80; RESP 16; TEMP 36.7; O2SAT 94
[2020-02-04] MEDS: Atorvastatin Calcium 40 MG Tablet PO (20:14)
[2020-02-04] MEDS: Carvedilol 25 MG Tablet PO (20:14)
[2020-02-04] MEDS: proMETHazine 25 MG/ML Syringe 12.5 MG IV (20:47)
[2020-02-05 05:00] VITALS: BP 128/68; PULSE 93; RESP 18; TEMP 36.7; O2SAT 95
[2020-02-05 07:05] VITALS: O2SAT 95
[2020-02-05] MEDS: Escitalopram Oxalate 20 MG Tablet PO (08:32)
[2020-02-05] MEDS: Aspirin E.C. 81 MG Tablet PO (08:32)
[2020-02-05] MEDS: Pantoprazole Sodium 40 MG Tablet PO ×2 (08:33→20:32)
[2020-02-05] MEDS: Enoxaparin 40 MG/0.4 ML Syringe SC (08:38)
[2020-02-05] MEDS: Carvedilol 25 MG Tablet 50 MG PO (08:38)
[2020-02-05] MEDS: Menthol/Lanolin/Calamine/Znox 113 GM Tube 1 APPLIC TOPICAL (08:43)
[2020-02-05 08:44] VITALS: BP 136/83; PULSE 104
--- NOTE | 2020-02-05 10:11 | NURSING ---
pt stated she updates family.
[2020-02-05] MEDS: 0.9% Saline Lock 10 ML Syringe IV ×3 (10:41→17:36)
[2020-02-05] MEDS: Mirabegron 25 MG TAB.ER.24H PO (14:13)
[2020-02-05 14:48] VITALS: BP 108/65; PULSE 82; RESP 15; TEMP 37.2; O2SAT 91
[2020-02-05] MEDS: proMETHazine 25 MG/ML Syringe 12.5 MG IV (17:35)
[2020-02-05] MEDS: Carvedilol 25 MG Tablet PO (20:32)
[2020-02-05] MEDS: Atorvastatin Calcium 40 MG Tablet PO (20:32)
--- NOTE | 2020-02-05 23:44 | PCA ---
pt refused to get washed up tonight
[2020-02-06 05:00] VITALS: BP 132/79; PULSE 84; RESP 18; TEMP 36.7; O2SAT 95
[2020-02-06 07:29] VITALS: O2SAT 96
[2020-02-06] MEDS: Aspirin E.C. 81 MG Tablet PO (09:07)
[2020-02-06] MEDS: Escitalopram Oxalate 20 MG Tablet PO (09:07)
[2020-02-06] MEDS: Carvedilol 25 MG Tablet 50 MG PO (09:07)
[2020-02-06] MEDS: Pantoprazole Sodium 40 MG Tablet PO ×2 (09:08→19:58)
[2020-02-06] MEDS: Enoxaparin 40 MG/0.4 ML Syringe SC (09:09)
--- NOTE | 2020-02-06 09:09 | PCA ---
pt asked if breakfast trays had been passed yet, i told her yes did she not get one? pt stated i didn't order anything i will just have a cup of coffee and my muffin i have here, do i have to call down for a cup of coffee? or can you get it out there? i told her that i would get her a cup of coffee and asked if she was sure that was all she wanted for breakfast she stated yes got pt her cup of coffee.
[2020-02-06 09:15] VITALS: BP 130/74; PULSE 95
[2020-02-06] MEDS: 0.9% Saline Lock 10 ML Syringe IV ×3 (10:22→13:05)
--- NOTE | 2020-02-06 10:23 | NURSING ---
pt stated she up dates family.
[2020-02-06 12:40] VITALS: PULSE 90; RESP 18; O2SAT 91
[2020-02-06] MEDS: proMETHazine 25 MG/ML Syringe 12.5 MG IV (12:43)
[2020-02-06] MEDS: Mirabegron 25 MG TAB.ER.24H PO (13:03)
[2020-02-06] MEDS: 0.9% Normal Saline 250 ML IV.SOLN. IV (13:48)
[2020-02-06 14:04] VITALS: BP 116/77; PULSE 86; RESP 16; TEMP 36.8; O2SAT 93
[2020-02-06] MEDS: Carvedilol 25 MG Tablet PO (19:58)
[2020-02-06] MEDS: Atorvastatin Calcium 40 MG Tablet PO (19:58)
[2020-02-07 05:00] VITALS: BP 120/72; PULSE 88; RESP 18; TEMP 36.8; O2SAT 96
[2020-02-07] MEDS: Pantoprazole Sodium 40 MG Tablet PO ×2 (08:51→20:03)
[2020-02-07] MEDS: Carvedilol 25 MG Tablet 50 MG PO (08:51)
[2020-02-07] MEDS: Enoxaparin 40 MG/0.4 ML Syringe SC (08:52)
[2020-02-07] MEDS: Aspirin E.C. 81 MG Tablet PO (08:52)
[2020-02-07] MEDS: Escitalopram Oxalate 20 MG Tablet PO (08:52)
[2020-02-07] MEDS: 0.9% Saline Lock 10 ML Syringe IV ×3 (08:54→20:02)
[2020-02-07] MEDS: Nystatin Powder 15gm Bottle 1 APPLIC TOPICAL (08:57)
[2020-02-07] MEDS: Menthol/Lanolin/Calamine/Znox 113 GM Tube 1 APPLIC TOPICAL ×2 (08:58→17:00)
--- NOTE | 2020-02-07 14:00 | PCM.PN.ID ---
Patient Problems: Active and Suspected Problems (Last Reviewed 01/13/20 @ 01:[address] Danny Menchaca MD) Debility (Acute) Fall (Acute) Subjective: C/o having to urinate during the night after long infusion of bactrim. No fever. Intermittent nausea, leg doing well. - Physical Exam Vitals/I&O's: Vital Signs Temp Pulse Resp BP Pulse Ox 98.3 F 88 18 120/72 96 02/07/20 05:00 02/07/20 05:00 02/07/20 05:00 02/07/20 05:00 02/07/20 05:00 Oxygen Flow Rate (L/min) 2 Oxygen Delivery Method Nasal Cannula Weight: 95.368 kg Body Mass Index (BMI) 39.5 Intake and Output for Last 24 Hours 02/05/20 02/06/20 02/07/20 23:59 23:59 23:59 Intake Total 2460 / 2460 2100 / 2100 1220 / 1220 Balance 2460 / 2460 2100 / 2100 1220 / 1220 General: Alert, Cooperative, No apparent distress Lungs: Clear to auscultation, Normal air movement Cardiovascular: Regular rate, Regular Rhythm Abdomen: Soft, Non Tender, Non-Distended Skin: No rashes Current Medications Acetaminophen (Tylenol) 1,000 mg PO Q8 PRN PRN Reason: Pain Score 1-3/10 Last Admin: 02/04/20 08:22 Dose: 500 mg Documented by: Al Hydroxide/Mg Hydroxide (Mylanta Ii) 30 ml PO Q6H PRN PRN PRN Reason: INDIGESTION Last Admin: 02/04/20 15:35 Dose: 30 ml Documented by: [facility]) [facility] Last Admin: 02/07/20 08:52 Dose: 81 mg Documented by: Atorvastatin Calcium (Lipitor) 40 mg PO QHS [facility] Last Admin: 02/06/20 19:58 Dose: 40 mg Documented by: Bisacodyl (Dulcolax) 10 mg RECTAL DAILY PRN PRN Reason: Constipation Calamine/Phenol (Calmoseptine Ointment) 1 applic TOPICAL 0800,1800 [facility]; Protocol Last Admin: 02/07/20 08:58 Dose: 1 applicatio Documented by: Calcium Carbonate (Tums) 500 mg PO Q6H PRN PRN PRN Reason: INDIGESTION Carvedilol (Coreg) 50 mg PO BREAKFAST [facility] Last Admin: 02/07/20 08:51 Dose: 50 mg Documented by: Carvedilol (Coreg) 25 mg PO QHS [facility] Last Admin: 02/06/20 19:58 Dose: 25 mg Documented by: Enoxaparin Sodium (Lovenox) 40 mg SC DAILY@0800 [facility] Last Admin: 02/07/20 08:52 Dose: 40 mg Documented by: Escitalopram Oxalate (Lexapro) 20 mg PO DAILY@0800 [facility] Last Admin: 02/07/20 08:52 Dose: 20 mg Documented by: Heparin Sodium (Beef Lung) () 50 units IV UD PRN PRN Reason: PICC Line Heparin Flush Last Admin: 02/01/20 23:58 Dose: 50 units Documented by: Cefepime HCl 2 gm/ Sodium (Chloride) 100 mls @ 200 mls/hr IV Q8 [facility] Stop: 02/29/20 22:01 Last Infusion: 02/07/20 08:59 Dose: Infused Documented by: Trimethoprim/Sulfamethoxazole (320 mg/ Dextrose) 520 mls @ 346.667 mls/hr IV Q8 [facility] Stop: 02/07/20 22:00 Last Infusion: 02/07/20 08:58 Dose: Infused Documented by: Trimethoprim/Sulfamethoxazole (320 mg/ Dextrose) 520 mls @ 346.667 mls/hr IV Q8 [facility] Lactobacillus Acidophilus (Acidophilus) 1 tablet PO 0800,1999 [facility] Last Admin: 02/07/20 08:51 Dose: 1 tablet Documented by: Lidocaine/Diphenhydr/Alum/Mg/Simeth () 15 ml PO Q3H PRN PRN PRN Reason: sore mouth Melatonin (Melatonin) 10 mg PO QHS [facility] Last Admin: 02/06/20 19:59 Dose: Not Given Documented by: Mirabegron (Myrbetriq) 25 mg PO DAILY@1400 [facility] Last Admin: 02/06/20 13:03 Dose: 25 mg Documented by: Nystatin (Mycostatin Powder) 1 applic TOPICAL 0800,2200 [facility]; Protocol Last Admin: 02/07/20 08:57 Dose: 1 applicatio Documented by: Oxycodone HCl (Oxyir) 5 mg PO Q4H PRN PRN PRN Reason: Pain Score 4-10/10 Pantoprazole Sodium (Protonix) 40 mg PO 799,1999 [facility] Last Admin: 02/07/20 08:51 Dose: 40 mg Documented by: Polyethylene Glycol (Miralax) 17 gm PO DAILY@799 [facility] Last Admin: 02/07/20 08:52 Dose: Not Given Documented by: Promethazine HCl (Phenergan) 12.5 mg IV Q4H PRN PRN PRN Reason: NAUSEA/VOMITING Last Admin: 02/06/20 12:43 Dose: 12.5 mg Documented by: Senna/Docusate Sodium (Senokot-S, Precious-Colace) 2 tablet PO 799,1999 [facility] Last Admin: 02/07/20 08:52 Dose: Not Given Documented by: Sodium Chloride () 10 - 40 ml IV UD PRN PRN Reason: Open End PICC Flush Last Admin: 02/07/20 08:54 Dose: 10 ml Documented by: Sodium Chloride (0.9% Nacl (Sterile) Posiflush) 10 - 40 ml IV UD PRN PRN Reason: Port access or dressing change Sodium Chloride () 250 ml IV 15 PRN PRN Reason: SALINE FLUSH Last Admin: 02/06/20 13:48 Dose: 250 ml Documented by: Theophylline (Tam-Dur) 300 mg PO [facility] Last Admin: 02/07/20 08:52 Dose: 300 mg Documented by: Medical Necessity - Tobacco Use Smoking Status: Former smoker Tobacco Use: Non-smoker Route of nutrition/ use of supplements: [] Nutritional Intake: [] IV Site: [] Cornejo Catheter: [] - Assessment/Plan Antibiotics: [] Assessment/Plan: [] Active and Suspected Problems (Last Reviewed 01/13/20 @ 01:[address] Danny Menchaca MD) Debility (Acute) Fall (Acute) R ankle open fracture now s/p external fixation 01/12/[address] Cortez. Surg cx with enterobacter. Wound cx the following day with different enterobacter and stenotrophomonas. Cont cefepime and bactrim. Picc in place, plan on 6 weeks iv abx at discharge, stop date 02/29/20. ORIF done 01/18/20. Will need long course of oral suppression with abx after IV course is completed due to suspicion for infection in any hardware placed during ORIF. Will re-time bactrim to see if this helps her complaints. Will follow, d/w nursing.
[2020-02-07 14:19] VITALS: BP 108/54; PULSE 92; RESP 18; TEMP 36.5; O2SAT 92
[2020-02-07] MEDS: Mirabegron 25 MG TAB.ER.24H PO (14:26)
--- NOTE | 2020-02-07 14:56 | NURSING ---
This nurse called Dr. Cortez's office and talked with staff about shower privileges, ok to shower pt as long as soft cast is completely covered
[2020-02-07 16:52] VITALS: PULSE 74; RESP 16; O2SAT 94
[2020-02-07] MEDS: Alteplase 2 MG/2 ML Vial IV (18:38)
[2020-02-07] MEDS: proMETHazine 25 MG/ML Syringe 12.5 MG IV (19:58)
[2020-02-07] MEDS: Atorvastatin Calcium 40 MG Tablet PO (20:03)
[2020-02-07] MEDS: Carvedilol 25 MG Tablet PO (20:04)
[2020-02-08] MEDS: 0.9% Saline Lock 10 ML Syringe IV ×7 (03:27→23:49)
[2020-02-08 03:31] VITALS: BP 128/69; PULSE 101; RESP 18; TEMP 36.4; O2SAT 94
[2020-02-08] MEDS: proMETHazine 25 MG/ML Syringe 12.5 MG IV ×2 (05:47→14:06)
[2020-02-08 06:45] VITALS: O2SAT 94
[2020-02-08] MEDS: Pantoprazole Sodium 40 MG Tablet PO ×2 (08:56→20:18)
[2020-02-08] MEDS: Aspirin E.C. 81 MG Tablet PO (08:56)
[2020-02-08] MEDS: Escitalopram Oxalate 20 MG Tablet PO (08:56)
[2020-02-08] MEDS: Nystatin Powder 15gm Bottle 1 APPLIC TOPICAL (08:57)
[2020-02-08] MEDS: Enoxaparin 40 MG/0.4 ML Syringe SC (08:58)
[2020-02-08] MEDS: Carvedilol 25 MG Tablet 50 MG PO (09:03)
[2020-02-08 09:07] VITALS: BP 126/70; PULSE 94
--- NOTE | 2020-02-08 09:26 | PCA ---
pt used the restroom and noticed blood on her attends from a shot given by nursing, pt asked if we should change the attends i stated to pt oh i'm sorry i did not see it had blood on it, i can change it for you, pt declined offer and said her actual attends was not wet at the time and it will be ok! i performed bathroom care and got pt back to bed
[2020-02-08 10:00] VITALS: PULSE 87; RESP 18; O2SAT 92
[2020-02-08] MEDS: 0.9% Normal Saline 250 ML IV.SOLN. IV (11:58)
--- NOTE | 2020-02-08 12:01 | NURSING ---
pt stated this nurse did not have to call any one to up date.
[2020-02-08] MEDS: Mirabegron 25 MG TAB.ER.24H PO (13:00)
[2020-02-08 13:30] VITALS: BP 113/53; PULSE 88; RESP 18; TEMP 36.4; O2SAT 90
[2020-02-08] MEDS: Metoclopramide 10 MG/2 ML Vial 5 MG IV ×2 (18:59→23:48)
[2020-02-08] MEDS: Carvedilol 25 MG Tablet PO (20:19)
[2020-02-08] MEDS: Atorvastatin Calcium 40 MG Tablet PO (20:20)
[2020-02-09 04:27] VITALS: BP 112/77; PULSE 96; RESP 18; TEMP 36.5; O2SAT 96
[2020-02-09] MEDS: Metoclopramide 10 MG/2 ML Vial 5 MG IV ×4 (06:12→23:23)
[2020-02-09] MEDS: 0.9% Saline Lock 10 ML Syringe IV ×6 (06:14→23:26)
[2020-02-09 08:45] VITALS: O2SAT 93
[2020-02-09] MEDS: Carvedilol 25 MG Tablet 50 MG PO (08:59)
[2020-02-09] MEDS: Aspirin E.C. 81 MG Tablet PO (09:00)
[2020-02-09] MEDS: Escitalopram Oxalate 20 MG Tablet PO (09:00)
[2020-02-09] MEDS: Pantoprazole Sodium 40 MG Tablet PO ×2 (09:00→19:59)
[2020-02-09] MEDS: Enoxaparin 40 MG/0.4 ML Syringe SC (09:00)
[2020-02-09] MEDS: Nystatin Powder 15gm Bottle 1 APPLIC TOPICAL ×2 (09:02→21:04)
[2020-02-09 09:10] VITALS: BP 131/85; PULSE 97
--- NOTE | 2020-02-09 10:17 | PCA ---
Pt is a physical min standby assit of 1, per therapy dept. Aides have been doing a min assist of 1 for phyical assistance but are using a x2 assist of in room due to patient making false accusations of staff members in past.
--- NOTE | 2020-02-09 13:10 | NURSING ---
pt stated this nurse did not have to call any one to up date.
[2020-02-09 13:28] VITALS: BP 107/62; PULSE 88; RESP 16; TEMP 36.8; O2SAT 93
[2020-02-09] MEDS: Mirabegron 25 MG TAB.ER.24H PO (14:13)
--- NOTE | 2020-02-09 15:26 | NURSING ---
pt throwing up clear liquid. scheduled Reglan given around noon. pt then started dry heaving at 1500. offered prn Phenergan,pt refused. rn aware.
[2020-02-09] MEDS: Menthol/Lanolin/Calamine/Znox 113 GM Tube 1 APPLIC TOPICAL (16:51)
[2020-02-09] MEDS: Atorvastatin Calcium 40 MG Tablet PO (19:59)
[2020-02-09] MEDS: Carvedilol 25 MG Tablet PO (20:00)
[2020-02-09 20:10] VITALS: PULSE 94; RESP 16; O2SAT 95
[2020-02-09] MEDS: proMETHazine 25 MG/ML Syringe 12.5 MG IV (23:25)
[2020-02-10 05:00] VITALS: BP 121/68; PULSE 88; RESP 16; TEMP 36.9; O2SAT 96
[2020-02-10 05:53] LABS: Absolute Lymphocyte Count 1.25 X10^3/uL (0.83-4.51); Absolute Neutrophil Count 1.9 X10^3/uL (2.0-7.7); Basophil# 0.04 X10^3/uL; Basophil% 0.9 % (0-1); Eosinophil# 0.55 X10^3/uL; Eosinophils% 12.3 % (0-5); Hemoglobin 10.1 g/dL (12.0-15.0); Lymphocyte # 1.25 X10^3/ul (4.0); Lymphocyte % 27.9 % (19-41); Mean Corp Hgb Conc 31.6 g/dL (32-36); Mean Corpuscular Hgb 31.7 pg (27.0-32.0); Mean Corpuscular Volume 100.3 fL (81-99); Mean Platelet Vol. 10.3 fl (6.2-12.0); Monocyte# 0.76 X10^3/uL; NRBC Flagged by Analyzer 0 % (0-5); Neutrophil # 1.87 X10^3/uL (2.7-7.7); Neutrophil % 41.7 % (47-70); Platelet Count 174 K/mm3 (150-450); RBC Distribution Width CV 13.5 % (11.6-14.6); RBC Distribution Width SD 50.1 fl (35.1-43.9); Red Blood Count 3.19 M/mm3 (4.2-5.4); White Blood Count 4.5 K/mm3 (4.4-11.0)
[2020-02-10 06:01] LABS: Erythrocyte Sedimentation Rate 19 mm/hr (0-30)
[2020-02-10 06:17] LABS: Anion Gap 8 (5-15); BUN 7 mg/dL (7-18); BUN/Creat Ratio 6.2 RATIO (10-20); Calcium,Total 8.8 mg/dL (8.5-10.1); Chloride 105 mmol/L (98-107); Creatinine, Serum 1.12 mg/dL (0.55-1.02); EST Glomerular Filtration Rate 51 mL/min (>60); Est Glom Filt Rate - Afr Amer 62 mL/min (>60); Estimated Creatinine Clearance 39.78 ml/min; Glucose 131 mg/dL (74-106); Potassium 3.5 mmol/L (3.5-5.1); Sodium Level 137 mmol/L (136-145)
[2020-02-10] MEDS: 0.9% Normal Saline 250 ML IV.SOLN. IV (06:38)
[2020-02-10] MEDS: 0.9% Saline Lock 10 ML Syringe IV ×4 (06:50→21:50)
[2020-02-10] MEDS: Metoclopramide 10 MG/2 ML Vial 5 MG IV ×4 (06:50→23:45)
[2020-02-10 07:37] VITALS: O2SAT 95
[2020-02-10] MEDS: Pantoprazole Sodium 40 MG Tablet PO ×2 (08:43→21:10)
[2020-02-10] MEDS: Carvedilol 25 MG Tablet 50 MG PO (08:43)
[2020-02-10] MEDS: Aspirin E.C. 81 MG Tablet PO (08:44)
[2020-02-10] MEDS: Escitalopram Oxalate 20 MG Tablet PO (08:44)
[2020-02-10] MEDS: Enoxaparin 40 MG/0.4 ML Syringe SC (08:44)
[2020-02-10] MEDS: Menthol/Lanolin/Calamine/Znox 113 GM Tube 1 APPLIC TOPICAL ×2 (08:47→17:33)
[2020-02-10] MEDS: Nystatin Powder 15gm Bottle 1 APPLIC TOPICAL (08:50)
[2020-02-10 08:55] VITALS: PULSE 89; RESP 16; O2SAT 92
[2020-02-10 13:40] VITALS: BP 113/63; PULSE 90; RESP 17; TEMP 36.8; O2SAT 93
[2020-02-10] MEDS: Mirabegron 25 MG TAB.ER.24H PO (13:43)
[2020-02-10] MEDS: Atorvastatin Calcium 40 MG Tablet PO (21:10)
[2020-02-10] MEDS: Carvedilol 25 MG Tablet PO (21:10)
[2020-02-10] MEDS: MELATONIN 10 MG TABLET PO (21:11)
--- NOTE | 2020-02-11 04:20 | PCA ---
pt refused to do any pm care
[2020-02-11] MEDS: 0.9% Saline Lock 10 ML Syringe IV ×5 (04:24→23:53)
[2020-02-11 05:00] VITALS: BP 107/63; PULSE 90; RESP 16; TEMP 36.6; O2SAT 95
[2020-02-11] MEDS: Metoclopramide 10 MG/2 ML Vial 5 MG IV (05:46)
[2020-02-11 07:11] VITALS: O2SAT 95
--- NOTE | 2020-02-11 07:49 | PCM.PROGNOTE ---
Patient Problems: Active and Suspected Problems (Last Reviewed 01/13/20 @ 01:[address] Danny Menchaca MD) Debility (Acute) Fall (Acute) Subjective: Patient seen bedside today. She reports some nausea with her medications. She denies any pain. States PT is going well. - Physical Exam Vitals/I&O's: Vital Signs Temp Pulse Resp BP Pulse Ox 97.9 F 90 16 107/63 95 02/11/20 05:00 02/11/20 05:00 02/11/20 05:00 02/11/20 05:00 02/11/20 07:11 Oxygen Flow Rate (L/min) 2 Oxygen Delivery Method Nasal Cannula Weight: 93.213 kg Body Mass Index (BMI) 39.5 Intake and Output for Last 24 Hours 02/09/20 02/10/20 02/11/20 23:59 23:59 23:59 Intake Total 2340 / 2340 2100 / 2100 620 / 620 Balance 2340 / 2340 2100 / 2100 620 / 620 General: Alert, Oriented x3 HEENT: Atraumatic Extremities: Edema - mild medial right ankle, Peripheral Pulses Normal, Tenderness - medial right ankle, - - sutures removed today, skin well adhered except medial ankle at open fracture site, dry flaky skin noted, light touch intact, patient able to move ankle and toes without pain, DP/PT 2/4. Medial pins intact without signs of infection Skin: Ulcer/ Wound - medial ankle at open fx site. Into sub q. 4x0.7x0.1cm. No drainage, doesn't probe, 25% fibrotic, 25% granular 50% eschar well adhered. Neurological: Sensory exam intact to light touch and pain Current Medications Acetaminophen (Tylenol) 1,000 mg PO Q8 PRN PRN Reason: Pain Score 1-3/10 Last Admin: 02/04/20 08:22 Dose: 500 mg Documented by: Al Hydroxide/Mg Hydroxide (Mylanta Ii) 30 ml PO Q6H PRN PRN PRN Reason: INDIGESTION Last Admin: 02/04/20 15:35 Dose: 30 ml Documented by: [facility]rin) [facility] Last Admin: 02/10/20 08:44 Dose: 81 mg Documented by: Atorvastatin Calcium (Lipitor) 40 mg PO QHS [facility] Last Admin: 02/10/20 21:10 Dose: 40 mg Documented by: Bisacodyl (Dulcolax) 10 mg RECTAL DAILY PRN PRN Reason: Constipation Calamine/Phenol (Calmoseptine Ointment) 1 applic TOPICAL 0800,1800 [facility]; Protocol Last Admin: 02/10/20 17:33 Dose: 1 applicatio Documented by: Calcium Carbonate (Tums) 500 mg PO Q6H PRN PRN PRN Reason: INDIGESTION Carvedilol (Coreg) 50 mg PO BREAKFAST [facility] Last Admin: 02/10/20 08:43 Dose: 50 mg Documented by: Carvedilol (Coreg) 25 mg PO QHS [facility] Last Admin: 02/10/20 21:10 Dose: 25 mg Documented by: Enoxaparin Sodium (Lovenox) 40 mg SC DAILY@0800 [facility] Last Admin: 02/10/20 08:44 Dose: 40 mg Documented by: Escitalopram Oxalate (Lexapro) 20 mg PO DAILY@0800 [facility] Last Admin: 02/10/20 08:44 Dose: 20 mg Documented by: Heparin Sodium (Beef Lung) () 50 units IV UD PRN PRN Reason: PICC Line Heparin Flush Last Admin: 02/01/20 23:58 Dose: 50 units Documented by: Cefepime HCl 2 gm/ Sodium (Chloride) 100 mls @ 200 mls/hr IV Q8 [facility] Stop: 02/29/20 22:01 Last Infusion: 02/11/20 07:28 Dose: Infused Documented by: Trimethoprim/Sulfamethoxazole (320 mg/ Dextrose) 520 mls @ 346.667 mls/hr IV Q8H [facility] Last Infusion: 02/11/20 05:50 Dose: Infused Documented by: Lactobacillus Acidophilus (Acidophilus) 1 tablet PO 799,1999 [facility] Last Admin: 02/10/20 21:10 Dose: 1 tablet Documented by: Lidocaine/Diphenhydr/Alum/Mg/Simeth () 15 ml PO Q3H PRN PRN PRN Reason: sore mouth Melatonin (Melatonin) 10 mg PO QHS [facility] Last Admin: 02/10/20 21:11 Dose: 10 mg Documented by: Metoclopramide HCl (Reglan) 5 mg IV Q6 [facility] Stop: 02/11/20 18:31 Last Admin: 02/11/20 05:46 Dose: 5 mg Documented by: Mirabegron (Myrbetriq) 25 mg PO DAILY@1400 [facility] Last Admin: 02/10/20 13:43 Dose: 25 mg Documented by: Nystatin (Mycostatin Powder) 1 applic TOPICAL 799,2199 [facility]; Protocol Last Admin: 02/10/20 21:08 Dose: Not Given Documented by: Oxycodone HCl (Oxyir) 5 mg PO Q4H PRN PRN PRN Reason: Pain Score 4-10/10 Pantoprazole Sodium (Protonix) 40 mg PO [facility] Last Admin: 02/10/20 21:10 Dose: 40 mg Documented by: Polyethylene Glycol (Miralax) 17 gm PO DAILY@0800 [facility] Last Admin: 02/10/20 08:45 Dose: Not Given Documented by: Promethazine HCl (Phenergan) 12.5 mg IV Q4H PRN PRN PRN Reason: NAUSEA/VOMITING Last Admin: 02/09/20 23:25 Dose: 12.5 mg Documented by: Senna/Docusate Sodium (Senokot-S, Precious-Colace) 2 tablet PO [facility] Last Admin: 02/10/20 21:07 Dose: Not Given Documented by: Sodium Chloride () 10 - 40 ml IV UD PRN PRN Reason: Open End PICC Flush Last Admin: 02/11/20 05:47 Dose: 20 ml Documented by: Sodium Chloride (0.9% Nacl (Sterile) Posiflush) 10 - 40 ml IV UD PRN PRN Reason: Port access or dressing change Sodium Chloride () 250 ml IV 15 PRN PRN Reason: SALINE FLUSH Last Admin: 02/10/20 06:38 Dose: 250 ml Documented by: Theophylline (Tam-Dur) 300 mg PO [facility] Last Admin: 02/10/20 21:10 Dose: 300 mg Documented by: Medical Necessity - Tobacco Use Smoking Status: Former smoker Tobacco Use: Non-smoker Assessment/Plan All Active Problems (Last Reviewed 01/13/20 @ 01:[address] Danny Menchaca MD) Type I or II open fracture dislocation of right ankle (Acute) Ankle osteomyelitis, right (Acute) Ulcer of ankle with necrosis of bone (Acute) Debility (Acute) Fall (Acute) Right ankle open fracture with dislocation s/p closed reduction with external fixation 01/12/20, and s/p removal of ex fix and ORIF on 01/18/2020 Right ankle osteomyelitis, suspected Ulceration right ankle with exposed necrotic bone s/p debridement, and closure Pain right ankle Patient seen and examined. Pain controlled at this time. Continue with pain management. No suspicion for infection or DVT at this time. Culture grew Enterobacter aerogenes, Enterobacter cloacae and stenotrophomonas noted. Patient on IV antibiotic therapy per ID/Dr. Ballard. Dressing changed today with decrease in swelling noted, minimal pain at the ankle, sutures were removed, incisions are well coapted, wound noted to medial malleolus with well adhered eschar and fibrotic tissue noted. This is at site of open fracture. This is not unexpected as the tissue in this area was severely injured during accident. No signs of infection or DVT Keep dressing/splint clean, dry and intact. Wound was covered with aquacel dressing. No weightbearing right foot, keep foot elevated. Continue physical therapy Podiatry will continue to follow while in house. Follow up with Dr Cortez in office at discharge
[2020-02-11] MEDS: Escitalopram Oxalate 20 MG Tablet PO (08:29)
[2020-02-11] MEDS: Aspirin E.C. 81 MG Tablet PO (08:29)
[2020-02-11] MEDS: Enoxaparin 40 MG/0.4 ML Syringe SC (08:29)
[2020-02-11] MEDS: Carvedilol 25 MG Tablet 50 MG PO (08:29)
[2020-02-11] MEDS: Nystatin Powder 15gm Bottle 1 APPLIC TOPICAL (08:30)
[2020-02-11] MEDS: Pantoprazole Sodium 40 MG Tablet PO ×2 (08:31→21:53)
[2020-02-11] MEDS: Menthol/Lanolin/Calamine/Znox 113 GM Tube 1 APPLIC TOPICAL ×2 (08:32→17:34)
[2020-02-11 14:04] VITALS: BP 102/71; PULSE 84; RESP 15; TEMP 36.6; O2SAT 95
[2020-02-11] MEDS: Mirabegron 25 MG TAB.ER.24H PO (15:20)
[2020-02-11] MEDS: proMETHazine 25 MG/ML Syringe 12.5 MG IV (17:29)
[2020-02-11] MEDS: 0.9% Normal Saline 250 ML IV.SOLN. IV (18:12)
[2020-02-11] MEDS: Carvedilol 25 MG Tablet PO (21:54)
[2020-02-11] MEDS: Atorvastatin Calcium 40 MG Tablet PO (21:54)
[2020-02-11] MEDS: oxyCODONE 5 MG Tablet PO (22:00)
[2020-02-11 22:05] VITALS: RESP 18; O2SAT 2
--- NOTE | 2020-02-12 02:21 | PCA ---
offered to take patients menu, she stated she'd call the kitchen tomorrow.
[2020-02-12 07:23] VITALS: O2SAT 94
[2020-02-12] MEDS: Escitalopram Oxalate 20 MG Tablet PO (08:41)
[2020-02-12] MEDS: Carvedilol 25 MG Tablet 50 MG PO (08:41)
[2020-02-12] MEDS: Aspirin E.C. 81 MG Tablet PO (08:41)
[2020-02-12] MEDS: Pantoprazole Sodium 40 MG Tablet PO ×2 (08:41→20:09)
[2020-02-12] MEDS: Senna/Docusate Sodium 1 Tablet 2 TABLET PO (08:41)
[2020-02-12] MEDS: Enoxaparin 40 MG/0.4 ML Syringe SC (08:42)
[2020-02-12] MEDS: Nystatin Powder 15gm Bottle 1 APPLIC TOPICAL ×2 (08:44→20:17)
[2020-02-12] MEDS: Menthol/Lanolin/Calamine/Znox 113 GM Tube 1 APPLIC TOPICAL ×2 (08:44→17:45)
[2020-02-12 08:45] VITALS: PULSE 100; RESP 16; O2SAT 95
[2020-02-12] MEDS: proMETHazine 25 MG/ML Syringe 12.5 MG IV ×2 (10:12→17:58)
[2020-02-12] MEDS: 0.9% Saline Lock 10 ML Syringe IV ×3 (12:55→20:25)
[2020-02-12] MEDS: Mirabegron 25 MG TAB.ER.24H PO (13:00)
[2020-02-12 14:02] VITALS: BP 116/69; PULSE 89; RESP 16; TEMP 36.7; O2SAT 90
--- NOTE | 2020-02-12 15:21 | NURSING ---
Pt was observed pushing buttons on her IV pump, pump keypad was locked, pt reeducated on importance of asking for help with IV.
--- NOTE | 2020-02-12 15:23 | NURSING ---
PICC dressing changed today per policy
--- NOTE | 2020-02-12 19:05 | NURSING ---
This nurse entered pt's room and noted pt holding her IV tubing and it was disconnected from her arm and pt trying to turn off the pump. Pt stated I was backing up in my chair and the IV must have just fell off but I knew it was done anyway. This nurse cleansed, flushed and capped PICC, ATB was empty and no fluid noted around floor/area of pt, pt re-educated on not messing with pump or PICC line d/t risk of injury or infection, RN updated.
[2020-02-12] MEDS: Carvedilol 25 MG Tablet PO (20:09)
[2020-02-12] MEDS: Atorvastatin Calcium 40 MG Tablet PO (20:09)
[2020-02-13] MEDS: 0.9% Saline Lock 10 ML Syringe IV ×6 (04:02→22:08)
[2020-02-13 04:07] VITALS: BP 140/83; PULSE 100; RESP 18; TEMP 36.6; O2SAT 94
[2020-02-13] MEDS: 0.9% Normal Saline 250 ML IV.SOLN. IV ×2 (05:48→17:42)
[2020-02-13] MEDS: proMETHazine 25 MG/ML Syringe 12.5 MG IV (06:47)
[2020-02-13] MEDS: oxyCODONE 5 MG Tablet PO (06:54)
[2020-02-13 07:40] VITALS: O2SAT 92
[2020-02-13] MEDS: Escitalopram Oxalate 20 MG Tablet PO (08:54)
[2020-02-13] MEDS: Aspirin E.C. 81 MG Tablet PO (08:54)
[2020-02-13] MEDS: Carvedilol 25 MG Tablet 50 MG PO (08:55)
[2020-02-13] MEDS: Enoxaparin 40 MG/0.4 ML Syringe SC (08:56)
[2020-02-13] MEDS: Nystatin Powder 15gm Bottle 1 APPLIC TOPICAL ×2 (08:56→20:17)
[2020-02-13] MEDS: Menthol/Lanolin/Calamine/Znox 113 GM Tube 1 APPLIC TOPICAL (08:57)
[2020-02-13 09:00] VITALS: BP 115/82; PULSE 90; RESP 18; TEMP 37; O2SAT 92
[2020-02-13 10:00] VITALS: PULSE 85; RESP 16; O2SAT 95
[2020-02-13] MEDS: Mirabegron 25 MG TAB.ER.24H PO (13:03)
[2020-02-13 13:54] VITALS: BP 104/61; PULSE 83; RESP 18; TEMP 36.2; O2SAT 96
--- NOTE | 2020-02-13 14:54 | NURSING ---
pt was observed using neti pot from home filling it with tap water. Pt educated on risk for infection by using tap water, pts sister brought in distilled water and solution for neti pot. Pt was informed that she needs to refrain from using it until we receive an order from the doctor, she verbalized understanding.
[2020-02-13] MEDS: Atorvastatin Calcium 40 MG Tablet PO (20:13)
[2020-02-13] MEDS: Carvedilol 25 MG Tablet PO (20:14)
--- NOTE | 2020-02-13 22:33 | PCA ---
pt refused to do any pm care but did brush her teeth
[2020-02-14 04:10] VITALS: BP 120/71; PULSE 88; RESP 16; TEMP 36.9; O2SAT 95
[2020-02-14] MEDS: 0.9% Saline Lock 10 ML Syringe IV ×3 (04:17→17:33)
[2020-02-14 07:04] VITALS: O2SAT 92
[2020-02-14] MEDS: Enoxaparin 40 MG/0.4 ML Syringe SC (08:45)
[2020-02-14] MEDS: Carvedilol 25 MG Tablet 50 MG PO (08:46)
[2020-02-14] MEDS: Escitalopram Oxalate 20 MG Tablet PO (08:48)
[2020-02-14] MEDS: Pantoprazole Sodium 40 MG Tablet PO ×2 (08:49→20:33)
[2020-02-14] MEDS: Aspirin E.C. 81 MG Tablet PO (08:50)
[2020-02-14] MEDS: Nystatin Powder 15gm Bottle 1 APPLIC TOPICAL (08:52)
[2020-02-14] MEDS: oxyCODONE 5 MG Tablet PO (11:46)
--- NOTE | 2020-02-14 12:21 | NURSING ---
Notified Dr. Méndez of patient's request to use her personal netti pot. Order received.
[2020-02-14] MEDS: Mirabegron 25 MG TAB.ER.24H PO (13:15)
[2020-02-14 15:09] VITALS: BP 102/77; PULSE 90; RESP 20; TEMP 36.1; O2SAT 95
[2020-02-14] MEDS: Atorvastatin Calcium 40 MG Tablet PO (20:33)
[2020-02-14] MEDS: Carvedilol 25 MG Tablet PO (20:33)
[2020-02-14 20:35] VITALS: O2SAT 2
--- NOTE | 2020-02-14 21:13 | PCA ---
pt refused to get washed up this pm.
[2020-02-15] MEDS: 0.9% Saline Lock 10 ML Syringe IV ×5 (03:59→17:50)
[2020-02-15 05:00] VITALS: BP 160/95; PULSE 99; RESP 18; TEMP 36.5; O2SAT 93
[2020-02-15] MEDS: proMETHazine 25 MG/ML Syringe 12.5 MG IV ×2 (05:46→17:50)
[2020-02-15 06:44] VITALS: O2SAT 93
[2020-02-15 08:10] VITALS: BP 117/72; PULSE 90
[2020-02-15 11:00] VITALS: PULSE 92; RESP 18; O2SAT 91
[2020-02-15] MEDS: Lactulose 20 GM/30 ML UDC 200 GM RECTAL (11:03)
--- NOTE | 2020-02-15 11:35 | NURSING ---
ENEMA GIVEN PER NAIDA.
--- NOTE | 2020-02-15 11:37 | NURSING ---
PT STATED THERE WAS NO ONE SHE WANTED THIS NURSE TO CALL FOR UP DATES.
--- NOTE | 2020-02-15 11:54 | NURSING ---
ENEMA POSITIVE,XTRA LARGE X2, LOOSE.
[2020-02-15] MEDS: Enoxaparin 40 MG/0.4 ML Syringe SC (12:05)
[2020-02-15] MEDS: Escitalopram Oxalate 20 MG Tablet PO (12:06)
[2020-02-15] MEDS: Carvedilol 25 MG Tablet 50 MG PO (12:06)
[2020-02-15] MEDS: Aspirin E.C. 81 MG Tablet PO (12:08)
--- NOTE | 2020-02-15 12:19 | PCM.TCUNOT ---
Subjective: Resident seen for regulatory visit. She is lying in bed, in her dark room. She had some nausea this morning, and she has not had a bowel movement for a few days, no specific complaints, but she says she does not feel well. Vitals/I&O's: Vital Signs Temp Pulse Resp BP Pulse Ox 97.7 F L 90 18 117/72 93 02/15/20 05:00 02/15/20 08:10 02/15/20 05:00 02/15/20 08:10 02/15/20 06:44 Oxygen Flow Rate (L/min) 2 Oxygen Delivery Method Room Air Weight: 93.213 kg Body Mass Index (BMI) 39.5 Intake and Output for Last 24 Hours 02/13/20 02/14/20 02/15/20 23:59 23:59 23:59 Intake Total 1999 620 / 620 Balance 1999 620 / 620 Past Medical History Past Medical History (Chronic Problems): Chronic Problems (Last Reviewed 01/13/20 @ 01:[address] Danny Menchaca MD) Hypertension (Chronic) History of hypercholesterolemia (Chronic) Morbid obesity due to excess calories (Chronic) Hyperlipidemia (Chronic) Chronic kidney disease (Chronic) GERD (gastroesophageal reflux disease) (Chronic) Overactive bladder (Chronic) Depression (Chronic) Vitamin D deficiency (Chronic) Chronic obstructive pulmonary disease (Chronic) CKD (chronic kidney disease) stage 3, GFR 30-59 ml/min (Chronic) Thoracic aortic aneurysm without rupture (Chronic) Mild 3.9cm per ECHO 08/05/18 Essential hypertension (Chronic) Lumbar radiculopathy (Chronic) Chronic back pain (Chronic) Urgency incontinence (Chronic) LBBB (left bundle branch block) (Chronic) Hyperlipemia, mixed (Chronic) Medical History: Medical History (Last Reviewed 01/13/20 @ 01:[address] Danny Menchaca MD) CKD (chronic kidney disease) stage 3, GFR 30-59 ml/min (Chronic) N18.3 Thoracic aortic aneurysm without rupture (Chronic) I71.2 Mild 3.9cm per ECHO 08/05/18 Essential hypertension (Chronic) I10 LBBB (left bundle branch block) (Chronic) I44.7 Hyperlipemia, mixed (Chronic) E78.2 Anxiety F41.9 Arrhythmia I49.9 Cataracts, bilateral H26.9 Esophageal reflux K21.9 H/O: pneumonia Z87.01 H/O: stroke Z86.73 Hypothyroidism E03.9 Obesity E66.9 Osteoarthritis, knee M17.10 Oxygen desaturation during sleep G47.34 Pulmonary nodule R91.1 Scoliosis M41.9 TIA (transient ischemic attack) G45.9 08/2018 Chronic respiratory failure J96.10 CKD (chronic kidney disease) (Inactive) N18.9 stage 3 COPD (chronic obstructive pulmonary disease) J44.9 Allergies amlodipine [From Norvasc] Allergy (Unknown, Verified 01/12/20 17:56) swelling codeine Allergy (Unknown, Verified 01/12/20 17:56) rash hydrocodone Allergy (Unknown, Verified 01/12/20 17:56) rash memantine [From Namenda] Allergy (Unknown, Verified 01/12/20 17:56) mental fog confusion, foggy thinking Home Medications: Ambulatory Orders Medication Instructions Recorded aspirin 81 mg tablet,delayed 81 mg PO DAILY 07/09/19 release omeprazole 40 mg capsule,delayed 40 mg PO DAILY #90 cap 07/23/19 release mirabegron 25 mg tablet,extended 25 mg PO DAILY 12/02/19 release 24 hr carvedilol 25 mg tablet 50 mg PO BREAKFAST tab 01/06/20 Carvedilol [Coreg] 25 mg PO QHS 01/12/20 Acetaminophen [Tylenol] 1,000 mg PO Q8H 01/19/20 Cefepime HCl 2 gm IV Q8H 01/19/20 Cefepime HCl [Maxipime] 2 gm IV Q8H vial 01/19/20 Cholecalciferol (VIT D3) [Vitamin 5,000 unit PO DAILY 01/19/20 D3] Enoxaparin [Lovenox] 40 mg SUBCUT DAILY 01/19/20 Ensure Enlive 120 ml PO 4X/DAY 01/19/20 Escitalopram Oxalate 20 mg PO DAILY 01/19/20 Magnesium Hydroxide [Milk Of 30 ml PO DAILY PRN PRN udc 01/19/20 Magnesia] Menthol/Lanolin/Calamine/Znox 1 applic TOPICAL BID 01/19/20 [Calmoseptine Ointment] Oxycodone [Oxyir] 5 - 10 mg PO Q6H PRN PRN 3 Days 01/19/20 #24 tab Polyethylene Glycol 3350 [Miralax] 17 gm PO DAILY PRN PRN packet 01/19/20 Rosuvastatin Calcium 20 mg PO QHS 01/19/20 Smz/Tmp Ds [Bactrim Ds] 2 tab PO TID 01/19/20 Surgical History: Surgical History (Last Reviewed 01/13/20 @ 01:[address] Danny Menchaca MD) Femur fracture S72.90XA 2016 Carpal tunnel syndrome G56.00 H/O bladder repair surgery Z98.890 2018 H/O colonoscopy Z98.890 01/24/2006 H/O right wrist surgery Z98.890 History of knee replacement Z96.659 2014 Surgical History: total knee arthroplasty, - - Femur fracture, carpal tunnel release, bladder repair, right wrist surgery, ORIF open right ankle fracture. 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 Danny Menchaca MD) Sister Diabetes Obesity Sleep apnea Mother Dementia Father Heart disease History Items: No pertinent history Paternal Family History: Family History (Last Reviewed 01/13/20 @ 01:[address] Danny Menchaca MD) Sister Diabetes Obesity Sleep apnea Mother Dementia Father Heart disease History Items: No pertinent history Capacity - Capacity Assessment Tool Can the patient make a choice & communicate that choice?: Yes Can the patient understand benefits, risks and alternatives?: Yes Can the patient make a logical, rational choice?: Yes Is the choice the patient makes consistent w/ their values?: Yes Is there an impending, emergent risk to the patient?: No Does the patient have an Advance Directive?: No Is there a Surrogate Available?: Yes i.e. HCPOA: Yes i.e. close relative (spouse, child, parent, sibling)?: Yes Review of Systems Constitutional: Denies: Chills, Fever, Weight Change HEENT: Denies: Head Aches, Sinus Congestion, Sinus Drainage Cardiovascular: Denies: Chest Pain, Palpitations Respiratory: Denies: Cough, Shortness of breath at rest, Sputum production Gastrointestinal: Denies: Abdominal Pain, Nausea, Vomiting Genitourinary: Denies: Dysuria Musculoskeletal: Denies: Joint Pain, Joint Tenderness Skin: Denies: Rash, Wounds Neurological: Denies: Numbness, Tingling, Focal weakness Psychiatric: Denies: Anxiety, Depression, Homicidal Ideations, Suicidal Ideations Hematologic/ Lymphatic: Denies: Easy Bruising, Easy Bleeding Patient Problems: Active and Suspected Problems (Last Reviewed 01/13/20 @ 01:[address] Danny Menchaca MD) Debility (Acute) Fall (Acute) - Physical Exam Vitals/I&O's: Vital Signs Temp Pulse Resp BP Pulse Ox 97.7 F L 90 18 117/72 93 02/15/20 05:00 02/15/20 08:10 02/15/20 05:00 02/15/20 08:10 02/15/20 06:44 Oxygen Flow Rate (L/min) 2 Oxygen Delivery Method Room Air Weight: 93.213 kg Body Mass Index (BMI) 39.5 Intake and Output for Last 24 Hours 02/13/20 02/14/20 02/15/20 23:59 23:59 23:59 Intake Total 1999 620 / 620 Balance 1999 620 / 620 General: Alert, Oriented x3, Cooperative HEENT: Atraumatic, PERRLA, EOMI, Normocephalic Neck: Supple, No JVD, Negative Carotid Bruits Lungs: Clear to auscultation, Normal air movement Cardiovascular: Regular rate, No murmurs Abdomen: Bowel Sounds Present, Soft, Non Tender Extremities: No edema, Capillary Refill Less than 3 Seconds Skin: No rashes, No breakdown Musculoskeletal: No Tenderness to Palpation of Joints or Extremities, - - Right ankle dressed. Neurological: Cranial nerves II-XII grossly intact Psych/Mental Status: Normal Affect, Appropriate Current Medications Acetaminophen (Tylenol) 1,000 mg PO Q8 PRN PRN Reason: Pain Score 1-3/10 Last Admin: 02/04/20 08:22 Dose: 500 mg Documented by: Al Hydroxide/Mg Hydroxide (Mylanta Ii) 30 ml PO Q6H PRN PRN PRN Reason: INDIGESTION Last Admin: 02/04/20 15:35 Dose: 30 ml Documented by: Aspirin (Ecotrin) 81 mg PO DAILYCM SAMINA Last Admin: 02/15/20 12:08 Dose: 81 mg Documented by: Atorvastatin Calcium (Lipitor) 40 mg PO QHS [facility] Last Admin: 02/14/20 20:33 Dose: 40 mg Documented by: Bisacodyl (Dulcolax) 10 mg RECTAL DAILY PRN PRN Reason: Constipation Calamine/Phenol (Calmoseptine Ointment) 1 applic TOPICAL 0800,1800 [facility]; Protocol Last Admin: 02/15/20 08:09 Dose: Not Given Documented by: Calcium Carbonate (Tums) 500 mg PO Q6H PRN PRN PRN Reason: INDIGESTION Carvedilol (Coreg) 50 mg PO BREAKFAST [facility] Last Admin: 02/15/20 12:06 Dose: 50 mg Documented by: Carvedilol (Coreg) 25 mg PO QHS [facility] Last Admin: 02/14/20 20:33 Dose: 25 mg Documented by: Enoxaparin Sodium (Lovenox) 40 mg SC DAILY@0800 [facility] Last Admin: 02/15/20 12:05 Dose: 40 mg Documented by: Escitalopram Oxalate (Lexapro) 20 mg PO DAILY@0800 [facility] Last Admin: 02/15/20 12:06 Dose: 20 mg Documented by: Heparin Sodium (Beef Lung) () 50 units IV UD PRN PRN Reason: PICC Line Heparin Flush Last Admin: 02/01/20 23:58 Dose: 50 units Documented by: Trimethoprim/Sulfamethoxazole (320 mg/ Dextrose) 520 mls @ 346.667 mls/hr IV Q8H [facility] Last Admin: 02/15/20 12:03 Dose: 346.7 mls/hr Documented by: Cefepime HCl 2 gm/ Sodium (Chloride) 100 mls @ 200 mls/hr IV Q12 [facility] Stop: 02/29/20 18:01 Last Infusion: 02/15/20 06:19 Dose: Infused Documented by: Lactobacillus Acidophilus (Acidophilus) 1 tablet PO 0800,1999 [facility] Last Admin: 02/14/20 20:32 Dose: 1 tablet Documented by: Lidocaine/Diphenhydr/Alum/Mg/Simeth () 15 ml PO Q3H PRN PRN PRN Reason: sore mouth Melatonin (Melatonin) 10 mg PO QHS [facility] Last Admin: 02/14/20 20:34 Dose: Not Given Documented by: Mirabegron (Myrbetriq) 25 mg PO DAILY@1400 [facility] Last Admin: 02/14/20 13:15 Dose: 25 mg Documented by: Nystatin (Mycostatin Powder) 1 applic TOPICAL 0800,2200 [facility]; Protocol Last Admin: 02/15/20 08:08 Dose: Not Given Documented by: Oxycodone HCl (Oxyir) 5 mg PO Q4H PRN PRN PRN Reason: Pain Score 4-10/10 Last Admin: 02/14/20 11:46 Dose: 5 mg Documented by: Pantoprazole Sodium (Protonix) 40 mg PO [facility] Last Admin: 02/15/20 11:58 Dose: Not Given Documented by: Polyethylene Glycol (Miralax) 17 gm PO DAILY@0800 [facility] Last Admin: 02/15/20 08:08 Dose: Not Given Documented by: Promethazine HCl (Phenergan) 12.5 mg IV Q4H PRN PRN PRN Reason: NAUSEA/VOMITING Last Admin: 02/15/20 05:46 Dose: 12.5 mg Documented by: Senna/Docusate Sodium (Senokot-S, Precious-Colace) 2 tablet PO [facility] Last Admin: 02/15/20 08:08 Dose: Not Given Documented by: Sodium Chloride () 10 - 40 ml IV UD PRN PRN Reason: Open End PICC Flush Last Admin: 02/15/20 11:59 Dose: 40 ml Documented by: Sodium Chloride (0.9% Nacl (Sterile) Posiflush) 10 - 40 ml IV UD PRN PRN Reason: Port access or dressing change Sodium Chloride () 250 ml IV 15 PRN PRN Reason: SALINE FLUSH Last Admin: 02/13/20 17:42 Dose: 250 ml Documented by: Theophylline (Tam-Dur) 300 mg PO [facility] Last Admin: 02/15/20 12:05 Dose: 300 mg Documented by: Assessment/Plan All Active Problems (Last Reviewed 01/13/20 @ 01:[address] Danny Menchaca MD) Type I or II open fracture dislocation of right ankle (Acute) Ankle osteomyelitis, right (Acute) Ulcer of ankle with necrosis of bone (Acute) Debility (Acute) Fall (Acute) 69 year old female with below past medical history hospitalized with right open ankle fracture dislocation, underwent surgical fixation with Dr. Cortez, complicated by osteomyelitis, admitted to TCU with debility, here for rehabilitation, strengthening, intravenous antibiotics, wound care, prior to discharge home alone. Debility - PT/OT. Cognition - ST. Pain - Tylenol 1000MG Q8H, Oxycodone 5MG Q4H PRN pain (1-10). Bowel - Miralax 17GM daily, Senna/colace 2 tablets BID, Dulcolax 10MG CT daily PRN, Lactulose 200GM CT x 1 dose. Adult immunization - Administer Prevnar 13, Pneumovax 23, Fluzone as appropriate. DVT prophylaxis - Lovenox 40MG SC daily. CV prophylaxis - Aspirin 81MG daily. Hyperlipidemia - Atorvastatin 40MG QHS. Mouth sores - BMX 15ML Q3H PRN. Hypertension - Coreg 50MG AM, 25MG QHS. Right open ankle fracture - Cefepime 2GM IV Q8H thru 02/29/2020, Bactrim IV Q8H, Dr. Cameron, Dr. Cortez following. Nutrition - Ensure 120ML 4x/day. 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 Skin irritation - Calmoseptine topical BID. Overactive bladder - Myrbetriq 25MG daily. GERD - Pantoprazole 40MG BID, TUMS 500MG Q6H PRN, Mylanta II 30ML PO Q6H PRN. GI prophylaxis - Lactobacillus 1 tablet BID. Insomnia - Melatonin 10MG QHS. Tinea Corporis - Nystatin powder BID. Nausea - Phenergan 12.5MG IV Q4H PRN. COPD - Tam-Dur 300MG BID.
[2020-02-15 13:56] VITALS: BP 111/86; PULSE 80; RESP 15; TEMP 36.4; O2SAT 90
--- NOTE | 2020-02-15 14:06 | PN_ITS ---
Patient Problems: Active and Suspected Problems (Last Reviewed 01/13/20 @ 01:[address] Danny Menchaca MD) Debility (Acute) Fall (Acute) Subjective: This 69-year-old female was seen bedside right status post open reduction internal fixation that was performed on 01-18-2020. This was a staged procedure after external fixation placement for treatment of an open fracture dislocation. She denies fever, chill, vomiting. She does have nausea loss of appetite. She relates her pain is typically rated as a 2-3 out of 10 however it was more irritated this weekend. She thinks her foot was sliding around in her splint. - Physical Exam Vitals/I&O's: Vital Signs Temp Pulse Resp BP Pulse Ox 97.6 F L 80 15 111/86 H 90 02/15/20 13:56 02/15/20 13:56 02/15/20 13:56 02/15/20 13:56 02/15/20 13:56 Oxygen Flow Rate (L/min) 2 Oxygen Delivery Method Room Air Weight: 93.213 kg Body Mass Index (BMI) 39.5 Intake and Output for Last 24 Hours 02/13/20 02/14/20 02/15/20 23:59 23:59 23:59 Intake Total 1999 1140 / 1140 Balance 1999 1140 / 1140 General: Alert, Oriented x3, Cooperative HEENT: Atraumatic Skin: - - two K wires remain intact to medial malleolus fracture fixation site without erythema, purulence, erythema, loosening. There is a healed cicatrix to the lateral fibular incision site in which sutures were removed last week. There is a skin discontinuity ulcer at the initial medial malleolus open fracture site that is about 70% fibrous and 30% granular after eschar removal to the anterior aspect. This ulcer site measures approximately 3 cm x 1.1 x 0.1 cm. There is no visualized bone. There is no bogginess or fluctuance on palpation. Musculoskeletal: Muscle Wasting, - - Active range of motion digits x5 right. Compartments are soft to palpate right lower extremity. Ankle sagittal plane active range of motion is noted. Neurological: Sensory exam intact to light touch and pain - Foot and lower leg dermatomes Psych/Mental Status: Normal Affect, Appropriate Current Medications Acetaminophen (Tylenol) 1,000 mg PO Q8 PRN PRN Reason: Pain Score 1-3/10 Last Admin: 02/04/20 08:22 Dose: 500 mg Documented by: Al Hydroxide/Mg Hydroxide (Mylanta Ii) 30 ml PO Q6H PRN PRN PRN Reason: INDIGESTION Last Admin: 02/04/20 15:35 Dose: 30 ml Documented by: [facility] Last Admin: 02/15/20 12:08 Dose: 81 mg Documented by: Atorvastatin Calcium (Lipitor) 40 mg PO QHS [facility] Last Admin: 02/14/20 20:33 Dose: 40 mg Documented by: Bisacodyl (Dulcolax) 10 mg RECTAL DAILY PRN PRN Reason: Constipation Calamine/Phenol (Calmoseptine Ointment) 1 applic TOPICAL 0800,1800 [facility]; Prot ocol Last Admin: 02/15/20 08:09 Dose: Not Given Documented by: Calcium Carbonate (Tums) 500 mg PO Q6H PRN PRN PRN Reason: INDIGESTION Carvedilol (Coreg) 50 mg PO BREAKFAST [facility] Last Admin: 02/15/20 12:06 Dose: 50 mg Documented by: Carvedilol (Coreg) 25 mg PO QHS [facility] Last Admin: 02/14/20 20:33 Dose: 25 mg Documented by: Enoxaparin Sodium (Lovenox) 40 mg SC DAILY@0800 [facility] Last Admin: 02/15/20 12:05 Dose: 40 mg Documented by: Escitalopram Oxalate (Lexapro) 20 mg PO DAILY@0800 [facility] Last Admin: 02/15/20 12:06 Dose: 20 mg Documented by: Heparin Sodium (Beef Lung) () 50 units IV UD PRN PRN Reason: PICC Line Heparin Flush Last Admin: 02/01/20 23:58 Dose: 50 units Documented by: Trimethoprim/Sulfamethoxazole (320 mg/ Dextrose) 520 mls @ 346.667 mls/hr IV Q8H [facility] Last Infusion: 02/15/20 14:00 Dose: Infused Documented by: Cefepime HCl 2 gm/ Sodium (Chloride) 100 mls @ 200 mls/hr IV Q12 [facility] Stop: 02/29/20 18:01 Last Infusion: 02/15/20 06:19 Dose: Infused Documented by: Lactobacillus Acidophilus (Acidophilus) 1 tablet PO [facility] Last Admin: 02/15/20 13:32 Dose: 1 tablet Documented by: Lidocaine/Diphenhydr/Alum/Mg/Simeth () 15 ml PO Q3H PRN PRN PRN Reason: sore mouth Melatonin (Melatonin) 10 mg PO QHS [facility] Last Admin: 02/14/20 20:34 Dose: Not Given Documented by: Mirabegron (Myrbetriq) 25 mg PO DAILY@1400 [facility] Last Admin: 02/14/20 13:15 Dose: 25 mg Documented by: Nystatin (Mycostatin Powder) 1 applic TOPICAL 0800,2200 [facility]; Protocol Last Admin: 02/15/20 08:08 Dose: Not Given Documented by: Oxycodone HCl (Oxyir) 5 mg PO Q4H PRN PRN PRN Reason: Pain Score 4-10/10 Last Admin: 02/14/20 11:46 Dose: 5 mg Documented by: Pantoprazole Sodium (Protonix) 40 mg PO [facility] Last Admin: 02/15/20 11:58 Dose: Not Given Documented by: Polyethylene Glycol (Miralax) 17 gm PO DAILY@0800 [facility] Last Admin: 02/15/20 08:08 Dose: Not Given Documented by: Promethazine HCl (Phenergan) 12.5 mg IV Q4H PRN PRN PRN Reason: NAUSEA/VOMITING Last Admin: 02/15/20 05:46 Dose: 12.5 mg Documented by: Senna/Docusate Sodium (Senokot-S, Precious-Colace) 2 tablet PO [facility] Last Admin: 02/15/20 08:08 Dose: Not Given Documented by: Sodium Chloride () 10 - 40 ml IV UD PRN PRN Reason: Open End PICC Flush Last Admin: 02/15/20 11:59 Dose: 40 ml Documented by: Sodium Chloride (0.9% Nacl (Sterile) Posiflush) 10 - 40 ml IV UD PRN PRN Reason: Port access or dressing change Sodium Chloride () 250 ml IV 15 PRN PRN Reason: SALINE FLUSH Last Admin: 02/13/20 17:42 Dose: 250 ml Documented by: Theophylline (Tam-Dur) 300 mg PO 799,1999 [facility] Last Admin: 02/15/20 12:05 Dose: 300 mg Documented by: Medical Necessity - Tobacco Use Smoking Status: Former smoker Tobacco Use: Non-smoker Assessment/Plan All Active Problems (Last Reviewed 01/13/20 @ 01:[address] Danny Menchaca MD) Type I or II open fracture dislocation of right ankle (Acute) Ankle osteomyelitis, right (Acute) Ulcer of ankle with necrosis of bone (Acute) Debility (Acute) Fall (Acute) Right ankle open fracture with dislocation s/p closed reduction with external fixation 01/12/20, and s/p removal of ex fix and ORIF on 01/18/2020 Right ankle osteomyelitis, suspected Ulceration right ankle with exposed necrotic bone s/p debridement, and closure Pain right ankle Patient seen and examined. She remains afebrile and her vital signs are stable. She does not have leukocytosis. Pain controlled at this time. Continue with pain management. No suspicion for infection or DVT at this time. Culture grew Enterobacter aerogenes, Enterobacter cloacae and stenotrophomonas noted. Patient on IV antibiotic therapy per ID/Dr. Ballard. Her ESR is trending down and was last noted at a level of 19. Her antibiotic adjustments were noted secondary to her prior reported nausea. She is on cefepime and bactrim (PICC) with anticipated stop date of 02-29-2020. Dressing changed today with decrease in swelling noted, minimal pain at the ankle. Wound noted to medial malleolus with well granular and fibrotic tissue noted. This is at site of open fracture. Updated x-rays were ordered and these results are pending. These K wires will likely not be removed this week because it is only been intact for about 1 month and the fracture sites are not expected to be healed at this time. I will call to review the results with the patient upon completion. Keep dressing/splint clean, dry and intact. Wound was covered with aquacel dressing with additional gauze and abdominal pad offloading pocket was fabricated to reduce pin site friction. No weightbearing right foot, keep foot elevated. She was advised to continue physical therapy. Podiatry will continue to follow while in house. Follow up with Dr Cortez in office at discharge. Please do not hesitate to call if you have any questions. Seema Rosales DPM, [facility] [phone]
--- NOTE | 2020-02-15 14:26 | RAD_ITS ---
STUDY: X-RAY - RIGHT ANKLE REASON FOR EXAM: Female, 69 years old. S/P ORIF BIMALLEOLAR RIGHT ANKLE FX WITH MEDIAL OSTEO TREATMENT. TECHNIQUE: 3 view(s) of the ankle. COMPARISON: Prior study of 01/18/2020 FINDINGS: There is an internal fixation plate along the lateral aspect of the distal fibula. 2 fixation pins are seen stabilizing a transverse medial malleolar fracture. Normal tibiotalar articulation and ankle mortise. Normal visualized talus and calcaneus. The visualized subtalar, talonavicular, calcaneocuboid and tarsal articulations are normal. The soft tissue structures are unremarkable. RAD/Ankle min 3 Views IMPRESSION: Internal fixation of previously noted distal fibular and medial malleolar fractures with plate and pins as detailed above. Fractures appear in adequate alignment and unchanged from the previous study. Bone union has not occurred as of yet. Electronically Signed: Juan Alberto Gauthier MD at 16:51 EDT , Service support ,
--- NOTE | 2020-02-15 14:46 | NURSING ---
TO SEE PT AND CHANGE DRESSING TO FOOT.
[2020-02-15] MEDS: Mirabegron 25 MG TAB.ER.24H PO (14:54)
[2020-02-15] MEDS: Menthol/Lanolin/Calamine/Znox 113 GM Tube 1 APPLIC TOPICAL (16:57)
[2020-02-15] MEDS: Pantoprazole Sodium 40 MG Tablet PO (21:12)
[2020-02-15] MEDS: Carvedilol 25 MG Tablet PO (21:13)
[2020-02-15] MEDS: Atorvastatin Calcium 40 MG Tablet PO (21:13)
[2020-02-15] MEDS: oxyCODONE 5 MG Tablet PO (21:18)
[2020-02-16 04:17] VITALS: BP 132/76; PULSE 85; RESP 18; TEMP 36.8; O2SAT 93
[2020-02-16] MEDS: proMETHazine 25 MG/ML Syringe 12.5 MG IV ×2 (06:45→17:16)
[2020-02-16] MEDS: 0.9% Saline Lock 10 ML Syringe IV ×6 (06:45→21:20)
[2020-02-16 06:56] VITALS: O2SAT 93
--- NOTE | 2020-02-16 08:10 | RAD_ITS ---
STUDY: X-RAY CHEST REASON FOR EXAM: Female, 69 years old. PRODUCTIVE COUGH TECHNIQUE: AP and lateral views of the chest. COMPARISON: Comparison is made with prior study dated 01/12/2020. FINDINGS: A right-sided PICC line catheter has been placed. The tip is at the junction of the superior vena cava and right atrium. Hyperinflation. No acute amount is seen. There is no demonstrated pleural abnormality. Normal size heart. Normal mediastinum and dorina. Normal visualized pulmonary arteries. Normal visualized aortic arch and descending thoracic aorta. There is a dextroscoliosis of the thoracic spine. Normal visualized ribs, clavicles, and shoulders. There is no demonstrated abnormality of the visualized soft tissue structures of the upper abdomen. RAD/Chest PA and Lateral IMPRESSION: The tip of the right-sided tic-like catheter is at the junction of the superior vena cava and right atrium. The lungs are clear. Dextroscoliosis. Electronically Signed: Mj Trevino, at 13:15 EDT , Service support ,
[2020-02-16] MEDS: Carvedilol 25 MG Tablet 50 MG PO (09:00)
[2020-02-16] MEDS: Enoxaparin 40 MG/0.4 ML Syringe SC (09:00)
[2020-02-16] MEDS: Escitalopram Oxalate 20 MG Tablet PO (09:00)
[2020-02-16] MEDS: Pantoprazole Sodium 40 MG Tablet PO ×2 (09:00→21:16)
[2020-02-16] MEDS: Aspirin E.C. 81 MG Tablet PO (09:00)
--- NOTE | 2020-02-16 11:27 | NURSING ---
PT STATED THERE NONE SHE WANTED UP DATED.
--- NOTE | 2020-02-16 12:33 | CASEMGMT ---
Social Work Received information from [facility] that pt was denied Medicaid. Spoke with pt about denial and if she would be able to pay privately at a SNF. Answered pt's questions about Medicare skilled coverage in a SNF and the community. Pt understood and stated she can pay privately and the amounts up front, if needed. [facility] Referrals made. Will continue to follow. Babita Crockett, HEALTH INFORMATION SPECIALIST RESIDENT PROGRAM SPECIALIST
[2020-02-16] MEDS: Mirabegron 25 MG TAB.ER.24H PO (13:15)
[2020-02-16 14:25] VITALS: BP 126/66; PULSE 84; RESP 16; TEMP 36.9; O2SAT 98
--- NOTE | 2020-02-16 14:54 | PN.ID_ITS ---
Patient Problems: Active and Suspected Problems (Last Reviewed 01/13/20 @ 01:[address] Danny Menchaca MD) Debility (Acute) Fall (Acute) Subjective: Feeling ok, but ongoing nausea. No fever. - Physical Exam Vitals/I&O's: Vital Signs Temp Pulse Resp BP Pulse Ox 98.5 F 84 16 126/66 H 98 02/16/20 14:25 02/16/20 14:25 02/16/20 14:25 02/16/20 14:25 02/16/20 14:25 Oxygen Flow Rate (L/min) 2 Oxygen Delivery Method Room Air Weight: 93.213 kg Body Mass Index (BMI) 39.5 Intake and Output for Last 24 Hours 02/14/20 02/15/20 02/16/20 23:59 23:59 23:59 Intake Total 1999 1480 / 1480 1660 / 1660 Balance 1999 1480 / 1480 1660 / 1660 General: Alert, Cooperative, No apparent distress Lungs: Clear to auscultation, Normal air movement Cardiovascular: Regular rate, Regular Rhythm Abdomen: Soft, Non Tender, Non-Distended Skin: Ulcer/ Wound - leg wrapped Current Medications Acetaminophen (Tylenol) 1,000 mg PO Q8 PRN PRN Reason: Pain Score 1-3/10 Last Admin: 02/04/20 08:22 Dose: 500 mg Documented by: Al Hydroxide/Mg Hydroxide (Mylanta Ii) 30 ml PO Q6H PRN PRN PRN Reason: INDIGESTION Last Admin: 02/04/20 15:35 Dose: 30 ml Documented by: [facility] ([facility]) [facility] Last Admin: 02/16/20 09:00 Dose: 81 mg Documented by: Atorvastatin Calcium (Lipitor) 40 mg PO QHS [facility] Last Admin: 02/15/20 21:13 Dose: 40 mg Documented by: Bisacodyl (Dulcolax) 10 mg RECTAL DAILY PRN PRN Reason: Constipation Calamine/Phenol (Calmoseptine Ointment) 1 applic TOPICAL 0800,1800 [facility]; Protocol Last Admin: 02/16/20 08:48 Dose: Not Given Documented by: Calcium Carbonate (Tums) 500 mg PO Q6H PRN PRN PRN Reason: INDIGESTION Carvedilol (Coreg) 50 mg PO BREAKFAST [facility] Last Admin: 02/16/20 09:00 Dose: 50 mg Documented by: Carvedilol (Coreg) 25 mg PO QHS [facility] Last Admin: 02/15/20 21:13 Dose: 25 mg Documented by: Enoxaparin Sodium (Lovenox) 40 mg SC DAILY@0800 [facility] Last Admin: 02/16/20 09:00 Dose: 40 mg Documented by: Escitalopram Oxalate (Lexapro) 20 mg PO DAILY@0800 [facility] Last Admin: 02/16/20 09:00 Dose: 20 mg Documented by: Heparin Sodium (Beef Lung) () 50 units IV UD PRN PRN Reason: PICC Line Heparin Flush Last Admin: 02/01/20 23:58 Dose: 50 units Documented by: Cefepime HCl 2 gm/ Sodium (Chloride) 100 mls @ 200 mls/hr IV Q12 [facility] Stop: 02/29/20 18:01 Last Infusion: 02/16/20 06:37 Dose: Infused Documented by: Lactobacillus Acidophilus (Acidophilus) 1 tablet PO [facility] Last Admin: 02/16/20 09:00 Dose: 1 tablet Documented by: Lidocaine/Diphenhydr/Alum/Mg/Simeth () 15 ml PO Q3H PRN PRN PRN Reason: sore mouth Melatonin (Melatonin) 10 mg PO QHS [facility] Last Admin: 02/15/20 21:13 Dose: Not Given Documented by: Mirabegron (Myrbetriq) 25 mg PO DAILY@1400 [facility] Last Admin: 02/16/20 13:15 Dose: 25 mg Documented by: Nystatin (Mycostatin Powder) 1 applic TOPICAL 0800,2199 [facility]; Protocol Last Admin: 02/16/20 08:48 Dose: Not Given Documented by: Oxycodone HCl (Oxyir) 5 mg PO Q4H PRN PRN PRN Reason: Pain Score 4-10/10 Last Admin: 02/15/20 21:18 Dose: 5 mg Documented by: Pantoprazole Sodium (Protonix) 40 mg PO 799,1999 [facility] Last Admin: 02/16/20 09:00 Dose: 40 mg Documented by: Polyethylene Glycol (Miralax) 17 gm PO DAILY@0800 [facility] Last Admin: 02/16/20 08:48 Dose: Not Given Documented by: Promethazine HCl (Phenergan) 12.5 mg IV Q4H PRN PRN PRN Reason: NAUSEA/VOMITING Last Admin: 02/16/20 06:45 Dose: 12.5 mg Documented by: Senna/Docusate Sodium (Senokot-S, Precious-Colace) 2 tablet PO [facility] Last Admin: 02/16/20 08:49 Dose: Not Given Documented by: Sodium Chloride () 10 - 40 ml IV UD PRN PRN Reason: Open End PICC Flush Last Admin: 02/16/20 13:59 Dose: 20 ml Documented by: Sodium Chloride (0.9% Nacl (Sterile) Posiflush) 10 - 40 ml IV UD PRN PRN Reason: Port access or dressing change Sodium Chloride () 250 ml IV 15 PRN PRN Reason: SALINE FLUSH Last Admin: 02/13/20 17:42 Dose: 250 ml Documented by: Theophylline (Tam-Dur) 300 mg PO [facility] Last Admin: 02/16/20 09:00 Dose: 300 mg Documented by: Trimethoprim/Sulfamethoxazole (Bactrim Suspension 800-160mg/20ml) 40 ml PO TID [facility] Medical Necessity - Tobacco Use Smoking Status: Former smoker Tobacco Use: Non-smoker Route of nutrition/ use of supplements: [] Nutritional Intake: [] IV Site: [] Cornejo Catheter: [] - Assessment/Plan Antibiotics: [] Assessment/Plan: [] Active and Suspected Problems (Last Reviewed 01/13/20 @ 01:[address] Danny Menchaca MD) Debility (Acute) Fall (Acute) R ankle open fracture now s/p external fixation 01/12/[address] Cortez. Surg cx with enterobacter. Wound cx the following day with different enterobacter and stenotrophomonas. Cont cefepime and bactrim. Picc in place, plan on 6 weeks iv abx at discharge, stop date 02/29/20. ORIF done 01/18/20. Will need long course of oral suppression with abx after IV course is completed due to suspicion for infection in any hardware placed during ORIF. She wants to try po bactrim again to see if this helps nausea; will try liquid form. If she does not tolerate will go back to po bactrim DS tabs. Will follow
[2020-02-16] MEDS: Carvedilol 25 MG Tablet PO (21:17)
[2020-02-16] MEDS: Atorvastatin Calcium 40 MG Tablet PO (21:17)
[2020-02-16] MEDS: Nystatin Powder 15gm Bottle 1 APPLIC TOPICAL (21:25)
--- NOTE | 2020-02-16 21:27 | NURSING ---
Hs meds given as order and patient started dry heaving shortly after taken medication while nurse was in the room. Pt states, she was given phenergan earlier today and she felt okay.
[2020-02-16] MEDS: SMZ/TPM Suspension 40 ML PO (21:33)
[2020-02-16 21:35] VITALS: PULSE 99; RESP 16; O2SAT 95
[2020-02-17 05:00] VITALS: BP 119/66; PULSE 84; RESP 18; TEMP 36.8; O2SAT 95
[2020-02-17 06:00] LABS: Absolute Lymphocyte Count 1.67 X10^3/uL (0.83-4.51); Absolute Neutrophil Count 2.6 X10^3/uL (2.0-7.7); Basophil# 0.04 X10^3/uL; Basophil% 0.7 % (0-1); Eosinophil# 0.38 X10^3/uL; Eosinophils% 7.1 % (0-5); Hematocrit 35.2 % (37-47); Hemoglobin 11.1 g/dL (12.0-15.0); Lymphocyte # 1.67 X10^3/ul (4.0); Lymphocyte % 31.1 % (19-41); Mean Corp Hgb Conc 31.5 g/dL (32-36); Mean Corpuscular Hgb 31.3 pg (27.0-32.0); Mean Corpuscular Volume 99.2 fL (81-99); NRBC Flagged by Analyzer 0 % (0-5); Neutrophil # 2.56 X10^3/uL (2.7-7.7); Neutrophil % 47.7 % (47-70); Platelet Count 196 K/mm3 (150-450); RBC Distribution Width CV 13.3 % (11.6-14.6); RBC Distribution Width SD 48.8 fl (35.1-43.9); Red Blood Count 3.55 M/mm3 (4.2-5.4); White Blood Count 5.4 K/mm3 (4.4-11.0)
[2020-02-17] MEDS: 0.9% Saline Lock 10 ML Syringe IV ×2 (06:18→17:04)
[2020-02-17] MEDS: SMZ/TPM Suspension 40 ML PO ×3 (06:22→21:42)
[2020-02-17 06:34] LABS: Erythrocyte Sedimentation Rate 16 mm/hr (0-30)
[2020-02-17 06:36] LABS: Anion Gap 7 (5-15); BUN 7 mg/dL (7-18); Calcium,Total 9.5 mg/dL (8.5-10.1); Chloride 101 mmol/L (98-107); Creatinine, Serum 1.17 mg/dL (0.55-1.02); EST Glomerular Filtration Rate 48 mL/min (>60); Est Glom Filt Rate - Afr Amer 59 mL/min (>60); Estimated Creatinine Clearance 38.08 ml/min; Glucose 101 mg/dL (74-106); Potassium 3.8 mmol/L (3.5-5.1); Sodium Level 135 mmol/L (136-145)
[2020-02-17 07:46] VITALS: O2SAT 93
[2020-02-17] MEDS: Pantoprazole Sodium 40 MG Tablet PO ×2 (09:07→21:42)
[2020-02-17] MEDS: Enoxaparin 40 MG/0.4 ML Syringe SC (09:07)
[2020-02-17] MEDS: Senna/Docusate Sodium 1 Tablet 2 TABLET PO (09:07)
[2020-02-17] MEDS: Carvedilol 25 MG Tablet 50 MG PO (09:08)
[2020-02-17] MEDS: Aspirin E.C. 81 MG Tablet PO (09:08)
[2020-02-17] MEDS: Escitalopram Oxalate 20 MG Tablet PO (09:09)
[2020-02-17] MEDS: Nystatin Powder 15gm Bottle 1 APPLIC TOPICAL ×2 (09:11→21:41)
[2020-02-17 09:12] VITALS: PULSE 106; RESP 18; O2SAT 92
--- NOTE | 2020-02-17 09:19 | NURSING ---
Pt started vomiting shortly after taking medications this morning. Emesis was light pink/clear in color
[2020-02-17] MEDS: Mirabegron 25 MG TAB.ER.24H PO (14:05)
[2020-02-17 14:14] VITALS: BP 108/69; PULSE 80; RESP 20; TEMP 36.5; O2SAT 94
--- NOTE | 2020-02-17 14:29 | NURSING ---
right hand dry/peeling pt stated she does not want Eucerin or anything for it, said it doesn't really bother her much she just wanted staff to know
[2020-02-17] MEDS: Carvedilol 25 MG Tablet PO (21:42)
[2020-02-17] MEDS: Atorvastatin Calcium 40 MG Tablet PO (21:42)
[2020-02-18] MEDS: 0.9% Saline Lock 10 ML Syringe IV ×3 (04:43→17:05)
[2020-02-18] MEDS: SMZ/TPM Suspension 40 ML PO ×3 (04:43→22:00)
[2020-02-18 04:55] VITALS: BP 143/73; PULSE 74; RESP 18; TEMP 36.7; O2SAT 94
[2020-02-18 06:30] VITALS: O2SAT 94
--- NOTE | 2020-02-18 06:43 | NURSING ---
Pt stated last HS that when she was adjusting herself in the bed she hurt her Rt shoulder and arm. Pt now stating that she is unable to move her Rt arm. Pt was then witnessed moving herself to the edge of the bed using it. Explained that Dr. Méndez would be updated. Pt in agreement.
--- NOTE | 2020-02-18 09:02 | RAD_ITS ---
STUDY: X-RAY - RIGHT SHOULDER REASON FOR EXAM: Female, 69 years old. PAIN IN RIGHT SHOULDER FOR SOMETIME NOW. NO KNOWN INJURY. TECHNIQUE: 5 view(s) of the shoulder. COMPARISON: None. FINDINGS: There is mild degenerative arthrosis of the glenohumeral articulation. There is hypertrophic osteoarthrosis of the acromioclavicular joint with inferior osseous spur formation. Normal acromion. Normal humeral head and visualized proximal humerus. The soft tissue structures are unremarkable. Normal visualized pulmonary apex. RAD/Shoulder min 2 Views IMPRESSION: Degenerative changes of the shoulder joint. Electronically Signed: Mj Trevino, at 12:57 EDT , Service support ,
[2020-02-18] MEDS: Carvedilol 25 MG Tablet 50 MG PO (09:21)
[2020-02-18] MEDS: Aspirin E.C. 81 MG Tablet PO (09:21)
[2020-02-18] MEDS: Pantoprazole Sodium 40 MG Tablet PO ×2 (09:23→21:42)
[2020-02-18] MEDS: Escitalopram Oxalate 20 MG Tablet PO (09:24)
[2020-02-18] MEDS: Senna/Docusate Sodium 1 Tablet 2 TABLET PO ×2 (09:24→21:42)
[2020-02-18] MEDS: Enoxaparin 40 MG/0.4 ML Syringe SC (09:25)
[2020-02-18] MEDS: Menthol/Lanolin/Calamine/Znox 113 GM Tube 1 APPLIC TOPICAL (09:27)
[2020-02-18] MEDS: Nystatin Powder 15gm Bottle 1 APPLIC TOPICAL ×2 (09:27→21:47)
[2020-02-18 09:31] VITALS: BP 121/74; PULSE 83
--- NOTE | 2020-02-18 13:09 | NURSING ---
PT STATED THERE WAS NO ONE SHE WANTED UP DATED
--- NOTE | 2020-02-18 13:54 | PN_ITS ---
Subjective: Resident injured right shoulder overnight. X-ray showed right shoulder arthritis, no fracture, no dislocation. Vitals/I&O's: Vital Signs Temp Pulse Resp BP Pulse Ox 98.1 F 83 18 121/74 H 94 02/18/20 04:55 02/18/20 09:31 02/18/20 04:55 02/18/20 09:31 02/18/20 06:30 Oxygen Flow Rate (L/min) 2 Oxygen Delivery Method Nasal Cannula Weight: 93.213 kg Body Mass Index (BMI) 39.5 Intake and Output for Last 24 Hours 02/16/20 02/17/20 02/18/20 23:59 23:59 23:59 Intake Total 1760 / 1760 680 / 680 100 / 100 Output Total 300 / 300 Balance 1460 / 1460 680 / 680 100 / 100 Past Medical History Past Medical History (Chronic Problems): Chronic Problems (Last Reviewed 01/13/20 @ 01:[address] Danny Menchaca MD) Hypertension (Chronic) History of hypercholesterolemia (Chronic) Morbid obesity due to excess calories (Chronic) Hyperlipidemia (Chronic) Chronic kidney disease (Chronic) GERD (gastroesophageal reflux disease) (Chronic) Overactive bladder (Chronic) Depression (Chronic) Vitamin D deficiency (Chronic) Chronic obstructive pulmonary disease (Chronic) CKD (chronic kidney disease) stage 3, GFR 30-59 ml/min (Chronic) Thoracic aortic aneurysm without rupture (Chronic) Mild 3.9cm per ECHO 08/05/18 Essential hypertension (Chronic) Lumbar radiculopathy (Chronic) Chronic back pain (Chronic) Urgency incontinence (Chronic) LBBB (left bundle branch block) (Chronic) Hyperlipemia, mixed (Chronic) Medical History: Medical History (Last Reviewed 01/13/20 @ 01:[address] Danny Menchaca MD) CKD (chronic kidney disease) stage 3, GFR 30-59 ml/min (Chronic) N18.3 Thoracic aortic aneurysm without rupture (Chronic) I71.2 Mild 3.9cm per ECHO 08/05/18 Essential hypertension (Chronic) I10 LBBB (left bundle branch block) (Chronic) I44.7 Hyperlipemia, mixed (Chronic) E78.2 Anxiety F41.9 Arrhythmia I49.9 Cataracts, bilateral H26.9 Esophageal reflux K21.9 H/O: pneumonia Z87.01 H/O: stroke Z86.73 Hypothyroidism E03.9 Obesity E66.9 Osteoarthritis, knee M17.10 Oxygen desaturation during sleep G47.34 Pulmonary nodule R91.1 Scoliosis M41.9 TIA (transient ischemic attack) G45.9 08/2018 Chronic respiratory failure J96.10 CKD (chronic kidney disease) (Inactive) N18.9 stage 3 COPD (chronic obstructive pulmonary disease) J44.9 Allergies amlodipine [From Norvasc] Allergy (Unknown, Verified 01/12/20 17:56) swelling codeine Allergy (Unknown, Verified 01/12/20 17:56) rash hydrocodone Allergy (Unknown, Verified 01/12/20 17:56) rash memantine [From Namenda] Allergy (Unknown, Verified 01/12/20 17:56) mental fog confusion, foggy thinking Home Medications: Ambulatory Orders Medication Instructions Recorded aspirin 81 mg tablet,delayed 81 mg PO DAILY 07/09/19 release omeprazole 40 mg capsule,delayed 40 mg PO DAILY #90 cap 07/23/19 release mirabegron 25 mg tablet,extended 25 mg PO DAILY 12/02/19 release 24 hr carvedilol 25 mg tablet 50 mg PO BREAKFAST tab 01/06/20 Carvedilol [Coreg] 25 mg PO QHS 01/12/20 Acetaminophen [Tylenol] 1,000 mg PO Q8H 01/19/20 Cefepime HCl 2 gm IV Q8H 01/19/20 Cefepime HCl [Maxipime] 2 gm IV Q8H vial 01/19/20 Cholecalciferol (VIT D3) [Vitamin 5,000 unit PO DAILY 01/19/20 D3] Enoxaparin [Lovenox] 40 mg SUBCUT DAILY 01/19/20 Ensure Enlive 120 ml PO 4X/DAY 01/19/20 Escitalopram Oxalate 20 mg PO DAILY 01/19/20 Magnesium Hydroxide [Milk Of 30 ml PO DAILY PRN PRN udc 01/19/20 Magnesia] Menthol/Lanolin/Calamine/Znox 1 applic TOPICAL BID 01/19/20 [Calmoseptine Ointment] Oxycodone [Oxyir] 5 - 10 mg PO Q6H PRN PRN 3 Days 01/19/20 #24 tab Polyethylene Glycol 3350 [Miralax] 17 gm PO DAILY PRN PRN packet 01/19/20 Rosuvastatin Calcium 20 mg PO QHS 01/19/20 Smz/Tmp Ds [Bactrim Ds] 2 tab PO TID 01/19/20 Surgical History: Surgical History (Last Reviewed 01/13/20 @ 01:[address] Danny Menchaca MD) Femur fracture S72.90XA 2015 Carpal tunnel syndrome G56.00 H/O bladder repair surgery Z98.890 2018 H/O colonoscopy Z98.890 01/24/2006 H/O right wrist surgery Z98.890 History of knee replacement Z96.659 2013 Surgical History: total knee arthroplasty, - - Femur fracture, carpal tunnel release, bladder repair, right wrist surgery, ORIF open right ankle fracture. Psychiatric History: Depression [employer] History: No pertinent [employer] history Lives: Alone Smoking Status: Former smoker Tobacco Use: Non-smoker Alcohol: None Drugs: None - *Family History Maternal Family History: Family History (Last Reviewed 01/13/20 @ 01:[address] Danny Menchaca MD) Sister Diabetes Obesity Sleep apnea Mother Dementia Father Heart disease History Items: No pertinent history Paternal Family History: Family History (Last Reviewed 01/13/20 @ 01:[address] Danny Menchaca MD) Sister Diabetes Obesity Sleep apnea Mother Dementia Father Heart disease History Items: No pertinent history Capacity - Capacity Assessment Tool Can the patient make a choice & communicate that choice?: Yes Can the patient understand benefits, risks and alternatives?: Yes Can the patient make a logical, rational choice?: Yes Is the choice the patient makes consistent w/ their values?: Yes Is there an impending, emergent risk to the patient?: No Does the patient have an Advance Directive?: No Is there a Surrogate Available?: Yes i.e. HCPOA: Yes i.e. close relative (spouse, child, parent, sibling)?: Yes Review of Systems Constitutional: Denies: Chills, Fever, Weight Change HEENT: Denies: Head Aches, Sinus Congestion, Sinus Drainage Cardiovascular: Denies: Chest Pain, Palpitations Respiratory: Denies: Cough, Shortness of breath at rest, Sputum production Gastrointestinal: Denies: Abdominal Pain, Nausea, Vomiting Genitourinary: Denies: Dysuria Musculoskeletal: Reports: Shoulder Pain - Right.. Denies: Joint Pain, Joint Tenderness Skin: Denies: Rash, Wounds Neurological: Denies: Numbness, Tingling, Focal weakness Psychiatric: Denies: Anxiety, Depression, Homicidal Ideations, Suicidal Ideations Hematologic/ Lymphatic: Denies: Easy Bruising, Easy Bleeding Patient Problems: Active and Suspected Problems (Last Reviewed 01/13/20 @ 01:[address] Danny Menchaca MD) Debility (Acute) Fall (Acute) - Physical Exam Vitals/I&O's: Vital Signs Temp Pulse Resp BP Pulse Ox 98.1 F 83 18 121/74 H 94 02/18/20 04:55 02/18/20 09:31 02/18/20 04:55 02/18/20 09:31 02/18/20 06:30 Oxygen Flow Rate (L/min) 2 Oxygen Delivery Method Nasal Cannula Weight: 93.213 kg Body Mass Index (BMI) 39.5 Intake and Output for Last 24 Hours 02/16/20 02/17/20 02/18/20 23:59 23:59 23:59 Intake Total 1760 / 1760 680 / 680 100 / 100 Output Total 300 / 300 Balance 1460 / 1460 680 / 680 100 / 100 General: Alert, Oriented x3, Cooperative HEENT: Atraumatic, PERRLA, EOMI, Normocephalic Neck: Supple, No JVD, Negative Carotid Bruits Lungs: Clear to auscultation, Normal air movement Cardiovascular: Regular rate, No murmurs Abdomen: Bowel Sounds Present, Soft, Non Tender Extremities: No edema, Capillary Refill Less than 3 Seconds Skin: No rashes, No breakdown Musculoskeletal: No Tenderness to Palpation of Joints or Extremities Neurological: Cranial nerves II-XII grossly intact Psych/Mental Status: Normal Affect, Appropriate Current Medications Acetaminophen (Tylenol) 1,000 mg PO Q8 PRN PRN Reason: Pain Score 1-3/10 Last Admin: 02/04/20 08:22 Dose: 500 mg Documented by: Al Hydroxide/Mg Hydroxide (Mylanta Ii) 30 ml PO Q6H PRN PRN PRN Reason: INDIGESTION Last Admin: 02/04/20 15:35 Dose: 30 ml Documented by: Aspirin (Ecotrin) 81 mg PO DAILYCM [facility] Last Admin: 02/18/20 09:21 Dose: 81 mg Documented by: Atorvastatin Calcium (Lipitor) 40 mg PO QHS [facility] Last Admin: 02/17/20 21:42 Dose: 40 mg Documented by: Bisacodyl (Dulcolax) 10 mg RECTAL DAILY PRN PRN Reason: Constipation Calamine/Phenol (Calmoseptine Ointment) 1 applic TOPICAL 0800,1800 [facility]; Protocol Last Admin: 02/18/20 09:27 Dose: 1 applicatio Documented by: Calcium Carbonate (Tums) 500 mg PO Q6H PRN PRN PRN Reason: INDIGESTION Carvedilol (Coreg) 50 mg PO BREAKFAST [facility] Last Admin: 02/18/20 09:21 Dose: 50 mg Documented by: Carvedilol (Coreg) 25 mg PO QHS [facility] Last Admin: 02/17/20 21:42 Dose: 25 mg Documented by: Enoxaparin Sodium (Lovenox) 40 mg SC DAILY@0800 [facility] Last Admin: 02/18/20 09:25 Dose: 40 mg Documented by: Escitalopram Oxalate (Lexapro) 20 mg PO DAILY@0800 [facility] Last Admin: 02/18/20 09:24 Dose: 20 mg Documented by: Heparin Sodium (Beef Lung) () 50 units IV UD PRN PRN Reason: PICC Line Heparin Flush Last Admin: 02/01/20 23:58 Dose: 50 units Documented by: Cefepime HCl 2 gm/ Sodium (Chloride) 100 mls @ 200 mls/hr IV Q12 [facility] Stop: 02/29/20 18:01 Last Infusion: 02/18/20 05:13 Dose: Infused Documented by: Lactobacillus Acidophilus (Acidophilus) 1 tablet PO 0800,1999 [facility] Last Admin: 02/18/20 09:21 Dose: 1 tablet Documented by: Lidocaine/Diphenhydr/Alum/Mg/Simeth () 15 ml PO Q3H PRN PRN PRN Reason: sore mouth Melatonin (Melatonin) 10 mg PO QHS [facility] Last Admin: 02/17/20 21:41 Dose: Not Given Documented by: Mirabegron (Myrbetriq) 25 mg PO DAILY@1400 [facility] Last Admin: 02/17/20 14:05 Dose: 25 mg Documented by: Nystatin (Mycostatin Powder) 1 applic TOPICAL 0800,2200 [facility]; Protocol Last Admin: 02/18/20 09:27 Dose: 1 applicatio Documented by: Oxycodone HCl (Oxyir) 5 mg PO Q4H PRN PRN PRN Reason: Pain Score 4-10/10 Last Admin: 02/15/20 21:18 Dose: 5 mg Documented by: Pantoprazole Sodium (Protonix) 40 mg PO 799,1999 [facility] Last Admin: 02/18/20 09:23 Dose: 40 mg Documented by: Polyethylene Glycol (Miralax) 17 gm PO DAILY@0800 [facility] Last Admin: 02/18/20 09:23 Dose: Not Given Documented by: Promethazine HCl (Phenergan) 12.5 mg IV Q4H PRN PRN PRN Reason: NAUSEA/VOMITING Last Admin: 02/16/20 17:16 Dose: 12.5 mg Documented by: Senna/Docusate Sodium (Senokot-S, Precious-Colace) 2 tablet PO 799,1999 [facility] Last Admin: 02/18/20 09:24 Dose: 2 tablet Documented by: Sodium Chloride () 10 - 40 ml IV UD PRN PRN Reason: Open End PICC Flush Last Admin: 02/18/20 04:54 Dose: 10 ml Documented by: Sodium Chloride (0.9% Nacl (Sterile) Posiflush) 10 - 40 ml IV UD PRN PRN Reason: Port access or dressing change Sodium Chloride () 250 ml IV 15 PRN PRN Reason: SALINE FLUSH Last Admin: 02/13/20 17:42 Dose: 250 ml Documented by: Theophylline (Tam-Dur) 300 mg PO 799,1999 [facility] Last Admin: 02/18/20 09:24 Dose: 300 mg Documented by: Trimethoprim/Sulfamethoxazole (Bactrim Suspension 800-160mg/20ml) 40 ml PO TID [facility] Last Admin: 02/18/20 04:43 Dose: 40 ml Documented by: Assessment/Plan All Active Problems (Last Reviewed 01/13/20 @ 01:[address] Danny Menchaca MD) Type I or II open fracture dislocation of right ankle (Acute) Ankle osteomyelitis, right (Acute) Ulcer of ankle with necrosis of bone (Acute) Debility (Acute) Fall (Acute) 69 year old female with below past medical history hospitalized with right open ankle fracture dislocation, underwent surgical fixation with Dr. Cortez, complicated by osteomyelitis, admitted to TCU with debility, here for rehabilitation, strengthening, intravenous antibiotics, wound care, prior to discharge home alone. * Rotator cuff strain - After informed consent, the area was prepped in sterile manner, Vapocoolant spray anesthesia, right subacromial bursa injected with Kenalog 40MG, Lidocaine 1% 1ML, no immediate complications. No immediate complications.
[2020-02-18] MEDS: Mirabegron 25 MG TAB.ER.24H PO (14:30)
[2020-02-18 14:34] VITALS: BP 113/78; PULSE 80; RESP 15; TEMP 36.9; O2SAT 94
[2020-02-18] MEDS: Carvedilol 25 MG Tablet PO (21:42)
[2020-02-18] MEDS: Atorvastatin Calcium 40 MG Tablet PO (21:42)
[2020-02-18 22:00] VITALS: RESP 16
[2020-02-19 05:00] VITALS: BP 113/70; PULSE 80; RESP 16; TEMP 37.1; O2SAT 97
[2020-02-19] MEDS: SMZ/TPM Suspension 40 ML PO ×3 (05:56→22:28)
[2020-02-19] MEDS: 0.9% Saline Lock 10 ML Syringe IV ×3 (05:56→20:32)
[2020-02-19 07:04] VITALS: O2SAT 95
[2020-02-19] MEDS: proMETHazine 25 MG/ML Syringe 12.5 MG IV (08:40)
[2020-02-19] MEDS: Carvedilol 25 MG Tablet 50 MG PO (09:42)
[2020-02-19] MEDS: Aspirin E.C. 81 MG Tablet PO (09:44)
[2020-02-19] MEDS: Escitalopram Oxalate 20 MG Tablet PO (09:45)
[2020-02-19] MEDS: Enoxaparin 40 MG/0.4 ML Syringe SC (09:45)
[2020-02-19] MEDS: Pantoprazole Sodium 40 MG Tablet PO ×2 (09:45→20:25)
[2020-02-19] MEDS: Nystatin Powder 15gm Bottle 1 APPLIC TOPICAL ×2 (09:50→20:36)
[2020-02-19 10:00] VITALS: PULSE 98; RESP 18; O2SAT 94
[2020-02-19 14:11] VITALS: BP 95/52; PULSE 77; RESP 20; TEMP 36.4; O2SAT 94
[2020-02-19] MEDS: Mirabegron 25 MG TAB.ER.24H PO (14:39)
[2020-02-19] MEDS: Carvedilol 25 MG Tablet PO (20:25)
[2020-02-19] MEDS: Atorvastatin Calcium 40 MG Tablet PO (20:26)
[2020-02-19] MEDS: oxyCODONE 5 MG Tablet PO (20:31)
--- NOTE | 2020-02-19 22:33 | NURSING ---
Patient sat up to take liquid bactrim as order, after taken it patient started vomiting 15 mL clear, and some white chunks in the bag. Will continue to monitor during this shift.
[2020-02-20 05:00] VITALS: BP 137/91; PULSE 84; RESP 16; TEMP 36.7; O2SAT 95
[2020-02-20 06:42] VITALS: O2SAT 94
[2020-02-20] MEDS: 0.9% Saline Lock 10 ML Syringe IV ×4 (06:47→19:05)
[2020-02-20] MEDS: Aspirin E.C. 81 MG Tablet PO (08:28)
[2020-02-20] MEDS: Pantoprazole Sodium 40 MG Tablet PO ×2 (08:28→17:43)
[2020-02-20] MEDS: Carvedilol 25 MG Tablet 50 MG PO (08:28)
[2020-02-20] MEDS: Enoxaparin 40 MG/0.4 ML Syringe SC (08:30)
[2020-02-20] MEDS: Escitalopram Oxalate 20 MG Tablet PO (08:30)
[2020-02-20] MEDS: Nystatin Powder 15gm Bottle 1 APPLIC TOPICAL ×2 (08:36→21:25)
[2020-02-20 14:05] VITALS: BP 120/72; PULSE 83; RESP 17; TEMP 36.9; O2SAT 93
[2020-02-20] MEDS: Mirabegron 25 MG TAB.ER.24H PO (14:12)
[2020-02-20] MEDS: proMETHazine 25 MG/ML Syringe 12.5 MG IV (18:16)
[2020-02-20] MEDS: Carvedilol 25 MG Tablet PO (21:05)
[2020-02-20] MEDS: Atorvastatin Calcium 40 MG Tablet PO (21:06)
[2020-02-21 05:46] VITALS: BP 126/80; PULSE 81; RESP 20; TEMP 36.8; O2SAT 94
[2020-02-21] MEDS: 0.9% Saline Lock 10 ML Syringe IV ×3 (08:32→21:16)
[2020-02-21] MEDS: proMETHazine 25 MG/ML Syringe 12.5 MG IV (08:32)
[2020-02-21] MEDS: Pantoprazole Sodium 40 MG Tablet PO ×2 (08:41→21:14)
[2020-02-21] MEDS: Carvedilol 25 MG Tablet 50 MG PO (08:41)
[2020-02-21] MEDS: Escitalopram Oxalate 20 MG Tablet PO (08:42)
[2020-02-21] MEDS: Aspirin E.C. 81 MG Tablet PO (08:42)
[2020-02-21] MEDS: Enoxaparin 40 MG/0.4 ML Syringe SC (08:43)
[2020-02-21] MEDS: Nystatin Powder 15gm Bottle 1 APPLIC TOPICAL ×2 (08:44→21:16)
[2020-02-21 11:15] VITALS: O2SAT 95
[2020-02-21] MEDS: SMZ/TPM Suspension 40 ML PO ×2 (13:27→21:13)
[2020-02-21] MEDS: Mirabegron 25 MG TAB.ER.24H PO (13:27)
[2020-02-21 14:11] VITALS: BP 100/55; PULSE 67; RESP 18; TEMP 36.7; O2SAT 91
[2020-02-21] MEDS: Carvedilol 25 MG Tablet PO (21:13)
[2020-02-21] MEDS: Atorvastatin Calcium 40 MG Tablet PO (21:14)
[2020-02-22 05:00] VITALS: BP 126/89; PULSE 89; RESP 18; TEMP 36.6; O2SAT 95
[2020-02-22] MEDS: SMZ/TPM Suspension 40 ML PO ×3 (05:34→21:22)
[2020-02-22 06:40] VITALS: O2SAT 95
[2020-02-22] MEDS: Carvedilol 25 MG Tablet 50 MG PO (08:17)
[2020-02-22] MEDS: Escitalopram Oxalate 20 MG Tablet PO (08:18)
[2020-02-22] MEDS: Pantoprazole Sodium 40 MG Tablet PO ×2 (08:18→21:21)
[2020-02-22] MEDS: Aspirin E.C. 81 MG Tablet PO (08:18)
[2020-02-22] MEDS: Enoxaparin 40 MG/0.4 ML Syringe SC (08:18)
[2020-02-22] MEDS: Nystatin Powder 15gm Bottle 1 APPLIC TOPICAL ×2 (08:24→21:22)
[2020-02-22 08:25] VITALS: BP 102/72; PULSE 95
[2020-02-22 10:00] VITALS: PULSE 86; RESP 18; O2SAT 92
--- NOTE | 2020-02-22 11:44 | CASEMGMT ---
Addendum entered by Babita Crockett 02/23/20 16:02: [facility] accepted pt. Left another message with [facility]. Notified pt. Original Note: Social Work Left messages with admissions at [facility] and [facility] to follow up on acceptance/denial. Will await return phone call. NRD 02/24, EDC 03/01 Babita Crockett, LILLIAM FRANCOW
[2020-02-22] MEDS: Mirabegron 25 MG TAB.ER.24H PO (13:42)
[2020-02-22 13:50] VITALS: BP 98/63; PULSE 87; RESP 14; TEMP 36.2; O2SAT 92
[2020-02-22 17:30] VITALS: BP 117/69
[2020-02-22] MEDS: 0.9% Saline Lock 10 ML Syringe IV (17:30)
--- NOTE | 2020-02-22 18:32 | PN_ITS ---
Patient Problems: Active and Suspected Problems (Last Reviewed 01/13/20 @ 01:[address] Danny Menchaca MD) Debility (Acute) Fall (Acute) Subjective: This 69-year-old female was seen bedside status post right open reduction internal fixation that was performed on 01-18-2020. This was a staged procedure after external fixation placement for treatment of an open fracture dislocation. She denies fever, chill, vomiting, nausea or vomiting. She states that she believes the nausea from the antibiotics have been sorted as this is her first day without nausea. Patient denies pain and states she thinks her foot slides in her splint sometimes. - Physical Exam Vitals/I&O's: Vital Signs Temp Pulse Resp BP Pulse Ox 97.1 F L 87 14 117/69 92 02/22/20 13:50 02/22/20 13:50 02/22/20 13:50 02/22/20 17:30 02/22/20 13:50 Oxygen Flow Rate (L/min) 2 Oxygen Delivery Method Room Air Weight: 88.224 kg Body Mass Index (BMI) 39.5 Intake and Output for Last 24 Hours 02/20/20 02/21/20 02/22/20 23:59 23:59 23:59 Intake Total 440 / 440 560 / 560 440 / 440 Balance 440 / 440 560 / 560 440 / 440 General: Alert, Oriented x3 HEENT: Atraumatic Extremities: No edema, Capillary Refill Less than 3 Seconds, Peripheral Pulses Normal, - - two K wires remain intact to medial malleolus fracture fixation site without erythema, purulence, erythema, loosening. There is a healed cicatrix to the lateral fibular incision site in which sutures were removed last week. There is a skin discontinuity ulcer at the initial medial malleolus open fracture site that is about 70% granular and 30% fibrotic. There is eschar formation on the anterior and posterior aspect of the wound that was well adhered and thus left intact. The central aspect was still open measuring 1x0.3x0.2cm after debridmeent. There is no visualized bone. There is no bogginess or fluctuance on palpation. Ecchymosis noted to plantar posterior heel Musculoskeletal: - - Active range of motion digits x5 right. Compartments are soft to palpate right lower extremity. Ankle sagittal plane active range of motion is noted. Neurological: Neuro grossly intact, Sensory exam intact to light touch and pain Psych/Mental Status: Appropriate Current Medications Acetaminophen (Tylenol) 1,000 mg PO Q8 PRN PRN Reason: Pain Score 1-3/10 Last Admin: 02/04/20 08:22 Dose: 500 mg Documented by: Al Hydroxide/Mg Hydroxide (Mylanta Ii) 30 ml PO Q6H PRN PRN PRN Reason: INDIGESTION Last Admin: 02/04/20 15:35 Dose: 30 ml Documented by: Aspirin (Ecotrin) 81 mg PO DAILYCM [facility] Last Admin: 02/22/20 08:18 Dose: 81 mg Documented by: Atorvastatin Calcium (Lipitor) 40 mg PO QHS [facility] Last Admin: 02/21/20 21:14 Dose: 40 mg Documented by: Bisacodyl (Dulcolax) 10 mg RECTAL DAILY PRN PRN Reason: Constipation Calamine/Phenol (Calmoseptine Ointment) 1 applic TOPICAL 0800,1800 [facility]; Prot ocol Last Admin: 02/22/20 17:26 Dose: Not Given Documented by: Calcium Carbonate (Tums) 500 mg PO Q6H PRN PRN PRN Reason: INDIGESTION Carvedilol (Coreg) 50 mg PO BREAKFAST [facility] Last Admin: 02/22/20 08:17 Dose: 50 mg Documented by: Carvedilol (Coreg) 25 mg PO QHS [facility] Last Admin: 02/21/20 21:13 Dose: 25 mg Documented by: Enoxaparin Sodium (Lovenox) 40 mg SC DAILY@0800 [facility] Last Admin: 02/22/20 08:18 Dose: 40 mg Documented by: Escitalopram Oxalate (Lexapro) 20 mg PO DAILY@0800 [facility] Last Admin: 02/22/20 08:18 Dose: 20 mg Documented by: Heparin Sodium (Beef Lung) () 50 units IV UD PRN PRN Reason: PICC Line Heparin Flush Last Admin: 02/01/20 23:58 Dose: 50 units Documented by: Cefepime HCl 2 gm/ Sodium (Chloride) 100 mls @ 200 mls/hr IV Q12 [facility] Stop: 02/29/20 18:01 Last Infusion: 02/22/20 18:16 Dose: Infused Documented by: Lactobacillus Acidophilus (Acidophilus) 1 tablet PO 0800,1999 [facility] Last Admin: 02/22/20 08:18 Dose: 1 tablet Documented by: Lidocaine/Diphenhydr/Alum/Mg/Simeth () 15 ml PO Q3H PRN PRN PRN Reason: sore mouth Melatonin (Melatonin) 10 mg PO QHS [facility] Last Admin: 02/21/20 21:15 Dose: Not Given Documented by: Mirabegron (Myrbetriq) 25 mg PO DAILY@1400 [facility] Last Admin: 02/22/20 13:42 Dose: 25 mg Documented by: Nystatin (Mycostatin Powder) 1 applic TOPICAL 0800,2200 [facility]; Protocol Last Admin: 02/22/20 08:24 Dose: 1 applicatio Documented by: Oxycodone HCl (Oxyir) 5 mg PO Q4H PRN PRN PRN Reason: Pain Score 4-10/10 Last Admin: 02/19/20 20:31 Dose: 5 mg Documented by: Pantoprazole Sodium (Protonix) 40 mg PO 0800,1999 [facility] Last Admin: 02/22/20 08:18 Dose: 40 mg Documented by: Polyethylene Glycol (Miralax) 17 gm PO DAILY@0800 [facility] Last Admin: 02/22/20 08:17 Dose: Not Given Documented by: Promethazine HCl (Phenergan) 12.5 mg IV Q4H PRN PRN PRN Reason: NAUSEA/VOMITING Last Admin: 02/21/20 08:32 Dose: 12.5 mg Documented by: Senna/Docusate Sodium (Senokot-S, Precious-Colace) 2 tablet PO 0800,1999 [facility] Last Admin: 02/22/20 08:16 Dose: Not Given Documented by: Sodium Chloride () 10 - 40 ml IV UD PRN PRN Reason: Open End PICC Flush Last Admin: 02/22/20 17:30 Dose: 40 ml Documented by: Sodium Chloride (0.9% Nacl (Sterile) Posiflush) 10 - 40 ml IV UD PRN PRN Reason: Port access or dressing change Sodium Chloride () 250 ml IV 15 PRN PRN Reason: SALINE FLUSH Last Admin: 02/13/20 17:42 Dose: 250 ml Documented by: Theophylline (Tam-Dur) 300 mg PO 0800,1999 [facility] Last Admin: 02/22/20 08:17 Dose: 300 mg Documented by: Trimethoprim/Sulfamethoxazole (Bactrim Suspension 800-160mg/20ml) 40 ml PO TID [facility] Last Admin: 02/22/20 15:02 Dose: 40 ml Documented by: Medical Necessity - Tobacco Use Smoking Status: Former smoker Tobacco Use: Non-smoker Assessment/Plan All Active Problems (Last Reviewed 01/13/20 @ 01:[address] Danny Menchaca MD) Type I or II open fracture dislocation of right ankle (Acute) Ankle osteomyelitis, right (Acute) Ulcer of ankle with necrosis of bone (Acute) Debility (Acute) Fall (Acute) Right ankle open fracture with dislocation s/p closed reduction with external fixation 01/12/20, and s/p removal of ex fix and ORIF on 01/18/2020 Right ankle osteomyelitis, suspected Ulceration right ankle with exposed necrotic bone s/p debridement, and closure Pain right ankle, improved Patient seen and examined. Nausea has resolved. Pain controlled at this time. Continue with pain management. No suspicion for infection or DVT at this time. Culture grew Enterobacter aerogenes, Enterobacter cloacae and stenotrophomonas noted. Patient on IV antibiotic therapy per ID/Dr. Ballard. Dressing changed today with decrease in swelling noted, minimal pain at the ankle, incisions are well coapted, wound noted to medial malleolus with well adhered eschar and fibrotic tissue noted. This is at site of open fracture. This is not unexpected as the tissue in this area was severely injured during accident. No signs of infection or DVT Keep dressing/splint clean, dry and intact. Will begin every other day nursing dressing changes with aquacel over the wound site. Please leave pin caps on. Please apply lotion to foot and leg prior to reapplying dressing but avoid wound area. After aquacel to wound cover with additional gauze and abdominal pad offloading pocket was fabricated to reduce pin site friction, kerlix, cast padding with good padding to heel from toes to above cast level, splint, and [place] wraps. No weightbearing right foot, keep foot elevated. Discussed with patient that her XR did not show bone healing at her medial malleolus. Discussed that this isn't unexpected as it is still early being only 4 weeks out from surgery, but that until we get some healing the pins would have to stay in place and she would have to remain in the splint. Continue physical therapy Podiatry will continue to follow while in house. Follow up with Dr Cortez in office at discharge. Please do not hesitate to call if you have any questions.
[2020-02-22] MEDS: Atorvastatin Calcium 40 MG Tablet PO (21:22)
[2020-02-22] MEDS: Carvedilol 25 MG Tablet PO (21:22)
[2020-02-23 05:00] VITALS: BP 115/69; PULSE 85; RESP 18; TEMP 36.8; O2SAT 92
[2020-02-23] MEDS: SMZ/TPM Suspension 40 ML PO ×3 (06:19→22:34)
[2020-02-23] MEDS: Aspirin E.C. 81 MG Tablet PO (09:05)
[2020-02-23] MEDS: Carvedilol 25 MG Tablet 50 MG PO (09:05)
[2020-02-23] MEDS: Escitalopram Oxalate 20 MG Tablet PO (09:06)
[2020-02-23] MEDS: Pantoprazole Sodium 40 MG Tablet PO ×2 (09:06→20:02)
[2020-02-23] MEDS: Enoxaparin 40 MG/0.4 ML Syringe SC (09:06)
[2020-02-23 09:13] VITALS: BP 129/73; PULSE 90
[2020-02-23 09:53] VITALS: O2SAT 88
[2020-02-23] MEDS: Mirabegron 25 MG TAB.ER.24H PO (13:26)
[2020-02-23 13:46] VITALS: BP 135/65; PULSE 83; RESP 18; TEMP 36.8; O2SAT 98
--- NOTE | 2020-02-23 14:18 | NURSING ---
pt stated there was no one she wanted updated
[2020-02-23] MEDS: 0.9% Saline Lock 10 ML Syringe IV ×2 (17:08→22:34)
[2020-02-23] MEDS: Atorvastatin Calcium 40 MG Tablet PO (20:03)
[2020-02-23] MEDS: Carvedilol 25 MG Tablet PO (20:03)
[2020-02-23] MEDS: Nystatin Powder 15gm Bottle 1 APPLIC TOPICAL (20:05)
[2020-02-23 20:15] VITALS: PULSE 82; RESP 16; O2SAT 95
[2020-02-24 05:00] VITALS: BP 143/84; PULSE 80; RESP 14; TEMP 37.1; O2SAT 95
[2020-02-24] MEDS: 0.9% Saline Lock 10 ML Syringe IV ×3 (05:39→21:21)
[2020-02-24] MEDS: 0.9% Normal Saline 250 ML IV.SOLN. IV (05:43)
[2020-02-24 06:06] LABS: Erythrocyte Sedimentation Rate 27 mm/hr (0-30)
[2020-02-24 06:23] LABS: Absolute Lymphocyte Count 1.61 X10^3/uL (0.83-4.51); Absolute Neutrophil Count 2.4 X10^3/uL (2.0-7.7); Basophil# 0.04 X10^3/uL; Basophil% 0.8 % (0-1); Eosinophil# 0.24 X10^3/uL; Eosinophils% 4.7 % (0-5); Hematocrit 34.3 % (37-47); Hemoglobin 11.2 g/dL (12.0-15.0); Lymphocyte # 1.61 X10^3/ul (4.0); Lymphocyte % 31.3 % (19-41); Mean Corp Hgb Conc 32.7 g/dL (32-36); Mean Corpuscular Hgb 32.1 pg (27.0-32.0); Mean Corpuscular Volume 98.3 fL (81-99); Mean Platelet Vol. 10.4 fl (6.2-12.0); Monocyte# 0.79 X10^3/uL; Monocyte% 15.4 % (0-10); NRBC Flagged by Analyzer 0 % (0-5); Neutrophil # 2.43 X10^3/uL (2.7-7.7); Neutrophil % 47.2 % (47-70); Platelet Count 180 K/mm3 (150-450); RBC Distribution Width CV 13.7 % (11.6-14.6); RBC Distribution Width SD 47.8 fl (35.1-43.9); Red Blood Count 3.49 M/mm3 (4.2-5.4); White Blood Count 5.1 K/mm3 (4.4-11.0)
[2020-02-24 06:32] LABS: Anion Gap 9 (5-15); BUN 10 mg/dL (7-18); BUN/Creat Ratio 8.8 RATIO (10-20); Calcium,Total 9.4 mg/dL (8.5-10.1); Chloride 106 mmol/L (98-107); Creatinine, Serum 1.13 mg/dL (0.55-1.02); EST Glomerular Filtration Rate 50 mL/min (>60); Est Glom Filt Rate - Afr Amer 61 mL/min (>60); Estimated Creatinine Clearance 39.43 ml/min; Glucose 104 mg/dL (74-106); Potassium 3.7 mmol/L (3.5-5.1); Sodium Level 138 mmol/L (136-145)
[2020-02-24 07:12] VITALS: O2SAT 95
[2020-02-24] MEDS: Pantoprazole Sodium 40 MG Tablet PO ×2 (08:20→21:09)
[2020-02-24] MEDS: Carvedilol 25 MG Tablet 50 MG PO (08:20)
[2020-02-24] MEDS: SMZ/TPM Suspension 40 ML PO ×3 (08:21→21:12)
[2020-02-24] MEDS: Escitalopram Oxalate 20 MG Tablet PO (08:21)
[2020-02-24] MEDS: Aspirin E.C. 81 MG Tablet PO (08:21)
[2020-02-24] MEDS: Nystatin Powder 15gm Bottle 1 APPLIC TOPICAL ×2 (08:22→21:12)
[2020-02-24] MEDS: Enoxaparin 40 MG/0.4 ML Syringe SC (08:23)
--- NOTE | 2020-02-24 12:58 | CASEMGMT ---
Social Work Spoke with [facility] and as long as pt can produce a check for 30 days private pay, they can accept pt. Notified pt - sister can provide [facility] with check. Notified [facility]. [facility]01 LILLIAM PetersonW
[2020-02-24] MEDS: Mirabegron 25 MG TAB.ER.24H PO (13:03)
[2020-02-24 14:06] VITALS: BP 136/95; PULSE 79; RESP 14; TEMP 36.1; O2SAT 93
--- NOTE | 2020-02-24 14:46 | NURSING ---
wound photo: right medial ankle/foot
--- NOTE | 2020-02-24 20:44 | DCINST_ITS ---
- Discharge Diagnoses Current Active Problems: Current Active and Chronic Problems (Last Reviewed 01/13/20 @ 01:[address] Danny Menchaca MD) Debility (Acute) Fall (Acute) Hyperlipidemia (Chronic) Chronic kidney disease (Chronic) GERD (gastroesophageal reflux disease) (Chronic) Overactive bladder (Chronic) Depression (Chronic) Vitamin D deficiency (Chronic) Chronic obstructive pulmonary disease (Chronic) You will use the following diet at home:: No restrictions, Regular Your food should be the consistency of: Regular Your liquids should be the consistency of: Regular/Thin Weight Bearing Status: No weight bearing - Right lower extremity. Keep extremity elevated above heart level: Operative Extremity, Right Leg Call your doctor if you observe: Fever of 101 or Higher, Inability to urinate, Inability to have a bowel movement, Shortness of breath, Chest pain, Uncontrolled pain Allergies/Adverse Reactions: Allergies amlodipine [From Norvasc] Allergy (Unknown, Verified 01/12/20 17:56) swelling codeine Allergy (Unknown, Verified 01/12/20 17:56) rash hydrocodone Allergy (Unknown, Verified 01/12/20 17:56) rash memantine [From Namenda] Allergy (Unknown, Verified 01/12/20 17:56) mental fog confusion, foggy thinking Medications to take at Discharge aspirin 81 mg tablet,delayed release 81 mg PO DAILY 07/09/19 omeprazole 40 mg capsule,delayed release 40 mg PO DAILY #90 cap 07/23/19 mirabegron 25 mg tablet,extended release 24 hr 25 mg PO DAILY 12/02/19 carvedilol 25 mg tablet 50 mg PO BREAKFAST tab 01/06/20 Carvedilol [Coreg] 25 mg PO QHS 01/12/20 Acetaminophen [Tylenol] 1,000 mg PO Q8H 01/19/20 Cholecalciferol (VIT D3) [Vitamin D3] 5,000 unit PO DAILY 01/19/20 Enoxaparin [Lovenox] 40 mg SUBCUT DAILY 01/19/20 Escitalopram Oxalate 20 mg PO DAILY 01/19/20 Menthol/Lanolin/Calamine/Znox [Calmoseptine Ointment] 1 applic TOPICAL BID 01/19/20 Polyethylene Glycol 3350 [Miralax] 17 gm PO DAILY PRN PRN packet 01/19/20 Rosuvastatin Calcium 20 mg PO QHS 01/19/20 Enoxaparin [Lovenox] 40 mg SC DAILY@0800 syringe 02/24/20 Lactobacillus Acidophilus [Acidophilus] 1 tablet PO 0800,2000 tablet 02/24/20 Melatonin 10 mg PO QHS tablet 02/24/20 Nystatin Powder [Mycostatin Powder] 1 applic TOPICAL 0800,2200 bottle 02/24/20 Senna/Docusate Sodium [Senokot-S] 2 tablet PO 0800,2000 tablet 02/24/20 Theophylline [Tam-Dur] 300 mg PO 0800,2000 tablet 02/24/20 Primary Care Physician: Roberto Cano MD [Primary Care Provider] - Please follow up with your Primary Care Physician in: 2 weeks. Test Results: Test results from this visit will be discussed in further detail at your follow- up appointment, if applicable. Please Follow Up With: Vandana Cortez DPM When: 1-2 weeks Please Follow Up With: Roberto Cano MD When: 2 weeks Proposed Discharge Date: 03/01/20
--- NOTE | 2020-02-24 20:46 | DS.PCM_ITS ---
Discharge Date and Diagnosis - Problem List Patient Problems: Active and Suspected Problems (Last Reviewed 01/13/20 @ 01:[address] Danny Menchaca MD) Debility (Acute) Fall (Acute) Date of Admission: 01/19/20 Date of Discharge: 03/01/20 - Primary Discharge Diagnosis Acute Problems: Active Problems (Last Reviewed 01/13/20 @ 01:[address] Danny Menchaca MD) Debility (Acute) Fall (Acute) - Secondary Discharge Diagnosis Chronic Problems: Chronic Problems (Last Reviewed 01/13/20 @ 01:[address] Danny Menchaca MD) Hypertension (Chronic) History of hypercholesterolemia (Chronic) Morbid obesity due to excess calories (Chronic) Hyperlipidemia (Chronic) Chronic kidney disease (Chronic) GERD (gastroesophageal reflux disease) (Chronic) Overactive bladder (Chronic) Depression (Chronic) Vitamin D deficiency (Chronic) Chronic obstructive pulmonary disease (Chronic) CKD (chronic kidney disease) stage 3, GFR 30-59 ml/min (Chronic) Thoracic aortic aneurysm without rupture (Chronic) Mild 3.9cm per ECHO 08/05/18 Essential hypertension (Chronic) Lumbar radiculopathy (Chronic) Chronic back pain (Chronic) Urgency incontinence (Chronic) LBBB (left bundle branch block) (Chronic) Hyperlipemia, mixed (Chronic) Hospital Course and Treatment Imaging Results: 01/19/20 16:35 Diet: Regular - General Food consistency:: Regular Liquid Consistency:: Regular/Thin Is pt able to select menu?: Yes Clinical Impression(s) from Imaging Studies KUB X-Ray 01/29/20 08:30 IMPRESSION: Nonspecific bowel gas pattern. Electronically Signed: Miquel Rdz MD at 9:01 EDT Tel , Service support , Ankle X-Ray 02/15/20 14:26 IMPRESSION: Internal fixation of previously noted distal fibular and medial malleolar fractures with plate and pins as detailed above. Fractures appear in adequate alignment and unchanged from the previous study. Bone union has not occurred as of yet. Electronically Signed: Juan Alberto Gauthier MD at 16:51 EDT , Service support , Chest X-Ray 02/16/20 08:10 IMPRESSION: The tip of the right-sided tic-like catheter is at the junction of the superior vena cava and right atrium. The lungs are clear. Dextroscoliosis. Electronically Signed: Mj Trevino, at 13:15 EDT , Service support , Shoulder X-Ray 02/18/20 09:02 IMPRESSION: Degenerative changes of the shoulder joint. Electronically Signed: Mj Trevino, at 12:57 EDT , Service support , Labs (Last 48 Hours) 02/24/20 02/24/20 02/24/20 05:05 05:05 05:05 WBC 5.1 RBC 3.49 L Hgb 11.2 L Hct 34.3 L MCV 98.3 MCH 32.1 H MCHC 32.7 RDW Std Deviation 47.8 H RDW Coeff of Surya 13.7 Plt Count 180 MPV 10.4 Immature Gran % (Auto) 0.600 Neut % (Auto) 47.2 Lymph % (Auto) 31.3 Hyde % (Auto) 15.4 H Eos % (Auto) 4.7 Baso % (Auto) 0.8 Absolute Neuts (auto) 2.4 Absolute Lymphs (auto) 1.61 Nucleated RBC % 0 ESR 27 Sodium 138 Potassium 3.7 Chloride 106 Carbon Dioxide 23.0 Anion Gap 9 BUN 10 Creatinine 1.13 H Estim Creat Clear Calc 39.43 Est GFR (MDRD) Af Amer 61 Est GFR (MDRD) Non-Af 50 L BUN/Creatinine Ratio 8.8 L Glucose 104 Calcium 9.4 Consultations 02/23/20 00:37 Consult: Onc/Wound/steam box hand Routine Comment: Reason for Consult:: Rt foot wound Operations: None, - - External fixation right ankle 01/13/20, ORIF right ankle 01/18/20 Procedures: None Summary of Care Provided: The patient is a 69 year old Female with below past medical history hospitalized with right open ankle fracture dislocation, underwent surgical fixation with Dr. Cortez, complicated by osteomyelitis, admitted to TCU with debility, here for rehabilitation, strengthening, intravenous antibiotics, wound care, prior to discharge home alone. Discharge to [facility]. Patient Problems: Active and Suspected Problems (Last Reviewed 01/13/20 @ 01:[address] Danny Menchaca MD) Debility (Acute) Fall (Acute) - Physical Exam Vitals/I&O's: Vital Signs Temp Pulse Resp BP Pulse Ox 96.9 F L 79 14 136/95 H 93 02/24/20 14:06 02/24/20 14:06 02/24/20 14:06 02/24/20 14:06 02/24/20 14:06 Oxygen Flow Rate (L/min) 2 Oxygen Delivery Method Room Air Weight: 88.224 kg Body Mass Index (BMI) 39.5 Intake and Output for Last 24 Hours 02/22/20 02/23/20 02/24/20 23:59 23:59 23:59 Intake Total 680 / 680 440 / 440 560 / 560 Balance 680 / 680 440 / 440 560 / 560 Laboratory Results 02/24/20 05:05: ESR 27 02/24/20 05:05: WBC 5.1, RBC 3.49 L, Hgb 11.2 L, Hct 34.3 L, MCV 98.3, MCH 32.1 H, MCHC 32.7, RDW Std Deviation 47.8 H, RDW Coeff of Surya 13.7, Plt Count 180, MPV 10.4, Immature Gran % (Auto) 0.600, Neut % (Auto) 47.2, Lymph % (Auto) 31.3, Hyde % (Auto) 15.4 H, Eos % (Auto) 4.7, Baso % (Auto) 0.8, Absolute Neuts (auto) 2.4, Absolute Lymphs (auto) 1.61, Nucleated RBC % 0 02/24/20 05:05: Sodium 138, Potassium 3.7, Chloride 106, Carbon Dioxide 23.0, Anion Gap 9, BUN 10, Creatinine 1.13 H, Estim Creat Clear Calc 39.43, Est GFR (MDRD) Af Amer 61, Est GFR (MDRD) Non-Af 50 L, BUN/Creatinine Ratio 8.8 L, Glucose 104, Calcium 9.4 Current Medications Acetaminophen (Tylenol) 1,000 mg PO Q8 PRN PRN Reason: Pain Score 1-3/10 Last Admin: 02/04/20 08:22 Dose: 500 mg Documented by: Al Hydroxide/Mg Hydroxide (Mylanta Ii) 30 ml PO Q6H PRN PRN PRN Reason: INDIGESTION Last Admin: 02/04/20 15:35 Dose: 30 ml Documented by: [facility] Admin: 02/24/20 08:21 Dose: 81 mg Documented by: Atorvastatin Calcium (Lipitor) 40 mg PO QHS [facility] Last Admin: 02/23/20 20:03 Dose: 40 mg Documented by: Bisacodyl (Dulcolax) 10 mg RECTAL DAILY PRN PRN Reason: Constipation Calamine/Phenol (Calmoseptine Ointment) 1 applic TOPICAL 0800,1800 [facility]; Protocol Last Admin: 02/24/20 17:11 Dose: Not Given Documented by: Calcium Carbonate (Tums) 500 mg PO Q6H PRN PRN PRN Reason: INDIGESTION Carvedilol (Coreg) 50 mg PO BREAKFAST [facility] Last Admin: 02/24/20 08:20 Dose: 50 mg Documented by: Carvedilol (Coreg) 25 mg PO QHS [facility] Last Admin: 02/23/20 20:03 Dose: 25 mg Documented by: Enoxaparin Sodium (Lovenox) 40 mg SC DAILY@0800 [facility] Last Admin: 02/24/20 08:23 Dose: 40 mg Documented by: Escitalopram Oxalate (Lexapro) 20 mg PO DAILY@0800 [facility] Last Admin: 02/24/20 08:21 Dose: 20 mg Documented by: Heparin Sodium (Beef Lung) () 50 units IV UD PRN PRN Reason: PICC Line Heparin Flush Last Admin: 02/01/20 23:58 Dose: 50 units Documented by: Cefepime HCl 2 gm/ Sodium (Chloride) 100 mls @ 200 mls/hr IV Q12 [facility] Stop: 02/29/20 18:01 Last Infusion: 02/24/20 18:46 Dose: Infused Documented by: Influenza Virus Vaccine Quadrival (Flucelvax /Fluzone ) 0.5 ml IM .ONCE ONE Stop: 02/25/20 10:01 Influenza Virus Vaccine Quadrival (Flucelvax /Fluzone ) 0.5 ml IM .ONCE ONE Stop: 02/24/20 20:42 Lactobacillus Acidophilus (Acidophilus) 1 tablet PO [facility] Last Admin: 02/24/20 08:21 Dose: 1 tablet Documented by: Lidocaine/Diphenhydr/Alum/Mg/Simeth () 15 ml PO Q3H PRN PRN PRN Reason: sore mouth Melatonin (Melatonin) 10 mg PO QHS [facility] Last Admin: 02/23/20 20:03 Dose: Not Given Documented by: Mirabegron (Myrbetriq) 25 mg PO DAILY@1400 [facility] Last Admin: 02/24/20 13:03 Dose: 25 mg Documented by: Nystatin (Mycostatin Powder) 1 applic TOPICAL 0800,2199 [facility]; Protocol Last Admin: 02/24/20 08:22 Dose: 1 applicatio Documented by: Oxycodone HCl (Oxyir) 5 mg PO Q4H PRN PRN PRN Reason: Pain Score 4-10/10 Last Admin: 02/19/20 20:31 Dose: 5 mg Documented by: Pantoprazole Sodium (Protonix) 40 mg PO 799,1999 [facility] Last Admin: 02/24/20 08:20 Dose: 40 mg Documented by: Polyethylene Glycol (Miralax) 17 gm PO DAILY@0800 [facility] Last Admin: 02/24/20 08:22 Dose: Not Given Documented by: Promethazine HCl (Phenergan) 12.5 mg IV Q4H PRN PRN PRN Reason: NAUSEA/VOMITING Last Admin: 02/21/20 08:32 Dose: 12.5 mg Documented by: Senna/Docusate Sodium (Senokot-S, Precious-Colace) 2 tablet PO 799,1999 [facility] Last Admin: 02/24/20 08:22 Dose: Not Given Documented by: Sodium Chloride () 10 - 40 ml IV UD PRN PRN Reason: Open End PICC Flush Last Admin: 02/24/20 17:12 Dose: 40 ml Documented by: Sodium Chloride (0.9% Nacl (Sterile) Posiflush) 10 - 40 ml IV UD PRN PRN Reason: Port access or dressing change Sodium Chloride () 250 ml IV 15 PRN PRN Reason: SALINE FLUSH Last Admin: 02/24/20 05:43 Dose: 250 ml Documented by: Theophylline (Tam-Dur) 300 mg PO 0800,1999 [facility] Last Admin: 02/24/20 08:20 Dose: 300 mg Documented by: Trimethoprim/Sulfamethoxazole (Bactrim Suspension 800-160mg/20ml) 40 ml PO TID [facility] Last Admin: 02/24/20 13:03 Dose: 40 ml Documented by: Discharge Diet: No Restrictions Weight Bearing Status: No weight bearing - Right lower extremity. Keep extremity elevated above heart level: Operative Extremity, Right Leg Call your doctor if you observe: Fever of 101 or Higher, Inability to urinate, Inability to have a bowel movement, Shortness of breath, Chest pain, Uncontrolled pain Home Medications: Medications to take at Discharge aspirin 81 mg tablet,delayed release 81 mg PO DAILY 07/09/19 omeprazole 40 mg capsule,delayed release 40 mg PO DAILY #90 cap 07/23/19 mirabegron 25 mg tablet,extended release 24 hr 25 mg PO DAILY 12/02/19 carvedilol 25 mg tablet 50 mg PO BREAKFAST tab 01/06/20 Carvedilol [Coreg] 25 mg PO QHS 01/12/20 Acetaminophen [Tylenol] 1,000 mg PO Q8H 01/19/20 Cholecalciferol (VIT D3) [Vitamin D3] 5,000 unit PO DAILY 01/19/20 Enoxaparin [Lovenox] 40 mg SUBCUT DAILY 01/19/20 Escitalopram Oxalate 20 mg PO DAILY 01/19/20 Menthol/Lanolin/Calamine/Znox [Calmoseptine Ointment] 1 applic TOPICAL BID 01/19/20 Polyethylene Glycol 3350 [Miralax] 17 gm PO DAILY PRN PRN packet 01/19/20 Rosuvastatin Calcium 20 mg PO QHS 01/19/20 Enoxaparin [Lovenox] 40 mg SC DAILY@0800 syringe 02/24/20 Lactobacillus Acidophilus [Acidophilus] 1 tablet PO 0800,1999 tablet 02/24/20 Melatonin 10 mg PO QHS tablet 02/24/20 Nystatin Powder [Mycostatin Powder] 1 applic TOPICAL 0800,2200 bottle 02/24/20 Senna/Docusate Sodium [Senokot-S] 2 tablet PO 0800,1999 tablet 02/24/20 Theophylline [Tam-Dur] 300 mg PO 0800,1999 tablet 02/24/20 Primary Care Physician: Roberto Cano MD [Primary Care Provider] - Please follow up with your Primary Care Physician in: 2 weeks. Please Follow Up With: Vandana Cortez DPM When: 1-2 weeks Please Follow Up With: Roberto Cano MD When: 2 weeks Disposition: Asstd Living/Non-Skill NH Minutes spent on discharge:: 35 Patient Condition:: Stable Medical Necessity - Tobacco Use Smoking Status: Former smoker Tobacco Use: Non-smoker Meaningful Use Info Meaningful Use Diagnoses (Choose all that apply): None applicable
--- NOTE | 2020-02-24 20:47 | PCM.TXEXTCAR ---
- Diet 01/19/20 16:35 Diet: Regular - General Food consistency:: Regular Liquid Consistency:: Regular/Thin Is pt able to select menu?: Yes - Routine Orders/Code Status Suppository Type: Dulcolax 10mg Suppository Frequency: Daily PRN Code Status: Full Code - Wound(s) Right ankle Wound Type: Surgical Incision Dressing Change: soft cast right medial malleolus Wound Type: healing open fracture site Dressing Change: silvercel - Therapies Weight Bearing: Non weight bearing Extremity Affected:: Right Lower Physical Therapy: Eval and Treat Occupational Therapy: Eval and Treat - Problem/Diagnosis (1) Debility Status: Acute Current Visit: Yes (2) Fall Status: Acute Current Visit: Yes (3) Hyperlipidemia Status: Chronic Current Visit: Yes (4) Chronic kidney disease Status: Chronic Current Visit: Yes (5) GERD (gastroesophageal reflux disease) Status: Chronic Current Visit: Yes (6) Overactive bladder Status: Chronic Current Visit: Yes (7) Depression Status: Chronic Current Visit: Yes (8) Vitamin D deficiency Status: Chronic Current Visit: Yes (9) Chronic obstructive pulmonary disease Status: Chronic Current Visit: Yes (10) Type I or II open fracture dislocation of right ankle Status: Acute Current Visit: No (11) Hypertension Status: Chronic Current Visit: No (12) Ankle osteomyelitis, right Status: Acute Current Visit: No (13) Thoracic aortic aneurysm without rupture Status: Chronic Comment: Mild 3.9cm per ECHO 08/05/18 Current Visit: No - Allergies/Procedures Done in Hospital Allergies/Adverse Reactions: Allergies amlodipine [From Norvasc] Allergy (Unknown, Verified 01/12/20 17:56) swelling codeine Allergy (Unknown, Verified 01/12/20 17:56) rash hydrocodone Allergy (Unknown, Verified 01/12/20 17:56) rash memantine [From Namenda] Allergy (Unknown, Verified 01/12/20 17:56) mental fog confusion, foggy thinking - Type of Care/Length of Stay Estimated LOS: Convalescent Care Less Than 30 days Type of Care Needed: Intermediate Rehab Potential: Fair Prognosis: Fair - Additional Orders/Day of Discharge Day of Discharge: 03/01/20 - Dietary and Speech Recommendations Dietitian Recommendations/Changes: Continue regular diet until adequate PO intake at meals is established, then consider therapuetic diet of cardiac/low cholesterol d/t PMH. - Follow Up Care Primary Care Physician: Roberto Cano MD [Primary Care Provider] - Please follow up with your Primary Care Physician in: 2 weeks. Please Follow Up With: Vandana Cortez DPM When: 1-2 weeks Please Follow Up With: Roberto Cano MD When: 2 weeks
[2020-02-24] MEDS: Carvedilol 25 MG Tablet PO (21:10)
[2020-02-24] MEDS: Atorvastatin Calcium 40 MG Tablet PO (21:10)
[2020-02-24 21:25] VITALS: PULSE 82; RESP 16; O2SAT 95
[2020-02-25] MEDS: 0.9% Saline Lock 10 ML Syringe IV ×3 (06:25→23:45)
[2020-02-25] MEDS: SMZ/TPM Suspension 40 ML PO ×3 (08:54→22:10)
[2020-02-25] MEDS: Pantoprazole Sodium 40 MG Tablet PO ×2 (08:55→22:11)
[2020-02-25] MEDS: Aspirin E.C. 81 MG Tablet PO (08:55)
[2020-02-25] MEDS: Escitalopram Oxalate 20 MG Tablet PO (08:55)
[2020-02-25] MEDS: Carvedilol 25 MG Tablet 50 MG PO (08:56)
[2020-02-25] MEDS: Enoxaparin 40 MG/0.4 ML Syringe SC (08:56)
[2020-02-25] MEDS: Nystatin Powder 15gm Bottle 1 APPLIC TOPICAL ×2 (08:59→22:14)
[2020-02-25 09:53] VITALS: PULSE 92; RESP 16; O2SAT 94
[2020-02-25] MEDS: Mirabegron 25 MG TAB.ER.24H PO (13:49)
[2020-02-25 14:04] VITALS: BP 96/66; PULSE 82; RESP 18; TEMP 36.7; O2SAT 92
[2020-02-25] MEDS: Atorvastatin Calcium 40 MG Tablet PO (22:11)
[2020-02-25] MEDS: Carvedilol 25 MG Tablet PO (22:11)
[2020-02-26 05:00] VITALS: BP 127/78; PULSE 76; RESP 16; TEMP 36.8
[2020-02-26] MEDS: 0.9% Normal Saline 250 ML IV.SOLN. IV (06:10)
[2020-02-26] MEDS: 0.9% Saline Lock 10 ML Syringe IV ×4 (06:10→22:22)
[2020-02-26 06:51] VITALS: O2SAT 92
[2020-02-26] MEDS: SMZ/TPM Suspension 40 ML PO ×2 (08:52→22:03)
[2020-02-26] MEDS: Aspirin E.C. 81 MG Tablet PO (08:56)
[2020-02-26] MEDS: Pantoprazole Sodium 40 MG Tablet PO ×2 (08:56→20:28)
[2020-02-26] MEDS: Carvedilol 25 MG Tablet 50 MG PO (08:57)
[2020-02-26] MEDS: Escitalopram Oxalate 20 MG Tablet PO (08:57)
[2020-02-26] MEDS: Enoxaparin 40 MG/0.4 ML Syringe SC (08:58)
[2020-02-26 09:09] VITALS: BP 114/64; PULSE 84
--- NOTE | 2020-02-26 09:10 | NURSING ---
pt took half of virginia wrap off of right leg with soft cast. pt refused to let this nurse put it back on,pt stated it was hurting from being to tight. rn aware.
[2020-02-26 10:40] VITALS: PULSE 81; RESP 18; O2SAT 91
[2020-02-26] MEDS: Mirabegron 25 MG TAB.ER.24H PO (13:56)
--- NOTE | 2020-02-26 13:59 | NURSING ---
pt refused her 1400 dose of Bactrim. RN aware
[2020-02-26 14:27] VITALS: BP 100/86; PULSE 71; RESP 16; TEMP 36.7; O2SAT 91
--- NOTE | 2020-02-26 16:02 | NURSING ---
pt stated there was no one she wanted up dated
--- NOTE | 2020-02-26 17:45 | NURSING ---
pt has not had a bm in 5 days. pt refuses her stool softeners. educated pt and offered her prn suppository. pt refused. rn aware.
[2020-02-26] MEDS: Carvedilol 25 MG Tablet PO (20:28)
[2020-02-26] MEDS: Atorvastatin Calcium 40 MG Tablet PO (20:29)
[2020-02-26] MEDS: Alteplase 2 MG/2 ML Vial IV (22:19)
--- NOTE | 2020-02-27 00:22 | NURSING ---
2220- cath-flower administered per orders to red lumen of PICC line due to no blood return. Flushing without difficulty. At 30 minute shantanu, no blood return noted. At 2 hour shantanu, 5mL bright red blood aspirated and line flushed with normal saline. Purple lumen flushing well with blood return noted.
[2020-02-27 05:00] VITALS: BP 144/92; PULSE 77; RESP 18; TEMP 37.1; O2SAT 94
[2020-02-27] MEDS: oxyCODONE 5 MG Tablet PO ×2 (06:35→13:28)
[2020-02-27 07:03] VITALS: O2SAT 91
[2020-02-27 09:00] VITALS: BP 129/84; PULSE 75
[2020-02-27] MEDS: Carvedilol 25 MG Tablet 50 MG PO (09:10)
[2020-02-27] MEDS: Aspirin E.C. 81 MG Tablet PO (09:10)
[2020-02-27] MEDS: Escitalopram Oxalate 20 MG Tablet PO (09:11)
[2020-02-27] MEDS: Pantoprazole Sodium 40 MG Tablet PO ×2 (09:12→21:04)
[2020-02-27] MEDS: Enoxaparin 40 MG/0.4 ML Syringe SC (09:12)
[2020-02-27] MEDS: Acetaminophen 500 MG Tablet 1000 MG PO ×2 (09:19→17:51)
[2020-02-27] MEDS: SMZ/TPM Suspension 40 ML PO (13:18)
[2020-02-27] MEDS: Mirabegron 25 MG TAB.ER.24H PO (13:19)
[2020-02-27 14:52] VITALS: BP 102/60; PULSE 63; RESP 16; TEMP 37.2; O2SAT 95
[2020-02-27] MEDS: 0.9% Saline Lock 10 ML Syringe IV ×2 (17:02→21:08)
--- NOTE | 2020-02-27 18:56 | NURSING ---
PT STILL NO BM SENSE 02/20. OFFERED SUPPOSITORY PT STATED SHE WOULD TAKE IT IN THE MORNING. REPORTED TO RN
[2020-02-27] MEDS: Carvedilol 25 MG Tablet PO (21:04)
[2020-02-27] MEDS: Atorvastatin Calcium 40 MG Tablet PO (21:07)
[2020-02-28 05:00] VITALS: BP 130/63; PULSE 81; RESP 18; TEMP 36.6; O2SAT 95
[2020-02-28 06:25] VITALS: O2SAT 95
[2020-02-28] MEDS: oxyCODONE 5 MG Tablet PO (06:39)
[2020-02-28] MEDS: Enoxaparin 40 MG/0.4 ML Syringe SC (08:43)
[2020-02-28] MEDS: Aspirin E.C. 81 MG Tablet PO (08:43)
[2020-02-28] MEDS: Escitalopram Oxalate 20 MG Tablet PO (08:44)
[2020-02-28] MEDS: Carvedilol 25 MG Tablet 50 MG PO (08:45)
[2020-02-28] MEDS: Pantoprazole Sodium 40 MG Tablet PO ×2 (08:46→22:01)
[2020-02-28] MEDS: Nystatin Powder 15gm Bottle 1 APPLIC TOPICAL (08:48)
[2020-02-28] MEDS: Bisacodyl 10 MG Suppository RECTAL (08:48)
[2020-02-28] MEDS: Acetaminophen 500 MG Tablet 1000 MG PO ×2 (08:52→17:58)
[2020-02-28 10:00] VITALS: PULSE 72; RESP 16; O2SAT 94
--- NOTE | 2020-02-28 11:59 | NURSING ---
wound photo: right medial ankle/foot
[2020-02-28] MEDS: SMZ/TPM Suspension 40 ML PO (13:54)
[2020-02-28] MEDS: Mirabegron 25 MG TAB.ER.24H PO (13:54)
[2020-02-28 14:14] VITALS: BP 97/68; PULSE 81; RESP 14; TEMP 36.6; O2SAT 95
--- NOTE | 2020-02-28 14:24 | CASEMGMT ---
Social Work Scheduled w/c transport with [facility] at 11 am. Notified [facility] and faxed DC info. Babita Crockett MSW D[employer]ITAL DEVELOPER
--- NOTE | 2020-02-28 15:34 | EKG12_ITS ---
Test Reason : QTC MONITORING Blood Pressure : / mmHG Vent. Rate : 079 BPM Atrial Rate : 079 BPM P-R Int : 184 ms QRS Dur : 162 ms QT Int : 442 ms P-R-T Axes : 060 -46 106 degrees QTc Int : 506 ms Normal sinus rhythm Left axis deviation Left bundle branch block Abnormal ECG When compared with ECG of 12-JAN-2020 18:12, No significant change was found Confirmed by JEANIE SAUNDERS, GIGI ([id number]), editor map SRINIVAS GREGG ([id number]) on 03/09/2020 12:58:58 P M Referred By: TEJINDER Confirmed By:ELIA WAER MD
--- NOTE | 2020-02-28 15:44 | PN.ID_ITS ---
Patient Problems: Active and Suspected Problems (Last Reviewed 01/13/20 @ 01:[address] Danny Menchaca MD) Debility (Acute) Fall (Acute) Subjective: Ongoing nausea, does not want to take any more bactrim after she leaves. No fever. C/o some thrush. - Physical Exam Vitals/I&O's: Vital Signs Temp Pulse Resp BP Pulse Ox 97.9 F 81 14 97/68 95 02/28/20 14:14 02/28/20 14:14 02/28/20 14:14 02/28/20 14:14 02/28/20 14:14 Oxygen Flow Rate (L/min) 2 Oxygen Delivery Method Room Air Weight: 88.224 kg Body Mass Index (BMI) 39.5 Intake and Output for Last 24 Hours 02/26/20 02/27/20 02/28/20 23:59 23:59 23:59 Intake Total 440 / 440 560 / 560 100 / 100 Balance 440 / 440 560 / 560 100 / 100 General: Alert, Cooperative, No apparent distress Lungs: Clear to auscultation, Normal air movement Cardiovascular: Regular rate, Regular Rhythm Abdomen: Soft, Non Tender, Non-Distended Skin: No rashes, Ulcer/ Wound - leg wrapped Current Medications Acetaminophen (Tylenol) 1,000 mg PO Q8 PRN PRN Reason: Pain Score 1-3/10 Last Admin: 02/28/20 08:52 Dose: 1,000 mg Documented by: Al Hydroxide/Mg Hydroxide (Mylanta Ii) 30 ml PO Q6H PRN PRN PRN Reason: INDIGESTION Last Admin: 02/04/20 15:35 Dose: 30 ml Documented by: [facility] Last Admin: 02/28/20 08:43 Dose: 81 mg Documented by: Atorvastatin Calcium (Lipitor) 40 mg PO QHS [facility] Last Admin: 02/27/20 21:07 Dose: 40 mg Documented by: Bisacodyl (Dulcolax) 10 mg RECTAL DAILY PRN PRN Reason: Constipation Last Admin: 02/28/20 08:48 Dose: 10 mg Documented by: Calamine/Phenol (Calmoseptine Ointment) 1 applic TOPICAL 0800,1800 [facility]; Protocol Last Admin: 02/28/20 08:42 Dose: Not Given Documented by: Calcium Carbonate (Tums) 500 mg PO Q6H PRN PRN PRN Reason: INDIGESTION Carvedilol (Coreg) 50 mg PO BREAKFAST [facility] Last Admin: 02/28/20 08:45 Dose: 50 mg Documented by: Carvedilol (Coreg) 25 mg PO QHS [facility] Last Admin: 02/27/20 21:04 Dose: 25 mg Documented by: Enoxaparin Sodium (Lovenox) 40 mg SC DAILY@0800 [facility] Last Admin: 02/28/20 08:43 Dose: 40 mg Documented by: Escitalopram Oxalate (Lexapro) 20 mg PO DAILY@0800 [facility] Last Admin: 02/28/20 08:44 Dose: 20 mg Documented by: Heparin Sodium (Beef Lung) () 50 units IV UD PRN PRN Reason: PICC Line Heparin Flush Last Admin: 02/25/20 09:00 Dose: 50 units Documented by: Cefepime HCl 2 gm/ Sodium (Chloride) 100 mls @ 200 mls/hr IV Q12 [facility] Stop: 02/29/20 18:01 Last Infusion: 02/28/20 07:28 Dose: Infused Documented by: Lactobacillus Acidophilus (Acidophilus) 1 tablet PO 799,1999 [facility] Last Admin: 02/28/20 08:46 Dose: 1 tablet Documented by: Lidocaine/Diphenhydr/Alum/Mg/Simeth () 15 ml PO Q3H PRN PRN PRN Reason: sore mouth Melatonin (Melatonin) 10 mg PO QHS [facility] Last Admin: 02/27/20 21:07 Dose: Not Given Documented by: Mirabegron (Myrbetriq) 25 mg PO DAILY@1400 [facility] Last Admin: 02/28/20 13:54 Dose: 25 mg Documented by: Nystatin (Mycostatin Powder) 1 applic TOPICAL 08,2199 [facility]; Protocol Last Admin: 02/28/20 08:48 Dose: 1 applicatio Documented by: Nystatin (Nystatin) 500,000 unit PO 4X/DAY [facility] Oxycodone HCl (Oxyir) 5 mg PO Q4H PRN PRN PRN Reason: Pain Score 4-10/10 Last Admin: 02/28/20 06:39 Dose: 5 mg Documented by: Pantoprazole Sodium (Protonix) 40 mg PO 799,1999 [facility] Last Admin: 02/28/20 08:46 Dose: 40 mg Documented by: Polyethylene Glycol (Miralax) 17 gm PO DAILY@08 [facility] Last Admin: 02/28/20 08:47 Dose: Not Given Documented by: Promethazine HCl (Phenergan) 12.5 mg IV Q4H PRN PRN PRN Reason: NAUSEA/VOMITING Last Admin: 02/21/20 08:32 Dose: 12.5 mg Documented by: Senna/Docusate Sodium (Senokot-S, Precious-Colace) 2 tablet PO [facility] Last Admin: 02/28/20 08:48 Dose: Not Given Documented by: Sodium Chloride () 10 - 40 ml IV UD PRN PRN Reason: Open End PICC Flush Last Admin: 02/27/20 21:08 Dose: 20 ml Documented by: Sodium Chloride (0.9% Nacl (Sterile) Posiflush) 10 - 40 ml IV UD PRN PRN Reason: Port access or dressing change Sodium Chloride () 250 ml IV 15 PRN PRN Reason: SALINE FLUSH Last Admin: 02/26/20 06:10 Dose: 250 ml Documented by: Theophylline (Tam-Dur) 300 mg PO 799,1999 [facility] Last Admin: 02/28/20 08:46 Dose: 300 mg Documented by: Medical Necessity - Tobacco Use Smoking Status: Former smoker Tobacco Use: Non-smoker Route of nutrition/ use of supplements: [] Nutritional Intake: [] IV Site: [] Cornejo Catheter: [] - Assessment/Plan Antibiotics: [] Assessment/Plan: [] Active and Suspected Problems (Last Reviewed 01/13/20 @ 01:[address] Danny Menchaca MD) Debility (Acute) Fall (Acute) R ankle open fracture now s/p external fixation 01/12/[address] Cortez. Surg cx with enterobacter. Wound cx the following day with different enterobacter and stenotrophomonas. Has been on cefepime and bactrim. Picc in place, plan on 6 weeks iv abx at discharge, stop date 02/29/20. ORIF done 01/18/20. Will need long course of oral suppression with abx after IV course is completed due to suspicion for infection in any hardware placed during ORIF. She refuses to take any more bactrim after she leaves. Likely cannot do levaquin due to h/o prolonged qtc; will get ekg now. Otherwise, abx options are limited for oral therapy; could consider minocycline but susceptibilities are not currently available for her enterobacter. Will start nystatin due to complaints of thrush. Will follow
[2020-02-28] MEDS: NYSTATIN 500,000 UNIT/5 ML UDC 500000 UNIT PO ×2 (17:49→22:02)
[2020-02-28] MEDS: 0.9% Saline Lock 10 ML Syringe IV (21:59)
[2020-02-28] MEDS: Carvedilol 25 MG Tablet PO (22:01)
[2020-02-28] MEDS: Atorvastatin Calcium 40 MG Tablet PO (22:01)
[2020-02-29] MEDS: oxyCODONE 5 MG Tablet PO (04:21)
[2020-02-29] MEDS: NYSTATIN 500,000 UNIT/5 ML UDC 500000 UNIT PO ×4 (04:33→20:10)
[2020-02-29 04:37] VITALS: BP 134/88; PULSE 83; RESP 18; TEMP 36.4; O2SAT 96
[2020-02-29 06:48] VITALS: O2SAT 91
[2020-02-29] MEDS: Pantoprazole Sodium 40 MG Tablet PO ×2 (08:56→20:09)
[2020-02-29] MEDS: Escitalopram Oxalate 20 MG Tablet PO (08:57)
[2020-02-29] MEDS: Carvedilol 25 MG Tablet 50 MG PO (08:57)
[2020-02-29] MEDS: Aspirin E.C. 81 MG Tablet PO (08:57)
[2020-02-29] MEDS: Enoxaparin 40 MG/0.4 ML Syringe SC (08:58)
[2020-02-29 09:04] VITALS: BP 139/88; PULSE 84
--- NOTE | 2020-02-29 09:17 | NURSING ---
PT STATED TO THIS NURSE THAT SHE HAD A BM ON 02/28/20. DOCUMENTED!
--- NOTE | 2020-02-29 09:58 | PCM.PN.ID ---
Patient Problems: Active and Suspected Problems (Last Reviewed 01/13/20 @ 01:[address] Danny Menchaca MD) Debility (Acute) Fall (Acute) Subjective: Feeling better, less nausea. No fever. - Physical Exam Vitals/I&O's: Vital Signs Temp Pulse Resp BP Pulse Ox 97.6 F L 84 18 139/88 H 91 02/29/20 04:37 02/29/20 09:04 02/29/20 04:37 02/29/20 09:04 02/29/20 06:48 Oxygen Flow Rate (L/min) 2 Oxygen Delivery Method Room Air Weight: 88.224 kg Body Mass Index (BMI) 39.5 Intake and Output for Last 24 Hours 02/27/20 02/28/20 02/29/20 23:59 23:59 23:59 Intake Total 560 / 560 200 / 200 100 / 100 Balance 560 / 560 200 / 200 100 / 100 General: Alert, Cooperative, No apparent distress Lungs: Clear to auscultation, Normal air movement Cardiovascular: Regular rate, Regular Rhythm Abdomen: Soft, Non Tender, Non-Distended Skin: No rashes Current Medications Acetaminophen (Tylenol) 1,000 mg PO Q8 PRN PRN Reason: Pain Score 1-3/10 Last Admin: 02/28/20 17:58 Dose: 1,000 mg Documented by: Al Hydroxide/Mg Hydroxide (Mylanta Ii) 30 ml PO Q6H PRN PRN PRN Reason: INDIGESTION Last Admin: 02/04/20 15:35 Dose: 30 ml Documented by: [facility]) [facility] Last Admin: 02/29/20 08:57 Dose: 81 mg Documented by: Atorvastatin Calcium (Lipitor) 40 mg PO QHS [facility] Last Admin: 02/28/20 22:01 Dose: 40 mg Documented by: Bisacodyl (Dulcolax) 10 mg RECTAL DAILY PRN PRN Reason: Constipation Last Admin: 02/28/20 08:48 Dose: 10 mg Documented by: Calamine/Phenol (Calmoseptine Ointment) 1 applic TOPICAL 0800,1800 [facility]; Protocol Last Admin: 02/29/20 08:54 Dose: Not Given Documented by: Calcium Carbonate (Tums) 500 mg PO Q6H PRN PRN PRN Reason: INDIGESTION Carvedilol (Coreg) 50 mg PO BREAKFAST [facility] Last Admin: 02/29/20 08:57 Dose: 50 mg Documented by: Carvedilol (Coreg) 25 mg PO QHS [facility] Last Admin: 02/28/20 22:01 Dose: 25 mg Documented by: Enoxaparin Sodium (Lovenox) 40 mg SC DAILY@0800 [facility] Last Admin: 02/29/20 08:58 Dose: 40 mg Documented by: Escitalopram Oxalate (Lexapro) 20 mg PO DAILY@0800 [facility] Last Admin: 02/29/20 08:57 Dose: 20 mg Documented by: Heparin Sodium (Beef Lung) () 50 units IV UD PRN PRN Reason: PICC Line Heparin Flush Last Admin: 02/25/20 09:00 Dose: 50 units Documented by: Lactobacillus Acidophilus (Acidophilus) 1 tablet PO 799,1999 [facility] Last Admin: 02/29/20 08:57 Dose: 1 tablet Documented by: Lidocaine/Diphenhydr/Alum/Mg/Simeth () 15 ml PO Q3H PRN PRN PRN Reason: sore mouth Melatonin (Melatonin) 10 mg PO QHS [facility] Last Admin: 02/28/20 22:01 Dose: Not Given Documented by: Mirabegron (Myrbetriq) 25 mg PO DAILY@1400 [facility] Last Admin: 02/28/20 13:54 Dose: 25 mg Documented by: Nystatin (Mycostatin Powder) 1 applic TOPICAL 0800,2199 [facility]; Protocol Last Admin: 02/29/20 08:54 Dose: Not Given Documented by: Nystatin (Nystatin) 500,000 unit PO 4X/DAY [facility] Last Admin: 02/29/20 04:33 Dose: 500,000 unit Documented by: Oxycodone HCl (Oxyir) 10 mg PO Q4H PRN PRN PRN Reason: Pain Score 4-10/10 Pantoprazole Sodium (Protonix) 40 mg PO [facility] Last Admin: 02/29/20 08:56 Dose: 40 mg Documented by: Polyethylene Glycol (Miralax) 17 gm PO DAILY@0800 [facility] Last Admin: 02/29/20 08:54 Dose: Not Given Documented by: Promethazine HCl (Phenergan) 12.5 mg IV Q4H PRN PRN PRN Reason: NAUSEA/VOMITING Last Admin: 02/21/20 08:32 Dose: 12.5 mg Documented by: Senna/Docusate Sodium (Senokot-S, Precious-Colace) 2 tablet PO [facility] Last Admin: 02/29/20 08:55 Dose: Not Given Documented by: Sodium Chloride () 10 - 40 ml IV UD PRN PRN Reason: Open End PICC Flush Last Admin: 02/28/20 21:59 Dose: 20 ml Documented by: Sodium Chloride (0.9% Nacl (Sterile) Posiflush) 10 - 40 ml IV UD PRN PRN Reason: Port access or dressing change Sodium Chloride () 250 ml IV 15 PRN PRN Reason: SALINE FLUSH Last Admin: 02/26/20 06:10 Dose: 250 ml Documented by: Theophylline (Tam-Dur) 300 mg PO [facility] Last Admin: 02/29/20 08:56 Dose: 300 mg Documented by: Trimethoprim/Sulfamethoxazole (Bactrim Ds) 1 tablet PO QHS [facility] Medical Necessity - Tobacco Use Smoking Status: Former smoker Tobacco Use: Non-smoker Route of nutrition/ use of supplements: [] Nutritional Intake: [] IV Site: [] Cornejo Catheter: [] - Assessment/Plan Antibiotics: [] Assessment/Plan: [] Active and Suspected Problems (Last Reviewed 01/13/20 @ 01:[address] Danny Menchaca MD) Debility (Acute) Fall (Acute) R ankle open fracture now s/p external fixation 01/12/[address] Cortez. Surg cx with enterobacter. Wound cx the following day with different enterobacter and stenotrophomonas. Has been on cefepime and bactrim. Picc in place, plan on 6 weeks iv abx at discharge, stop date 02/29/20. ORIF done 01/18/20. Will need long course of oral suppression with abx after IV course is completed due to suspicion for infection in any hardware placed during ORIF. EKG shows qtc over 500, so would like to avoid levaquin. Discussed with her, she is agreeable to try bactrim DS 1 tab qhs for long-term suppression. Wrote rx. Ok for picc removal. ID followup in 3 weeks. Will follow
[2020-02-29] MEDS: Mirabegron 25 MG TAB.ER.24H PO (14:27)
[2020-02-29] MEDS: oxyCODONE 5 MG Tablet 10 MG PO ×2 (14:27→20:15)
[2020-02-29 15:03] VITALS: BP 98/60; PULSE 88; RESP 16; TEMP 36.6; O2SAT 94
[2020-02-29] MEDS: 0.9% Saline Lock 10 ML Syringe IV (16:13)
--- NOTE | 2020-02-29 16:24 | NURSING ---
PT STATED THERE WAS NO ONE SHE WANTED UPDATED.
[2020-02-29] MEDS: MELATONIN 10 MG TABLET PO (20:08)
[2020-02-29] MEDS: Atorvastatin Calcium 40 MG Tablet PO (20:08)
[2020-02-29] MEDS: Smz/Tmp Ds Tablet 1 TABLET PO (20:09)
[2020-02-29] MEDS: Carvedilol 25 MG Tablet PO (20:10)
[2020-02-29 22:00] VITALS: PULSE 90; RESP 18; O2SAT 95
--- NOTE | 2020-03-01 07:39 | DCINST_ITS ---
Discharge Diet: No Restrictions Weight Bearing Status: No weight bearing - Right lower extremity., - - Keep right heel offloaded at well. Keep extremity elevated above heart level: Operative Extremity, Right Leg Call your doctor if you observe: Fever of 101 or Higher, Inability to urinate, Inability to have a bowel movement, Shortness of breath, Chest pain, Uncontrolled pain Cleanse incision/area with: - - Dressing right foot/ankle: Change every other day. Removed dressing. Cleanse pin sites with 70% Isopropyl alcohol. Cleanse medial ankle wound site with normal saline solultion and apply aquacel Ag to wound site. Apply gauze, kerlix dressing. Apply 2 abd pads to posterior heel for padding. Apply webril/cast padding to the foot, ankle and leg, then re-apply the posterior splint and secure in place with [place] bandages. Change every other day, was last changed 03/01/2020. Allergies/Adverse Reactions: Allergies amlodipine [From Norvasc] Allergy (Unknown, Verified 01/12/20 17:56) swelling codeine Allergy (Unknown, Verified 01/12/20 17:56) rash hydrocodone Allergy (Unknown, Verified 01/12/20 17:56) rash memantine [From Namenda] Allergy (Unknown, Verified 01/12/20 17:56) mental fog confusion, foggy thinking Medications to take at Discharge aspirin 81 mg tablet,delayed release 81 mg PO DAILY 07/09/19 omeprazole 40 mg capsule,delayed release 40 mg PO DAILY #90 cap 07/23/19 mirabegron 25 mg tablet,extended release 24 hr 25 mg PO DAILY 12/02/19 carvedilol 25 mg tablet 50 mg PO BREAKFAST tab 01/06/20 Carvedilol [Coreg] 25 mg PO QHS 01/12/20 Acetaminophen [Tylenol] 1,000 mg PO Q8H 01/19/20 Cholecalciferol (VIT D3) [Vitamin D3] 5,000 unit PO DAILY 01/19/20 Enoxaparin [Lovenox] 40 mg SUBCUT DAILY 01/19/20 Escitalopram Oxalate 20 mg PO DAILY 01/19/20 Menthol/Lanolin/Calamine/Znox [Calmoseptine Ointment] 1 applic TOPICAL BID 01/19/20 Polyethylene Glycol 3350 [Miralax] 17 gm PO DAILY PRN PRN packet 01/19/20 Rosuvastatin Calcium 20 mg PO QHS 01/19/20 Enoxaparin [Lovenox] 40 mg SUBCUT DAILY@0800 syringe 02/24/20 Lactobacillus Acidophilus [Acidophilus] 1 tab PO 0800,1999 tab 02/24/20 Melatonin 10 mg PO QHS tab 02/24/20 Nystatin Powder [Mycostatin Powder] 1 applic TOPICAL 0800,2200 bottle 02/24/20 Senna/Docusate Sodium [Senokot-S] 2 tab PO 0800,1999 tab 02/24/20 Theophylline [Tam-Dur] 300 mg PO 0800,1999 tab 02/24/20 Smz/Tmp Ds [Bactrim Ds] 1 tab PO QHS #90 tab 02/29/20 Primary Care Physician: Roberto Cano MD [Primary Care Provider] - Please follow up with your Primary Care Physician in: 2 weeks. Test Results: Test results from this visit will be discussed in further detail at your follow- up appointment, if applicable. Please Follow Up With: Vandana Cortez DPM When: 1 week Please Follow Up With: Roberto Cano MD When: 2 weeks Proposed Discharge Date: 03/01/20
--- NOTE | 2020-03-01 07:42 | PN_ITS ---
Patient Problems: Active and Suspected Problems (Last Reviewed 01/13/20 @ 01:[address] Danny Menchaca MD) Debility (Acute) Fall (Acute) Subjective: Patient was seen this morning for follow up on right ankle ORIF. She relates to some discomfort to the back of the heel. No other complaints. - Physical Exam Vitals/I&O's: Vital Signs Temp Pulse Resp BP Pulse Ox 97.8 F 90 18 98/60 95 02/29/20 15:03 02/29/20 22:00 02/29/20 22:00 02/29/20 15:03 02/29/20 22:00 Oxygen Flow Rate (L/min) 2 Oxygen Delivery Method Room Air Weight: 86.364 kg Body Mass Index (BMI) 39.5 Intake and Output for Last 24 Hours 02/28/20 02/29/20 03/01/20 23:59 23:59 23:59 Intake Total 200 / 200 340 / 340 Balance 200 / 200 340 / 340 General: Alert, Oriented x3, Cooperative, No apparent distress Extremities: No clubbing, No cyanosis, Capillary Refill Less than 3 Seconds, No Calf Tenderness, Peripheral Pulses Normal, - - Right ankle with medial pins in place, no evidence of complication, they are intact, there is dry eschar to the medial ankle from open wound site which is healing, no cellulitis, no drainage, no fluctuance, no crepitus, no evidence of active infection - sites healing. Very minimal to no edema to the foot/ankle, no leg edema, calf is soft and supple, senation intact to the foot/ankle, and muscle strength intact as well. Skin: No rashes Psych/Mental Status: Normal Affect, Appropriate, Alert and oriented to time, place, person, mood and affect Current Medications Acetaminophen (Tylenol) 1,000 mg PO Q8 PRN PRN Reason: Pain Score 1-3/10 Last Admin: 02/28/20 17:58 Dose: 1,000 mg Documented by: Al Hydroxide/Mg Hydroxide (Mylanta Ii) 30 ml PO Q6H PRN PRN PRN Reason: INDIGESTION Last Admin: 02/04/20 15:35 Dose: 30 ml Documented by: Aspirin (Ecotrin) 81 mg PO DAILYCM SAMINA Last Admin: 02/29/20 08:57 Dose: 81 mg Documented by: Atorvastatin Calcium (Lipitor) 40 mg PO QHS [facility] Last Admin: 02/29/20 20:08 Dose: 40 mg Documented by: Bisacodyl (Dulcolax) 10 mg RECTAL DAILY PRN PRN Reason: Constipation Last Admin: 02/28/20 08:48 Dose: 10 mg Documented by: Calamine/Phenol (Calmoseptine Ointment) 1 applic TOPICAL 0800,1800 [facility]; Protocol Last Admin: 02/29/20 16:55 Dose: Not Given Documented by: Calcium Carbonate (Tums) 500 mg PO Q6H PRN PRN PRN Reason: INDIGESTION Carvedilol (Coreg) 50 mg PO BREAKFAST [facility] Last Admin: 02/29/20 08:57 Dose: 50 mg Documented by: Carvedilol (Coreg) 25 mg PO QHS [facility] Last Admin: 02/29/20 20:10 Dose: 25 mg Documented by: Enoxaparin Sodium (Lovenox) 40 mg SC DAILY@0800 [facility] Last Admin: 02/29/20 08:58 Dose: 40 mg Documented by: Escitalopram Oxalate (Lexapro) 20 mg PO DAILY@0800 [facility] Last Admin: 02/29/20 08:57 Dose: 20 mg Documented by: Heparin Sodium (Beef Lung) () 50 units IV UD PRN PRN Reason: PICC Line Heparin Flush Last Admin: 02/25/20 09:00 Dose: 50 units Documented by: Lactobacillus Acidophilus (Acidophilus) 1 tablet PO 0800,2000 [facility] Last Admin: 02/29/20 20:09 Dose: 1 tablet Documented by: Lidocaine/Diphenhydr/Alum/Mg/Simeth () 15 ml PO Q3H PRN PRN PRN Reason: sore mouth Melatonin (Melatonin) 10 mg PO QHS [facility] Last Admin: 02/29/20 20:08 Dose: 10 mg Documented by: Mirabegron (Myrbetriq) 25 mg PO DAILY@1400 [facility] Last Admin: 02/29/20 14:27 Dose: 25 mg Documented by: Nystatin (Mycostatin Powder) 1 applic TOPICAL 0800,2200 [facility]; Protocol Last Admin: 02/29/20 20:10 Dose: Not Given Documented by: Nystatin (Nystatin) 500,000 unit PO 4X/DAY [facility] Last Admin: 03/01/20 05:47 Dose: Not Given Documented by: Oxycodone HCl (Oxyir) 10 mg PO Q4H PRN PRN PRN Reason: Pain Score 4-10/10 Last Admin: 02/29/20 20:15 Dose: 10 mg Documented by: Pantoprazole Sodium (Protonix) 40 mg PO 799,1999 [facility] Last Admin: 02/29/20 20:09 Dose: 40 mg Documented by: Polyethylene Glycol (Miralax) 17 gm PO DAILY@0800 [facility] Last Admin: 02/29/20 08:54 Dose: Not Given Documented by: Promethazine HCl (Phenergan) 12.5 mg IV Q4H PRN PRN PRN Reason: NAUSEA/VOMITING Last Admin: 02/21/20 08:32 Dose: 12.5 mg Documented by: Senna/Docusate Sodium (Senokot-S, Precious-Colace) 2 tablet PO 799,1999 [facility] Last Admin: 02/29/20 20:09 Dose: Not Given Documented by: Sodium Chloride () 10 - 40 ml IV UD PRN PRN Reason: Open End PICC Flush Last Admin: 02/29/20 16:13 Dose: 40 ml Documented by: Sodium Chloride (0.9% Nacl (Sterile) Posiflush) 10 - 40 ml IV UD PRN PRN Reason: Port access or dressing change Sodium Chloride () 250 ml IV 15 PRN PRN Reason: SALINE FLUSH Last Admin: 02/26/20 06:10 Dose: 250 ml Documented by: Theophylline (Tam-Dur) 300 mg PO 799,1999 [facility] Last Admin: 02/29/20 20:09 Dose: 300 mg Documented by: Trimethoprim/Sulfamethoxazole (Bactrim Ds) 1 tablet PO QHS [facility] Last Admin: 02/29/20 20:09 Dose: 1 tablet Documented by: Medical Necessity - Tobacco Use Smoking Status: Former smoker Tobacco Use: Non-smoker Assessment/Plan All Active Problems (Last Reviewed 01/13/20 @ 01:[address] Danny Menchaca MD) Type I or II open fracture dislocation of right ankle (Acute) Ankle osteomyelitis, right (Acute) Ulcer of ankle with necrosis of bone (Acute) Debility (Acute) Fall (Acute) Right ankle open fracture with dislocation s/p closed reduction with external fixation 01/12/20, and s/p removal of ex fix and ORIF on 01/18/2020 Right ankle osteomyelitis, suspected Ulceration right ankle with exposed necrotic bone s/p debridement, and closure Pain right ankle Re-evaluation performed. Sites healing, no evidence of active infection. No suspicion for infection or DVT at this time. Appears there is some pressure to the posterior heel from the splint. We will pad and offload the site. Continue with pain management. Culture grew Enterobacter aerogenes, Enterobacter cloacae and stenotrophomonas noted. Patient on antibiotic therapy per ID/Dr. Ballard. Dressing/splint was changed. Cleansed pin sites with 70% Isorpropyl alcohol, applied silvercel Ag with overlying gauze, kerlix dressing. Padded posterior heel with abd pads, applied webril cast padding and posterior splint w/ heel offloaded, secured with [place] bandages. Keep clean, dry and intact and change every other day. No weightbearing right foot, keep foot elevated. DVT Prophylaxis: Lovenox 40mg once daily, subcutaneous Patient to follow up with Dr. Cortez in 1 week, sooner if needed.
[2020-03-01] MEDS: Carvedilol 25 MG Tablet 50 MG PO (08:03)
[2020-03-01] MEDS: Aspirin E.C. 81 MG Tablet PO (08:04)
[2020-03-01] MEDS: Escitalopram Oxalate 20 MG Tablet PO (08:04)
[2020-03-01] MEDS: Enoxaparin 40 MG/0.4 ML Syringe SC (08:04)
[2020-03-01] MEDS: Pantoprazole Sodium 40 MG Tablet PO (08:05)
[2020-03-01] MEDS: Menthol/Lanolin/Calamine/Znox 113 GM Tube 1 APPLIC TOPICAL (08:11)
[2020-03-01] MEDS: Nystatin Powder 15gm Bottle 1 APPLIC TOPICAL (08:11)
--- NOTE | 2020-03-01 09:32 | NURSING ---
Informed pharmacy Patient is D/C today.
[2020-03-01 10:00] VITALS: PULSE 88; RESP 16; O2SAT 94
[2020-03-01] MEDS: oxyCODONE 5 MG Tablet 10 MG PO (10:02)
--- NOTE | 2020-03-01 10:57 | NURSING ---
report called to [facility] for patient discharge. spoke with DEANDRE Garcia.
== END 2020-03-01 11:00 | disposition intermediate care facility (04) | DRG 560 ==
PROVIDERS: Admitting Provider Family Medicine Geriatric Medicine; PCP Internal Medicine; Visit Provider Family Medicine Geriatric Medicine
DX: S82.891E Other fracture of right lower leg, subsequent encounter for open fracture type I or II with routine healing (principal); J96.10 Chronic respiratory failure, unspecified whether with hypoxia or hypercapnia; M86.171 Other acute osteomyelitis, right ankle and foot; W19.XXXD Unspecified fall, subsequent encounter; K21.9 Gastro-esophageal reflux disease without esophagitis; Z23 Encounter for immunization; J44.9 Chronic obstructive pulmonary disease, unspecified; F32.9 Major depressive disorder, single episode, unspecified; E55.9 Vitamin D deficiency, unspecified; N18.3 Chronic kidney disease, stage 3 (moderate); I12.9 Hypertensive chronic kidney disease with stage 1 through stage 4 chronic kidney disease, or unspecified chronic kidney disease; G89.29 Other chronic pain; E78.2 Mixed hyperlipidemia; M41.9 Scoliosis, unspecified; N32.81 Overactive bladder; Z87.891 Personal history of nicotine dependence; E66.01 Morbid (severe) obesity due to excess calories; Z68.39 Body mass index [BMI] 39.0-39.9, adult; B35.4 Tinea corporis; S46.011A Strain of muscle(s) and tendon(s) of the rotator cuff of right shoulder, initial encounter; X58.XXXA Exposure to other specified factors, initial encounter; Y93.9 Activity, unspecified; Y92.129 Unspecified place in nursing home as the place of occurrence of the external cause
CPT/HCPCS: 36415; 71046; 73030; 73610; 74018; 80048; 85025; 85652; 87635; 92507; 92523; 93005; 94799; 97110; 97116; 97162; 97166; 97530; 97535; 97542; 97802; G0008; G0009; J2997; J7030; J7050; 90670; 90686; A4216; U0003

== ENCOUNTER → 2020-05-30 14:04 | Outpatient (CLI) | payer MEDICARE, SELFPAY ==
[2020-01-06 14:07] VITALS: BMI 37.3
[2020-01-19 16:13] VITALS: BMI 39.5
--- NOTE | 2020-05-30 14:05 | ECHOD_ITS ---
Reason For Study: LBBB Procedure This was a 2D Doppler, Color Flow transthoracic echocardiogram. The study was technically difficult. Exam performed in department. Left Ventricle Normal LV size. Left ventricular systolic function is normal. The estimated ejection fraction is 55 %. Septal motion consistent with IVCD. No evidence for diastolic dysfunction. No regional wall motion abnormalities noted. Right Ventricle Normal RV size. Normal systolic function. Atria Normal left atrium. Normal right atrium. No doppler evidence for ASD. Mitral Valve There is no mitral annular calcification. Normal mitral valve. Trivial mitral valve insufficiency. Tricuspid Valve Normal tricuspid valve. Trivial tricuspid valve insufficiency. Unable to estimate RV systolic pressure/pulmonary artery pressure due to technically difficult study. Aortic Valve Trisinus/trileaflet aortic valve. Normal aortic valve. Pulmonic Valve The pulmonic valve is not well visualized. Great Vessels Borderline enlarged aortic root. Pericardium/Pleural No pericardial effusion. Epicardial fat. MMode/2D Measurements & Calculations LVIDd: 4.4 cm IVSd: 1.3 cm Ao root diam: 3.7 cm LVIDs: 2.8 cm LVPWd: 1.2 cm RVDd: 3.1 cm FS: 36.8 % LAV(MOD-bp): 27.0 ml LA A4 area: 10.6 cm2 LA dimension(2D): 3.5 cm LAV(MOD-bp) Indexed: 14.1 ml/m2 LAV(MOD-sp2): 28.8 ml LAV(MOD-sp4): 23.9 ml RA A4 area: 10.5 cm2 Doppler Measurements & Calculations MV E max paresh: 39.2 cm/sec Lat Peak E' Paresh: 5.6 cm/sec Med Peak E' Paresh: 7.0 cm/sec MV A max paresh: 86.9 cm/sec E/E' lat: 7.0 E/E' med: 5.6 MV E/A: 0.45 Ao V2 max: 148.2 cm/sec LV V1 max: 107.8 cm/sec PA V2 max: 103.7 cm/sec Ao max P.8 mmHg LV V1 max P.6 mmHg Interpretation Summary The study was technically difficult. Left ventricular systolic function is normal. The estimated ejection fraction is 55 %. Septal motion consistent with IVCD. Trivial mitral valve insufficiency. Trivial tricuspid valve insufficiency. Borderline enlarged aortic root. Epicardial fat. Unable to estimate RV systolic pressure/pulmonary artery pressure due to technically difficult study. No evidence for diastolic dysfunction. Ordering Physician: Sterling Orozco Referring Physician: Roberto Cano Performed By: Ketty Kessler, RDCS, RVT
== END ==
PROVIDERS: PCP Internal Medicine; Referring Provider Internal Medicine Cardiovascular Disease; Visit Provider Internal Medicine Cardiovascular Disease
DX: I44.7 Left bundle-branch block, unspecified (principal); I71.2 Thoracic aortic aneurysm, without rupture; I42.9 Cardiomyopathy, unspecified; E78.2 Mixed hyperlipidemia; I10 Essential (primary) hypertension
CPT/HCPCS: 93306

== ENCOUNTER → 2020-06-06 12:29 | Outpatient (CLI) | payer MEDICARE, SELFPAY ==
[2020-06-06 15:03] LABS: Hematocrit 43.6 % (37-47); Hemoglobin 13.5 g/dL (12.0-15.0); Mean Corpuscular Hgb 31.5 pg (27.0-32.0); Mean Corpuscular Volume 101.9 fL (81-99); Mean Platelet Vol. 10.8 fl (6.2-12.0); Platelet Count 334 K/mm3 (150-450); RBC Distribution Width CV 14.3 % (11.6-14.6); RBC Distribution Width SD 53.4 fl (35.1-43.9); Red Blood Count 4.28 M/mm3 (4.2-5.4); White Blood Count 12.6 K/mm3 (4.4-11.0)
[2020-06-06 15:12] LABS: Anion Gap 5 (5-15); BUN 18 mg/dL (7-18); Calcium,Total 9.7 mg/dL (8.5-10.1); Chloride 103 mmol/L (98-107); EST Glomerular Filtration Rate 58 mL/min (>60); Est Glom Filt Rate - Afr Amer 70 mL/min (>60); Glucose 108 mg/dL (74-106); Potassium 3.7 mmol/L (3.5-5.1); Sodium Level 139 mmol/L (136-145)
== END ==
PROVIDERS: PCP Internal Medicine; Referring Provider Urology; Visit Provider Urology
DX: R42 Dizziness and giddiness (principal); Z91.81 History of falling
CPT/HCPCS: 36415; 80048; 85027

== ENCOUNTER → 2020-09-21 20:21 | Outpatient (CLI) | payer MEDICARE, SELFPAY ==
[2020-09-05 14:21] VITALS: BMI 33.6
[2020-09-18 14:51] VITALS: BMI 35.6
== END ==
PROVIDERS: PCP Internal Medicine; Visit Provider Internal Medicine
DX: G47.34 Idiopathic sleep related nonobstructive alveolar hypoventilation (principal)
CPT/HCPCS: 95810

== ENCOUNTER 2020-10-17 14:06 | Outpatient (RCR) | payer MEDICARE, SELFPAY ==
[2020-07-06 14:29] VITALS: BMI 33.6
[2020-09-25 15:02] VITALS: BMI 36.2
--- NOTE | 2020-10-25 16:26 | HP.PTEVAL_ITS ---
Patient's Visit Information GAGAN MCCLELLAND is a 69 year old F referred to Physical Therapy by BUDDY PEGUERO with a diagnosis of R Reverse Total Shoulder. Date of Evaluation: 10/17/20 Physical Therapist: Antonio Garcia DPT - Visit Plan Frequency: 2x /Week Duration: 4-6 Weeks Plan: Have the pt. continue to increase her PROM in all directions and decrease her pain. After 2 weeks post op, the pt. can begin using the mirna device to work on increasing her ROM, as well as using a cane to participate in AAROM. Once the pts. pain is decreased, start strengthening the shoulder and scapular musculature by gentle isometrics and progressing strength from there. The pt. reports that she does not prefer to be in the supine position due to her becoming SOB, so have the pt. either sitting or semi-sitting with all activities, unless she states otherwise. Note that the pt. states she has balance issues. - Subjective The pt. is a s/p R reverse total shoulder surgery and presents to the clinic without a sling and ambulating with a walker. The pt. reports that in January 2020, she fell in the shower which resulted in a compound fracture in her right foot and was in the hospital for three months. The pt. was relying on her upper extremities while in the hospital, which then resulted in her injuring her Right shoulder. She also states that she has had balance issues for some time and has used a walker for awhile now. The pt. reports that her pain is an 8/10 all hours of the day and she is unable to get pain relief because she is not on pain medications. She did just get prescribed with ibuprofen earlier this morning and is hoping that helps decrease her pain. The pt. has tried icing, but states that does not work. At night, the pt. is able to sleep on her left side without much pain. She states that her doctor told her that she does not need to use the shoulder sling, unless she would like to and states that she is able to do all her ADL's such as dressing, showering, cooking, and doing laundry at home on her own, but it does cause pain. At home the pt. is using a stress ball to keep the wrist and hand moving, but has not done anything for the shoulder. - Pain R Shoulder Pain Intensity (Out of 10): 8 Pain Intensity Range: Unrated - Objective Posture: Slight forward head and rounded shoulders. Observation: Excessive bruising near incision site, anterior, posterior, and lateral R shoulder and down the pts. R bicep. The pts. incision site looks like it is healing well and will get the bandage removed on FridayOctober 23 when she has a follow up visit with her Dr. PROM in sitting: Limited flexion and abduction PROM due to pain in the anterior aspect of the pts. shoulder. The pt. reports that she feels tightn ess and the incision stretching, which is causing her pain. PROM about 45deg in both flexion and abduction. The pt. reported SOB if she was to lay down on her back. Palpation: TTP to anterior aspect of shoulder joint, near incision site, and along the R biceps muscle. Pt. is a s/p R reverse total shoulder pt. who presents to the clinic using a walker and without her shoulder in her sling. The pt. presents with limited motion, as well as tenderness along the R shoulder joint and incision site. The pt. is needing PT to increase her ROM and strength, and decrease her pain. - Goals Goal 1:: LTG: The pt. will be compliant and independent with her HEP. Goal Time Frame: 2-4 Weeks Goal 2:: LTG: The pt. will be able to increase her ROM by 50% in all directions, so she can reach into her top cupboards without pain. Goal Time Frame: 4-6 Weeks Goal 3:: LTG: The pt. will be able to walk a half mile with pain less than a 2/10 in her R shoulder. Goal Time Frame: 6-8 Weeks Goal 4:: LTG: The pt. will increase her general shoulder strength by 1-1.5 grades, so she will be able to tolerate carrying a light weighted object in her R hand. Goal Time Frame: 6-8 Weeks - Rehabilitation Potential Physical Therapy Diagnosis: Pt. is a 69 yo female who presents to the clinic s/p R reverse total shoulder surgery. The pt. exhibits limited shoulder ROM due to pain, muscle weakness in the shoulder, and excessive bruising around the shoulder joint, incision site and down the arm to her elbow. The pt. is needing PT to increase her ROM, strength, and decrease her pain. Rehabilitation Potential: Good - Anticipated Interventions Patient/Client Instruction: Educate patient on: Condition, Plan of Care For the Purpose of:: To decrease pain, To decrease swelling/inflammation, To increase ROM, To improve muscle performance and motor function, To improve ability to perform ADL's, To decrease soft tissue restriction, To increase flexibility/ROM, To improve endurance, To improve balance, To improve safety with gait, To assume or resume ADL's, To improve tolerance to ADL's Therapeutic Exercise to Include: Strength training, Endurance training, Balance training, Body mechanics, Postural training, Flexibilty training, Passive ROM, Active ROM, Scapular Strength/Stabilization For the Purpose of:: To decrease pain, To decrease swelling/inflammation, To increase ROM, To improve muscle performance and motor function, To improve ability to perform ADL's, To increase tolerance to activity/condition/position, To improve performance and independence with ADL's, To improve ability of physical actions for home/community/work/leisure, To improve health of tissue, To decrease soft tissue restriction, To increase flexibility/ROM, To improve endurance, To improve balance, To assume or resume ADL's, To prevent re-injury, To improve tolerance to ADL's Manual Therapy Techniques to Include: Mobilization, Passive ROM For the Purpose of:: To decrease pain, To decrease swelling/inflammation, To increase ROM, To improve muscle performance and motor function, To decrease soft tissue restriction, To increase flexibility/ROM TENS: Yes Cryotherapy (ice pack, ice massage): Yes Thermo therapy (hot pack): Yes Ultrasound (thermal/non thermal): Yes For the Purpose of:: To decrease pain, To decrease swelling/inflammation, To increase ROM, To improve nutrient delivery to tissue, To improve muscle performance and motor function, To improve ability to perform ADL's, To increase tolerance to activity/condition/position, To improve performance and independence with ADL's, To improve tolerance to ADL's Thank you for the opportunity to evaluate your patient. For Medicare and Medicare HMO plans, please review the plan of care and approve it. It will need to be FAXED BACK to us at [phone] for Medicare purposes. For Medicare only, by signing this I certify the plan of care. Please let me know if there are questions or concerns regarding this plan of care. Physician Signature: Date:
--- NOTE | 2020-11-13 17:51 | HP.PT.NRP ---
GAGAN MCCLELLAND was seen in my office for initial evaluation on 10/17/20. The following Plan of Care was established for this patient: Initial Frequency: 2x /Week Initial Duration: 4-6 Weeks Patient/Client Instruction: Educate patient on: Condition, Plan of Care For the Purpose of:: To decrease pain, To decrease swelling/inflammation, To increase ROM, To improve muscle performance and motor function, To improve ability to perform ADL's, To decrease soft tissue restriction, To increase flexibility/ROM, To improve endurance, To improve balance, To improve safety with gait, To assume or resume ADL's, To improve tolerance to ADL's Therapeutic Exercise to Include: Strength training, Endurance training, Balance training, Body mechanics, Postural training, Flexibilty training, Passive ROM, Active ROM, Scapular Strength/Stabilization For the Purpose of:: To decrease pain, To decrease swelling/inflammation, To increase ROM, To improve muscle performance and motor function, To improve ability to perform ADL's, To increase tolerance to activity/condition/position, To improve performance and independence with ADL's, To improve ability of physical actions for home/community/work/leisure, To improve health of tissue, To decrease soft tissue restriction, To increase flexibility/ROM, To improve endurance, To improve balance, To assume or resume ADL's, To prevent re-injury, To improve tolerance to ADL's Manual Therapy Techniques to Include: Mobilization, Passive ROM For the Purpose of:: To decrease pain, To decrease swelling/inflammation, To increase ROM, To improve muscle performance and motor function, To decrease soft tissue restriction, To increase flexibility/ROM TENS: Yes Cryotherapy (ice pack, ice massage): Yes Thermo therapy (hot pack): Yes Ultrasound (thermal/non thermal): Yes For the Purpose of:: To decrease pain, To decrease swelling/inflammation, To increase ROM, To improve nutrient delivery to tissue, To improve muscle performance and motor function, To improve ability to perform ADL's, To increase tolerance to activity/condition/position, To improve performance and independence with ADL's, To improve tolerance to ADL's This patient was last seen in our office 10/17/20. Pertinent comments regarding their Physical therapy will appear below: Pt. was seen for her initial evaluation for her reverse total shoulder. She canceled her new few appointments, then called to cancel the rest with reports she was doing great and did not require PT any more. I called the patient and left a message, but did not hear back from her. I did mention in the message about following up with her doctor. Pt. has not been seen in ~1 month and will be DC from PT at this point in time. At this point I will be discontinuing this patient from physical therapy. I would be happy to see this patient again in the future if found appropriate by the physician. Thank you! IZABELLA OrellanaT
== END 2020-10-17 19:00 | disposition home or self-care (01) ==
LOC: PT 14:06
PROVIDERS: PCP Internal Medicine
DX: M12.811 Other specific arthropathies, not elsewhere classified, right shoulder (principal)
CPT/HCPCS: 97161

== ENCOUNTER 2020-12-28 16:30 | Outpatient (RCR) | payer MEDICARE, SELFPAY ==
[2020-09-25 15:02] VITALS: BMI 36.2
--- NOTE | 2020-12-05 07:55 | HP.PTEVAL_ITS ---
Patient's Visit Information GAGAN MCCLELLAND is a 69 year old F referred to Physical Therapy by BUDDY JOGRE with a diagnosis of ROTATOR CUFF ARTHROPATHY. Date of Evaluation: 12/04/20 Physical Therapist: Floyd Acosta, PT, Cert MDT, [facility] - Visit Plan Frequency: 2x /Week Duration: 4 Weeks Plan: SEE PROTOCAL FOR TSR. PT INTERVETIONS FOR AAROM/AAROM ,AND SHOULDER STRENGTHENING - Subjective This 69 y/o female presents to physical therapy with reverse TSR on 10/11/[address] Jorge at [facility]. Patient was d/c next day no sling. Patient had PT one visit for exercises for ROM. Recently seen DR efren hodge recommended to resume PT. Patient will be S/P 8 weeks December 06. Patient sleeping okay at night . Denies parathesia/tingling . Patient has difficulty with ADL's for reaching [place] for example dishes ,unable to reach behind back . Patient use cane for balance. Patient each visit get x-rays looking good. Patient was hospitalized last Jan for compound fracture and received extensive Rehab. Patient goals to get stronger . Patient surgery impairs QOL and function,. VOCATION: retired. SOCAIL: RETIRED - Objective POSTURE: rounded shoulders head forward. INSCION: intact. NEURO: denies parathesia/tingling. PALAPTION: unremarkable. AROM SHOUDLER: flexion 125 degrees, abduction in scapation 130 degrees ,ER 80 degrees, IR pelvis. PROM SHOULDER : flexion 140 flexion ,abduction 145 in scaption. MMT: infraspinatous 3+/5,subscapularis 4/5,supraspinatous 3+/5, anterior/lateral 3+/5 - Goals Goal 1:: I with HEP Goal Time Frame: 4-6 Weeks Goal 2:: Improve AROM shoulder flexion 130 degrees ,abduction 140 degrees and IR L1 to improve function with ADL'S Goal Time Frame: 4-6 Weeks Goal 3:: Patient to improve strength of right shoulder deltoid 4-/5 to improve function with ADL'S and housework tasks Goal Time Frame: 4-6 Weeks Goal 4:: Patient to have no limitations for functional tasks above and ADL'S Goal Time Frame: 4-6 Weeks Goal 5:: Patient to improve quick dash by 5 points or> to improve function and QOL. Goal Time Frame: 4-6 Weeks - Rehabilitation Potential Physical Therapy Diagnosis: This patient underwent s/p reverse total shoulder replacement with decrease ROM ,strength which impairs function and ADL'S thus benefit from skilled PT. Rehabilitation Potential: Good - Anticipated Interventions Patient/Client Instruction: Educate patient on: Condition, Plan of Care For the Purpose of:: To decrease pain, To increase ROM, To improve muscle performance and motor function, To improve ability to perform ADL's, To improve ability of physical actions for home/community/work/leisure, To improve health of tissue, To decrease soft tissue restriction, To increase flexibility/ROM, To reduce risk of recurrence, To improve ability to perform tasks related to life management Therapeutic Exercise to Include: Strength training, Postural training, Passive ROM, Active ROM, Scapular Strength/Stabilization Comment: RIGHT SHOULDER For the Purpose of:: To decrease pain, To increase ROM, To improve muscle performance and motor function, To improve ability to perform ADL's, To increase tolerance to activity/condition/position, To improve performance and independence with ADL's, To improve health of tissue, To decrease soft tissue restriction, To increase flexibility/ROM, To improve health and function, To improve ability to perform tasks related to life management, To improve tolerance to ADL's Thank you for the opportunity to evaluate your patient. For Medicare and Medicare HMO plans, please review the plan of care and approve it. It will need to be FAXED BACK to us at [phone] for Medicare purposes. For Medicare only, by signing this I certify the plan of care. Please let me know if there are questions or concerns regarding this plan of care. Physician Signature: Date:
--- NOTE | 2021-03-05 11:11 | HP.PTDCSUM ---
It has been my pleasure to treat GAGAN MCCLELLAND referred by BUDDY PEGUERO, with the diagnosis of ROTATOR CUFF ARTHROPATHY for a total of 4 visit(s). Discharge Date: Please see the following information for a summary of their discharge status. Subjective: Doing good % Improvement: 50 Objective/Function: POSTURE: mild forward posture. AROM SHOULDER: flexion 140 degrees ,abd 120 degrees in scapation. MMT: anterior deltoid 3+/5 ,lateral 3/5 Goal 1:: I with HEP Goal 2:: Improve AROM shoulder flexion 130 degrees ,abduction 140 degrees and IR L1 to improve function with ADL'S Goal 3:: Patient to improve strength of right shoulder deltoid 4-/5 to improve function with ADL'S and housework tasks Goal 4:: Patient to have no limitations for functional tasks above and ADL'S Goal 5:: Patient to improve quick dash by 5 points or> to improve function and QOL. Plan: d/c to hep If there are questions or concerns regarding this patient's physical therapy, please feel free to call me at [phone]. Thank you for the referral of this patient. Sincerely, Floyd Acosta, PT, Cert MDT, OCS Balance/Gait/Functional tests - Balance/Special Test Scores Quick DASH Score: [phone]
== END 2020-12-28 19:00 | disposition home or self-care (01) ==
LOC: PT 16:30
PROVIDERS: PCP Internal Medicine
DX: M12.811 Other specific arthropathies, not elsewhere classified, right shoulder (principal)
CPT/HCPCS: 97110; 97162

== ENCOUNTER → 2021-03-27 15:28 | Outpatient (CLI) | payer MEDICARE, SELFPAY ==
[2021-03-27 16:48] LABS: Absolute Neutrophil Count 5.3 X10^3/uL (2.0-7.7); Basophil# 0.05 X10^3/uL; Basophil% 0.6 % (0-1); Eosinophil# 0.35 X10^3/uL; Eosinophils% 4.2 % (0-5); Hematocrit 43.2 % (37-47); Hemoglobin 13.4 g/dL (12.0-15.0); Lymphocyte % 20.4 % (19-41); Mean Corpuscular Hgb 30.5 pg (27.0-32.0); Mean Corpuscular Volume 98.4 fL (81-99); Mean Platelet Vol. 11.2 fl (6.2-12.0); Monocyte# 0.92 X10^3/uL; NRBC Flagged by Analyzer 0 % (0-5); Neutrophil # 5.28 X10^3/uL (2.7-7.7); Neutrophil % 63.4 % (47-70); Platelet Count 277 K/mm3 (150-450); RBC Distribution Width CV 13.6 % (11.6-14.6); Red Blood Count 4.39 M/mm3 (4.2-5.4); White Blood Count 8.3 K/mm3 (4.4-11.0)
[2021-03-27 18:21] LABS: Theophylline (Aminophylline) 14.9 ug/mL (10.0-20.0)
[2021-03-27 18:58] LABS: ALB/GLOB Ratio 0.9 RATIO (0.9-2.4); AST(SGOT) 12 U/L (15-37); Alanine Aminotransfer ALT/SGPT 14 U/L (13-56); Albumin, Serum 3.4 g/dL (3.2-5.0); Alkaline Phosphatase 92 U/L (45-117); Anion Gap 9 (5-15); BUN 21 mg/dL (7-18); BUN/Creat Ratio 20.2 RATIO (10-20); Calcium,Total 9.3 mg/dL (8.5-10.1); Chloride 107 mmol/L (98-107); Cholesterol 133 mg/dL (200); Creatinine, Serum 1.04 mg/dL (0.55-1.02); EST Glomerular Filtration Rate 55 mL/min (>60); Est Glom Filt Rate - Afr Amer 67 mL/min (>60); Globulin 3.6 g/dL (2.2-4.2); Glucose 92 mg/dL (74-106); High Density Lipoprotein 54 mg/dL; Potassium 4.1 mmol/L (3.5-5.1); Sodium Level 144 mmol/L (136-145); Thyroid Stim Hormone (TSH) 2.12 uIU/mL (0.358-3.74); Triglycerides 118 mg/dL; Very Low Density Lipoprotein 24 mg/dL (5-40)
== END ==
PROVIDERS: PCP Internal Medicine; Referring Provider Nurse Practitioner Family; Visit Provider Nurse Practitioner Family
DX: Z00.00 Encounter for general adult medical examination without abnormal findings (principal); E78.5 Hyperlipidemia, unspecified; I44.7 Left bundle-branch block, unspecified; I12.9 Hypertensive chronic kidney disease with stage 1 through stage 4 chronic kidney disease, or unspecified chronic kidney disease; N18.30 Chronic kidney disease, stage 3 unspecified; Z51.81 Encounter for therapeutic drug level monitoring; Z79.899 Other long term (current) drug therapy
CPT/HCPCS: 36415; 80053; 80061; 80198; 84443; 85025

== ENCOUNTER → 2021-10-04 | Outpatient (CLI) | payer MEDICARE, SELFPAY ==
[2021-10-04 15:51] LABS: Absolute Lymphocyte Count 1.93 X10^3/uL (0.83-4.51); Absolute Neutrophil Count 6.7 X10^3/uL (2.0-7.7); Basophil# 0.09 X10^3/uL; Basophil% 0.9 % (0-1); Eosinophil# 0.32 X10^3/uL; Eosinophils% 3.2 % (0-5); Hematocrit 46.3 % (37-47); Hemoglobin 14.3 g/dL (12.0-15.0); Lymphocyte # 1.93 X10^3/ul (0.83-4.51); Lymphocyte % 19.3 % (19-41); Mean Corp Hgb Conc 30.9 g/dL (32-36); Mean Corpuscular Hgb 30.6 pg (27.0-32.0); Mean Corpuscular Volume 99.1 fL (81-99); Mean Platelet Vol. 11.6 fl (6.2-12.0); Monocyte# 0.96 X10^3/uL; Monocyte% 9.6 % (0-10); NRBC Flagged by Analyzer 0 % (0-5); Neutrophil # 6.66 X10^3/uL (2.7-7.7); Neutrophil % 66.5 % (47-70); Platelet Count 310 K/mm3 (150-450); RBC Distribution Width CV 13.4 % (11.6-14.6); RBC Distribution Width SD 49.1 fl (35.1-43.9); Red Blood Count 4.67 M/mm3 (4.2-5.4)
[2021-10-04 16:30] LABS: Anion Gap 2 (5-15); BUN 13 mg/dL (7-18); BUN/Creat Ratio 12.9 RATIO (10-20); Calcium,Total 10.1 mg/dL (8.5-10.1); Chloride 110 mmol/L (98-107); Creatinine, Serum 1.01 mg/dL (0.55-1.02); EST Glomerular Filtration Rate 57 mL/min (>60); Est Glom Filt Rate - Afr Amer 69 mL/min (>60); Glucose 100 mg/dL (74-106); Potassium 3.9 mmol/L (3.5-5.1); Sodium Level 144 mmol/L (136-145)
== END | disposition home or self-care (01) ==
LOC: LAB 13:52
PROVIDERS: PCP Internal Medicine; Referring Provider Nurse Practitioner Gerontology; Visit Provider Nurse Practitioner Gerontology
DX: R53.83 Other fatigue (principal)
CPT/HCPCS: 36415; 80048; 84443; 85025

== ENCOUNTER → 2021-10-26 | Outpatient (CLI) | payer MEDICARE, SELFPAY ==
--- NOTE | 2021-10-26 12:14 | ECHOCS_ITS ---
Reason For Study: Thoracic Ao Aneurysm Procedure This was a 2D Doppler, Color Flow transthoracic echocardiogram. The study was technically difficult. Contrast injection was performed. Exam performed in department. Left Ventricle Normal LV size. Mild global left ventricular systolic dysfunction. The estimated ejection fraction is 45 %. Septal motion consistent with IVCD. No evidence for diastolic dysfunction. Right Ventricle Normal RV size. Normal systolic function. Atria Normal left atrium. Normal right atrium. No doppler evidence for ASD. Mitral Valve There is mild mitral annular calcification. Extension of the mitral annular calcification on the base of the posterior mitral valve leaflet. Trivial mitral valve insufficiency. Tricuspid Valve Normal tricuspid valve. Trivial tricuspid valve insufficiency. Right ventricular systolic pressure estimated to be 29 mmHg. Aortic Valve Trisinus/trileaflet aortic valve. Mild focal aortic valve calcification. Pulmonic Valve The pulmonic valve is not well visualized. Trivial pulmonic valve insufficiency. Great Vessels Mildly dilated ascending aorta. Pericardium/Pleural No pericardial effusion. Medication Diluted definity 5ml given slow IV push to enhance endocardial definition. MMode/2D Measurements & Calculations LVIDd: 4.3 cm IVSd: 1.3 cm Ao root diam: 4.0 cm LVIDs: 3.4 cm LVPWd: 1.3 cm RVDd: 3.5 cm FS: 20.6 % LAV(MOD-bp): 34.3 ml LVAd ap4: 31.0 cm2 SV(MOD-sp4): 35.1 ml LAV(MOD-bp) Indexed: 16.7 ml/m2 LVLd ap4: 7.9 cm LAV(MOD-sp2): 35.4 ml EDV(MOD-sp4): 102.2 ml LAV(MOD-sp4): 30.8 ml EDV(sp4-el): 103.1 ml LVAs ap4: 24.5 cm2 LVLs ap4: 7.3 cm ESV(MOD-sp4): 67.1 ml ESV(sp4-el): 69.4 ml EF(MOD-sp4): 34.4 % EF(sp4-el): 32.7 % SV(sp4-el): 33.7 ml LA A4 area: 13.0 cm2 LA dimension(2D): 3.4 cm RA A4 area: 11.2 cm2 Doppler Measurements & Calculations MV E max paresh: 33.2 cm/sec Lat Peak E' Paresh: 5.4 cm/sec Med Peak E' Paresh: 3.8 cm/sec MV A max paresh: 83.8 cm/sec E/E' lat: 6.1 E/E' med: 8.7 MV E/A: 0.40 Ao V2 max: 146.2 cm/sec LV V1 max: 91.3 cm/sec PA V2 max: 71.7 cm/sec Ao max P.6 mmHg LV V1 max P.3 mmHg Ao V2 mean: 103.4 cm/sec Ao mean P.7 mmHg Ao V2 VTI: 25.8 cm TR max paresh: 253.0 cm/sec TR max P.6 mmHg ECHO/Echo Complete W/ Contrast Interpretation Summary The study was technically difficult. Contrast injection was performed. Mild global left ventricular systolic dysfunction. The estimated ejection fraction is 45 %. Septal motion consistent with IVCD. There is mild mitral annular calcification. Extension of the mitral annular calcification on the base of the posterior mitr al valve leaflet. Trivial mitral valve insufficiency. Trivial tricuspid valve insufficiency. Mild focal aortic valve calcification. Trivial pulmonic valve insufficiency. Mildly dilated ascending aorta. Right ventricular systolic pressure estimated to be 29 mmHg. No evidence for diastolic dysfunction. Ordering Physician: Vandana Trinh Referring Physician: Roberto Cano Performed By: Jaycee De Anda, LESLEE, RVT
== END | disposition home or self-care (01) ==
LOC: CVS 12:06
PROVIDERS: PCP Internal Medicine; Visit Provider Nurse Practitioner Gerontology
DX: I71.2 Thoracic aortic aneurysm, without rupture (principal)
CPT/HCPCS: 93306; Q9957; A4216; C8929

== ENCOUNTER → 2021-11-20 | Outpatient (CLI) | payer MEDICARE, SELFPAY ==
--- NOTE | 2021-11-20 15:07 | BI_ITS ---
MAMMOGRAPHY - BILATERAL SCREENING REASON FOR EXAM: Female, 70 years old. Routine annual screening examination. PERTINENT HISTORY: Non-contributory. TECHNIQUE: Digital bilateral breast mike (3D mammographic acquisition) in the CC and MLO projections. 2-D mediolateral oblique (MLO) and craniocaudad (CC) views of both breasts were obtained. CAD: Full Field Digital Mammography with Computer Added Detection was performed. COMPARISON: No comparison mammograms available at this time. If any prior films become available, an addendum to this report can be generated. FINDINGS: Breast Composition: There are scattered areas of fibroglandular density. There are no dominant masses or suspicious calcifications. No other significant abnormalities are identified. BI/SCRN MAMM (CAD)W/MIKE BILAT IMPRESSION: Negative screening mammogram. Yearly followup mammogram recommended. (A) ASSESSMENT CATEGORY: BIRADS Category 1: Negative. A letter regarding these results will be sent to the patient by the facility within 30 days. Approximately 10% of breast cancers are not detected by mammography. A normal mammogram should not delay biopsy of a clinically suspicious abnormality. [id number] Electronically Signed: Mj Trevino MD at 15:21 EDT ,
--- NOTE | 2021-11-20 15:34 | BD_ITS ---
STUDY: DUAL ENERGY X-RAY ABSORPTIOMETRY / DXA REASON FOR EXAM: Female, 70 years old. Post Menopausal TECHNIQUE: Bone Mineral Density (BMD) measurements of lumbar spine and right hip were obtained. COMPARISON: None. FINDINGS: Lumbar Spine (L1-L4): g/cm2 (0.972) / T-score (-0.4) / Z-score (1.8) Findings are suggestive of normal bone density with a low fracture risk. Right Femur Total: g/cm2 (0.768) / T-score (-1.4) / Z-score (0.2) Right Femoral Neck: g/cm2 (0.5-0) / T-score (-3.0) / Z-score (-1.0) BD/Dexa Bone Density Study IMPRESSION: The patient is considered osteoporotic as outlined below according to World Bin Organization (WHO) criteria with a high fracture risk. Reference Information: The T-score is the number of standard deviations above or below the standard which is normal for young adults at their peak bone mineral density. The World Health Organization (WHO) interprets the T-scores as follows: Above -1 Normal bone density Between -1 and -2.5 Osteopenia Equal to / or below -2.5 Osteoporosis As a practical clinical guideline, osteopenia may be graded as follows: Mild -1 through -1.5 Moderate -1.6 through -2.0 Severe -2.1 through -2.4 The Z-score is the number of standard deviations above or below age-matched controls. A Z-score of less than -1.5 would be considered abnormal. References: 1. NIH Osteoporosis and Related Bone Diseases www osteo.org 2. International Society for Clinical Densitometry www iscd.org 3. National Osteoporosis Foundation www nof.org Electronically Signed: Mj Trevino MD at 10:24 EDT ,
== END | disposition home or self-care (01) ==
LOC: OPBD 15:04
PROVIDERS: PCP Internal Medicine; Referring Provider Internal Medicine; Visit Provider Internal Medicine
DX: Z12.31 Encounter for screening mammogram for malignant neoplasm of breast (principal); Z78.0 Asymptomatic menopausal state
CPT/HCPCS: 77063; 77067; 77080

== ENCOUNTER → 2022-04-09 | Outpatient (CLI) | payer MEDICARE, SELFPAY ==
[2022-04-09 16:37] LABS: AST(SGOT) 13 U/L (15-37); Alanine Aminotransfer ALT/SGPT 13 U/L (13-56); Albumin, Serum 3.7 g/dL (3.2-5.0); Alkaline Phosphatase 102 U/L (45-117); Bilirubin, Direct 0.16 mg/dL (0.00-0.30); Cholesterol 155 mg/dL (200); Globulin 3.6 g/dL (2.2-4.2); High Density Lipoprotein 52 mg/dL; Protein, Total 7.3 g/dL (6.4-8.2); Triglycerides 111 mg/dL; Very Low Density Lipoprotein 22 mg/dL (5-40)
== END | disposition home or self-care (01) ==
LOC: LAB 13:56
PROVIDERS: PCP Internal Medicine; Visit Provider Nurse Practitioner Gerontology
DX: E78.5 Hyperlipidemia, unspecified (principal)
CPT/HCPCS: 36415; 80061; 80076

== ENCOUNTER → 2022-05-29 | Outpatient (CLI) | payer MEDICARE, SELFPAY ==
--- NOTE | 2022-05-29 10:11 | ECHOCS_ITS ---
Reason For Study: Cardiomyopathy Procedure This was a 2D Doppler, Color Flow transthoracic echocardiogram. The study was technically difficult. Contrast injection was performed. Patient unable to lay on Lt side due to recent shoulder sx/humerus fracture. Exam performed in department. Left Ventricle Based upon the 2D echocardiographic and contrast enhanced images obtained there appears to be grossly normal left ventricular size, wall motion, and borderline low systolic function. The estimated ejection fraction is 50 %. Septal motion consistent with IVCD. No evidence for diastolic dysfunction. Right Ventricle Based upon the 2D echocardiographic images obtained there appears to be grossly normal right ventricular size and systolic function. Atria Normal left atrium. Normal right atrium. No doppler evidence for ASD. Mitral Valve There is mild mitral annular calcification. Extension of the mitral annular calcification onto the base of the posterior mitral valve leaflet. Trivial mitral valve insufficiency. Tricuspid Valve Normal tricuspid valve. Trivial tricuspid valve insufficiency. Right ventricular systolic pressure estimated to be 22 mmHg. Aortic Valve Trisinus/trileaflet aortic valve. Normal aortic valve. Pulmonic Valve The pulmonic valve is not well visualized. Great Vessels The aortic root is not well visualized. Pericardium/Pleural No pericardial effusion. Medication Diluted definity 5ml given slow IV push to enhance endocardial definition. MMode/2D Measurements & Calculations LVIDd: 4.3 cm IVSd: 1.2 cm LAV(MOD-bp): 31.3 ml LVIDs: 2.9 cm LVPWd: 1.2 cm RVDd: 3.9 cm FS: 32.8 % LAV(MOD-bp) Indexed: 16.0 ml/m2 LAV(MOD-sp2): 19.3 ml LAV(MOD-sp4): 30.7 ml LA dimension(2D): 3.6 cm LA A4 area: 12.9 cm2 RA A4 area: 13.5 cm2 Doppler Measurements & Calculations MV E max paresh: 39.8 cm/sec Lat Peak E' Paresh: 5.9 cm/sec Med Peak E' Paresh: 4.2 cm/sec MV A max paresh: 62.7 cm/sec E/E' lat: 6.8 E/E' med: 9.5 MV E/A: 0.63 Ao V2 max: 102.5 cm/sec LV V1 max: 89.5 cm/sec PA V2 max: 83.7 cm/sec Ao max P.2 mmHg LV V1 max P.2 mmHg Ao V2 mean: 73.5 cm/sec Ao mean P.4 mmHg Ao V2 VTI: 18.0 cm TR max paresh: 216.6 cm/sec TR max P.8 mmHg ECHO/Echo Complete W/ Contrast Interpretation Summary The study was technically difficult. Contrast injection was performed. Based upon the 2D echocardiographic and contrast enhanced images obtained there appears to be grossly normal left ventricular size, wall motion, and borderline low systolic function. The estimated ejection fraction is 50 %. Septal motion consistent with IVCD. There is mild mitral annular calcification. Extension of the mitral annular calcification onto the base of the posterior mi tral valve leaflet. Trivial mitral valve insufficiency. Trivial tricuspid valve insufficiency. Right ventricular systolic pressure estimated to be 22 mmHg. No evidence for diastolic dysfunction. Ordering Physician: Vandana Trinh Referring Physician: Roberto Cano Performed By: Jaycee De Anda, LESLEE, RVT
== END | disposition home or self-care (01) ==
PROVIDERS: PCP Internal Medicine; Visit Provider Nurse Practitioner Gerontology
DX: I44.7 Left bundle-branch block, unspecified (principal)
CPT/HCPCS: 93306; Q9957; A4216; C8929

== ENCOUNTER → 2022-06-14 | Outpatient (CLI) | payer MEDICARE, SELFPAY ==
--- NOTE | 2022-06-14 13:15 | CT_ITS ---
STUDY: CTA CHEST REASON FOR EXAM: Female, 71 years old. TAA RADIATION DOSAGE (If Supplied By Facility): CTDIvol = ( 18.29 ) mGy, DLP = ( 485.72 ) mGycm TECHNIQUE: The examination was performed with the intravenous administration of IV 100mL Isovue-370. Post-processing of the angiographic images was performed, with multiplanar reformation and 3D reconstruction. Individualized dose optimization techniques were used for this CT. COMPARISON: None. FINDINGS: Normal enhancement of the main pulmonary artery and right and left pulmonary arteries. Normal enhancement of the bilateral peripheral pulmonary arteries. There is no demonstrated pulmonary embolism. There is aneurysmal dilatation of the ascending aorta. The transverse diameter of the ascending aorta measures 42 mm''s. Atherosclerotic plaque formation of the aortic arch. There is no demonstrated aortic dissection. Normal heart and pericardium. No evidence of coronary calcification. Normal mediastinum. Normal hilar regions. Normal visualized trachea and bronchi. The lungs are well expanded. Normal pulmonary parenchyma. Normal pleura. Normal chest wall structures. There are degenerative changes of thoracic spine. Dextroscoliosis. Normal visualized upper abdomen. CT/CTA Chest W/WO Contrast IMPRESSION: Dilatation of the ascending aorta measuring 42 mm. Electronically Signed: Mj Trevino MD at 14:24 EST ,
[2022-06-14 13:51] LABS: CREATININE FINGERSTICK 1.2 mg/dL (0.55-1.02)
== END | disposition home or self-care (01) ==
LOC: CT 13:14
PROVIDERS: PCP Internal Medicine; Referring Provider Nurse Practitioner Gerontology; Visit Provider Nurse Practitioner Gerontology
DX: I71.20 Thoracic aortic aneurysm, without rupture, unspecified (principal)
CPT/HCPCS: 71275

== ENCOUNTER 2022-07-11 11:53 | Day surgery (SDC) | payer MEDICARE, SELFPAY ==
[2022-07-11] VITALS (10 sets, daily range): BP systolic 87–144; BP diastolic 62–93; PULSE 75–89; RESP 16–18; TEMP 36.4–37.3; O2SAT 91–97; BMI 37.8
[2022-07-11] MEDS: Lactated Ringers 1,000 ML 15 ML IV (12:40)
[2022-07-11] MEDS: Vancomycin IV 1,000 MG/200 ML BAG 200 MG IV (12:40)
--- NOTE | 2022-07-11 13:27 | OP.PCM_ITS ---
Report of Operation Date of Procedure: 07/11/22 Pre-Operative Diagnosis: Nocturia, urge incontinence Post-Operative Diagnosis: Same Surgery/Procedure Performed:: Axonics stage I and II Surgeon: Lynsey Boykin Type of Anesthesia: MAC Description of Procedure: The patient is a 71-year-old female with a successful office performed peripheral nerve evaluation. She now presents for Axonics stage I and II. Informed consent has been obtained. The patient was taken to the operating room and placed into a prone position on the operating room table. She was appropriately padded and secured to the table. Anesthesia monitored the head, neck, airway, IV access and vital signs throughout the case. Once anesthesia was appropriately administered, the patient was prepped and draped in usual ster ile fashion. Using a C arm, the bony structures in the S3 foramen were outlined on her skin which was then infiltrated with lidocaine. The Axonics needle was then passed through the S3 foramen and the left and right side, and achieved better response on the left. The guidewire was then passed through the needle which was then removed. The skin was incised surrounding the guidewire and the sheath was then placed. The lead was placed through the sheath and was observed in good position on fluoroscopy in the AP and lateral views. With further evaluation good portillo response was seen on leads 0, I, and II. At this time the sheath was removed leaving the tined lead in situ. The pocket site was identified and infiltrated with lidocaine. An incision was made and the pocket was enlarged using Bovie cautery. Hemostasis was obtained. The lead was tunneled into the pocket site where it was cleaned and inserted into the battery and secured using the torque wrench. The battery was then placed into the pocket site and impedances were tested. Everything was found to be in working order. The pocket was then closed with 3-0 Vicryl followed by 4-0 subcuticular suturing and Dermabond. The lead insertion site was closed with Steri-Strip. The patient was then awakened and taken to the recovery room in good condition. There were no complications during this procedure. Grafts/Implants Used: Axonics lead and battery Complications None Admit VTE Documentation VTE Present on Admission: No VTE Mechan Device Prophylaxis: None Reason prophylaxis not ordered:: Treatment Not Indicated
--- NOTE | 2022-07-11 13:31 | DCINST_ITS ---
Discharge Instructions Diet Discharge Diet: No restrictions Activity Additional Activity Instructions:: May shower Friday morning. Dressing / Incision Call your doctor if your incision/area has: Continuous Slow Oozing, Sudden Increased Bleeding, Increased Pain/ Swelling, Increased Redness, Foul Smelling Discharge and Swelling at the incision site Call your doctor if you observe: Fever of 101 or Higher, Inability to urinate and Inability to have a bowel movement Suture Line Care: Avoid Pulling/Pushing and Avoid Pinching/Bending Change Dressing in: do not change dressing Remove Dressing in: do not remove dressing Cleanse incision/area with: Keep Dressing Clean & Dry Follow Up Care Please Follow Up With: Lynsey Boykin MD When: 2 weeks, call for appointment Test Results: Test results from this visit will be discussed in further detail at your follow- up appointment, if applicable. Discharge Plan Admission Attending Provider: Lynsey Boykin Primary Care Provider: Roberto Cano Discharge Orders/Prescriptions Prescriptions: New cephalexin [cephalexin] 500 mg capsule 500 mg PO Q12 3 Days Qty: 6 0RF tramadol 50 mg tablet 50 mg PO TID PRN (Reason: pain) 3 Days Qty: 9 0RF Continued aspirin 81 mg tablet,delayed release (DR/EC) 81 mg PO DAILY Label Comments: states stopped for surgery omeprazole 40 mg capsule,delayed release(DR/EC) 40 mg PO DAILY Qty: 90 3RF albuterol sulfate [Ventolin HFA] 90 mcg/actuation HFA aerosol inhaler 2 puff inhalation BID PRN (Reason: shortness of breath or wheezing) Qty: 8.5 3RF Gemtesa 75 mg tablet 75 mg PO DAILY escitalopram oxalate 20 mg tablet 20 mg PO DAILY Qty: 90 1RF cholecalciferol (vitamin D3) 1,000 UNIT tablet 5,000 unit PO DAILY rosuvastatin 20 mg tablet 20 mg PO QHS Qty: 90 3RF Entresto 24-26 mg tablet 1 tab PO BID Qty: 60 11RF theophylline 300 mg tablet extended release 12 hr 300 mg PO 0800,2000 Qty: 180 1RF carvedilol 6.25 mg tablet 6.25 mg PO BID Qty: 180 3RF Rx Instructions: must administer with a meal/food Referrals / Follow Up: Roberto Cano MD [Primary Care Provider] - Disposition Disposition (needs filled in before D/C Order can be placed): Home, Self Care
--- NOTE | 2022-07-11 14:01 | RAD_ITS ---
INDICATION: AXONICS STAGE 1 EXAMINATION/TECHNIQUE: X-RAY - 4 intraoperative pelvic views COMPARISON: None. FINDINGS: Intraoperative images demonstrate placement of electrode over the sacral region . RAD/Pelvis 1 or 2 Views IMPRESSION: Intraoperative images as noted. Electronically Signed: Sumeet Em DO at 22:55 EST ,
[2022-07-11] MEDS: Lidocaine 1% /Epi 1:100 (20ml) 20 ML Vial (14:06)
== END 2022-07-11 17:05 | disposition home or self-care (01) ==
LOC: SDC 11:53 → AC 11:55
PROVIDERS: PCP Internal Medicine; Referring Provider Urology; Visit Provider Urology
PROC: (CPT 64590; principal; 2022-07-11 13:30)
DX: N39.41 Urge incontinence (principal); J44.9 Chronic obstructive pulmonary disease, unspecified; I13.0 Hypertensive heart and chronic kidney disease with heart failure and stage 1 through stage 4 chronic kidney disease, or unspecified chronic kidney disease; I50.9 Heart failure, unspecified; E66.01 Morbid (severe) obesity due to excess calories; N18.30 Chronic kidney disease, stage 3 unspecified; R35.1 Nocturia; R35.0 Frequency of micturition; N39.0 Urinary tract infection, site not specified; F32.A Depression, unspecified; F41.9 Anxiety disorder, unspecified; E78.5 Hyperlipidemia, unspecified; K21.9 Gastro-esophageal reflux disease without esophagitis; M81.0 Age-related osteoporosis without current pathological fracture; Z79.82 Long term (current) use of aspirin; Z79.899 Other long term (current) drug therapy; Z87.891 Personal history of nicotine dependence; Z86.73 Personal history of transient ischemic attack (TIA), and cerebral infarction without residual deficits
CPT/HCPCS: 64590; 64561; 00300; 72170; 76000; J7120; J2405

== ENCOUNTER → 2022-08-07 | Outpatient (CLI) | payer MEDICARE, SELFPAY ==
[2022-08-07 16:14] LABS: Anion Gap 3 (5-15); BUN 17 mg/dL (7-18); BUN/Creat Ratio 15.7 RATIO (10-20); Calcium,Total 9.9 mg/dL (8.5-10.1); Chloride 108 mmol/L (98-107); Creatinine, Serum 1.08 mg/dL (0.55-1.02); EST Glomerular Filtration Rate 53 mL/min (>60); Est Glom Filt Rate - Afr Amer 64 mL/min (>60); Glucose 108 mg/dL (74-106); Potassium 4.1 mmol/L (3.5-5.1); Sodium Level 141 mmol/L (136-145)
[2022-08-07 16:17] LABS: BNP,B-Type NATRIURETIC PEPTIDE 23.8 pg/mL (0-100)
[2022-08-07 16:28] LABS: Absolute Lymphocyte Count 2.28 X10^3/uL (0.83-4.51); Absolute Neutrophil Count 5.3 X10^3/uL (2.0-7.7); Basophil# 0.07 X10^3/uL; Basophil% 0.8 % (0-1); Eosinophil# 0.29 X10^3/uL; Eosinophils% 3.2 % (0-5); Hematocrit 44.7 % (37-47); Hemoglobin 14.4 g/dL (12.0-15.0); Lymphocyte # 2.28 X10^3/ul (0.83-4.51); Lymphocyte % 25.5 % (19-41); Mean Corp Hgb Conc 32.2 g/dL (32-36); Mean Corpuscular Volume 96.1 fL (81-99); Mean Platelet Vol. 11.2 fl (6.2-12.0); Monocyte# 0.97 X10^3/uL; Monocyte% 10.8 % (0-10); NRBC Flagged by Analyzer 0 % (0-5); Neutrophil # 5.29 X10^3/uL (2.7-7.7); Neutrophil % 59.1 % (47-70); Platelet Count 290 K/mm3 (150-450); RBC Distribution Width SD 45.7 fl (35.1-43.9); Red Blood Count 4.65 M/mm3 (4.2-5.4)
== END | disposition home or self-care (01) ==
LOC: LAB 15:31
PROVIDERS: PCP Internal Medicine; Visit Provider Nurse Practitioner Gerontology
DX: R06.09 Other forms of dyspnea (principal)
CPT/HCPCS: 36415; 80048; 83880; 85025

== ENCOUNTER → 2022-08-22 | Outpatient (CLI) | payer MEDICARE, SELFPAY ==
--- NOTE | 2022-08-22 14:54 | PFTCOMP ---
COMPLETE PULMONARY FUNCTION TEST INTERPRETATION Brief HPI: Patient is a 71-year-old female, currently under the care of Vandana Trinh, who presents to [facility] for complete pulmonary function tests secondary to diagnosis of dyspnea. Respiratory therapist reports good effort and reproducible results. Interpretation: Forced expiration spirometry shows a moderate large airways obstructive ventilatory defect with an FEV1 of 67% predicted. There is no significant bronchodilator response by strict ATS criteria. Spirograms are of good quality and plateau slowly, indicating slowly emptying areas of the lungs. The respiratory flow volume loop shows decreased expiratory flow rates at all lung volumes consistent with airway obstruction. Lung volumes by body plethysmography show a normal total lung capacity at 4.22 L, 88% predicted. FRC and RV are elevated out of proportion. Lung volume measurements are consistent with air-trapping. Diffusion capacity by carbon monoxide is decreased at 66% predicted. The airway resistance is normal. No previous pulmonary function tests were available for review. Impression: Irreversible moderate large airways obstructive ventilatory defect with a symmetric reduction in diffusion capacity, resulting in air trapping, and in a pattern consistent with COPD
== END | disposition home or self-care (01) ==
LOC: PSN 12:50
PROVIDERS: PCP Internal Medicine; Referring Provider Nurse Practitioner Gerontology; Visit Provider Nurse Practitioner Gerontology
DX: R06.09 Other forms of dyspnea (principal)
CPT/HCPCS: 94060; 94726; 94729

== ENCOUNTER → 2022-09-03 | Outpatient (CLI) | payer MEDICARE, SELFPAY ==
--- NOTE | 2022-09-03 15:35 | RAD_ITS ---
EXAM: XR BILATERAL HIPS WITH PELVIS WHEN PERFORMED, 2 VIEWS CLINICAL INDICATION: PAIN TECHNIQUE: Frontal view of the bilateral hips with pelvis when performed. This report was created using [employer] report [employer] technology. COMPARISON: None. FINDINGS: BONES/JOINTS: Partially visualized plate and screw left mid femur. No displaced fracture. No destructive or sclerotic lesions. Note that overlapping bowel shadows may however obscure fine detail. Sacroiliac joint is unremarkable. No widening of the pubic symphysis. The articular structures are unremarkable. SOFT TISSUES: Unremarkable. No soft tissue swelling or gas. VASCULATURE: Numerous phleboliths in the pelvis. TUBES, LINES AND DEVICES: Neurostimulator overlying the left side of the sacrum. RAD/Hips B/L min 2 views w/ Pelvis IMPRESSION: 1. Normal hips bilaterally. 2. Neurostimulator overlying the left side of the sacrum. Electronically Signed: Mick Alonzo MD at 7:34 EDT ,
== END | disposition home or self-care (01) ==
LOC: RAD 15:25
PROVIDERS: PCP Internal Medicine; Referring Provider Anesthesiology Pain Medicine; Visit Provider Anesthesiology Pain Medicine
DX: M25.551 Pain in right hip (principal); M25.552 Pain in left hip
CPT/HCPCS: 73521

== ENCOUNTER → 2022-09-30 | Outpatient (CLI) | payer MEDICARE, SELFPAY ==
--- NOTE | 2022-09-30 16:25 | RAD_ITS ---
STUDY: X-RAY - ABDOMEN/PELVIS REASON FOR EXAM: Female, 71 years old. Urge incontinence TECHNIQUE: Frontal views COMPARISON: None. FINDINGS: Normal visualized lung bases. There is an unremarkable bowel gas pattern. Fecal retention in the proximal colon. There is no demonstrated free abdominal air. The visualized liver, spleen and kidneys are grossly normal in size and morphology. There is a an electronic device over the left side of pelvis. Normal soft tissue structures. Vertebral scoliosis. RAD/Abdomen Single View IMPRESSION: Proximal colonic fecal retention. Electronically Signed: Sumeet Em DO at 23:32 EDT Reading Location ID and State: [facility] / [place] Tel [phone], Service support ,
== END | disposition home or self-care (01) ==
PROVIDERS: PCP Internal Medicine; Referring Provider Urology; Visit Provider Urology
DX: N39.41 Urge incontinence (principal)
CPT/HCPCS: 74018

== ENCOUNTER → 2022-10-22 | Outpatient (CLI) | payer MEDICARE, SELFPAY ==
[2022-10-22 19:42] LABS: T4 Free Direct 0.88 ng/dL (0.76-1.46); Thyroid Stim Hormone (TSH) 1.46 uIU/mL (0.358-3.74)
== END | disposition home or self-care (01) ==
PROVIDERS: PCP Internal Medicine; Visit Provider Nurse Practitioner Family
DX: I10 Essential (primary) hypertension (principal); R63.5 Abnormal weight gain
CPT/HCPCS: 36415; 84439; 84443

== ENCOUNTER → 2022-12-16 | Outpatient (CLI) | payer MEDICARE, SELFPAY ==
--- NOTE | 2022-12-16 15:40 | BI_ITS ---
MAMMOGRAPHY - BILATERAL SCREENING REASON FOR EXAM: Female, 72 years old. Routine annual screening examination. PERTINENT HISTORY: Non-contributory. TECHNIQUE: Digital bilateral breast mike (3D mammographic acquisition) in the CC and MLO projections. 2-D mediolateral oblique (MLO) and craniocaudad (CC) views of both breasts were obtained. CAD: Full Field Digital Mammography with Computer Added Detection was performed. COMPARISON: Comparison is made with prior study dated November 20, 2021. FINDINGS: Breast Composition: There are scattered areas of fibroglandular density. Questionable 5.2 cm x 10.8 cm fat-containing lipoma in the right axilla. No other significant abnormalities are identified. There has been no significant change since the prior study. BI/SCRN MAMM (CAD)W/MIKE BILAT IMPRESSION: Stable bilateral screening mammogram. Questionable lipoma in the right axilla Yearly follow-up mammogram recommended. (A) ASSESSMENT CATEGORY: BIRADS Category 2: Benign. A letter regarding these results will be sent to the patient by the facility within 30 days. Approximately 10% of breast cancers are not detected by mammography. A normal mammogram should not delay biopsy of a clinically suspicious abnormality. [id number] Electronically Signed: Mj Trevino MD at 8:35 EDT ,
== END | disposition home or self-care (01) ==
LOC: OPBI 15:39
PROVIDERS: PCP Internal Medicine; Referring Provider Internal Medicine; Visit Provider Internal Medicine
DX: Z12.31 Encounter for screening mammogram for malignant neoplasm of breast (principal)
CPT/HCPCS: 77063; 77067

== ENCOUNTER → 2022-12-25 | Outpatient (CLI) | payer MEDICARE, SELFPAY ==
--- NOTE | 2022-12-25 16:55 | US_ITS ---
STUDY: SUPERFICIAL ULTRASOUND - RIGHT AXILLA REASON FOR EXAM: Female, 72 years old. Right Axillary Mass TECHNIQUE: A superficial ultrasound was performed with real-time and static sparrow-scale imaging. COMPARISON: None. FINDINGS: Multiple longitudinal and transverse ultrasound images of the right axilla failed to demonstrate a discrete solid or cystic mass. No lymphadenopathy. US/Ext Non Vasc Limited/Soft Tiss IMPRESSION: Normal right axilla. Electronically Signed: Miquel Rdz MD at 23:28 EDT ,
== END | disposition home or self-care (01) ==
LOC: US 16:51
PROVIDERS: PCP Internal Medicine; Referring Provider Internal Medicine; Visit Provider Internal Medicine
DX: R22.31 Localized swelling, mass and lump, right upper limb (principal)
CPT/HCPCS: 76882

== ENCOUNTER → 2023-02-20 | Outpatient (CLI) | payer MEDICARE, SELFPAY ==
[2023-02-20 15:41] LABS: AST(SGOT) 8 U/L (15-37); Alanine Aminotransfer ALT/SGPT 17 U/L (13-56); Albumin, Serum 3.6 g/dL (3.2-5.0); Alkaline Phosphatase 95 U/L (45-117); Bilirubin, Direct 0.15 mg/dL (0.00-0.30); Cholesterol 165 mg/dL (200); Globulin 3.4 g/dL (2.2-4.2); High Density Lipoprotein 64 mg/dL; Triglycerides 126 mg/dL; Very Low Density Lipoprotein 25 mg/dL (5-40)
[2023-02-20 15:41] LABS: Anion Gap 5 (5-15); BUN 17 mg/dL (7-18); BUN/Creat Ratio 17.1 RATIO (10-20); Calcium,Total 9.8 mg/dL (8.5-10.1); Chloride 102 mmol/L (98-107); EST Glomerular Filtration Rate 58 mL/min (>60); Est Glom Filt Rate - Afr Amer 70 mL/min (>60); Glucose 87 mg/dL (74-106); Potassium 4.5 mmol/L (3.5-5.1); Sodium Level 138 mmol/L (136-145)
== END | disposition home or self-care (01) ==
LOC: BIMLAB 14:15
PROVIDERS: Nurse Practitioner Gerontology; PCP Internal Medicine; Referring Provider Internal Medicine; Visit Provider Internal Medicine
DX: E78.00 Pure hypercholesterolemia, unspecified (principal); I10 Essential (primary) hypertension
CPT/HCPCS: 36415; 80048; 80061; 80076

== ENCOUNTER → 2023-03-11 | Outpatient (CLI) | payer MEDICARE, SELFPAY ==
--- NOTE | 2023-03-11 16:47 | RAD_ITS ---
INDICATION: cough EXAMINATION/TECHNIQUE: X-RAY - XR Chest 2 Views COMPARISON: 02/16/2020 FINDINGS: LINES/DEVICES: None. LUNGS: No consolidation, edema or effusion. No pneumothorax. MEDIASTINUM AND CARDIOVASCULAR STRUCTURES: Cardiac silhouette not enlarged. Central airways and mediastinal contour are unremarkable. BONES AND SOFT TISSUES: Stable scoliosis. Interval bilateral shoulder replacement. RAD/Chest PA and Lateral IMPRESSION: No radiographic evidence of acute cardiopulmonary disease. Electronically Signed: Angel Martinez MD at 18:00 EDT ,
== END | disposition home or self-care (01) ==
LOC: MTRAD 16:47
PROVIDERS: PCP Internal Medicine; Referring Provider Physician Assistant; Visit Provider Physician Assistant
DX: R05.9 Cough, unspecified (principal)
CPT/HCPCS: 71046

== ENCOUNTER 2023-04-15 13:24 | Emergency (ER) | payer MEDICARE, SELFPAY ==
[2023-04-15 13:26] VITALS: BP 114/78; PULSE 82; RESP 24; TEMP 36; O2SAT 93; BMI 36.6
--- NOTE | 2023-04-15 13:40 | RAD_ITS ---
STUDY: X-RAY CHEST REASON FOR EXAM: Female, 72 years old. Cough TECHNIQUE: PA and lateral views of the chest. COMPARISON: Comparison is made with prior study March 11, 2023. FINDINGS: There is hyperinflation of the lungs consistent with chronic obstructive lung disease (COPD). There is no demonstrated pleural abnormality. Normal size heart. Normal mediastinum and dorina. Normal visualized pulmonary arteries. There is atherosclerotic calcification of the aortic arch with tortuosity. There are diffuse degenerative changes of the visualized thoracic spine. Marked degree of dextroscoliosis of the thoracic spine. Status post bilateral reverse shoulder replacement. There is no demonstrated abnormality of the visualized soft tissue structures of the upper abdomen. RAD/Chest PA and Lateral IMPRESSION: Hyperinflation. The lungs are clear. Electronically Signed: Mj Trevino MD at 14:17 EST ,
--- NOTE | 2023-04-15 13:41 | EDS_ITS ---
HPI <SCOTT Blanco - Last Filed: 04/15/23 14:18> History of Present Illness Chief Complaint: Cough Narrative Narrative: 72-year-old female with past medical history of HTN, HLD, TIA presents with 6 weeks of intermittent productive cough. The first week she was prescribed a Z- Paul but it did not improve so she was seen at another urgent care and given Zosyn and Levaquin x10 days. She states it improved for couple days but last night she felt feverish and had a worsening cough. She feels slightly short of breath. No chest pain. No GI symptoms. She quit smoking 25 years ago and denies history of asthma or COPD. [facility] <SCOTT Blanco - Last Filed: 04/15/23 14:18> [facility] Medical History (Updated 04/15/23 @ 14:11 by SCOTT Blanco) Acute otitis media, left Alcohol use Ambulates with cane Ankle osteomyelitis, right Anxiety Anxiety and depression Arrhythmia Back pain Bronchitis Cardiology follow-up encounter Cardiomyopathy Cataracts, bilateral CHF (congestive heart failure) Chronic back pain Chronic kidney disease Chronic obstructive pulmonary disease Chronic respiratory failure CKD (chronic kidney disease) CKD (chronic kidney disease) stage 3, GFR 30-59 ml/min COPD (chronic obstructive pulmonary disease) Debility Depression Encounter for preventative adult health care examination Essential hypertension Fall Former smoker Gastric reflux GERD (gastroesophageal reflux disease) H/O: pneumonia H/O: stroke Health care maintenance High cholesterol History of echocardiogram History of irregular heartbeat History of steroid therapy History of stress test Hx of fracture of femur Hyperlipemia, mixed Hyperlipidemia Hypothyroidism LBBB (left bundle branch block) Lumbar radiculopathy Mass of right axilla Meniere disease Morbid obesity due to excess calories Nocturia Nocturnal enuresis Obesity Obesity (BMI 30-39.9) Osteoarthritis, knee Osteoarthritis, shoulder Osteoporosis Overactive bladder Oxygen desaturation during sleep Post-menopausal Preop cardiovascular exam Pressure sore of upper back Pressure sore of upper back Pulmonary nodule Rectocele Scoliosis Shortness of breath on exertion Thoracic aortic aneurysm without rupture TIA (transient ischemic attack) Type I or II open fracture dislocation of right ankle Ulcer of ankle with necrosis of bone Urgency incontinence Urinary frequency Urinary urgency Vitamin D deficiency Walker as ambulation aid Wears glasses Home Medications aspirin 81 mg tablet,delayed release 81 mg PO DAILY Blood thinner 07/09/19 [History Last Taken 01/08/20] cholecalciferol (vitamin D3) 25 mcg (1,000 unit) tablet 5,000 unit PO DAILY Supplement 01/19/20 [History Last Taken Unknown] carvedilol 6.25 mg tablet 6.25 mg PO BID #180 tabs 07/05/22 [Rx Last Taken 07/11/22 08:00] cyclosporine 0.05 % eye drops in a dropperette (Restasis) 1 drp ophthalmic (eye) Q12H 08/07/22 [History Last Taken Unknown] rosuvastatin 20 mg tablet 20 mg PO QHS Cholestrol #90 tabs 08/07/22 [Rx Last Taken Unknown] theophylline 300 mg tablet,extended release,12 hr 300 mg PO 0800,1999 #180 tabs 10/01/22 [Rx Last Taken Unknown] escitalopram oxalate 20 mg tablet See Rx Instructions .Route .COMPLEX #90 tabs 10/14/22 [Rx Last Taken Unknown] disability placard #1 ea 10/22/22 [Rx Last Taken Unknown] omeprazole 40 mg capsule,delayed release 40 mg PO DAILY reflux #90 caps 10/30/22 [Rx Last Taken Unknown] vibegron 75 mg tablet (Gemtesa) mg PO 02/20/23 [History Last Taken Unknown] lisinopril 5 mg tablet 5 mg PO DAILY #90 tabs 02/23/23 [Rx Last Taken Unknown] Allergy/AdvReac Type Severity Reaction Status Date / Time sulfamethoxazole Allergy Severe Nausea, Verified 04/15/23 13:25 [From Bactrim] vomiting trimethoprim [From Bactrim] Allergy Severe Nausea, Verified 04/15/23 13:25 vomiting amlodipine [From Norvasc] Allergy Unknown swelling Verified 04/15/23 13:25 codeine Allergy Unknown rash Verified 04/15/23 13:25 hydrocodone Allergy Unknown rash Verified 04/15/23 13:25 memantine [From Namenda] Allergy Unknown mental fog Verified 04/15/23 13:25 oxycodone [From OxyContin] Allergy Rash Verified 04/15/23 13:25 Family History Sister Diabetes Obesity Sleep apnea Mother Dementia Father Heart disease Surgical History Carpal tunnel syndrome Femur fracture H/O bladder repair surgery H/O colonoscopy H/O radiofrequency ablation (RFA) of nerve of lumbar spine H/O right wrist surgery History of knee replacement History of right shoulder replacement History of shoulder replacement Hx of surgical procedure Status post implantation of urinary electronic stimulator device Social History Smoking Status: Former smoker quit date: 06/09/01 Tobacco: How many years used: 35 alcohol intake: current alcohol intake frequency: 0-2 drinks per day Alcohol type: hard liquor substance use type: does not use caffeine: Yes Type: coffee Number of servings: 1 what type of physical activity do you participate in: none ROS <SCOTT Blanco - Last Filed: 04/15/23 14:18> ROS ED ROS Narrative Constitutional: Negative for fever, chills, malaise. CVS: Negative for palpitations, chest pain, syncope. Respiratory: Positive for shortness of breath, cough. GI: Negative for abdominal pain, nausea, vomiting, diarrhea. EXAM <SCOTT Blanco - Last Filed: 04/15/23 14:18> Physical Exam Narrative Exam Narrative: CONST: Patient sitting in no acute distress. EYES: Normal inspection. NECK: Normal inspection. RESP: No respiratory distress, CTAB. CVS: Regular rate and rhythm, no murmur, no gallop. SKIN: Color normal, no rash, warm, dry, intact. EXTREMITIES: Normal appearance, no pedal edema. NEURO: Oriented x4. PSYCH: Normal affect. Const Vital Signs: 04/15/23 13:26 04/15/23 14:07 Temperature 96.8 F L Temperature Source Temporal Pulse Rate 82 Respiratory Rate 24 H Respiratory Effort Normal Non-Labored Respiratory Depth Normal Respiratory Pattern Normal Blood Pressure 114/78 Blood Pressure Mean 90 Pulse Ox 93 Oxygen Delivery Method Room Air <Dr. Deepak Ann MD - Last Filed: 04/15/23 14:14> Physical Exam Const Vital Signs: 04/15/23 13:26 04/15/23 14:07 Temperature 96.8 F L Temperature Source Temporal Pulse Rate 82 Respiratory Rate 24 H Respiratory Effort Normal Non-Labored Respiratory Depth Normal Respiratory Pattern Normal Blood Pressure 114/78 Blood Pressure Mean 90 Pulse Ox 93 Oxygen Delivery Method Room Air MDM <SCOTT Blanco - Last Filed: 04/15/23 14:18> MDM MDM Narrative Medical decision making narrative: Patient has had 6 weeks of clear productive cough that initially improved after antibiotics but have returned last night. She appears well and nontoxic. Vital signs are stable. She speaking in full sentences no distress with normal heart and lung sounds. Differential includes pneumonia, viral URI, bronchitis. ED attending interpretation of 2 view chest x-ray shows no acute infiltrate. I offered steroids but she declined. She has an inhaler at home and can take [id number] treatments. No indication for further antibiotics. She was discharged in stable condition. Test considered but not ordered: She declined COVID test I have personally performed a face to face assessment of the patient and have reviewed the KRISS Note. I performed a substantive portion of the visit including all aspects of the following. My lloyd findings include: History is 72-year-old female URI symptoms for 6 weeks. She has been on 2 different antibiotics 1 of which being Levaquin the other I believe Zithromax. She has been on a short course of steroids. And she has been using inhalers. She had intermittent wheezing. Cough of clear sputum. No hemoptysis. No chest pain. States normally she does not have anything like this nor have seasonal allergies this time of year. Exam is [HEENT exam is unremarkable. Neck nontender no lymphadenopathy. Lungs equal and symmetrical breath sounds. A few expiratory wheezes in the bases. No rales or rhonchi. Heart regular rhythm no murmur. Rate about 80. Abdomen soft nontender. Moving all 4 extremities. Nontender no edema. Back unremarkable. Neurologically she is awake and alert.] Medical Decision Making [chest x-ray was obtained and was unremarkable. Chronic changes. No pneumonia. No effusion. I went over the chest x-ray results with the patient. She is already on inhaler at home. Said not helping. She is already been on 2 antibiotics and steroids and said those did not help. I suspect this to be either allergies or viral syndrome. Outpatient follow-up. Did not want to try another course of steroids.] Other additions or changes: [None] <Dr. Deepak Ann MD - Last Filed: 04/15/23 14:14> [facility] Narrative Medical decision making narrative: I have personally performed a face to face assessment of the patient and have reviewed the KRISS Note. I performed a substantive portion of the visit including all aspects of the following. My lloyd findings include: History is 72-year-old female URI symptoms for 6 weeks. She has been on 2 different antibiotics 1 of which being Levaquin the other I believe Zithromax. She has been on a short course of steroids. And she has been using inhalers. She had intermittent wheezing. Cough of clear sputum. No hemoptysis. No chest pain. States normally she does not have anything like this nor have seasonal allergies this time of year. Exam is [HEENT exam is unremarkable. Neck nontender no lymphadenopathy. Lungs equal and symmetrical breath sounds. A few expiratory wheezes in the bases. No rales or rhonchi. Heart regular rhythm no murmur. Rate about 80. Abdomen soft nontender. Moving all 4 extremities. Nontender no edema. Back unremarkable. Neurologically she is awake and alert.] Medical Decision Making [chest x-ray was obtained and was unremarkable. Chronic changes. No pneumonia. No effusion. I went over the chest x-ray results with the patient. She is already on inhaler at home. Said not helping. She is already been on 2 antibiotics and steroids and said those did not help. I suspect this to be either allergies or viral syndrome. Outpatient follow-up. Did not want to try another course of steroids.] Other additions or changes: [None] History & Record Review Discussion w/independent historian: Patient Additional record(s) reviewed:: Prior inpatient record, Prior outpatient record, Prior ED visit and Prior labs Radiography Chest X-Ray - ED: 1 View, Read by ED Physician, Heart, Lungs, Mediastinum, No Acute Disease and Chronic Changes Diagnostic Testing: Headache, 2 views, AP and lateral, shows no acute abnormality. Normal cardiac silhouette. No infiltrates. No effusions. Thoracic spine scoliosis with curvature. Chest x-ray interpreted by myself. Discharge Plan Triage Chief Complaint: Cough ED Midlevel Provider: Shaina Mcelroy ED Provider: Deepak Ann Dx/Rx/DC Orders Clinical Impression: Acute upper respiratory infection Instructions: ED Bronchitis, No Antibiotic (Adult) Prescriptions: No Action aspirin 81 mg tablet,delayed release (DR/EC) 81 mg PO DAILY Patient Comments: states stopped for surgery cyclosporine [Restasis] 0.05 % dropperette 1 drp ophthalmic (eye) Q12H rosuvastatin 20 mg tablet 20 mg PO QHS Qty: 90 3RF Gemtesa 75 mg tablet PO Patient Comments: take 1 tablet by mouth once daily (DME) disability placard See Rx Instructions .ROUTE .MEDSUPPLY Qty: 1 0RF Rx Instructions: As directed, Length of time: 5 years cholecalciferol (vitamin D3) 1,000 UNIT tablet 5,000 unit PO DAILY carvedilol 6.25 mg tablet 6.25 mg PO BID Qty: 180 3RF Rx Instructions: must administer with a meal/food theophylline 300 mg tablet extended release 12 hr 300 mg PO 0800,1999 Qty: 180 1RF escitalopram oxalate 20 mg tablet See Rx Instructions .ROUTE .COMPLEX Qty: 90 1RF Dose Instruction: take 1 tablet by mouth once daily for EMOTIONS Rx Instructions: take 1 tablet by mouth once daily for EMOTIONS omeprazole 40 mg capsule,delayed release(DR/EC) 40 mg PO DAILY Qty: 90 3RF lisinopril 5 mg tablet 5 mg PO DAILY Qty: 90 3RF Primary Care Provider: Roberto Cano Referrals: Roberto Cano MD [Primary Care Provider] - Activity Restrictions/Additional Instructions: Continue your inhaler and take [id number] cough medicine as needed. Follow-up with primary care Disposition Disposition: Home, Self Care
[2023-04-15 14:27] VITALS: RESP 18
== END 2023-04-15 14:28 | disposition home or self-care (01) ==
PROVIDERS: Emergency Provider Emergency Medicine; PCP Internal Medicine; Visit Provider Emergency Medicine
DX: J06.9 Acute upper respiratory infection, unspecified (principal); J44.9 Chronic obstructive pulmonary disease, unspecified; I13.0 Hypertensive heart and chronic kidney disease with heart failure and stage 1 through stage 4 chronic kidney disease, or unspecified chronic kidney disease; I50.9 Heart failure, unspecified; N18.30 Chronic kidney disease, stage 3 unspecified; Z87.891 Personal history of nicotine dependence; E78.2 Mixed hyperlipidemia; Z86.73 Personal history of transient ischemic attack (TIA), and cerebral infarction without residual deficits
CPT/HCPCS: 71046; 99282

== ENCOUNTER → 2023-06-30 | Outpatient (CLI) | payer MEDICARE, SELFPAY ==
--- NOTE | 2023-06-30 15:57 | RAD_ITS ---
STUDY: X-RAY - THORACIC SPINE REASON FOR EXAM: Female, 72 years old. DDD TECHNIQUE: 3 view(s) of the thoracic spine were obtained. COMPARISON: 04/15/2023, 03/11/2023. FINDINGS: There is straightening of the normal thoracic kyphosis. There is moderate to severe dextroconvex scoliosis, stable. There is demineralization of the thoracic spine with endplate spondylosis. There is multilevel disc space narrowing of the thoracic spine. The soft tissue structures are unremarkable. RAD/Thoracic Spine 2 Views IMPRESSION: No definite acute abnormality or change. Moderate to severe dextroconvex scoliosis and diffuse degenerative changes. Electronically Signed: Napoleon Branch MD at 23:02 EST ,
== END | disposition home or self-care (01) ==
PROVIDERS: PCP Internal Medicine; Referring Provider Clinical Nurse Specialist Adult Health; Visit Provider Clinical Nurse Specialist Adult Health
DX: M51.34 Other intervertebral disc degeneration, thoracic region (principal)
CPT/HCPCS: 72070

== ENCOUNTER → 2023-07-22 | Outpatient (CLI) | payer MEDICARE, SELFPAY ==
--- NOTE | 2023-07-22 16:04 | MRI_ITS ---
Ages STUDY: MRI THORACIC SPINE WITHOUT CONTRAST REASON FOR EXAM: Female, 72 years old. DDD TECHNIQUE: Standardized fat and water weighted pulse sequences were obtained in the sagittal and axial planes. COMPARISON: None. FINDINGS: Normal kyphosis of the thoracic spine. There is severe dextro scoliosis. The disc space heights are well-maintained although there is minor endplate spurring. Multilevel disc degeneration without significant disc protrusion or spinal stenosis . Normal visualized thoracic cord. Normal conus medullaris that terminates at T12-L1 The soft tissue structures are unremarkable. MRI/Spine Thoracic (Routine) IMPRESSION: Severe scoliosis and mild degenerative changes No acute fracture or other significant abnormality Electronically Signed: Anival Womack MD at 18:10 EST ,
== END | disposition home or self-care (01) ==
LOC: MRI 16:01
PROVIDERS: PCP Internal Medicine; Visit Provider Clinical Nurse Specialist Adult Health
DX: M51.34 Other intervertebral disc degeneration, thoracic region (principal)
CPT/HCPCS: 72146

== ENCOUNTER → 2023-08-11 | Outpatient (CLI) | payer MEDICARE, SELFPAY ==
[2023-08-11 16:50] LABS: Anion Gap 3 (5-15); BUN 18 mg/dL (7-18); BUN/Creat Ratio 16.5 RATIO (10-20); Calcium,Total 9.6 mg/dL (8.5-10.1); Chloride 108 mmol/L (98-107); Cholesterol 280 mg/dL (200); Creatinine, Serum 1.09 mg/dL (0.55-1.02); EST Glomerular Filtration Rate 52 mL/min (>60); Est Glom Filt Rate - Afr Amer 63 mL/min (>60); Glucose 96 mg/dL (74-106); High Density Lipoprotein 57 mg/dL; Potassium 4.1 mmol/L (3.5-5.1); Sodium Level 141 mmol/L (136-145); Triglycerides 200 mg/dL; Very Low Density Lipoprotein 40 mg/dL (5-40)
== END | disposition home or self-care (01) ==
LOC: LAB 15:10
PROVIDERS: Internal Medicine Cardiovascular Disease; PCP Internal Medicine; Referring Provider Nurse Practitioner Gerontology; Visit Provider Nurse Practitioner Gerontology
DX: I71.20 Thoracic aortic aneurysm, without rupture, unspecified (principal); E78.5 Hyperlipidemia, unspecified
CPT/HCPCS: 36415; 80048; 80061

== ENCOUNTER → 2023-08-26 | Outpatient (CLI) | payer MEDICARE, SELFPAY ==
--- NOTE | 2023-08-26 13:59 | CT_ITS ---
STUDY: CTA CHEST REASON FOR EXAM: Female, 72 years old. Follow up CTA from 06/2021 4.2 Ascending Aorta -- Next available RADIATION DOSAGE (If Supplied By Facility): CTDIvol = ( 13.4 ) mGy, DLP = ( 567.8 ) mGycm TECHNIQUE: The examination was performed with the intravenous administration of IV 100mL Isovue-370. Post-processing of the angiographic images was performed, with multiplanar reformation and 3D reconstruction. Individualized dose optimization techniques were used for this CT. COMPARISON: Comparison is made with prior study dated June 14, 2022. FINDINGS: Normal enhancement of the main pulmonary artery and right and left pulmonary arteries. Normal enhancement of the bilateral peripheral pulmonary arteries. There is no demonstrated pulmonary embolism. There is aneurysmal dilatation of the ascending aorta. The transverse diameter of the ascending aorta measures 42 mm''s. This is unchanged. There is no demonstrated aortic dissection. Normal heart and pericardium. Normal mediastinum. Normal hilar regions. Normal visualized trachea and bronchi. The lungs are well expanded. Normal pulmonary parenchyma. Normal pleura. Normal chest wall structures. Dextroscoliosis. Degenerative changes of the thoracic spine. Status post bilateral shoulder replacement. There is evidence of a 4.1 cm x 8.3 cm lipoma in the right paralysis muscle. This was not well-seen on prior study due to the beam hardening artifact caused by the shoulder replacement. Normal visualized upper abdomen. CT/CTA Chest W/WO Contrast IMPRESSION: Stable examination. Electronically Signed: Mj Trevino MD at 8:50 EDT ,
== END | disposition home or self-care (01) ==
LOC: CT 13:53
PROVIDERS: PCP Internal Medicine; Referring Provider Internal Medicine Cardiovascular Disease; Visit Provider Internal Medicine Cardiovascular Disease
DX: I71.20 Thoracic aortic aneurysm, without rupture, unspecified (principal)
CPT/HCPCS: 71275; Q9967

== ENCOUNTER → 2023-10-20 | Outpatient (CLI) | payer MEDICARE, SELFPAY ==
[2023-10-20 16:43] LABS: Absolute Lymphocyte Count 1.81 X10^3/uL (0.83-4.51); Basophil# 0.07 X10^3/uL; Basophil% 0.9 % (0-1); Eosinophil# 0.31 X10^3/uL; Eosinophils% 3.8 % (0-5); Hematocrit 44.4 % (37-47); Hemoglobin 13.6 g/dL (12.0-15.0); Lymphocyte # 1.81 X10^3/ul (0.83-4.51); Lymphocyte % 22.4 % (19-41); Mean Corp Hgb Conc 30.6 g/dL (32-36); Mean Corpuscular Hgb 30.8 pg (27.0-32.0); Mean Corpuscular Volume 100.7 fL (81-99); Mean Platelet Vol. 11.5 fl (6.2-12.0); Monocyte# 0.85 X10^3/uL; Monocyte% 10.5 % (0-10); NRBC Flagged by Analyzer 0 % (0-5); Neutrophil # 4.99 X10^3/uL (2.7-7.7); Neutrophil % 61.9 % (47-70); Platelet Count 282 K/mm3 (150-450); RBC Distribution Width CV 13.2 % (11.6-14.6); RBC Distribution Width SD 49.1 fl (35.1-43.9); Red Blood Count 4.41 M/mm3 (4.2-5.4); White Blood Count 8.1 K/mm3 (4.4-11.0)
[2023-10-20 16:58] LABS: ALB/GLOB Ratio 1.1 RATIO (0.9-2.4); AST(SGOT) 12 U/L (15-37); Alanine Aminotransfer ALT/SGPT 17 U/L (13-56); Albumin, Serum 3.6 g/dL (3.2-5.0); Alkaline Phosphatase 84 U/L (45-117); Anion Gap 6 (5-15); BUN 19 mg/dL (7-18); BUN/Creat Ratio 17.9 RATIO (10-20); Calcium,Total 9.8 mg/dL (8.5-10.1); Chloride 110 mmol/L (98-107); Creatinine, Serum 1.06 mg/dL (0.55-1.02); EST Glomerular Filtration Rate 54 mL/min (>60); Est Glom Filt Rate - Afr Amer 65 mL/min (>60); Globulin 3.2 g/dL (2.2-4.2); Glucose 99 mg/dL (74-106); Potassium 3.8 mmol/L (3.5-5.1); Protein, Total 6.8 g/dL (6.4-8.2); Sodium Level 141 mmol/L (136-145)
[2023-10-20 17:03] LABS: Vitamin D,25 Hydroxy 56.7 ng/mL
== END | disposition home or self-care (01) ==
LOC: BIMLAB 14:55
PROVIDERS: PCP Internal Medicine; Visit Provider Internal Medicine
DX: I44.7 Left bundle-branch block, unspecified (principal); F41.9 Anxiety disorder, unspecified; F32.A Depression, unspecified; E78.5 Hyperlipidemia, unspecified; E55.9 Vitamin D deficiency, unspecified
CPT/HCPCS: 36415; 80053; 82306; 85025

== ENCOUNTER → 2023-10-24 | Outpatient (CLI) | payer MEDICARE, SELFPAY ==
--- NOTE | 2023-10-24 10:42 | RAD_ITS ---
STUDY: X-RAY - RIGHT KNEE REASON FOR EXAM: Female, 72 years old. Right knee injury TECHNIQUE: 4 view(s) of the knee. COMPARISON: None. FINDINGS: Normal visualized distal femur. Normal visualized proximal tibia and fibula. Normal proximal tibiofibular articulation. Normal medial femorotibial compartment. Normal lateral femorotibial compartment. Normal patellofemoral articulation. Diffuse soft tissue swelling. RAD/Knee 4 or More Views IMPRESSION: Diffuse soft tissue swelling. Electronically Signed: Mj Trevino MD at 11:22 EDT ,
== END | disposition home or self-care (01) ==
LOC: MTRAD 10:42
PROVIDERS: PCP Internal Medicine; Referring Provider Physician Assistant Surgical; Visit Provider Physician Assistant Surgical
DX: S80.01XA Contusion of right knee, initial encounter (principal); X58.XXXA Exposure to other specified factors, initial encounter
CPT/HCPCS: 73564

== ENCOUNTER → 2023-12-19 | Outpatient (CLI) | payer MEDICARE, SELFPAY ==
--- NOTE | 2023-12-19 13:26 | BI_ITS ---
MAMMOGRAPHY - BILATERAL SCREENING REASON FOR EXAM: Female, 73 years old. Routine annual screening examination. PERTINENT HISTORY: Non-contributory. TECHNIQUE: Digital bilateral breast mike (3D mammographic acquisition) in the CC and MLO projections. 2-D mediolateral oblique (MLO) and craniocaudad (CC) views of both breasts were obtained. CAD: Full Field Digital Mammography with Computer Added Detection was performed. COMPARISON: Comparison is made with prior study dated December 16, 2022 and November 21, 2019. FINDINGS: Breast Composition: There are scattered areas of fibroglandular density. There are no dominant masses or suspicious calcifications. Stable 5.2 cm x 10.8 cm fat-containing lipoma deep in the axillary region of the right breast. No other significant abnormalities are identified. There has been no significant change since the prior study. BI/SCRN MAMM (CAD)W/MIKE BILAT IMPRESSION: Stable bilateral screening mammogram. Yearly follow-up mammogram recommended. (A) ASSESSMENT CATEGORY: BIRADS Category 2: Benign. A letter regarding these results will be sent to the patient by the facility within 30 days. Approximately 10% of breast cancers are not detected by mammography. A normal mammogram should not delay biopsy of a clinically suspicious abnormality. [id number] Electronically Signed: Mj Trevino MD at 14:14 EDT ,
== END | disposition home or self-care (01) ==
PROVIDERS: PCP Internal Medicine; Referring Provider Internal Medicine; Visit Provider Internal Medicine
DX: Z12.31 Encounter for screening mammogram for malignant neoplasm of breast (principal)
CPT/HCPCS: 77063; 77067

== ENCOUNTER → 2024-01-20 | Outpatient (CLI) | payer MEDICARE, SELFPAY ==
[2024-01-20 17:25] LABS: Hemoglobin 14.3 g/dL (12.0-15.0); Mean Corp Hgb Conc 31.1 g/dL (32-36); Mean Corpuscular Hgb 30.2 pg (27.0-32.0); Platelet Count 305 K/mm3 (150-450); RBC Distribution Width CV 12.3 % (11.6-14.6); RBC Distribution Width SD 43.9 fl (35.1-43.9); Red Blood Count 4.74 M/mm3 (4.2-5.4); White Blood Count 12.8 K/mm3 (4.4-11.0)
[2024-01-20 17:42] LABS: Anion Gap 7 (5-15); BUN 24 mg/dL (7-18); Calcium,Total 9.8 mg/dL (8.5-10.1); Chloride 105 mmol/L (98-107); EST Glomerular Filtration Rate 57 mL/min (>60); Est Glom Filt Rate - Afr Amer 70 mL/min (>60); Glucose 82 mg/dL (74-106); Potassium 3.8 mmol/L (3.5-5.1); Sodium Level 139 mmol/L (136-145)
== END | disposition home or self-care (01) ==
LOC: MTLAB 14:34
PROVIDERS: PCP Internal Medicine; Referring Provider Urology; Visit Provider Urology
DX: N39.41 Urge incontinence (principal)
CPT/HCPCS: 36415; 80048; 85027

== ENCOUNTER 2024-01-22 07:23 | Day surgery (SDC) | payer MEDICARE, SELFPAY ==
--- NOTE | 2024-01-22 07:45 | PRE.ANES_ITS ---
ASA Classification* ASA Classification ASA Classification: 3 Assessment & Plan Anesthesia* Anesthesia Assessment Anesthesia Assessment: Discussed sedation and/or anesthesia options, risks, benefits, and alternatives with patient/parents/legal guardian/POA. Questions invited. The patient/parents/legal guardian/POA seems to understand and agrees to proceed with anesthesia plan. Reviewed the physical assessment, medical history, allergy history and patient home medications list prior to surgery/procedure/anesthetic and documented any changes. Performed airway and anesthesia risk assessments. Anesthesia Type Anesthesia Type: MAC (see written pre-anesthesia record for full assessment) Anesthesia Focused Assessment* Airway Assessment Mouth opens: >3 cm Mallampati Score: III Focused Labs Anesthesia Preop lab: CBC WBC 12.8 K/mm3 (4.4-11.0) H 01/20/24 14:36 RBC 4.74 M/mm3 (4.2-5.4) 01/20/24 14:36 Hgb 14.3 g/dL (12.0-15.0) 01/20/24 14:36 Hct 46.0 % (37-47) 01/20/24 14:36 Plt Count 305 K/mm3 (150-450) 01/20/24 14:36 CHEMISTRY Potassium 3.8 mmol/L (3.5-5.1) 01/20/24 14:36 Sodium 139 mmol/L (136-145) 01/20/24 14:36 BUN 24 mg/dL (7-18) H 01/20/24 14:36 Creatinine 1.00 mg/dL (0.55-1.02) 01/20/24 14:36 Glucose 82 mg/dL (74-106) 01/20/24 14:36 TSH 1.46 uIU/mL (0.358-3.74) 10/22/22 15:59 COAG PT 13.6 SECONDS (11.7-14.9) 01/12/20 18:10 Pre-Assessment Diagnosis/Proposed Procedure Planned Operative Procedure(s): AXONICS REMOVAL Anesthesia History Anesthesia History - home health care social worker: Anesthesia History - home health care social worker Hx Hospitalization No 01/13/24 13:11 Any Problems With Anesthesia No 01/13/24 13:11 Cholinesterase deficiency No 01/13/24 13:11 You/Your Family Experience No 01/13/24 13:11 fever (hyperthermia) with Relationship Recent Exposure to Contagious No 07/11/22 12:43 Disease Does patient have nerve No 01/13/24 13:11 stimulator Patient instructed to have device shut off --Does patient have Pacemaker or ICD? When Was Last Pacemaker Check QUESTION #4 FULL TEXT: You/Your Family Experience fever (hyperthermia) with Anesthesia Last Oral Intake Last Oral intake: Last Oral Intake NPO since Meds taken in AM with sips of water? 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 - home health care social worker: PONV - home health care social worker Female Yes 01/13/24 13:11 HX of Motion Sickness No 01/13/24 13:11 HX of N/V After Surgery No 01/13/24 13:11 Non-Smoker Yes 01/13/24 13:11 Duration of Surgery greater No 01/13/24 13:11 than 60 minutes Number of Risk Factors 2 01/13/24 13:11 PONV Score Moderate Risk 01/13/24 13:11 Height & Weight Height & Weight: Anesthesia: Height & Weight Height 5 ft 5 in 10/20/23 14:11 Respiratory Assessment Respiratory Assessment - home health care social worker: Respiratory Tract Infection Hx - home health care social worker Hx Respiratory Tract Infection No 01/13/24 13:11 STOP Sleep Apnea STOP Sleep Apnea - home health care social worker: STOP Sleep Apnea - home health care social worker Hx Hypertension Yes: CONTROLLED WITH MED 01/13/24 13:11 Hx Sleep Apnea No 01/13/24 13:11 CPAP BIPAP Do you snore loudly (louder No 01/13/24 13:11 than talking or can be heard Do you often feel tired/ No 01/13/24 13:11 fatigued/ sleepy during daytime? Has anyone observed you stop No 01/13/24 13:11 breathing during sleep? STOP Results Negative 01/13/24 13:11 QUESTION #5 FULL TEXT : Do you snore loudly (louder than talking or can be heard through closed doors)? 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 Specify any problems Hx of Preganancy in last 3 No 01/13/24 13:11 Months Nurse Filling Out Transfusion DSCHRIBER 01/13/24 13:11 & Questions: Date: 01/13/24 01/13/24 13:11 Time: 13:13 01/13/24 13:11 Patient unable to answer at this time (ie. confused, unrespo /Reproduction History /Reproductive History - home health care social worker: /Reproductive Hx- home health care social worker Hx Now No 01/13/24 13:11 Gestational Age (in weeks): EDC: Hx Hx Para Hx Section SAB No 01/13/24 13:11 Active Medications Active Medications: Current Medications Generic Name Dose Route Start Last Admin Trade Name Freq PRN Reason Stop Dose Admin Cefazolin Sodium 2 gm/ Sodium 110 mls @ 150 mls/hr 01/22/24 10:25 Chloride IV 01/22/24 11:08 PREOP ONE Lactated Ringer's 1,000 mls @ 15 mls/hr 01/22/24 07:45 IV .Q48H SAMINA PFSH Medical History Arthritis History of CHF (congestive heart failure) Bronchitis Acute otitis media, left Mass of right axilla Obesity (BMI 30-39.9) Nocturia Meniere disease Wears glasses Post-menopausal Alcohol use Ambulates with cane High cholesterol Back pain Gastric reflux Former smoker Shortness of breath on exertion History of stress test History of echocardiogram Cardiology follow-up encounter History of irregular heartbeat Hx of fracture of femur CHF (congestive heart failure) Osteoarthritis, shoulder Osteoporosis Health care maintenance Rectocele Anxiety and depression Encounter for preventative adult health care examination Cardiomyopathy Preop cardiovascular exam Chronic obstructive pulmonary disease Vitamin D deficiency Depression Overactive bladder GERD (gastroesophageal reflux disease) Chronic kidney disease Hyperlipidemia Fall Debility Morbid obesity due to excess calories Ulcer of ankle with necrosis of bone Ankle osteomyelitis, right Pressure sore of upper back Pressure sore of upper back Type I or II open fracture dislocation of right ankle CKD (chronic kidney disease) stage 3, GFR 30-59 ml/min Thoracic aortic aneurysm without rupture Essential hypertension Lumbar radiculopathy Chronic back pain Nocturnal enuresis Urgency incontinence Urinary urgency TIA (transient ischemic attack) Cataracts, bilateral LBBB (left bundle branch block) Hyperlipemia, mixed Obesity Osteoarthritis, knee Pulmonary nodule CKD (chronic kidney disease) Scoliosis Anxiety Arrhythmia Home Medications ?Medication ?Instructions ?Recorded ?Last Taken ?Type aspirin 81 mg tablet,delayed 81 mg PO DAILY Blood thinner 07/09/19 01/08/20 History release cholecalciferol (vitamin D3) 25 5,000 unit PO DAILY Supplement 01/19/20 Unknown History mcg (1,000 unit) tablet disability placard #1 ea 10/22/22 Unknown Rx vibegron 75 mg tablet (Gemtesa) 75 mg PO DAILY 02/20/23 Unknown History carvedilol 6.25 mg tablet 6.25 mg PO BID #180 tabs 07/17/23 Unknown Rx omeprazole 40 mg capsule,delayed 40 mg PO DAILY reflux #90 caps 11/18/23 Unknown Rx release theophylline 300 mg 300 mg PO Q12H breathing #180 tabs 11/19/23 Unknown Rx tablet,extended release,12 hr escitalopram oxalate 20 mg tablet 20 mg PO DAILY 01/13/24 Unknown History lisinopril 5 mg tablet 5 mg PO BID 01/13/24 Unknown History rosuvastatin 20 mg tablet 20 mg PO QHS 01/13/24 Unknown History Allergy/AdvReac Type Severity Reaction Status Date / Time sulfamethoxazole (From Allergy Severe Nausea, Verified 01/13/24 13:09 Bactrim) vomiting trimethoprim (From Bactrim) Allergy Severe Nausea, Verified 01/13/24 13:09 vomiting amlodipine (From Norvasc) Allergy Unknown swelling Verified 01/13/24 13:09 codeine Allergy Unknown rash Verified 01/13/24 13:09 hydrocodone Allergy Unknown rash Verified 01/13/24 13:09 memantine (From Namenda) Allergy Unknown mental fog Verified 01/13/24 13:09 naltrexone (From Vivitrol) Allergy Itching Verified 01/13/24 13:09 oxycodone (From OxyContin) Allergy Rash Verified 01/13/24 13:09 Family History Sister Diabetes Obesity Sleep apnea Mother Dementia Father Heart disease Surgical History H/O radiofrequency ablation (RFA) of nerve of lumbar spine Status post implantation of urinary electronic stimulator device Hx of surgical procedure History of shoulder replacement History of right shoulder replacement H/O right wrist surgery History of knee replacement H/O bladder repair surgery Carpal tunnel syndrome Femur fracture H/O colonoscopy Social History Smoking Status: Former smoker quit date: 06/09/01 Tobacco: How many years used: 35 alcohol intake: current alcohol intake frequency: 0-2 drinks per day Alcohol type: hard liquor substance use type: does not use caffeine: Yes Type: coffee Number of servings: 1 what type of physical activity do you participate in: none Review of Systems (Anesthesia) ROS Narrative System reviewed and no additional complaints, except as documented.
[2024-01-22 08:09] VITALS: BP 124/91; PULSE 72; RESP 18; TEMP 36.7; O2SAT 96; BMI 36.5
--- NOTE | 2024-01-22 09:05 | FORE_PTH ---
PATIENT: GAGAN MCCLELLAND LOC: [facility] [place] U#:[id number] AGE/SX: 73/F ROOM: RE01/22/[address]: Dr. Lynsey Boykin MD : 1950 BED: DIS: 01/22/2024 SPEC #: [id number] RECD: 01/22/24 09:45 STATUS: CHRISTIANNE REGerry #: [id number] EFRAIN: 01/22/24 09:[address]: Lynsey Boykin DEPT: SURGICAL PATHOLOGY RECD BY: Wendy Sanabria ENTERED: 01/22/24 11:29 SP TYPE: FOREIGN B OTHR DR: Dr. Roberto Cano MD Tissues: FOREIGN BODY Procedures: Surgery Specimen Level I HEADER OPERATION: Axonics removal PRE-OP DIAGNOSIS: Nocturia, urge incontinence, frequency of micturition, nocturnal enuresis, urinary tract infections, site not specified TISSUE SUBMITTED: Axonics GROSS DIAGNOSIS Metallic battery and wire (gross only). MICROSCOPIC DESCRIPTION Slides are reviewed. GROSS DESCRIPTION Received in fixative is one container labeled with the patient's name and designated Lauren. The specimen consists of a metallic battery measuring 5.0 x 4.0 x 0.5cm. Inscription on the battery shows [employer] [id number]. [id number]. Also present in the container are detached wire with plastic cover measuring 28.0cm in length and 0.1cm in diameter. The specimen is for gross identification only. NORA/ 01/22/2024 : CPT:07512
[2024-01-22 09:33] VITALS: BP 123/78; BP 124/91; PULSE 73; RESP 16; TEMP 37.2; O2SAT 94
[2024-01-22 09:39] VITALS: BP 124/91; BP 134/77; PULSE 68; RESP 16; O2SAT 92
[2024-01-22 09:44] VITALS: BP 122/76; BP 124/91; PULSE 68; RESP 16; TEMP 36.9; O2SAT 92
--- NOTE | 2024-01-22 09:44 | DCINST_ITS ---
Discharge Instructions Diet Discharge Diet: No restrictions Activity Discharge Activity: Return to Normal Activity and May Shower (Okay to shower in 2 days, pat to dry) Dressing / Incision Call your doctor if your incision/area has: Continuous Slow Oozing, Sudden Increased Bleeding, Increased Pain/ Swelling, Increased Redness, Foul Smelling Discharge and Swelling at the incision site Call your doctor if you observe: Fever of 101 or Higher, Inability to urinate and Inability to have a bowel movement Additional Dressing/Incision Instructions:: The incisions are covered in skin glue, do not pick or remove, allow it to fall off on its own. Follow Up Care Please Follow Up With: Lynsey Boykin MD When: The office will call her to make follow-up arrangements Test Results: Test results from this visit will be discussed in further detail at your follow- up appointment, if applicable. Discharge Plan Admission Attending Provider: Lynsey Boykin Primary Care Provider: Roberto Cano Instructions Print Language: Bengali Discharge Orders/Prescriptions Prescriptions: New tramadol 50 mg tablet 50 mg PO Q8H PRN (Reason: pain) 3 Days Qty: 10 0RF Continued aspirin 81 mg tablet,delayed release (DR/EC) 81 mg PO DAILY Patient Comments: states stopped for surgery Gemtesa 75 mg tablet 75 mg PO DAILY Patient Comments: take 1 tablet by mouth once daily (DME) disability eric See Rx Instructions .ROUTE .MEDSUPPLY Qty: 1 0RF Rx Instructions: As directed, Length of time: 5 years cholecalciferol (vitamin D3) 1,000 UNIT tablet 5,000 unit PO DAILY lisinopril 5 mg tablet 5 mg PO BID rosuvastatin 20 mg tablet 20 mg PO QHS escitalopram oxalate 20 mg tablet 20 mg PO DAILY carvedilol 6.25 mg tablet 6.25 mg PO BID Qty: 180 3RF Rx Instructions: must administer with a meal/food omeprazole 40 mg capsule,delayed release(DR/EC) 40 mg PO DAILY Qty: 90 3RF theophylline 300 mg tablet extended release 12 hr 300 mg PO Q12H Qty: 180 1RF Referrals / Follow Up: Roberto Cano MD [Primary Care Provider] - Disposition Disposition (needs filled in before D/C Order can be placed): Home, Self Care
--- NOTE | 2024-01-22 09:51 | PCM.OPRPT ---
Report of Operation Date of Procedure: 01/22/24 Pre-Operative Diagnosis: Urge incontinence Post-Operative Diagnosis: Same Surgery/Procedure Performed:: Removal of Axonics battery and lead Type of Anesthesia: MAC Specimen's removed: Axonics battery and lead Description of Procedure: The patient is a 73-year-old female with an indwelling Axonics unit for urge incontinence and it has not been working for her. She is here for removal. Informed consent was obtained. The patient was taken to the operating room and placed in a prone position on the operating room table. Anesthesia monitored the head, neck, airway, IV access and vital signs throughout the case. Once anesthesia was appropriately administered, the incision overlying the battery site and the lead insertion site were infiltrated with lidocaine. Incisions were made in both of these areas. Over the pocket site the incision was opened all the way down to the battery which was then grasped and pulled into the operative field. The lead was secured using a hemostat and the battery was removed with heavy scissors. The lead was then identified and the lead insertion site and brought out of the pocket site into the operative field. With constant tension, the entire lead was removed from the lead insertion site. Both incisions were irrigated with sterile water. The deep layers were closed with 3-0 Vicryl with interrupted sutures and the skin was closed with 4-0 Monocryl and then covered with skin glue. The patient was then awakened and taken to the recovery room in good condition. There were no complications during this procedure. Grafts/Implants Used: None Complications None Admit VTE Documentation VTE Present on Admission: Yes VTE Mechan Device Prophylaxis: SCD's VTE Pharm Prophylaxis ordered?: No Reason prophylaxis not ordered:: Treatment Not Indicated
[2024-01-22 10:00] VITALS: BP 123/78; PULSE 77; RESP 16; TEMP 36.9; O2SAT 92
--- NOTE | 2024-01-22 10:00 | PCM.POST.ANE ---
Anesthesia: Postop Eval I Current Vital Signs Temperature: 98.4 F Pulse Rate: 77 Blood Pressure: 123/78 Respiratory Rate: 16 Pulse Ox: 92 Oxygen Delivery Method: Room Air Assessment Airway patent: Yes Spontaneous unlabored respirations: Yes Mental status: Awake and Calm nausea: No Vomiting: No Anesthesia Complication: No Fluid Hydration Crystalloid volume administer (ml): 500 Total IV fluid infused: 500 Progress Note Anesthesia document: Postop Eval 1 completed: Yes
--- NOTE | 2024-01-22 10:01 | POSTOPAN2_ITS ---
Anesthesia Postop Eval I Sum Postop Eval Completion status Anesthesia document: Postop Eval 1 completed: Yes Anesthesia Postop Eval I Summary Anesthesia Postop Eval I Summary: Anesthesia Postop Eval I: Assessment Summary Airway patent Yes 01/22/24 10:00 CYANIDE POT HARDENER.MDOT Spontaneous unlabored Yes 01/22/24 10:00 CYANIDE POT HARDENER.MDOT respirations Mental status Awake,Calm 01/22/24 10:00 CYANIDE POT HARDENER.MDOT nausea No 01/22/24 10:00 CYANIDE POT HARDENER.MDOT Vomiting No 01/22/24 10:00 CYANIDE POT HARDENER.MDOT Anesthesia Postop Eval I: Fluid Summary Crystalloid volume administer 500 01/22/24 10:00 CYANIDE POT HARDENER.MDOT (ml) Colloids volume administered ( ml) Blood Product volume administered (ml) Total IV fluid infused 500 01/22/24 10:00 CYANIDE POT HARDENER.MDOT Anesthesia Postop Eval I: Summary Notes Anesthesia Complication No 01/22/24 10:00 CYANIDE POT HARDENER.MDOT Anesthesia Complication Comment: Post-operative progress note Anesthesia: Postop Eval II Evaluation Mental status: Awake and Calm Pain Level: 0 nausea: No Vomiting: No Complications Anesthesia Complication: No
--- NOTE | 2024-01-22 10:01 | PCM.POSTANE2 ---
Anesthesia Postop Eval I Sum Postop Eval Completion status Anesthesia document: Postop Eval 1 completed: Yes Anesthesia Postop Eval I Summary Anesthesia Postop Eval I Summary: Anesthesia Postop Eval I: Assessment Summary Airway patent Yes 01/22/24 10:00 RADIO TALK SHOW HOST.MDOT Spontaneous unlabored Yes 01/22/24 10:00 RADIO TALK SHOW HOST.MDOT respirations Mental status Awake,Calm 01/22/24 10:00 RADIO TALK SHOW HOST.MDOT nausea No 01/22/24 10:00 RADIO TALK SHOW HOST.MDOT Vomiting No 01/22/24 10:00 RADIO TALK SHOW HOST.MDOT Anesthesia Postop Eval I: Fluid Summary Crystalloid volume administer 500 01/22/24 10:00 RADIO TALK SHOW HOST.MDOT (ml) Colloids volume administered ( ml) Blood Product volume administered (ml) Total IV fluid infused 500 01/22/24 10:00 RADIO TALK SHOW HOST.MDOT Anesthesia Postop Eval I: Summary Notes Anesthesia Complication No 01/22/24 10:00 RADIO TALK SHOW HOST.MDOT Anesthesia Complication Comment: Post-operative progress note Anesthesia: Postop Eval II Evaluation Mental status: Awake and Calm Pain Level: 0 nausea: No Vomiting: No Complications Anesthesia Complication: No
[2024-01-22 10:28] VITALS: BP 124/91
== END 2024-01-22 10:37 | disposition home or self-care (01) ==
LOC: SDC 07:25 → AC 07:26
PROVIDERS: PCP Internal Medicine; Referring Provider Urology; Visit Provider Urology
PROC: (CPT 64585; principal; 2024-01-22 08:55)
DX: N39.41 Urge incontinence (principal); I11.0 Hypertensive heart disease with heart failure; I50.32 Chronic diastolic (congestive) heart failure; N32.81 Overactive bladder; E78.2 Mixed hyperlipidemia; Z79.82 Long term (current) use of aspirin; Z79.899 Other long term (current) drug therapy; Z86.73 Personal history of transient ischemic attack (TIA), and cerebral infarction without residual deficits; Z87.891 Personal history of nicotine dependence
CPT/HCPCS: 64585; 64595; 00400; 88300; J7120; J2405

== ENCOUNTER → 2024-04-01 | Outpatient (CLI) | payer MEDICARE, SELFPAY | END | disposition home or self-care (01) | PROVIDERS: PCP Internal Medicine; Referring Provider Urology; Visit Provider Urology | DX: N39.0 Urinary tract infection, site not specified (principal) | CPT/HCPCS: 87086; 87088 ==

== ENCOUNTER 2024-04-08 08:05 | Day surgery (SDC) | payer MEDICARE, SELFPAY ==
[2024-04-08] VITALS (9 sets, daily range): BP systolic 104–133; BP diastolic 72–89; PULSE 64–77; RESP 16–20; TEMP 36.6–36.9; O2SAT 87–94; BMI 36.3
--- NOTE | 2024-04-08 08:29 | PRE.ANES_ITS ---
ASA Classification* ASA Classification ASA Classification: 3 Assessment & Plan Anesthesia* Anesthesia Assessment Anesthesia Assessment: Discussed sedation and/or anesthesia options, risks, benefits, and alternatives with patient/parents/legal guardian/POA. Questions invited. The patient/parents/legal guardian/POA seems to understand and agrees to proceed with anesthesia plan. Reviewed the physical assessment, medical history, allergy history and patient home medications list prior to surgery/procedure/anesthetic and documented any changes. Performed airway and anesthesia risk assessments. Anesthesia Type Anesthesia Type: MAC Anesthesia Focused Assessment* Airway Assessment Mouth opens: >3 cm Mallampati Score: II Focused Labs Anesthesia Preop lab: CBC WBC 12.8 K/mm3 (4.4-11.0) H 01/20/24 14:36 RBC 4.74 M/mm3 (4.2-5.4) 01/20/24 14:36 Hgb 14.3 g/dL (12.0-15.0) 01/20/24 14:36 Hct 46.0 % (37-47) 01/20/24 14:36 Plt Count 305 K/mm3 (150-450) 01/20/24 14:36 CHEMISTRY Potassium 3.8 mmol/L (3.5-5.1) 01/20/24 14:36 Sodium 139 mmol/L (136-145) 01/20/24 14:36 BUN 24 mg/dL (7-18) H 01/20/24 14:36 Creatinine 1.00 mg/dL (0.55-1.02) 01/20/24 14:36 Glucose 82 mg/dL (74-106) 01/20/24 14:36 TSH 1.46 uIU/mL (0.358-3.74) 10/22/22 15:59 COAG PT 13.6 SECONDS (11.7-14.9) 01/12/20 18:10 Pre-Assessment Diagnosis/Proposed Procedure Planned Operative Procedure(s): Cysto, Bulkamid , excision labial cyst on left side Anesthesia History 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 When Was Last Pacemaker Check QUESTION #4 FULL TEXT: You/Your Family Experience fever (hyperthermia) with Anesthesia Last Oral Intake Last Oral intake: Last Oral Intake NPO since Meds taken in AM with sips of water? 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 Has anyone observed you stop No 04/01/24 13:19 breathing during sleep? STOP Results Negative 04/01/24 13:19 QUESTION #5 FULL TEXT : Do you snore loudly (louder than talking or can be heard through closed doors)? 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 Specify any problems Hx of Preganancy in last 3 N/A 04/01/24 13:19 Months Nurse Filling Out Transfusion NBUCHER 04/01/24 13:19 & Questions: Date: 04/01/24 04/01/24 13:19 Time: 13:20 04/01/24 13:19 Patient unable to answer at this time (ie. 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 Hx Now Gestational Age (in weeks): EDC: Hx Hx Para Hx Section SAB No 04/01/24 13:19 Active Medications Active Medications: Current Medications Generic Name Dose Route Start Last Admin Trade Name Freq PRN Reason Stop Dose Admin Cefazolin Sodium 2 gm/ N/A 20 mls @ 400 mls/hr 04/08/24 10:00 IV 04/08/24 10:02 PREOP ONE [facility] Medical History Arthritis History of CHF (congestive heart failure) Bronchitis Acute otitis media, left Mass of right axilla Obesity (BMI 30-39.9) Nocturia Meniere disease Wears glasses Post-menopausal Alcohol use Ambulates with cane High cholesterol Back pain Gastric reflux Former smoker Shortness of breath on exertion History of stress test History of echocardiogram Cardiology follow-up encounter History of irregular heartbeat Hx of fracture of femur CHF (congestive heart failure) Osteoarthritis, shoulder Osteoporosis Health care maintenance Rectocele Anxiety and depression Encounter for preventative adult health care examination Cardiomyopathy Preop cardiovascular exam Chronic obstructive pulmonary disease Vitamin D deficiency Depression Overactive bladder GERD (gastroesophageal reflux disease) Chronic kidney disease Hyperlipidemia Fall Debility Morbid obesity due to excess calories Ulcer of ankle with necrosis of bone Ankle osteomyelitis, right Pressure sore of upper back Pressure sore of upper back Type I or II open fracture dislocation of right ankle CKD (chronic kidney disease) stage 3, GFR 30-59 ml/min Thoracic aortic aneurysm without rupture Essential hypertension Lumbar radiculopathy Chronic back pain Nocturnal enuresis Urgency incontinence Urinary urgency TIA (transient ischemic attack) Cataracts, bilateral LBBB (left bundle branch block) Hyperlipemia, mixed Obesity Osteoarthritis, knee Pulmonary nodule CKD (chronic kidney disease) Scoliosis Anxiety Arrhythmia Home Medications ?Medication ?Instructions ?Recorded ?Last Taken ?Type aspirin 81 mg tablet,delayed 81 mg PO DAILY Blood thinner 07/09/19 01/21/24 History release cholecalciferol (vitamin D3) 25 5,000 unit PO DAILY Supplement 01/19/20 01/21/24 History mcg (1,000 unit) tablet disability placard #1 ea 10/22/22 Unknown Rx vibegron 75 mg tablet (Gemtesa) 75 mg PO DAILY 02/20/23 01/22/24 History carvedilol 6.25 mg tablet 6.25 mg PO BID #180 tabs 07/17/23 01/22/24 Rx omeprazole 40 mg capsule,delayed 40 mg PO DAILY reflux #90 caps 11/18/23 01/22/24 Rx release theophylline 300 mg 300 mg PO Q12H breathing #180 tabs 11/19/23 01/22/24 Rx tablet,extended release,12 hr escitalopram oxalate 20 mg tablet 40 mg PO DAILY 01/13/24 01/22/24 History rosuvastatin 20 mg tablet 20 mg PO QHS 01/13/24 01/21/24 History lisinopril 5 mg tablet 5 mg PO BID #180 tabs 03/29/24 Unknown Rx Allergy/AdvReac Type Severity Reaction Status Date / Time sulfamethoxazole (From Allergy Severe Nausea, Verified 04/01/24 13:16 Bactrim) vomiting trimethoprim (From Bactrim) Allergy Severe Nausea, Verified 04/01/24 13:16 vomiting amlodipine (From Norvasc) Allergy Unknown swelling Verified 04/01/24 13:16 codeine Allergy Unknown rash Verified 04/01/24 13:16 hydrocodone Allergy Unknown rash Verified 04/01/24 13:16 memantine (From Namenda) Allergy Unknown mental fog Verified 04/01/24 13:16 Sulfa (Sulfonamide Allergy Unknown PT UNSURE Verified 04/01/24 13:32 Antibiotics) OF REACTION vancomycin Allergy Unknown PT UNSURE Verified 04/01/24 13:32 OF REACTION naltrexone (From Vivitrol) Allergy Itching Verified 04/01/24 13:16 oxycodone (From OxyContin) Allergy Rash Verified 04/01/24 13:16 Family History Sister Diabetes Obesity Sleep apnea Mother Dementia Father Heart disease Surgical History H/O radiofrequency ablation (RFA) of nerve of lumbar spine Status post implantation of urinary electronic stimulator device Hx of surgical procedure History of shoulder replacement History of right shoulder replacement H/O right wrist surgery History of knee replacement H/O bladder repair surgery Carpal tunnel syndrome Femur fracture H/O colonoscopy Social History Smoking Status: Former smoker quit date: 06/09/01 Tobacco: How many years used: 35 alcohol intake: current alcohol intake frequency: 0-2 drinks per day Alcohol type: hard liquor substance use type: does not use caffeine: Yes Type: coffee Number of servings: 1 what type of physical activity do you participate in: none Review of Systems (Anesthesia) ROS Narrative System reviewed and no additional complaints, except as documented.
[2024-04-08] MEDS: Lactated Ringers 1,000 ML 15 ML IV (08:48)
--- NOTE | 2024-04-08 10:00 | CYST_PTH ---
PATIENT: GAGAN MCCLELLAND [place] [facility] [place][id number] AGE/SX: 73/F ROOM: RE04/08/[address]: Dr. Lynsey Boykin MD : [id number] BED: DIS: 04/08/2024 SPEC #: [id number] RECD: 04/08/24 11:06 STATUS: CHRISTIANNE REGerry #: [id number] EFRAIN: 04/08/24 10:[address]: Lynsey Boykin DEPT: SURGICAL PATHOLOGY RECD BY: Wendy Sanabria ENTERED: 04/08/24 12:14 SP TYPE: Cyst OTHR DR: Dr. Roberto Cano MD Tissues: CYST Procedures: Surgery Specimen Level III HEADER OPERATION: Excision labial cyst on left side PRE-OP DIAGNOSIS: Left labial cyst, intrinsic sphincter deficiency TISSUE SUBMITTED: Left labia cyst MICROSCOPIC DIAGNOSIS Left labia cyst, excision: Epidermal inclusion cyst. ONRA/ 04/09/2024 MICROSCOPIC DESCRIPTION Slides are reviewed. GROSS DESCRIPTION Received in fixative is one container labeled with the patient's name and designated Left labia cyst. The specimen consists of multiple pieces of topete-brown soft tissue in aggregate measuring 1.0 x 0.6 x 0.2cm. The entire specimen is submitted in one cassette. 04/08/2024 TC:5 CPT:06953
--- NOTE | 2024-04-08 10:10 | HP.PCM_ITS ---
HPI - General HPI Narrative GAGAN MCCLELLAND, is a 73 F who presents for cystoscopy with Bulkamid injection and excision of left labial cyst. Informed consent has been obtained. [facility]LY [facility] Medical History (Updated 04/08/24 @ 10:[address] Lynsey Boykin MD) Labial cyst LUIS FELIPE (stress urinary incontinence, female) Intrinsic sphincter deficiency Arthritis History of CHF (congestive heart failure) Bronchitis Acute otitis media, left Mass of right axilla Obesity (BMI 30-39.9) Nocturia Meniere disease Wears glasses Post-menopausal Alcohol use Ambulates with cane High cholesterol Back pain Gastric reflux Former smoker Shortness of breath on exertion History of stress test History of echocardiogram Cardiology follow-up encounter History of irregular heartbeat Hx of fracture of femur CHF (congestive heart failure) Osteoarthritis, shoulder Osteoporosis Health care maintenance Rectocele Anxiety and depression Encounter for preventative adult health care examination Cardiomyopathy Preop cardiovascular exam Chronic obstructive pulmonary disease Vitamin D deficiency Depression Overactive bladder GERD (gastroesophageal reflux disease) Chronic kidney disease Hyperlipidemia Fall Debility Morbid obesity due to excess calories Ulcer of ankle with necrosis of bone Ankle osteomyelitis, right Pressure sore of upper back Pressure sore of upper back Type I or II open fracture dislocation of right ankle CKD (chronic kidney disease) stage 3, GFR 30-59 ml/min Thoracic aortic aneurysm without rupture Essential hypertension Lumbar radiculopathy Chronic back pain Nocturnal enuresis Urgency incontinence Urinary urgency TIA (transient ischemic attack) Cataracts, bilateral LBBB (left bundle branch block) Hyperlipemia, mixed Obesity Osteoarthritis, knee Pulmonary nodule CKD (chronic kidney disease) Scoliosis Anxiety Arrhythmia Home Medications ?Medication ?Instructions ?Recorded ?Last Taken ?Type aspirin 81 mg tablet,delayed 81 mg PO DAILY Blood thinner 07/09/19 04/07/24 History release cholecalciferol (vitamin D3) 25 5,000 unit PO DAILY Supplement 01/19/20 04/07/24 History mcg (1,000 unit) tablet disability placard #1 ea 10/22/22 Unknown Rx vibegron 75 mg tablet (Gemtesa) 75 mg PO DAILY 02/20/23 04/07/24 History carvedilol 6.25 mg tablet 6.25 mg PO BID #180 tabs 07/17/23 04/08/24 Rx omeprazole 40 mg capsule,delayed 40 mg PO DAILY reflux #90 caps 11/18/23 04/08/24 Rx release theophylline 300 mg 300 mg PO Q12H breathing #180 tabs 11/19/23 04/07/24 Rx tablet,extended release,12 hr escitalopram oxalate 20 mg tablet 40 mg PO DAILY 01/13/24 04/08/24 History rosuvastatin 20 mg tablet 20 mg PO QHS 01/13/24 04/07/24 History lisinopril 5 mg tablet 5 mg PO BID #180 tabs 03/29/24 Unknown Rx Allergy/AdvReac Type Severity Reaction Status Date / Time sulfamethoxazole (From Allergy Severe Nausea, Verified 04/08/24 08:36 Bactrim) vomiting trimethoprim (From Bactrim) Allergy Severe Nausea, Verified 04/08/24 08:36 vomiting amlodipine (From Norvasc) Allergy Unknown swelling Verified 04/08/24 08:36 codeine Allergy Unknown rash Verified 04/08/24 08:36 hydrocodone Allergy Unknown rash Verified 04/08/24 08:36 memantine (From Namenda) Allergy Unknown mental fog Verified 04/08/24 08:36 Sulfa (Sulfonamide Allergy Unknown PT UNSURE Verified 04/08/24 08:36 Antibiotics) OF REACTION vancomycin Allergy Unknown PT UNSURE Verified 04/08/24 08:36 OF REACTION naltrexone (From Vivitrol) Allergy Itching Verified 04/08/24 08:36 oxycodone (From OxyContin) Allergy Rash Verified 04/08/24 08:36 Family History Sister Diabetes Obesity Sleep apnea Mother Dementia Father Heart disease Surgical History H/O radiofrequency ablation (RFA) of nerve of lumbar spine Status post implantation of urinary electronic stimulator device Hx of surgical procedure History of shoulder replacement History of right shoulder replacement H/O right wrist surgery History of knee replacement H/O bladder repair surgery Carpal tunnel syndrome Femur fracture H/O colonoscopy Social History Smoking Status: Former smoker quit date: 06/09/01 Tobacco: How many years used: 35 alcohol intake: current alcohol intake frequency: 0-2 drinks per day Alcohol type: hard liquor substance use type: does not use caffeine: Yes Type: coffee Number of servings: 1 what type of physical activity do you participate in: none ROS Constitutional Constitutional: Reports systems reviewed and no addt'l complaints, except as documented; Denies chills or fever(s) Eyes Eyes: Reports systems reviewed and no addt'l complaints, except as documented ENT HEENT: Reports systems reviewed and no addt'l complaints, except as documented Cardiovascular Cardiovascular: Denies abdominal pain, chest pain, dyspnea, fatigue, nausea or vomiting Respiratory/Chest Respiratory/Chest: Denies chest tightness, cough, dyspnea or tachypnea Gastrointestinal Gastrointestinal: Denies abdominal pain, nausea or vomiting Genitourinary Genitourinary: Reports urinary incontinence; Denies dysuria, flank pain or hematuria Musculoskeletal Musculoskeletal: Reports systems reviewed and no addt'l complaints, except as documented Integumentary Integumentary: Reports systems reviewed and no addt'l complaints, except as documented Neurologic Neurologic: Reports systems reviewed and no addt'l complaints, except as documen susanna Psychiatric Psychiatric: Reports systems reviewed and no addt'l complaints, except as documented Endocrine Endocrinology: Reports systems reviewed and no addt'l complaints, except as documented Hematologic/Lymphatic Hematologic/Lymphatic: Reports systems reviewed and no addt'l complaints, except as documented Allergic/Immunologic Allergic/Immunologic: Reports systems reviewed and no addt'l complaints, except as documented Vital Signs Vital Signs Vital Signs: 04/08/24 08:38 04/08/24 08:38 Temperature 97.8 F Temperature Source Temporal Pulse Rate 73 Respiratory Rate 20 H Respiratory Pattern Normal Blood Pressure 133/82 H Blood Pressure Mean 99 Blood Pressure Source Monitor Blood Pressure Position Semi-Fowlers Blood Pressure Location Left Arm Pulse Ox 94 Oxygen Delivery Method Room Air Weight Weight: 99 kg Body Mass Index (BMI) 36.3 Physical Exam Const alert, oriented x3 and no apparent distress HEENT normocephalic, head/scalp atraumatic, external ears normal, external nose normal and moist oral mucous membranes Eyes General Eye: normal appearance of both eyes Neck supple General: trachea midline Lymph Lymphatic: no lymphedema noted Chest inspection of chest normal Chest: symmetrical chest wall rise Resp normal respiratory effort, normal air movement and no retractions Cardio regular rate GI soft to palpation, non-tender and non-distended no CVA tenderness Back/Spine no CVA tenderness Extremity normal to inspection Skin no rashes or lesions noted, no jaundice, no petechiae and no mottling Neuro oriented x3, CN's II-XII intact bilaterally and moves all extremities Psych mental status grossly normal, thought process normal and cooperative Assessment & Plan Assessment/Plan (1) Intrinsic sphincter deficiency: (2) LUIS FELIPE (stress urinary incontinence, female): (3) Labial cyst: PLAN: Plan Proceed with intervention as scheduled with cystoscopy and Bulkamid injection, excision labial cyst informed consent was obtained
--- NOTE | 2024-04-08 10:14 | DCINST_ITS ---
Discharge Instructions Diet Discharge Diet: No restrictions Activity May shower in (days): 2 May resume sexual activity in: 4 weeks Dressing / Incision Call your doctor if your incision/area has: Continuous Slow Oozing, Sudden Increased Bleeding, Increased Pain/ Swelling, Increased Redness and Foul Smelling Discharge Call your doctor if you observe: Fever of 101 or Higher, Inability to urinate and Inability to have a bowel movement Follow Up Care Please Follow Up With: Lynsey Boykin MD When: The office will call to make follow-up arrangements. Test Results: Test results from this visit will be discussed in further detail at your follow- up appointment, if applicable. Discharge Plan Admission Attending Provider: Lynsey Boykin Primary Care Provider: Roberto Cano Instructions Print Language: Vietnamese Discharge Orders/Prescriptions Prescriptions: New tramadol 50 mg tablet 50 mg PO Q8H PRN (Reason: pain) 3 Days Qty: 10 0RF cephalexin 500 mg capsule 500 mg PO Q12 3 Days Qty: 6 0RF Continued aspirin 81 mg tablet,delayed release (DR/EC) 81 mg PO DAILY Patient Comments: states stopped for surgery Gemtesa 75 mg tablet 75 mg PO DAILY Patient Comments: take 1 tablet by mouth once daily (DME) disability placard See Rx Instructions .ROUTE .MEDSUPPLY Qty: 1 0RF Rx Instructions: As directed, Length of time: 5 years cholecalciferol (vitamin D3) 1,000 UNIT tablet 5,000 unit PO DAILY rosuvastatin 20 mg tablet 20 mg PO QHS escitalopram oxalate 20 mg tablet 40 mg PO DAILY carvedilol 6.25 mg tablet 6.25 mg PO BID Qty: 180 3RF Rx Instructions: must administer with a meal/food omeprazole 40 mg capsule,delayed release(DR/EC) 40 mg PO DAILY Qty: 90 3RF theophylline 300 mg tablet extended release 12 hr 300 mg PO Q12H Qty: 180 1RF lisinopril 5 mg tablet 5 mg PO BID Qty: 180 3RF Referrals / Follow Up: Roberto Cano MD [Primary Care Provider] - Disposition Disposition (needs filled in before D/C Order can be placed): Home, Self Care
[2024-04-08] MEDS: Cefazolin 2 GM in Syringe IV (10:17)
--- NOTE | 2024-04-08 10:18 | OP.PCM_ITS ---
Operative Report (Standard) Operative Information Surgery/Procedure Performed: Excision left labial cyst, cystoscopy with Bulkamid injection Surgeon: Lynsey Boykin Date of Procedure: 04/08/24 Procedure Start Time: :32 Procedure Stop Time: 10:48 Pre-Operative Diagnosis: Left labial cyst, intrinsic sphincter deficiency, stress urinary incontinence Post-Operative Diagnosis: Same Select all DRAINS/GRAFTS/IMPLANTS that apply: None (Bulkamid) Type of Anesthesia: General Estimated Blood Loss: 5 cc Specimen collected: Yes Description of specimen(s) removed: Left labia cyst Description of surgery: The patient is a 73-year-old female with intrinsic sphincter deficiency and stress urinary incontinence along with a sebaceous cyst of the left labia. She presents for cystoscopy with Bulkamid injection as well as excision of her cyst. Informed consent was obtained. She was taken to the operating room and placed on the operating room table. Anesthesia monitored the head, neck, airway, IV access and vital signs throughout the case. Once anesthesia was appropriate ministered she was positioned into dorsolithotomy and was prepped and draped in usual sterile fashion. The area surrounding the sebaceous cyst was injected with lidocaine. Using a knife a skin incision was made. Dissection around the cyst was performed using Metzenbaum scissors. The cyst in its entirety was removed. 4 interrupted chromic sutures were placed for hemostatic control. Bacitracin was then applied. Her bladder was emptied with a red rubber catheter. Using the Bulkamid cystoscope and sheath, the apparatus was inserted through the urethra under direct visualization to the bladder neck. The needle was advanced to 2 cm and the whole apparatus was retracted 2 cm. Then needle bevel side medial was then used to inject one half of a syringe full of Bulkamid submucosally at the 7 o'clock position. This process was then repeated at the 5:00, 1:00 and 11:00 positions. The urethra appeared to be well coapted at the end of the procedure. The cystoscope was removed and she was awakened and taken to the recovery room in good condition. There were no complications during the procedure. 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
[2024-04-08] MEDS: Lidocaine 1% /Epi 1:100 (20ml) 20 ML Vial (10:30)
--- NOTE | 2024-04-08 11:02 | PCM.POST.ANE ---
Anesthesia: Postop Eval I Current Vital Signs Temperature: 98.5 F Pulse Rate: 77 Blood Pressure: 104/82 Respiratory Rate: 16 Pulse Ox: 90 Oxygen Delivery Method: Room Air Assessment Airway patent: Yes Spontaneous unlabored respirations: Yes Mental status: Awake nausea: No Vomiting: No Anesthesia Complication: No Fluid Hydration Crystalloid volume administer (ml): 1,000 Total IV fluid infused: 1,000 Progress Note Anesthesia document: Postop Eval 1 completed: Yes
--- NOTE | 2024-04-08 11:02 | PCM.POSTANE2 ---
Anesthesia Postop Eval I Sum Postop Eval Completion status Anesthesia document: Postop Eval 1 completed: Yes Anesthesia Postop Eval I Summary Anesthesia Postop Eval I Summary: Anesthesia Postop Eval I: Assessment Summary Airway patent Yes 04/08/24 11:02 Spontaneous unlabored Yes 04/08/24 11:02 respirations Mental status Awake 04/08/24 11:02 nausea No 04/08/24 11:02 Vomiting No 04/08/24 11:02 Anesthesia Postop Eval I: Fluid Summary Crystalloid volume administer 1,000 04/08/24 11:02 (ml) Colloids volume administered ( ml) Blood Product volume administered (ml) Total IV fluid infused 1,000 04/08/24 11:02 Anesthesia Postop Eval I: Summary Notes Anesthesia Complication No 04/08/24 11:02 Anesthesia Complication Comment: Post-operative progress note Anesthesia: Postop Eval II Evaluation Mental status: Awake Pain Level: 0 nausea: No Vomiting: No
--- NOTE | 2024-04-08 11:16 | PCM.POSTANE2 ---
Anesthesia Postop Eval I Sum Postop Eval Completion status Anesthesia document: Postop Eval 1 completed: Yes Anesthesia Postop Eval I Summary Anesthesia Postop Eval I Summary: Anesthesia Postop Eval I: Assessment Summary Airway patent Yes 04/08/24 11:02 Spontaneous unlabored Yes 04/08/24 11:02 respirations Mental status Awake 04/08/24 11:03 nausea No 04/08/24 11:03 Vomiting No 04/08/24 11:03 Anesthesia Postop Eval I: Fluid Summary Crystalloid volume administer 1,000 04/08/24 11:02 (ml) Colloids volume administered ( ml) Blood Product volume administered (ml) Total IV fluid infused 1,000 04/08/24 11:02 Anesthesia Postop Eval I: Summary Notes Anesthesia Complication No 04/08/24 11:02 Anesthesia Complication Comment: Post-operative progress note Anesthesia: Postop Eval II Evaluation Mental status: Awake Pain Level: 0 nausea: No Vomiting: No
== END 2024-04-08 12:47 | disposition home or self-care (01) ==
LOC: SDC 08:07 → AC 08:09
PROVIDERS: PCP Internal Medicine; Referring Provider Urology; Visit Provider Urology
PROC: 3E0K8GC Introduction of Other Therapeutic Substance into Genitourinary Tract, Via Natural or Artificial Opening Endoscopic (ICD-10-PCS; CPT 52287; principal; 2024-04-08 09:50)
DX: N36.42 Intrinsic sphincter deficiency (ISD) (principal); I13.0 Hypertensive heart and chronic kidney disease with heart failure and stage 1 through stage 4 chronic kidney disease, or unspecified chronic kidney disease; I50.9 Heart failure, unspecified; J44.9 Chronic obstructive pulmonary disease, unspecified; N18.30 Chronic kidney disease, stage 3 unspecified; N90.7 Vulvar cyst; L72.0 Epidermal cyst; E78.2 Mixed hyperlipidemia; Z87.891 Personal history of nicotine dependence; N39.3 Stress incontinence (female) (male); K21.9 Gastro-esophageal reflux disease without esophagitis; Z79.82 Long term (current) use of aspirin; Z79.899 Other long term (current) drug therapy; L53.8 Other specified erythematous conditions
CPT/HCPCS: 51715; 11421; 00910; 88304; A4216; J2405

== ENCOUNTER → 2024-06-08 | Outpatient (CLI) | payer MEDICARE, SELFPAY | END | disposition home or self-care (01) | LOC: PSN 13:15 | PROVIDERS: PCP Internal Medicine; Referring Provider Physician Assistant Medical; Visit Provider Physician Assistant Medical | DX: I48.0 Paroxysmal atrial fibrillation (principal); I48.92 Unspecified atrial flutter; R00.2 Palpitations | CPT/HCPCS: 93225; 93226 ==

== ENCOUNTER → 2024-07-28 | Outpatient (CLI) | payer MEDICARE, SELFPAY | END | disposition home or self-care (01) | LOC: SL 15:20 | PROVIDERS: PCP Internal Medicine; Referring Provider Nurse Practitioner Acute Care; Visit Provider Nurse Practitioner Acute Care | DX: R09.02 Hypoxemia (principal) | CPT/HCPCS: 94762 ==

== ENCOUNTER → 2024-08-11 | Outpatient (CLI) | payer MEDICARE, SELFPAY ==
[2024-08-11 18:14] LABS: ALB/GLOB Ratio 1.7 RATIO (0.9-2.4); AST(SGOT) 11 U/L (<=31); Alanine Aminotransfer ALT/SGPT 9 U/L (<=34); Albumin, Serum 4.1 g/dL (3.4-4.8); Alkaline Phosphatase 88 U/L (35-104); Anion Gap 12 (5-15); BUN 21 mg/dL (4-19); BUN/Creat Ratio 20.4 RATIO (10-20); Calcium,Total 9.8 mg/dL (7.6-11.0); Carbon Dioxide 23.7 mmol/L (21.0-32.0); Chloride 106 mmol/L (98-108); Creatinine, Serum 1.05 mg/dL (0.70-1.20); EST Glomerular Filtration Rate 55 (>60); Globulin 2.5 g/dL (2.2-4.2); Glucose 113 mg/dL (70-99); Protein, Total 6.6 g/dL (5.9-8.4); Sodium Level 142 mmol/L (133-145); Vitamin D,25 Hydroxy 82.8 ng/mL (30-100)
[2024-08-11 19:43] LABS: Cholesterol 160 mg/dL (<=200); High Density Lipoprotein 67 mg/dL; Low Density Lipoprotein Calc. 64 mg/dL; Triglycerides 145 mg/dL; Very Low Density Lipoprotein 29 mg/dL (5-40)
[2024-08-12 09:55] LABS: Absolute Lymphocyte Count 1.59 X10^3/uL (0.83-4.51); Absolute Neutrophil Count 6.6 X10^3/uL (2.0-7.7); Basophil# 0.07 X10^3/uL; Basophil% 0.7 % (0-1); Eosinophil# 0.22 X10^3/uL; Eosinophils% 2.4 % (0-5); Hematocrit 45.3 % (37-47); Hemoglobin 14.3 g/dL (12.0-15.0); Lymphocyte # 1.59 X10^3/ul (0.83-4.51); Mean Corp Hgb Conc 31.6 g/dL (32-36); Mean Corpuscular Hgb 31.8 pg (27.0-32.0); Mean Corpuscular Volume 100.9 fL (81-99); Mean Platelet Vol. 11.2 fl (6.2-12.0); Monocyte# 0.79 X10^3/uL; Monocyte% 8.4 % (0-10); NRBC Flagged by Analyzer 0 % (0-5); Neutrophil # 6.63 X10^3/uL (2.7-7.7); Neutrophil % 70.9 % (47-70); Platelet Count 261 K/mm3 (150-450); RBC Distribution Width CV 13.2 % (11.6-14.6); RBC Distribution Width SD 49.1 fl (35.1-43.9); Red Blood Count 4.49 M/mm3 (4.2-5.4); White Blood Count 9.4 K/mm3 (4.4-11.0)
== END | disposition home or self-care (01) ==
LOC: BIMLAB 15:36
PROVIDERS: PCP Internal Medicine; Referring Provider Internal Medicine; Visit Provider Internal Medicine
DX: M81.0 Age-related osteoporosis without current pathological fracture (principal); I10 Essential (primary) hypertension
CPT/HCPCS: 36415; 80053; 80061; 82306; 85025

== ENCOUNTER → 2025-04-08 | Outpatient (CLI) | payer MEDICARE, SELFPAY ==
--- NOTE | 2025-04-08 14:13 | RAD_ITS ---
PROCEDURE: RAD/L/S Spine w Bend Min 6 Vw
== END | disposition home or self-care (01) ==
LOC: MTRAD 14:09
PROVIDERS: PCP Internal Medicine; Referring Provider Clinical Nurse Specialist Adult Health; Visit Provider Clinical Nurse Specialist Adult Health
DX: M51.369 Other intervertebral disc degeneration, lumbar region without mention of lumbar back pain or lower extremity pain (principal)
CPT/HCPCS: 72114

== ENCOUNTER → 2025-04-22 | Outpatient (CLI) | payer MEDICARE, SELFPAY ==
--- NOTE | 2025-04-22 13:10 | CT_ITS ---
PROCEDURE: CTA CHEST W/WO CONTRAST 04/22/2025 REASON FOR EXAM: ASCENDING AORTIC ANEURYSM HISTORY TECHNIQUE: Procedure Code: [id number] Modality: CT Procedure: CTA CHEST W/WO CONTRAST Multiplanar Sagittal and Coronal images were obtained. MIP images were utilized. CONTRAST: Isovue 370 VOLUME: 99 mL One or more dose reduction techniques were used (e.g., Automated exposure control, adjustment of the mA and/or kV according to patient size, use of iterative reconstruction technique). RADIATION DOSE SUMMARY: CTDlvol: 11+ 14 mGy DLP: 522 mGycm COMPARISON: 08/27/2023. 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 Degenerative changes of the visualized spine. Severe dextroscoliosis. The esophagus is normal in caliber. The visualized upper abdomen is unremarkable. No mediastinal lymphadenopathy. No coronary artery calcifications. The ascending thoracic aorta measures 4.2 cm (unchanged). Mild atherosclerosis of the thoracic aorta. The thoracic aorta and proximal abdominal aorta are tortuous. No pulmonary artery filling defects. The lungs are clear. CT/CTA Chest W/WO Contrast IMPRESSION: Stable ascending thoracic aortic ectasia measuring 4.2 cm, unchanged from prior comparison. No evidence of aortic dissection or aneurysmal progression. No pulmonary embolism. No acute intrathoracic abnormality. Reading Location: [id number]
== END | disposition home or self-care (01) ==
LOC: CVS 12:48 → CT 12:58
PROVIDERS: PCP Internal Medicine; Referring Provider Nurse Practitioner Family; Visit Provider Nurse Practitioner Family
DX: I50.32 Chronic diastolic (congestive) heart failure (principal); I11.0 Hypertensive heart disease with heart failure; I71.21 Aneurysm of the ascending aorta, without rupture
CPT/HCPCS: 71275; Q9967